=== PATIENT | male | born 1930 | race Caucasian/White ===

== ENCOUNTER → 2016-10-18 | Outpatient (CLI) | payer MEDICARE, BC ==
--- NOTE | 2016-10-18 14:57 | CT ---
EXAMINATION TYPE: CT brain wo con DATE OF EXAM: 10/18/2016 COMPARISON: NONE HISTORY: Headache and high blood pressure. CT DLP: 1121.[address] of the brain was performed. The ventricles, basal cisterns and sulci overlying the cerebral convexities demonstrate mild enlargem ent. There is no evidence for intracranial hemorrhage or sulcal effacement. There is decreased attenuation about the periventricular white matter and deep white matter of both c erebral hemispheres, compatible with chronic small vessel ischemia. Differential diagnosis does inclu de demyelination. No mass effects are seen.No midline shift. Osseous calvarium is intact. If symptoms persist consider MRI. IMPRESSION: 1. Age related atrophic and chronic small vessel ischemic change without acute intracranial process s een at this time.
== END | disposition home or self-care (01) ==
LOC: RADCTMAIN 14:30
PROVIDERS: ATTEND Family Medicine
DX: G31.1 Senile degeneration of brain, not elsewhere classified (principal); I67.82 Cerebral ischemia
CPT/HCPCS: 36415; 70450; 84484

== ENCOUNTER → 2016-10-30 | Outpatient (CLI) | payer MEDICARE, BC ==
--- NOTE | 2016-10-30 22:55 | US ---
EXAMINATION TYPE: US carotid duplex BILAT DATE OF EXAM: 10/30/2016 COMPARISON: NONE CLINICAL HISTORY: 85-year-old male E78.5 hyperlipidemia. TECHNIQUE: Carotid duplex ultrasound examination. Indirect Doppler criteria was utilized. FINDINGS: EXAM MEASUREMENTS: RIGHT: Peak Systolic Velocity (PSV) cm/sec ----- Right CCA: 59.8 ----- Right ICA: 64.5 ----- Right ECA: 108.2 ICA/CCA ratio: 1.1 RIGHT: End Diastole cm/sec ----- Right CCA: 13.6 ----- Right ICA: 23.2 ----- Right ECA: 12.4 LEFT: Peak Systolic Velocity (PSV) cm/sec ----- Left CCA: 49.3 ----- Left ICA: 76.4 ----- Left ECA: 86.7 ICA/CCA ratio: 1.5 LEFT: End Diastole cm/sec ----- Left CCA: 16.6 ----- Left ICA: 26.4 ----- Left ECA: 12.7 VERTEBRALS (direction of flow): Right Vertebral: Antegrade Left Vertebral: Antegrade Moderate plaque with no significant velocity elevations. IMPRESSION: No hemodynamically significant stenosis appreciated in either internal carotid artery. Criteria for Assigning % of Stenosis / Diameter reduction (Estimation based on the indirect measurements of the internal carotid artery velocities (ICA PSV). 1. Normal (no stenosis)=ICA PSV < 125 cm/s: ratio < 2.0: ICA EDV<40 cm/s. 2. Less than 50% stenosis=ICA PSV < 125 cm/s: ratio < 2.0: ICA EDV<40 cm/s. 3. 50 to 69% stenosis=ICA PSV of 125 to 230 cm/s: ration 2.0 ? 4.0: ICA EDV 40-100 cm/s. 4. Greater than 70% stenosis to near occlusion= ICA PSV > 230 cm/s: ratio > 4.0: ICA EDV > 100 cm/s. 5. Near occlusion= ICA PSV velocities may be low or undetectable: variable ratio and ICA EDV. 6. Total occlusion=unable to detect flow.
== END ==
LOC: RADUSWWP 15:52
PROVIDERS: ATTEND Family Medicine
DX: E78.5 Hyperlipidemia, unspecified (principal)
CPT/HCPCS: 93880

== ENCOUNTER → 2020-01-26 | Outpatient (CLI) | payer MEDICARE, BC ==
--- NOTE | 2020-01-26 16:24 | CT ---
EXAMINATION TYPE: CT abdomen pelvis wo con, CT ChestAbdPelvis w con DATE OF EXAM: 01/26/2020 COMPARISON: CTA abdominal aorta 11/18/2015 HISTORY: Blood in stool, fatigue and anemia CT DLP: 2046 mGycm Automated exposure control for dose reduction was used. TECHNIQUE: CT axial imaging of the abdomen and pelvis performed from the lung bases through the pelv is without intravenous contrast. CT axial imaging of the chest, abdomen, and pelvis performed with ad ministration of intravenous contrast from the lung apices through the pelvis. Coronal and sagittal re formatted images. CONTRAST: Performed with Oral Contrast and with IV Contrast, patient injected with 100 ml mL of Isovue 300. FINDINGS: LUNGS: Lungs are grossly clear. No concerning parenchymal mass or nodule identified. Perifissural fla t 3 mm nodule of the right lower lobe (9:33, 11:84) and is likely perifissural lymph node. Large calc ified nodule of the left lower lobe is unchanged versus 11/18/2015. Perifissural left lower lobe trian gular shaped 3 mm nodule (9:29, 11:42) is also likely a perifissural lymph node. Scattered calcified granulomas. No pleural effusion. No pneumothorax. The tracheobronchial tree is patent. MEDIASTINUM/SOFT TISSUES: No axillary, hilar, or mediastinal lymphadenopathy greater than 1 cm. Lilia l valve prosthesis. Enlarged left atrium of the heart. Calcified coronary artery disease. No pericard ial effusion. No thoracic aortic aneurysm. Calcified and noncalcified atherosclerotic disease. LIVER: Left hepatic cyst (4:15) measures 1.1 cm. Left liver segment 2 demonstrates arterially enhanci ng 0.8 cm focus (8:50, 11:61, 10:25), which is isodense on 3 minute delayed imaging, likely represent ing peripheral vascular shunting. BILIARY SYSTEM: Status post cholecystectomy. No intrahepatic or extrahepatic biliary ductal dilatatio n. PANCREAS: Normal. SPLEEN: Calcified granulomas. ADRENALS: Normal. KIDNEYS: No hydronephrosis. Calcifications bilaterally appear vascular. No definitive nephrolithiasis . Left renal cyst. BOWEL: No obstruction, inflammation, or thickening. Minimal colonic diverticulosis. No acute diverti culitis. PERITONEUM: No pneumoperitoneum. No free fluid. Bilateral fat-containing inguinal hernias. LYMPH NODES: No lymphadenopathy. PELVIS: Large 2.1 x 2.3 cm bladder calculus seen dependently within the right urinary bladder. Additi onal punctate layering bladder calculi are seen (8:106). There is no bladder wall thickening or peric ystic inflammation. Markedly enlarged prostate measuring approximately 3.7 x 6.1 x 5.3 cm. VASCULATURE: There is a redemonstrated infrarenal abdominal aortic aneurysm, which has increased in size, currently measuring up to 4.3 x 4.6 cm AP and transverse (8:80), previously 3.7 x 3.7 cm on 10/24 comparison. MUSCULOSKELETAL: Sternotomy wires. Decreased osseous mineralization. Degenerative changes of the spi ne. Mild superior endplate compression deformity of L1 is unchanged versus 2016 CT comparison. IMPRESSION: 1. No evidence of bowel obstruction or inflammation to explain patient's blood in stool. 2. Interval increase in size of infrarenal abdominal aortic aneurysm. Currently measures 4.3 x 4.6 cm AP and transverse, previously 3.7 x 3.7 cm on 11/18/2015. 3. Urinary bladder 2.3 cm calculus, with layering additional punctate bladder calculi. 4. Marked prostatomegaly. 5. Additional nonacute findings as above.
== END | disposition home or self-care (01) ==
LOC: RADCTMAIN 10:39
PROVIDERS: ATTEND Family Medicine
DX: I71.4 Abdominal aortic aneurysm, without rupture (principal); N21.0 Calculus in bladder; N40.0 Benign prostatic hyperplasia without lower urinary tract symptoms; R91.1 Solitary pulmonary nodule; I51.7 Cardiomegaly; I25.10 Atherosclerotic heart disease of native coronary artery without angina pectoris; K76.89 Other specified diseases of liver; N28.1 Cyst of kidney, acquired; K57.30 Diverticulosis of large intestine without perforation or abscess without bleeding; K40.20 Bilateral inguinal hernia, without obstruction or gangrene, not specified as recurrent; Z90.49 Acquired absence of other specified parts of digestive tract
CPT/HCPCS: 82565; 84520; 71260; 74176; 74177; 36415; Q9967

== ENCOUNTER 2020-04-04 18:11 | Inpatient (IN) | payer MEDICARE, BC ==
[2020-04-04] MEDS ORDERED: PANTOPRAZOLE 40 MG/10 ML VIAL IVP STA (18:34)
--- NOTE | 2020-04-04 18:36 | ED ---
General Adult HPI - General Chief complaint: Recheck/Abnormal Lab/Rx Stated complaint: Low hemoglobin Time Seen by Provider: 04/04/20 18:22 Source: patient, family, RN notes reviewed Mode of arrival: ambulatory Limitations: no limitations - History of Present Illness Initial comments: Patient is a pleasant 89-year-old male presenting to the emergency Department with reported low hemoglobin. Patient had routine blood work done by his doctor and was called with results of low hemoglobin. Patient states he has been having dark stools recently however this has improved. Patient states he has been having some fatigue and exertional dyspnea. These symptoms have been occurring for weeks. Patient is on blood thinners for history of heart valve. - Related Data Home Medications Medication Instructions Recorded Confirmed Aspirin 81 mg PO Q48H 11/04/15 04/04/20 Atenolol [Tenormin] 50 mg PO HS 04/04/20 04/04/20 Atorvastatin [Lipitor] 40 mg PO HS 04/04/20 04/04/20 Losartan Potassium 100 mg PO DAILY 04/04/20 04/04/20 Omeprazole 40 mg PO DAILY 04/04/20 04/04/20 Warfarin Sodium [Jantoven] 3 mg PO Q48H 04/04/20 04/04/20 Warfarin Sodium [Jantoven] 5 mg PO Q48H 04/04/20 04/04/20 amLODIPine [Norvasc] 10 mg PO DAILY 04/04/20 04/04/20 hydroCHLOROthiazide [Hydrodiuril] 25 mg PO DAILY 04/04/20 04/04/20 Allergies Allergy/AdvReac Type Severity Reaction Status Date / Time No Known Allergies Allergy Verified 04/04/20 19:22 Review of Systems ROS Statement: Those systems with pertinent positive or pertinent negative responses have been documented in the HPI. ROS Other: All systems not noted in ROS Statement are negative. Constitutional: Denies: fever Eyes: Denies: eye pain ENT: Denies: ear pain Respiratory: Reports: as per HPI. Denies: cough Cardiovascular: Denies: chest pain Endocrine: Reports: fatigue Gastrointestinal: Denies: abdominal pain Genitourinary: Denies: dysuria Musculoskeletal: Denies: back pain Skin: Denies: rash Neurological: Denies: weakness Past Medical History Past Medical History: Vascular Disorder Additional Past Medical History / Comment(s): irreg hr History of Any Multi-Drug Resistant Organisms: None Reported Additional Past Surgical History / Comment(s): valve replacement Past Anesthesia/Blood Transfusion Reactions: No Reported Reaction Past Psychological History: No Psychological Hx Reported Past Alcohol Use History: None Reported Past Drug Use History: None Reported - Past Family History Father Family Medical History: No Reported History Mother Family Medical History: No Reported History General Exam Limitations: no limitations General appearance: alert, in no apparent distress Head exam: Present: normocephalic Eye exam: Present: normal appearance Neck exam: Present: normal inspection Respiratory exam: Present: normal lung sounds bilaterally Cardiovascular Exam: Present: regular rate, normal rhythm, systolic murmur GI/Abdominal exam: Present: soft. Absent: tenderness Rectal exam: Present: normal inspection Extremities exam: Present: normal inspection Neurological exam: Present: alert Psychiatric exam: Present: normal affect, normal mood Skin exam: Present: normal color Course Vital Signs 04/04/20 18:17 Temperature 98.0 F Pulse Rate 64 Respiratory 16 Rate Blood Pressure 115/47 O2 Sat by Pulse 99 Oximetry Medical Decision Making - Medical Decision Making Patient reevaluated. Patient and family updated. Case discussed with Dr. Arias, covering for Dr. Lopez, who will admit. Case also discussed with gastroenterology, - Lab Data Result diagrams: 04/04/20 18:56 04/04/20 18:56 Lab Results 04/04/20 04/04/20 04/04/20 Range/Units 18:56 18:56 18:56 WBC 6.7 (3.8-10.6) k/uL RBC 2.66 L (4.30-5.90) m/uL Hgb 8.4 L (13.0-17.5) gm/dL Hct 24.5 L (39.0-53.0) % MCV 92.2 (80.0-100.0) fL MCH 31.6 (25.0-35.0) pg MCHC 34.3 (31.0-37.0) g/dL RDW 13.9 (11.5-15.5) % Plt Count 167 (150-450) k/uL MPV 8.8 Neutrophils % 76 % Lymphocytes % 15 % Monocytes % 7 % Eosinophils % 1 % Basophils % 0 % Neutrophils # 5.1 (1.3-7.7) k/uL Lymphocytes # 1.0 (1.0-4.8) k/uL Monocytes # 0.5 (0-1.0) k/uL Eosinophils # 0.0 (0-0.7) k/uL Basophils # 0.0 (0-0.2) k/uL Hypochromasia Slight Poikilocytosis Moderate PT 14.5 H (9.0-12.0) sec INR 1.4 H (<1.2) APTT 24.4 (22.0-30.0) sec Sodium (137-145) mmol/L Potassium (3.5-5.1) mmol/L Chloride (98-107) mmol/L Carbon Dioxide (22-30) mmol/L Anion Gap mmol/L BUN (9-20) mg/dL Creatinine (0.66-1.25) mg/dL Est GFR (CKD-EPI)AfAm (>60 ml/min/1.73 sqM) Est GFR (CKD-EPI)NonAf (>60 ml/min/1.73 sqM) Glucose (74-99) mg/dL Calcium (8.4-10.2) mg/dL Total Bilirubin (0.2-1.3) mg/dL AST (17-59) U/L ALT (4-49) U/L Alkaline Phosphatase (38-126) U/L Total Protein (6.3-8.2) g/dL Albumin (3.5-5.0) g/dL Stool Occult Blood Positive (Negative) Blood Type Blood Type Recheck Bld Type Recheck Status Antibody Screen Spec Expiration Date 04/04/20 04/04/20 Range/Units 18:56 18:56 WBC (3.8-10.6) k/uL RBC (4.30-5.90) m/uL Hgb (13.0-17.5) gm/dL Hct (39.0-53.0) % MCV (80.0-100.0) fL MCH (25.0-35.0) pg MCHC (31.0-37.0) g/dL RDW (11.5-15.5) % Plt Count (150-450) k/uL MPV Neutrophils % % Lymphocytes % % Monocytes % % Eosinophils % % Basophils % % Neutrophils # (1.3-7.7) k/uL Lymphocytes # (1.0-4.8) k/uL Monocytes # (0-1.0) k/uL Eosinophils # (0-0.7) k/uL Basophils # (0-0.2) k/uL Hypochromasia Poikilocytosis PT (9.0-12.0) sec INR (<1.2) APTT (22.0-30.0) sec Sodium 137 (137-145) mmol/L Potassium 3.4 L (3.5-5.1) mmol/L Chloride 103 (98-107) mmol/L Carbon Dioxide 25 (22-30) mmol/L Anion Gap 9 mmol/L BUN 36 H (9-20) mg/dL Creatinine 1.65 H (0.66-1.25) mg/dL Est GFR (CKD-EPI)AfAm 43 (>60 ml/min/1.73 sqM) Est GFR (CKD-EPI)NonAf 37 (>60 ml/min/1.73 sqM) Glucose 130 H (74-99) mg/dL Calcium 9.3 (8.4-10.2) mg/dL Total Bilirubin 1.0 (0.2-1.3) mg/dL AST 28 (17-59) U/L ALT 18 (4-49) U/L Alkaline Phosphatase 74 (38-126) U/L Total Protein 6.5 (6.3-8.2) g/dL Albumin 3.8 (3.5-5.0) g/dL Stool Occult Blood (Negative) Blood Type O Positive Blood Type Recheck O Pos Bld Type Recheck Status No Antibody Screen NEGATIVE Spec Expiration Date 04/07/20202355 Disposition Clinical Impression: GI hemorrhage Disposition: ADMITTED IP TO THIS HOSP Is patient prescribed a controlled substance at d/c from ED?: No Referrals: Murtaza Lopez MD [Primary Care Provider] - 1-2 days Decision Time: 19:54
[2020-04-04 19:08] LABS: Basophils % (A) 0 %; Eosinophils % (A) 1 %; HCT 24.5 % (39.0-53.0); HGB 8.4 gm/dL (13.0-17.5); Hypochromasia Slight; Lymphocytes % (A) 15 %; MCH 31.6 pg (25.0-35.0); MCHC 34.3 g/dL (31.0-37.0); MCV 92.2 fL (80.0-100.0); Mean Platelet Volume 8.8; Monocytes # (A) 0.5 k/uL (0-1.0); Monocytes % (A) 7 %; Neutrophils # (A) 5.1 k/uL (1.3-7.7); Neutrophils % (A) 76 %; Platelet Count 167 k/uL (150-450); Poikilocytosis Moderate; RBC 2.66 m/uL (4.30-5.90); RDW 13.9 % (11.5-15.5); WBC 6.7 k/uL (3.8-10.6)
[2020-04-04 19:16] LABS: INR 1.4 (<1.2); Partial Thromboplastin Time 24.4 sec (22.0-30.0); Prothrombin Time 14.5 sec (9.0-12.0)
[2020-04-04 19:21] LABS: Albumin 3.8 g/dL (3.5-5.0); Calcium 9.3 mg/dL (8.4-10.2); Potassium 3.4 mmol/L (3.5-5.1); Total Protein 6.5 g/dL (6.3-8.2)
[2020-04-04] MEDS ORDERED: NALOXONE 0.4 MG/ML 1 ML VIAL IV PRN (19:55)
[2020-04-04] MEDS: SODIUM CHLORIDE 0.9% 1,000 ML IV SCH (20:33)
[2020-04-04] MEDS: atenoloL 50 MG TAB PO SCH (22:10)
[2020-04-05] MEDS: SODIUM CHLORIDE 0.9% 1,000 ML IV SCH ×3 (05:15→20:58)
[2020-04-05 06:50] LABS: Basophils % (A) 0 %; Eosinophils # (A) 0.1 k/uL (0-0.7); Eosinophils % (A) 1 %; HCT 21.9 % (39.0-53.0); HGB 7.3 gm/dL (13.0-17.5); Hypochromasia Slight; Lymphocytes # (A) 0.9 k/uL (1.0-4.8); Lymphocytes % (A) 18 %; MCHC 33.4 g/dL (31.0-37.0); MCV 92.8 fL (80.0-100.0); Monocytes # (A) 0.3 k/uL (0-1.0); Monocytes % (A) 7 %; Neutrophils # (A) 3.8 k/uL (1.3-7.7); Neutrophils % (A) 73 %; Platelet Count 138 k/uL (150-450); Poikilocytosis Moderate; RBC 2.36 m/uL (4.30-5.90); RDW 13.8 % (11.5-15.5); WBC 5.2 k/uL (3.8-10.6)
[2020-04-05] MEDS: amLODIPine 10 MG TAB PO SCH (08:41)
[2020-04-05] MEDS: hydroCHLOROthiazide 25 MG TAB PO SCH (08:41)
[2020-04-05] MEDS: LOSARTAN 50 MG TAB PO SCH (08:42)
[2020-04-05] MEDS ORDERED: PANTOPRAZOLE 40 MG/10 ML VIAL IV SCH (09:00)
[2020-04-05 09:33] LABS: INR 1.42 (0.90-1.11); Prothrombin Time 14.9 sec (9.9-11.9)
[2020-04-05 10:11] LABS: African American GFR (CKD) 47.8 (60.0-200.0); Anion Gap 6.2 mmol/L (4.00-12.00); Calcium 8.4 mg/dL (8.7-10.3); Carbon Dioxide 26.8 mmol/L (21.6-31.8); Non-African American GFR(CKD) 41.3 (60.0-200.0); Potassium 3.5 mmol/L (3.5-5.5)
[2020-04-05] MEDS ORDERED: PANTOPRAZOLE 40 MG TABLET PO SCH (11:00)
[2020-04-05] MEDS ORDERED: PROPOFOL 10 MG/ML 20 ML VIAL IV ONE (13:18)
[2020-04-05] MEDS ORDERED: SODIUM CHLORIDE 0.9% 1,000 ML IV ONE (13:25)
[2020-04-05] MEDS ORDERED: PEG 3350-NA SULF,BICARB,CL/KCL 4,000 ML BOTTLE PO ONE (13:41)
--- NOTE | 2020-04-05 14:03 | P.CONS ---
History of Present Illness - Reason for Consult Consult date: 04/05/20 Anemia Requesting physician: Robbin Arias - Chief Complaint Abnormal lab - History of Present Illness 89-year-old male with a medical history significant for mechanical heart valve and prior balloon angioplasty for treatment of peripheral arterial disease who presented to the hospital for evaluation of abnormal labs. The patient had routine blood work performed in the outpatient setting and was told to come to the hospital or evaluation of anemia. Patient is on anti-coagulation therapy chronically for treatment of prior mitral valve replacement. INR found to be 1.4 on presentation. Hemoglobin 8.3 yesterday and 7.3 today. Patient denies any history of peptic ulcer disease. He denies any chronic use of nonsteroidal anti-inflammatory medications. He does feel that approximately a month ago he had a few days of dark colored bowel movements but since that time his had no further melena. He denies any abdominal pain. He denies any change in bowel habits. No prior colonoscopy reported. She does report approximately 10 pounds of weight loss over the past 6 months. Review of Systems REVIEW OF SYSTEMS: CONSTITUTIONAL: Denies any fevers, chills, but he does report 10 pounds of weight loss. CARDIOVASCULAR: Denies any chest pain, palpitations high or low blood pressures, known history of mechanical valve. RESPIRATORY: Denies any shortness of breath, hemoptysis or cough. GENITOURINARY: No dysuria or hematuria. MUSCULOSKELETAL: No weakness reported. SKIN: Denies any new rashes or lesions, jaundice or pallor. PSYCHIATRIC: Denies any depression or anxiety. NEUROLOGY: Denies headache, denies any new focal deficits. EARS/NOSE/THROAT: No recent hearing change, congestion, nasal discharge or sore throat. EYES: No pain in eyes, discharge or change in vision. GASTROINTESTINAL: As per HPI. Past Medical History Past Medical History: Vascular Disorder Additional Past Medical History / Comment(s): irreg hr History of Any Multi-Drug Resistant Organisms: None Reported Additional Past Surgical History / Comment(s): valve replacement Past Anesthesia/Blood Transfusion Reactions: No Reported Reaction Past Psychological History: No Psychological Hx Reported Smoking Status: Never smoker Past Alcohol Use History: None Reported Past Drug Use History: None Reported - Past Family History Father Family Medical History: No Reported History Mother Family Medical History: No Reported History Medications and Allergies Home Medications Medication Instructions Recorded Confirmed Type Aspirin 81 mg PO Q48H 11/04/15 04/04/20 History Atenolol [Tenormin] 50 mg PO HS 04/04/20 04/04/20 History Atorvastatin [Lipitor] 40 mg PO HS 04/04/20 04/04/20 History Losartan Potassium 100 mg PO DAILY 04/04/20 04/04/20 History Omeprazole 40 mg PO DAILY 04/04/20 04/04/20 History Warfarin Sodium [Jantoven] 3 mg PO Q48H 04/04/20 04/04/20 History Warfarin Sodium [Jantoven] 5 mg PO Q48H 04/04/20 04/04/20 History amLODIPine [Norvasc] 10 mg PO DAILY 04/04/20 04/04/20 History hydroCHLOROthiazide [Hydrodiuril] 25 mg PO DAILY 04/04/20 04/04/20 History Allergies Allergy/AdvReac Type Severity Reaction Status Date / Time No Known Allergies Allergy Verified 04/04/20 19:22 Physical Exam Vitals: Vital Signs Temp Pulse Pulse Resp BP BP Pulse Ox 04/05/20 12:17 74 14 91/46 90 L 04/05/20 07:39 98.2 F 63 18 94/57 91 L 04/05/20 03:33 96/53 96 04/05/20 02:00 98.8 F 70 18 89/74 91 L 04/04/20 21:27 16 98 04/04/20 20:02 97.8 F 64 16 100/55 98 04/04/20 18:17 98.0 F 64 16 115/47 99 Intake and Output 04/04/20 04/05/20 04/05/20 22:59 06:59 14:59 Intake Total 960 Balance 960 Intake: Intake, IV Titration 960 Amount Sodium Chloride 0.9% 1, 960 000 ml @ 120 mls/hr IV . Q8H20M [facility] Rx#:[id number] Other: Voiding Method Toilet # Voids 1 Weight 69.853 kg On physical examination, patient appears comfortable in no apparent distress. HEAD: Normocephalic, atraumatic. EYES: No scleral icterus. No conjunctival injection. MOUTH: No lesions, tongue midline. NECK: Trachea midline, no gross abnormalities. CHEST: Decreased air entry in all lung ayala. HEART: S1-S2 appreciated. ABDOMEN: Soft, thin and nontender. Bowel sounds are positive. No organomegaly. No guarding or rigidity. EXTREMITIES: No pedal edema. SKIN: No rashes, no jaundice. NEUROLOGIC: Alert and oriented x3. No focal deficits. Results CBC & Chem 7: 04/05/20 06:11 04/05/20 06:11 Labs: Abnormal Lab Results - Last 24 Hours (Table) 04/04/20 04/04/20 04/04/20 Range/Units 18:56 18:56 18:56 RBC 2.66 L (4.30-5.90) m/uL Hgb 8.4 L (13.0-17.5) gm/dL Hct 24.5 L (39.0-53.0) % Plt Count (150-450) k/uL Lymphocytes # (1.0-4.8) k/uL PT 14.5 H (9.0-12.0) sec INR 1.4 H (<1.2) Potassium 3.4 L (3.5-5.1) mmol/L BUN 36 H (9-20) mg/dL Creatinine 1.65 H (0.66-1.25) mg/dL Est GFR (CKD-EPI)AfAm (60.0-200.0) Est GFR (CKD-EPI)NonAf (60.0-200.0) BUN/Creatinine Ratio (12.00-20.00) Ratio Glucose 130 H (74-99) mg/dL Calcium (8.7-10.3) mg/dL Crossmatch 04/04/20 04/05/20 04/05/20 Range/Units 18:56 06:11 06:11 RBC 2.36 L (4.30-5.90) m/uL Hgb 7.3 L (13.0-17.5) gm/dL Hct 21.9 L (39.0-53.0) % Plt Count 138 L (150-450) k/uL Lymphocytes # 0.9 L (1.0-4.8) k/uL PT 14.9 H (9.0-12.0) sec INR 1.42 H (<1.2) Potassium (3.5-5.1) mmol/L BUN (9-20) mg/dL Creatinine (0.66-1.25) mg/dL Est GFR (CKD-EPI)AfAm (60.0-200.0) Est GFR (CKD-EPI)NonAf (60.0-200.0) BUN/Creatinine Ratio (12.00-20.00) Ratio Glucose (74-99) mg/dL Calcium (8.7-10.3) mg/dL Crossmatch See Detail 04/05/20 Range/Units 06:11 RBC (4.30-5.90) m/uL Hgb (13.0-17.5) gm/dL Hct (39.0-53.0) % Plt Count (150-450) k/uL Lymphocytes # (1.0-4.8) k/uL PT (9.0-12.0) sec INR (<1.2) Potassium (3.5-5.1) mmol/L BUN 33.0 H (9-20) mg/dL Creatinine (0.66-1.25) mg/dL Est GFR (CKD-EPI)AfAm 47.8 L (60.0-200.0) Est GFR (CKD-EPI)NonAf 41.3 L (60.0-200.0) BUN/Creatinine Ratio 22.00 H (12.00-20.00) Ratio Glucose (74-99) mg/dL Calcium 8.4 L (8.7-10.3) mg/dL Crossmatch CT scan - abdomen: report reviewed (Computed tomography scan of the abdomen from 01/2020 for follow-up of blood in stool significant for prostatomegaly, bladder calculus, abdominal aortic aneurysm with no acute intra-abdominal findings seen.) Assessment and Plan (1) Normocytic normochromic anemia Narrative/Plan: 89-year-old male with multiple medical comorbidities including prior mitral valve replacement on chronic anticoagulation therapy who presented to the hospital for evaluation of abnormal laboratory drawing outpatient setting and anemia. He believes he had a few days of melanotic stool month ago but has had no further dark colored stool. He denies any gross bleeding. He did have stool testing which was positive for occult blood with CT scanning evaluation in 01/2020 with findings of prostatomegaly, bladder calculus, abdominal aortic aneurysm with no acute intra-abdominal findings. No prior colonoscopy. He denies any frequent NSAID use. Unclear etiology, may represent upper GI patholo gy such as peptic ulcer disease, gastritis, AVM or other etiology or may represent lower GI pathology or anemia due to other pathology not related to GI blood loss Current Visit: Yes Status: Acute Code(s): D64.9 - ANEMIA, UNSPECIFIED SNOMED Code(s): 69645468 (2) Occult blood positive stool Current Visit: Yes Status: Acute Code(s): R19.5 - OTHER FECAL ABNORMALITIES SNOMED Code(s): 05665060 (3) Melena Current Visit: Yes Status: Acute Code(s): K92.1 - MELENA SNOMED Code(s): 9507276 Plan: Supportive care Nothing by mouth Continue to monitor hemoglobin and hematocrit and transfuse as needed Continue to hold anticoagulation therapy Continue Protonix therapy Plan for EGD for further evaluation If no pathology to explain anemia on EGD would recommend colonoscopy for further evaluation All of the risks, benefits and possible complications of the procedures including not performing the procedures and continuing with medical management have been explained to the patient at length with all his questions answered to his satisfaction Thank you for allowing us to participate in the care of the patient we will con sallie to follow
--- NOTE | 2020-04-05 14:06 | P.PCN ---
Date of Procedure: 04/05/20 Description of Procedure: BRIEF HISTORY: 89-year-old male with a medical history significant for mechanical heart valve and prior balloon angioplasty for treatment of peripheral arterial disease who presented to the hospital for evaluation of abnormal labs. The patient had routine blood work performed in the outpatient setting and was told to come to the hospital or evaluation of anemia. Patient is on anti-coagulation therapy chronically for treatment of prior mitral valve replacement. INR found to be 1.4 on presentation. Hemoglobin 8.3 yesterday and 7.3 today. Patient denies any history of peptic ulcer disease. He denies any chronic use of nonsteroidal anti-inflammatory medications. He does feel that approximately a month ago he had a few days of dark colored bowel movements but since that time his had no further melena. He denies any abdominal pain. He denies any change in bowel habits. No prior colonoscopy reported. She does report approximately 10 pounds of weight loss over the past 6 months. PROCEDURE PERFORMED: Esophagogastroduodenoscopy with biopsy. PREOPERATIVE DIAGNOSIS: Anemia, melena, stool positive for occult blood. ESTIMATED BLOOD LOSS: Minimal. IV sedation per anesthesia. PROCEDURE: After informed consent was obtained, the patient was brought into the endoscopy unit. IV sedation was administered by Anesthesia under continuous monitoring. Initially the Olympus GIF-190 video endoscope was inserted into the mouth. Esophagus intubated without any difficulty. It was gradually advanced into the stomach and duodenum and carefully examined. The bulb and the second part of the duodenum appeared normal, with biopsies taken to rule out celiac sprue. The scope at this time was withdrawn to the stomach, adequately insufflated with air, and upon careful examination, mucosa of the antrum, body, cardia and the fundus appeared normal, except for some mild scattered erythema in the antrum and body suggestive of mild gastritis biopsy. The scope was then withdrawn into the esophagus. The GE junction was located at 37 cm from the incisors. The esophagus appeared normal. There were no erosions or ulcerations seen and the patient tolerated the procedure well. IMPRESSION: 1. Mild gastritis. 2. Biopsies of the duodenum, antrum and body, GE junction. 3. No old blood, active bleeding or pathology to explain anemia. RECOMMENDATIONS: The findings of this examination were discussed with the patient . Okay for liquid diet. Continue to follow hemoglobin and hematocrit and transfuse as needed. Continue to hold anticoagulation therapy at this time. Extensive discussion with the patient regarding the possibility of no pathology to explain anemia found on EGD and the patient is willing to proceed with colonoscopy, all of the risks, benefits and possible couple patient's of the procedure is findings of the patient at length with all of his questions answered to his satisfaction, plan to do the procedure tomorrow.
[2020-04-05] MEDS ORDERED: ENOXAPARIN 100 MG/ML SYRINGE SQ STA (14:32)
[2020-04-05 14:42] VITALS: BMI 24.1
[2020-04-05] MEDS: ATORVASTATIN 40 MG TAB PO SCH (20:57)
[2020-04-05] MEDS: atenoloL 50 MG TAB PO SCH (20:57)
--- NOTE | 2020-04-05 21:14 | P.HPIM ---
History of Present Illness H&P Date: 04/05/20 Chief Complaint: dark stools History of presenting complaint: This is a very pleasant 89-year-old patient of Dr. Murtaza Lopez. Chronic stable medical conditions include hypertension, atrial fibrillation, hyperlipidemia, has a mechanical valve for which patient is on Coumadin. For 1 week patient's had bout stools. Patient denies having tightness fatigue some exertional d yspnea. Hemoglobin was found to be 8.4. INR on presentation was 1.4. GI was consulted. Patient feels tired. Review of systems: GEN.: Tired EYES: None HEENT: None NECK: None RESPIRATORY: None CARDIOVASCULAR: None GASTROINTESTINAL: As above GENITOURINARY: None MUSCULOSKELETAL: Some joint pains LYMPHATICS: None HEMATOLOGICAL: None PSYCHIATRY: None NEUROLOGICAL: None Past medical history to include: Hypertension, atrial fibrillation, hyperlipidemia, peripheral arterial disease, mechanical mitral valve Social history: Does not smoke or drink alcohol. Son lives with him. 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 EYES: Pupils equal. Conjunctiva palel. HEENT: External appearance of nose and ears normal, oral cavity grossly normal. NECK: JVD not raised; masses not palpable. HEART: Irregular no edema. LUNGS: Respiratory rate normal; clear to auscultation. ABDOMEN: Soft, nontender, liver spleen not palpable, no masses palpable. PSYCH: Alert and oriented x3; mood and affect normal. NEUROLOGICAL: Cranial nerves grossly intact; no facial asymmetry, power and sensation grossly intact. LYMPHATICS: No lymph nodes palpable in the axilla and neck INVESTIGATIONS, reviewed in the clinical context: White count 5.2 hemoglobin 7.3 platelets 138 INR 4.42 potassium 3.5 bun 33 cre atinine 1.5 Admission testing: Hemoglobin 8.6 potassium 3.4 creatinine 1.65 Stool occult blood positive Assessment: -This is a patient presented with dark stools for about a week. In a patient who is on Coumadin. -Essential hypertension -Persistent atrial fibrillation -Hyperlipidemia -Mechanical mitral valve Plan: GI was consulted. Planning is for patient to endoscopy tomorrow. In meantime we'll give 1 dose of Lovenox 100 mg for bridging until tomorrow. Care was discussed with the patient and questions answered.. Past Medical History Past Medical History: Vascular Disorder Additional Past Medical History / Comment(s): irreg hr History of Any Multi-Drug Resistant Organisms: None Reported Additional Past Surgical History / Comment(s): valve replacement Past Anesthesia/Blood Transfusion Reactions: No Reported Reaction Past Psychological History: No Psychological Hx Reported Smoking Status: Never smoker Past Alcohol Use History: None Reported Past Drug Use History: None Reported - Past Family History Father Family Medical History: No Reported History Mother Family Medical History: No Reported History Medications and Allergies Home Medications Medication Instructions Recorded Confirmed Type Aspirin 81 mg PO Q48H 11/04/15 04/04/20 History Atenolol [Tenormin] 50 mg PO HS 04/04/20 04/04/20 History Atorvastatin [Lipitor] 40 mg PO HS 04/04/20 04/04/20 History Losartan Potassium 100 mg PO DAILY 04/04/20 04/04/20 History Omeprazole 40 mg PO DAILY 04/04/20 04/04/20 History Warfarin Sodium [Jantoven] 3 mg PO Q48H 04/04/20 04/04/20 History Warfarin Sodium [Jantoven] 5 mg PO Q48H 04/04/20 04/04/20 History amLODIPine [Norvasc] 10 mg PO DAILY 04/04/20 04/04/20 History hydroCHLOROthiazide [Hydrodiuril] 25 mg PO DAILY 04/04/20 04/04/20 History Allergies Allergy/AdvReac Type Severity Reaction Status Date / Time No Known Allergies Allergy Verified 04/04/20 19:22 Physical Exam Vitals: Vital Signs Temp Pulse Pulse Resp BP BP Pulse Ox 04/05/20 07:39 98.2 F 63 18 94/57 91 L 04/05/20 03:33 96/53 96 04/05/20 02:00 98.8 F 70 18 89/74 91 L 04/04/20 21:27 16 98 04/04/20 20:02 97.8 F 64 16 100/55 98 04/04/20 18:17 98.0 F 64 16 115/47 99 Intake and Output 04/04/20 04/05/20 04/05/20 22:59 06:59 14:59 Intake Total 960 Balance 960 Intake: Intake, IV Titration 960 Amount Sodium Chloride 0.9% 1, 960 000 ml @ 120 mls/hr IV . Q8H20M [facility] Rx#:[id number] Other: Voiding Method Toilet # Voids 1 Weight 69.853 kg Results CBC & Chem 7: 04/05/20 06:11 04/05/20 06:11 Labs: Abnormal Lab Results - Last 24 Hours (Table) 04/04/20 04/04/20 04/04/20 Range/Units 18:56 18:56 18:56 RBC 2.66 L (4.30-5.90) m/uL Hgb 8.4 L (13.0-17.5) gm/dL Hct 24.5 L (39.0-53.0) % Plt Count (150-450) k/uL Lymphocytes # (1.0-4.8) k/uL PT 14.5 H (9.0-12.0) sec INR 1.4 H (<1.2) Potassium 3.4 L (3.5-5.1) mmol/L BUN 36 H (9-20) mg/dL Creatinine 1.65 H (0.66-1.25) mg/dL Est GFR (CKD-EPI)AfAm (60.0-200.0) Est GFR (CKD-EPI)NonAf (60.0-200.0) BUN/Creatinine Ratio (12.00-20.00) Ratio Glucose 130 H (74-99) mg/dL Calcium (8.7-10.3) mg/dL 04/05/20 04/05/20 04/05/20 Range/Units 06:11 06:11 06:11 RBC 2.36 L (4.30-5.90) m/uL Hgb 7.3 L (13.0-17.5) gm/dL Hct 21.9 L (39.0-53.0) % Plt Count 138 L (150-450) k/uL Lymphocytes # 0.9 L (1.0-4.8) k/uL PT 14.9 H (9.0-12.0) sec INR 1.42 H (<1.2) Potassium (3.5-5.1) mmol/L BUN 33.0 H (9-20) mg/dL Creatinine (0.66-1.25) mg/dL Est GFR (CKD-EPI)AfAm 47.8 L (60.0-200.0) Est GFR (CKD-EPI)NonAf 41.3 L (60.0-200.0) BUN/Creatinine Ratio 22.00 H (12.00-20.00) Ratio Glucose (74-99) mg/dL Calcium 8.4 L (8.7-10.3) mg/dL Thrombosis Risk Factor Assmnt - Choose All That Apply Any of the Below Risk Factors Present?: No Other Risk Factors: Yes Each Risk Factor Represents 3 Points: Age 75 years or older Thrombosis Risk Factor Assessment Total Risk Factor Score: 3 Thrombosis Risk Factor Assessment Level: Moderate Risk
[2020-04-05] MEDS ORDERED: WARFARIN 7.5 MG TAB PO ONE (21:15)
[2020-04-06] MEDS ORDERED: FUROSEMIDE 10 MG/ML 4 ML VIAL IV ONE (01:05)
[2020-04-06 01:51] LABS: % Iron Saturation 5.35 (15.00-50.00); Folate, Serum 13.8 ng/mL
[2020-04-06 06:12] LABS: Basophils % (A) 0 %; Eosinophils % (A) 0 %; Hypochromasia Slight; Lymphocytes # (A) 0.8 k/uL (1.0-4.8); Lymphocytes % (A) 8 %; MCH 31.1 pg (25.0-35.0); MCHC 34.3 g/dL (31.0-37.0); MCV 90.7 fL (80.0-100.0); Mean Platelet Volume 7.9; Monocytes # (A) 0.8 k/uL (0-1.0); Monocytes % (A) 8 %; Neutrophils # (A) 9.1 k/uL (1.3-7.7); Neutrophils % (A) 83 %; Platelet Count 136 k/uL (150-450); Poikilocytosis Moderate; RBC 2.97 m/uL (4.30-5.90); RDW 14.9 % (11.5-15.5); WBC 10.9 k/uL (3.8-10.6)
[2020-04-06 06:28] LABS: HGB 9.3 gm/dL (13.0-17.5)
[2020-04-06] MEDS: SODIUM CHLORIDE 0.9% 1,000 ML IV SCH ×2 (07:43→12:12)
[2020-04-06] MEDS ORDERED: MAGNESIUM CITRATE 296 ML BOTTLE PO ONE (07:45)
[2020-04-06] MEDS: amLODIPine 10 MG TAB PO SCH (07:49)
[2020-04-06] MEDS: ENOXAPARIN 60 MG/0.6 ML SYRINGE SQ SCH ×2 (07:49→20:37)
[2020-04-06] MEDS: hydroCHLOROthiazide 25 MG TAB PO SCH (07:50)
[2020-04-06] MEDS: LOSARTAN 50 MG TAB PO SCH (07:50)
[2020-04-06] MEDS: PANTOPRAZOLE 40 MG TABLET PO SCH (07:54)
[2020-04-06 09:21] LABS: INR 1.4 (<1.2)
[2020-04-06] MEDS ORDERED: SODIUM CHLORIDE 0.9% 1,000 ML IV SCH (11:45)
[2020-04-06] MEDS ORDERED: SODIUM CHLORIDE 0.9% 500 ML 500 ML IV ONE (14:34)
[2020-04-06] MEDS ORDERED: PROPOFOL 10 MG/ML 20 ML VIAL IV ONE (14:36)
--- NOTE | 2020-04-06 15:29 | P.PCN ---
Date of Procedure: 04/06/20 Description of Procedure: BRIEF HISTORY: 89-year-old male with a medical history significant for mechanical heart valve and prior balloon angioplasty for treatment of peripheral arterial disease who presented to the hospital for evaluation of abnormal labs. The patient had routine blood work performed in the outpatient setting and was told to come to the hospital or evaluation of anemia. Patient is on anti-coagulation therapy chronically for treatment of prior mitral valve replacement. INR found to be 1.4 on presentation. Hemoglobin 8.3 yesterday and 7.3 today. Patient denies any history of peptic ulcer disease. He denies any chronic use of nonsteroidal anti-inflammatory medications. He does feel that approximately a month ago he had a few days of dark colored bowel movements but since that time his had no further melena. He denies any abdominal pain. He denies any change in bowel habits. He does report approximately 10 pounds of weight loss over the past 6 months. EGD performed in evaluation was significant only for gastritis and decision was made to pursue colonoscopy is a patient had never had endoscopic evaluation with colonoscopy in the past. PROCEDURE PERFORMED: Colonoscopy. PREOPERATIVE DIAGNOSIS: Melena, anemia, no prior colonoscopy. ESTIMATED BLOOD LOSS: Minimal. IV sedation per Anesthesia. PROCEDURE: After informed consent was obtained, the patient, was brought into the endoscopy unit. IV sedation was administered by Anesthesia under continuous monitoring. Digital rectal examination was normal. Initially the Olympus CF-190 flexible video colonoscope was then inserted in the rectum, gradually advanced into the cecum without any difficulty. Careful examination was performed as the scope was gradually being withdrawn. Ileocecal valve and the appendiceal orifice were visualized and appeared normal. Prep was excellent. Mucosa of the cecum, ascending colon, transverse colon, descending colon, sigmoid colon, and rectum appeared normal. The terminal ileum also appeared normal. A few scattered diverticula were noted throughout the colon. Low-grade internal hemorrhoids were seen on retroflexion with no other lesions seen on retroflexion. The patient tolerated the procedure well. IMPRESSION: Normal-appearing colon from rectum to cecum. Mild pandiverticulosis. Internal hemorrhoids. RECOMMENDATIONS: Findings of this examination were discussed with the patient. Okay to resume diet. Okay to resume medications including anticoagulation therapy. IV iron supplementation ordered. Continue to monitor hemoglobin and hematocrit and transfuse as needed. If patient remains anemia can consider video capsule endoscopy in the outpatient setting for further evaluation. Can consider referral to hematology service in the outpatient setting for continued monitoring and IV iron supplementation.
[2020-04-06] MEDS: SODIUM FERRIC GLUCONAT-SUCROSE 125 MG in SODIUM CHLORIDE 0.9% 100 ML IVPB SCH (15:59)
[2020-04-06] MEDS ORDERED: WARFARIN 5 MG TAB PO SCH (18:00)
[2020-04-06] MEDS: ATORVASTATIN 40 MG TAB PO SCH (20:33)
[2020-04-06] MEDS: atenoloL 50 MG TAB PO SCH (22:28)
--- NOTE | 2020-04-06 23:36 | P.PN ---
Progress Note - Text Progress Note Date: 04/06/20 Chief Complaint: dark stools History of presenting complaint: This is a very pleasant 89-year-old patient of Dr. Murtaza Lopez. Chronic stable medical conditions include hypertension, atrial fibrillation, hyperlipidemia, has a mechanical valve for which patient is on Coumadin. For 1 week patient's had bout stools. Patient denies having tightness fatigue some exertional dyspnea. Hemoglobin was found to be 8.4. INR on presentation was 1.4. GI was consulted. Patient feels tired. Today-saw the patient this morning. Pending endoscopy. No further bleeding. No abdominal pain. Review of systems: Was done for constitutional, cardiovascular, GI, pulmonary. relevant finding as above Active Medications Amlodipine Besylate (Amlodipine 10 Mg Tab) 10 mg PO DAILY [facility] Last Admin: 04/06/20 07:49 Dose: Not Given Documented by: Atenolol (Atenolol 50 Mg Tab) 50 mg PO [facility] Last Admin: 04/06/20 22:28 Dose: Not Given Documented by: Atorvastatin Calcium (Atorvastatin 40 Mg Tab) 40 mg PO [facility] Last Admin: 04/06/20 20:33 Dose: 40 mg Documented by: Enoxaparin Sodium (Enoxaparin 60 Mg/0.6 Ml Syringe) 60 mg SQ Q12HR [facility] Last Admin: 04/06/20 20:37 Dose: 60 mg Documented by: Hydrochlorothiazide (Hydrochlorothiazide 25 Mg Tab) 25 mg PO DAILY [facility] Last Admin: 04/06/20 07:50 Dose: 25 mg Documented by: Sodium Chloride (Saline 0.9%) 1,000 mls @ 10 mls/hr IV .Q24H [facility] Last Admin: 04/06/20 12:12 Dose: 10 mls/hr Documented by: Ferric Sodium Gluconate 125 mg (/ Sodium Chloride) 110 mls @ 100 mls/hr IVPB DAILY [facility] Stop: 04/08/20 10:05 Last Admin: 04/06/20 15:59 Dose: 100 mls/hr Documented by: Losartan Potassium (Losartan 50 Mg Tab) 100 mg PO DAILY [facility] Last Admin: 04/06/20 07:50 Dose: Not Given Documented by: Miscellaneous Information (Warfarin Per Pharmacy) 0 each MISCELLANE DIRECTED PRN PRN Reason: ANTICOAG Naloxone HCl (Naloxone 0.4 Mg/Ml 1 Ml Vial) 0.2 mg IV Q2M PRN PRN Reason: Opioid Reversal Pantoprazole Sodium (Pantoprazole 40 Mg Tablet) 40 mg PO DAILY@0730 [facility] Last Admin: 04/06/20 07:54 Dose: 40 mg Documented by: Warfarin Sodium (Warfarin 5 Mg Tab) 5 mg PO DAILY@1800 [facility]; Protocol Last Admin: 04/06/20 18:19 Dose: 5 mg Documented by: Past medical history to include: Hypertension, atrial fibrillation, hyperlipidemia, peripheral arterial disease, mechanical mitral valve Social history: Does not smoke or drink alcohol. Son lives with him. 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 EYES: Pupils equal. Conjunctiva palel. HEENT: External appearance of nose and ears normal, oral cavity grossly normal. NECK: JVD not raised; masses not palpable. HEART: Irregular no edema. LUNGS: Respiratory rate normal; clear to auscultation. ABDOMEN: Soft, nontender, liver spleen not palpable, no masses palpable. PSYCH: Alert and oriented x3; mood and affect normal. INVESTIGATIONS, reviewed in the clinical context: April 06: White count 10.9 hemoglobin 9.3 White count 5.2 hemoglobin 7.3 platelets 138 INR 4.42 potassium 3.5 bun 33 creatinine 1.5 Admission testing: Hemoglobin 8.6 potassium 3.4 creatinine 1.65 Stool occult blood positive Pzonxngqxby-dcxmzs-qycpmxbbo colon, mild and diverticulosis, internal hemorrhoids EGD-mild gastritis. Assessment: -Acute GI bleed from mild gastritis possibly from being on Coumadin -Essential hypertension -Persistent atrial fibrillation -Hyperlipidemia -Mechanical mitral valve Plan: Patient will be continued on PPI. Will cover with Lovenox until INR is therapeutic.
[2020-04-07 02:19] VITALS: PULSE 84
[2020-04-07] MEDS: ENOXAPARIN 60 MG/0.6 ML SYRINGE SQ SCH (07:53)
[2020-04-07] MEDS: PANTOPRAZOLE 40 MG TABLET PO SCH (07:53)
[2020-04-07] MEDS: LOSARTAN 50 MG TAB PO SCH (07:53)
[2020-04-07] MEDS: SODIUM FERRIC GLUCONAT-SUCROSE 125 MG in SODIUM CHLORIDE 0.9% 100 ML IVPB SCH (08:09)
[2020-04-07 08:14] VITALS: BP 98/55; RESP 16; TEMP 98.8
[2020-04-07] MEDS ORDERED: amLODIPine 5 MG TAB PO SCH (09:00)
[2020-04-07 10:02] LABS: INR 1.3 (0.90-1.11); Prothrombin Time 13.8 sec (9.9-11.9)
[2020-04-07 11:48] LABS: ABG Base Excess 1.5 mmol/L; ABG HCO3 25 mmol/L (21-25); ABG Oxygen Saturation 94.3 % (94-97); ABG PCO2 33 mmHg (35-45); ABG PH 7.49 (7.35-7.45); ABG PO2 64 mmHg (83-108); ABG TCO2 26 mmol/L (19-24); Allen Test Performed? Yes
[2020-04-07] MEDS: SODIUM CHLORIDE 0.9% 1,000 ML IV SCH (12:56)
--- NOTE | 2020-04-07 18:03 | P.PN ---
Subjective Progress Note Date: 04/07/20 Principal diagnosis: Black tarry stools, anemia Patient was seen and examined sitting up in bed. He denies any abdominal pain, nausea, or vomiting. Had no acute changes through the night. He is status post upper endoscopy and colonoscopy this admission. He is denying any active bleeding or blood in the stool. He is tolerating his diet. His hemoglobin was stable at 9.3. Objective - Vital Signs Vital signs: Vital Signs Temp 98.8 F 04/07/20 08:00 Pulse 84 04/07/20 08:00 Resp 16 04/07/20 08:00 BP 98/55 04/07/20 08:00 Pulse Ox 93 L 04/07/20 08:00 Intake & Output 04/06/20 04/07/20 04/07/20 18:59 06:59 18:59 Intake Total 1040 300 Output Total 1200 1500 1000 Balance -160 -1200 -1000 Intake: IV 400 Oral 440 150 Other 200 150 Output: Urine 1200 1500 1000 Other: Voiding Method Toilet Toilet Toilet # Voids 2 2 - Exam General appearance: The patient is alert, oriented, in no acute distress. HET: Head is normocephalic and atraumatic. Conjunctiva pink. Sclera anicteric. Neck: Supple without lymphadenopathy. Abdomen: Soft, nontender, nondistended with bowel sounds. No guarding or rigidity. Extremities: Normal skin color and turgor. No pedal edema Neurological: No focal deficits. Alert and oriented 3. - Labs CBC & Chem 7: 04/06/20 05:27 04/05/20 06:11 Assessment and Plan (1) Normocytic normochromic anemia Narrative/Plan: This is an 89-year-old male with multiple medical comorbidities including prior mitral valve replacement on chronic anticoagulation therapy who presented to the hospital for evaluation of abnormal laboratory drawing in the outpatient setting with anemia. He believes he had a few days of melanotic stools a month ago but has had no further dark stools recently. He denies any gross bleeding. He did have stool testing which was positive for occult blood with a computed tomography scan evaluation in 2019 with findings of prostatomegaly, bladder calculus, abdominal aortic aneurysm with no acute intra-abdominal findings. No prior colonoscopy. He denies frequent use of NSAIDs. Unclear etiology, may represent upper GI pathology such as peptic ulcer disease, gastritis, AVM or other etiology or may represent lower GI pathology or anemia due to other pathology cannot related to GI blood loss. He Underwent an upper endoscopy endings that revealed mild gastritis, no old blood or active bleeding or pathology to explain anemia. Biopsies of the duodenum, antrum and body and GE junction. He had a colonoscopy yesterday which showed a normal appearing colon from rectum to cecum. Mild pandiverticulosis. With internal hemorrhoids. IV iron supplementation ordered. If patient remains anemic can consider video capsule endoscopy in the outpatient setting for further evaluation. Status: Acute Code(s): D64.9 - ANEMIA, UNSPECIFIED SNOMED Code(s): 36999451 (2) Melena Status: Acute Code(s): K92.1 - MELENA SNOMED Code(s): 0994804 (3) Occult blood positive stool Status: Acute Code(s): R19.5 - OTHER FECAL ABNORMALITIES SNOMED Code(s): 86533665 Plan: 1. Supportive care 2. Advance diet as tolerated 3. Patient is status post upper endoscopy and colonoscopy 4. IV iron supplementation ordered 5. Continue Protonix 6. Continue to monitor CBC Thank you for this consultation, recommend follow-up in outpatient setting to review biopsies and consider possible small bowel video capsule endoscopy if having further episodes of bleeding or anemia. I agree with the dictator's note, documented as a scribe by Bessy Vargas.
--- NOTE | 2020-04-07 23:46 | P.DS ---
Providers Date of admission: 04/04/20 19:55 Expected date of discharge: 04/07/20 Attending physician: Robbin Arias Consults: 04/04/20 19:56 Consult Physician Urgent Consulting Provider: Ishan Newell Reason/Comments: gi hemorrhage Do you want consulting provider notified?: Already Contacted Primary care physician: Murtaza Lopez [facility] Course: Chief Complaint: dark stools History of presenting complaint: This is a very pleasant 89-year-old patient of Dr. Murtaza Lopez. Chronic stable medical conditions include hypertension, atrial fibrillation, hyperlipidemia, has a mechanical valve for which patient is on Coumadin. For 1 week patient's had bout stools. Patient denies having tightness fatigue some exertional dyspnea. Hemoglobin was found to be 8.4. INR on presentation was 1.4. GI was consulted. Patient feels tired. EGD-mild gastritis. Qxdgjecsizp-tzgzqv-vckgpjidi colon. Mild diverticulosis. Internal hemorrhoids. Today-comfortable. No further bleeding. Patient being sent to 1 Lovenox to bridge to Coumadin. till INR therapeutic. Also dose of amlodipine cutback. Hydrochlorothiazide discontinued. Dose of omeprazole increased. Care was discussed with the patient. Consultation: Dr. Villafana from GI Past medical history to include: Hypertension, atrial fibrillation, hyperlipidemia, peripheral arterial disease, mechanical mitral valve Social history: Does not smoke or drink alcohol. Son lives with him. 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 EYES: Pupils equal. Conjunctiva palel. HEENT: External appearance of nose and ears normal, oral cavity grossly normal. NECK: JVD not raised; masses not palpable. HEART: Irregular no edema. LUNGS: Respiratory rate normal; clear to auscultation. ABDOMEN: Soft, nontender, liver spleen not palpable, no masses palpable. PSYCH: Alert and oriented x3; mood and affect normal. INVESTIGATIONS, reviewed in the clinical context: April 06: White count 10.9 hemoglobin 9.3 White count 5.2 hemoglobin 7.3 platelets 138 INR 4.42 potassium 3.5 bun 33 creatinine 1.5 Admission testing: Hemoglobin 8.6 potassium 3.4 creatinine 1.65 Stool occult blood positive Arsbbhplujm-nnfypq-gplvlvwjn colon, mild and diverticulosis, internal hemorrhoids EGD-mild gastritis. Assessment: -Acute GI bleed from mild gastritis possibly from being on Coumadin -Essential hypertension -Persistent atrial fibrillation -Hyperlipidemia -Mechanical mitral valve Disposition: Home Patient Condition at Discharge: Stable Plan - Discharge Summary Discharge Rx Participant: Yes New Discharge Prescriptions: New Enoxaparin [Lovenox] 60 mg SQ Q12HR #10 syringe amLODIPine [Norvasc] 5 mg PO DAILY #30 tab Continue Aspirin 81 mg PO Q48H Atenolol [Tenormin] 50 mg PO HS Atorvastatin [Lipitor] 40 mg PO HS Losartan Potassium 100 mg PO DAILY Changed Warfarin Sodium [Jantoven] 5 mg PO DAILY@1800 #30 tab Omeprazole 40 mg PO BID #30 Discontinued amLODIPine [Norvasc] 10 mg PO DAILY hydroCHLOROthiazide [Hydrodiuril] 25 mg PO DAILY Warfarin Sodium [Jantoven] 3 mg PO Q48H Discharge Medication List Aspirin 81 mg PO Q48H 11/04/15 [History] Atenolol [Tenormin] 50 mg PO HS 04/04/20 [History] Atorvastatin [Lipitor] 40 mg PO HS 04/04/20 [History] Losartan Potassium 100 mg PO DAILY 04/04/20 [History] Enoxaparin [Lovenox] 60 mg SQ Q12HR #10 syringe 04/07/20 [Rx] Omeprazole 40 mg PO BID #30 04/07/20 [Rx] Warfarin Sodium [Jantoven] 5 mg PO DAILY@1800 #30 tab 04/07/20 [Rx] amLODIPine [Norvasc] 5 mg PO DAILY #30 tab 04/07/20 [Rx] Follow up Appointment(s)/Referral(s): Murtaza Lopez MD [Primary Care Provider] - 04/14/20 9:30 am Ishan Newell MD [STAFF PHYSICIAN] - 04/20/20 2:00 pm Activity/Diet/Wound Care/Special Instructions: cbc/inr - 5 days Discharge Disposition: HOME SELF-CARE
== END 2020-04-07 13:40 | disposition home or self-care (01) | DRG 378 ==
LOC: EC 18:11 → 5NMEDONC 19:55
PROVIDERS: ADMIT Hospitalist; ATTEND Hospitalist
PROC: 0DB78ZX Excision of Stomach, Pylorus, Via Natural or Artificial Opening Endoscopic, Diagnostic (ICD-10-PCS; principal; 2020-04-05 07:30)
PROC: 0DB98ZX Excision of Duodenum, Via Natural or Artificial Opening Endoscopic, Diagnostic (ICD-10-PCS; principal; 2020-04-05 07:30)
PROC: 0DJD8ZZ Inspection of Lower Intestinal Tract, Via Natural or Artificial Opening Endoscopic (ICD-10-PCS; 2020-04-06)
PROC: 30233N1 Transfusion of Nonautologous Red Blood Cells into Peripheral Vein, Percutaneous Approach (ICD-10-PCS; 2020-04-06)
DX: K29.71 Gastritis, unspecified, with bleeding (principal); I48.19 Other persistent atrial fibrillation; D68.32 Hemorrhagic disorder due to extrinsic circulating anticoagulants; E78.5 Hyperlipidemia, unspecified; I10 Essential (primary) hypertension; N40.0 Benign prostatic hyperplasia without lower urinary tract symptoms; I73.9 Peripheral vascular disease, unspecified; N21.0 Calculus in bladder; K57.90 Diverticulosis of intestine, part unspecified, without perforation or abscess without bleeding; K64.8 Other hemorrhoids; I71.4 Abdominal aortic aneurysm, without rupture; D64.9 Anemia, unspecified; Z79.899 Other long term (current) drug therapy; Z79.01 Long term (current) use of anticoagulants; Z95.2 Presence of prosthetic heart valve
CPT/HCPCS: 36415; 36600; 43239; 45378; 80048; 80053; 82272; 82607; 82728; 82746; 82805; 83540; 83550; 85025; 85610; 85730; 86850; 86900; 86901; 86920; 88305; 94760; 96374; 99285

== ENCOUNTER → 2020-04-04 | Outpatient (CLI) | payer MEDICARE, BC ==
[2020-04-04 15:47] LABS: Basophils % (A) 0 %; Eosinophils % (A) 1 %; HCT 24.2 % (39.0-53.0); HGB 8.3 gm/dL (13.0-17.5); Hypochromasia Slight; Lymphocytes # (A) 0.9 k/uL (1.0-4.8); Lymphocytes % (A) 13 %; MCH 31.8 pg (25.0-35.0); MCHC 34.1 g/dL (31.0-37.0); Mean Platelet Volume 8.4; Monocytes # (A) 0.4 k/uL (0-1.0); Monocytes % (A) 7 %; Neutrophils % (A) 77 %; Platelet Count 141 k/uL (150-450); Poikilocytosis Slight; RDW 13.8 % (11.5-15.5); WBC 6.5 k/uL (3.8-10.6)
[2020-04-04 15:57] LABS: ALT 17 U/L (4-49); AST 28 U/L (17-59); African American GFR (CKD) 46 (>60 ml/min/1.73 sqM); Albumin 3.8 g/dL (3.5-5.0); Albumin/Globulin Ratio 1.5; Alkaline Phosphatase 81 U/L (38-126); Anion Gap 8 mmol/L; Blood Urea Nitrogen 37 mg/dL (9-20); Calcium 9.2 mg/dL (8.4-10.2); Carbon Dioxide 27 mmol/L (22-30); Chloride 104 mmol/L (98-107); Globulin 2.6 g/dL; Glucose 102 mg/dL (74-99); Non-African American GFR(CKD) 40 (>60 ml/min/1.73 sqM); Potassium 3.7 mmol/L (3.5-5.1); Sodium 139 mmol/L (137-145); Total Protein 6.4 g/dL (6.3-8.2)
[2020-04-05 01:21] LABS: Ferritin 46.8 ng/mL (22.0-322.0)
[2020-04-05 01:33] LABS: Iron 21 ug/dL (65-175); Total Iron Binding Capacity 323 ug/dL (228-460)
== END | disposition home or self-care (01) ==
LOC: LABWHC1 14:44
PROVIDERS: ATTEND Nurse Practitioner Adult Health
DX: N17.9 Acute kidney failure, unspecified (principal); D64.9 Anemia, unspecified
CPT/HCPCS: 36415; 80053; 82728; 83540; 83550; 85025

== ENCOUNTER 2020-08-02 11:15 | Inpatient (IN) | payer MEDICARE, BC ==
[2020-08-02] MEDS ORDERED: PANTOPRAZOLE 40 MG/10 ML VIAL IVP STA (11:45)
--- NOTE | 2020-08-02 11:47 | ED ---
General Adult HPI - General Chief complaint: GI Bleed Stated complaint: abd labs Time Seen by Provider: 08/02/20 11:20 Source: patient, RN notes reviewed Mode of arrival: ambulatory Limitations: no limitations - History of Present Illness Initial comments: Patient is a pleasant 89-year-old male presenting to the emergency department with concern for GI hemorrhage. Patient does have history of anemia and is currently on iron. Stools have been more black recently. Patient has been or fatigue, especially with exertion. Patient denies dyspnea. No abdominal pain. Patient did have blood work done ice clinical dermatologist with a hemoglobin of 7.7 and was advised to come to the emergency department - Related Data Home Medications Medication Instructions Recorded Confirmed Aspirin 81 mg PO Q48H 11/04/15 04/04/20 Atenolol [Tenormin] 50 mg PO HS 04/04/20 04/04/20 Atorvastatin [Lipitor] 40 mg PO HS 04/04/20 04/04/20 Losartan Potassium 100 mg PO DAILY 04/04/20 04/04/20 Previous Rx's Medication Instructions Recorded Enoxaparin [Lovenox] 60 mg SQ Q12HR #10 syringe 04/07/20 Omeprazole 40 mg PO BID #30 04/07/20 Warfarin Sodium [Jantoven] 5 mg PO DAILY@1800 #30 tab 04/07/20 amLODIPine [Norvasc] 5 mg PO DAILY #30 tab 04/07/20 Allergies Allergy/AdvReac Type Severity Reaction Status Date / Time No Known Allergies Allergy Verified 08/02/20 11:19 Review of Systems ROS Statement: Those systems with pertinent positive or pertinent negative responses have been documented in the HPI. ROS Other: All systems not noted in ROS Statement are negative. Constitutional: Denies: fever Eyes: Denies: eye pain ENT: Denies: ear pain Respiratory: Denies: cough Cardiovascular: Denies: chest pain Endocrine: Reports: fatigue Gastrointestinal: Reports: nausea, melena. Denies: abdominal pain, vomiting Genitourinary: Denies: dysuria Musculoskeletal: Denies: back pain Skin: Denies: rash Neurological: Denies: weakness Past Medical History Past Medical History: Hyperlipidemia, Hypertension, Vascular Disorder Additional Past Medical History / Comment(s): irreg hr History of Any Multi-Drug Resistant Organisms: None Reported Additional Past Surgical History / Comment(s): valve replacement, stents. Past Anesthesia/Blood Transfusion Reactions: No Reported Reaction Past Psychological History: No Psychological Hx Reported Smoking Status: Never smoker Past Alcohol Use History: None Reported Past Drug Use History: None Reported - Past Family History Father Family Medical History: No Reported History Mother Family Medical History: No Reported History General Exam Limitations: no limitations General appearance: alert, in no apparent distress Head exam: Present: normocephalic Eye exam: Present: normal appearance Neck exam: Present: normal inspection Respiratory exam: Present: normal lung sounds bilaterally Cardiovascular Exam: Present: regular rate, normal rhythm GI/Abdominal exam: Present: soft. Absent: tenderness Extremities exam: Present: normal inspection Neurological exam: Present: alert Psychiatric exam: Present: normal affect, normal mood Skin exam: Present: normal color Course Vital Signs 08/02/20 08/02/20 08/02/20 11:17 12:15 12:20 Temperature 97.7 F Pulse Rate 67 60 70 Respiratory 20 16 18 Rate Blood Pressure 96/44 90/54 O2 Sat by Pulse 100 100 Oximetry 08/02/20 08/02/20 12:44 12:47 Temperature Pulse Rate 59 L 67 Respiratory 18 Rate Blood Pressure 78/49 87/50 O2 Sat by Pulse 100 Oximetry EKG Findings - EKG Comments: EKG Findings:: A. fib with rate of 64. QRS 106. QT 458. QTC 472 per left axis. LVH criteria. Septal Q waves. Lateral ST depression. Medical Decision Making - Medical Decision Making Patient evaluated and resting comfortably in bed. Patient states he feels no worse. Patient did have one blood pressure dropped to 78 however after 700 mL of fluid 80 blood pressures were 96 and 90 systolic. One unit of blood as well as vitamin K as well as FFP has been ordered. Patient and family updated. Case was crusted detail with Dr. Waller, covering for Dr. Lopez, who will admit. - Lab Data Result diagrams: 08/02/20 12:09 08/02/20 12:09 Lab Results 08/02/20 08/02/20 08/02/20 Range/Units 12:09 12:09 12:09 WBC 6.9 (3.8-10.6) k/uL RBC 2.40 L (4.30-5.90) m/uL Hgb 7.6 L (13.0-17.5) gm/dL Hct 23.0 L (39.0-53.0) % MCV 95.7 (80.0-100.0) fL MCH 31.7 (25.0-35.0) pg MCHC 33.1 (31.0-37.0) g/dL RDW 19.4 H (11.5-15.5) % Plt Count 144 L (150-450) k/uL MPV 8.5 Neutrophils % 83 % Lymphocytes % 13 % Monocytes % 3 % Eosinophils % 0 % Basophils % 0 % Neutrophils # 5.7 (1.3-7.7) k/uL Lymphocytes # 0.9 L (1.0-4.8) k/uL Monocytes # 0.2 (0-1.0) k/uL Eosinophils # 0.0 (0-0.7) k/uL Basophils # 0.0 (0-0.2) k/uL Anisocytosis Slight Macrocytosis Slight PT 37.1 H (9.0-12.0) sec INR 3.9 H (<1.2) APTT 35.1 H (22.0-30.0) sec Sodium 141 (137-145) mmol/L Potassium 4.4 (3.5-5.1) mmol/L Chloride 109 H (98-107) mmol/L Carbon Dioxide 23 (22-30) mmol/L Anion Gap 9 mmol/L BUN 36 H (9-20) mg/dL Creatinine 1.41 H (0.66-1.25) mg/dL Est GFR (CKD-EPI)AfAm 52 (>60 ml/min/1.73 sqM) Est GFR (CKD-EPI)NonAf 45 (>60 ml/min/1.73 sqM) Glucose 134 H (74-99) mg/dL Calcium 8.8 (8.4-10.2) mg/dL Total Bilirubin 0.7 (0.2-1.3) mg/dL AST 22 (17-59) U/L ALT 11 (4-49) U/L Alkaline Phosphatase 79 (38-126) U/L Total Protein 5.8 L (6.3-8.2) g/dL Albumin 3.4 L (3.5-5.0) g/dL Critical Care Time Critical Care Time: Yes Total Critical Care Time: 33 Disposition Clinical Impression: GI hemorrhage, Coagulopathy Disposition: ADMITTED IP TO THIS HOSP Condition: Serious Is patient prescribed a controlled substance at d/c from ED?: No Referrals: Murtaza Lopez MD [Primary Care Provider] - 1-2 days Decision Time: 13:03
[2020-08-02] MEDS ORDERED: SODIUM CHLORIDE 0.9% 1,000 ML IV ONE (12:35)
[2020-08-02 12:46] LABS: Anisocytosis Slight; Basophils % (A) 0 %; Eosinophils % (A) 0 %; HGB 7.6 gm/dL (13.0-17.5); Lymphocytes # (A) 0.9 k/uL (1.0-4.8); Lymphocytes % (A) 13 %; MCH 31.7 pg (25.0-35.0); MCHC 33.1 g/dL (31.0-37.0); MCV 95.7 fL (80.0-100.0); Macrocytosis Slight; Mean Platelet Volume 8.5; Monocytes # (A) 0.2 k/uL (0-1.0); Monocytes % (A) 3 %; Neutrophils # (A) 5.7 k/uL (1.3-7.7); Neutrophils % (A) 83 %; Platelet Count 144 k/uL (150-450); RDW 19.4 % (11.5-15.5); WBC 6.9 k/uL (3.8-10.6)
[2020-08-02 12:51] LABS: Albumin 3.4 g/dL (3.5-5.0); Calcium 8.8 mg/dL (8.4-10.2); Potassium 4.4 mmol/L (3.5-5.1); Total Bilirubin 0.7 mg/dL (0.2-1.3); Total Protein 5.8 g/dL (6.3-8.2)
[2020-08-02 12:54] LABS: INR 3.9 (<1.2); Partial Thromboplastin Time 35.1 sec (22.0-30.0); Prothrombin Time 37.1 sec (9.0-12.0)
[2020-08-02] MEDS ORDERED: PHYTONADIONE 2 MG in SODIUM CHLORIDE 0.9% 50 ML IVPB STA (13:01)
[2020-08-02] MEDS ORDERED: NALOXONE 0.4 MG/ML 1 ML VIAL IV PRN (13:03)
[2020-08-02] MEDS: PANTOPRAZOLE 40 MG/10 ML VIAL IV SCH (13:20)
--- NOTE | 2020-08-02 14:03 | P.HPIM ---
History of Present Illness H&P Date: 08/02/20 Chief Complaint: Generalized weakness and black stool This is a 89-year-old male with very complex past medical history noted below significant for history of mitral valve replacement in 2001 on anticoagulation with Coumadin and chronic anemia that was sent to the emergency room by his diathermy equipment repairer for further evaluation. Patient said that he saw his diathermy equipment repairer earlier and told him that he was having black stool and feeling fatigued so he was sent to the emergency room for further evaluation. Patient said that his symptoms started couple of weeks ago and reported that before that time he was having normal stool at home. He is taking iron supplement at home. He denies any abdominal pain. In the last couple of days he was feeling more weak and tired. He is having some dyspnea but no chest pain. Patient has been taking Coumadin at home as directed. He was evaluated in the ER and was found to be hypotensive. He was given an IV fluid bolus with good response. Coumadin was 3.9 and hemoglobin 7.6. I did discuss with the patient and his son at bedside his past medical history. They both inform me that he has a mechanical aortic valve replacement but I was unable to hear any mechanical click on exam. 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 They were not sure what is the goal INR for him either. They said that his PCP is managing his Coumadin. Review of Systems Review of system: 14 points review of systems were obtained and were negative except to what were mentioned in the HPI. Past Medical History Past Medical History: Hyperlipidemia, Hypertension, Vascular Disorder Additional Past Medical History / Comment(s): irreg hr History of Any Multi-Drug Resistant Organisms: None Reported Additional Past Surgical History / Comment(s): valve replacement, stents. Past Anesthesia/Blood Transfusion Reactions: No Reported Reaction Past Psychological History: No Psychological Hx Reported Smoking Status: Never smoker Past Alcohol Use History: None Reported Past Drug Use History: None Reported - Past Family History Father Family Medical History: No Reported History Mother Family Medical History: No Reported History Medications and Allergies Home Medications Medication Instructions Recorded Confirmed Type Aspirin 81 mg PO Q48H 11/03/08/02/20 History Atenolol [Tenormin] 50 mg PO HS 04/04/20 08/02/20 History Atorvastatin [Lipitor] 40 mg PO HS 04/04/20 08/02/20 History Losartan Potassium 100 mg PO DAILY 04/04/20 08/02/20 History Omeprazole 40 mg PO BID #30 04/07/20 08/02/20 Rx amLODIPine [Norvasc] 5 mg PO DAILY #30 tab 04/07/20 08/02/20 Rx Ferrous Sulfate [Feosol] 325 mg PO DAILY 08/02/20 08/02/20 History Warfarin Sodium [Jantoven] 5 mg PO DAILY 08/02/20 08/02/20 History Allergies Allergy/AdvReac Type Severity Reaction Status Date / Time No Known Allergies Allergy Verified 08/02/20 13:16 Physical Exam Vitals: Vital Signs Temp Pulse Resp BP Pulse Ox 08/02/20 13:35 56 L 18 93/61 08/02/20 13:20 66 18 94/62 08/02/20 12:47 67 87/50 08/02/20 12:44 59 L 18 78/49 100 08/02/20 12:20 70 18 90/54 100 08/02/20 12:15 60 16 08/02/20 11:17 97.7 F 67 20 96/44 100 Intake and Output 08/01/20 08/02/20 08/02/20 22:59 06:59 14:59 Other: Weight 68.039 kg General: The patient is awake and alert, in no distress Eye: there is normal conjunctiva bilaterally. Neck: The neck is supple, there is no JVD. Cardiovascular: Normal S1-S2, no S3-S4, there is a mild systolic murmur Respiratory: Lungs clear to auscultation bilaterally Gastrointestinal: Abdomen is soft, nontender Musculoskeletal: There is no pedal edema. Neurological:. Speech is normal. Skin: Skin is warm and dry Results CBC & Chem 7: 08/02/20 12:09 08/02/20 12:09 Labs: Abnormal Lab Results - Last 24 Hours (Table) 08/02/20 08/02/20 08/02/20 Range/Units 12:09 12:09 12:09 RBC 2.40 L (4.30-5.90) m/uL Hgb 7.6 L (13.0-17.5) gm/dL Hct 23.0 L (39.0-53.0) % RDW 19.4 H (11.5-15.5) % Plt Count 144 L (150-450) k/uL Lymphocytes # 0.9 L (1.0-4.8) k/uL PT 37.1 H (9.0-12.0) sec INR 3.9 H (<1.2) APTT 35.1 H (22.0-30.0) sec Chloride 109 H (98-107) mmol/L BUN 36 H (9-20) mg/dL Creatinine 1.41 H (0.66-1.25) mg/dL Glucose 134 H (74-99) mg/dL Total Protein 5.8 L (6.3-8.2) g/dL Albumin 3.4 L (3.5-5.0) g/dL Assessment and Plan Assessment: This is a 89-year-old male with past medical history noted below that presented to the emergency room sent by his diathermy equipment repairer for further evaluation of generalized weakness and black stool. Patient was evaluated in the ER and will be admitted to the hospital for further management of his medical problems noted below. 1. Symptomatic anemia, hemoglobin of 7.6. 1 unit of PRBC transfusion ordered. We will continue to monitor CBC closely. 2. Acute on chronic anemia, with suspected chronic GI blood loss. Patient had an EGD and colonoscopy in March of this year with no identifiable source of infection. At that time an Endoscopy Was Considered. I Would Consult GI for Further Evaluation. Continue IV Protonix Daily. 3. Chronic iron deficiency anemia, following with hematology as an outpatient. Patient was getting IV iron infusion and currently getting oral iron. 4. History of mitral valve replacement, I reviewed CT of the chest from couple of years ago showing a mitral valve prosthesis the patient's son told me that he is confident patient has a mechanical valve. He told me that his manager scheduling is Dr. Mason. I will consult Dr. Mason for further evaluation. I will also discuss with cardiology transitioning the patient anticoagulation from Coumadin to one of the novel agent as apparently patient was coming with the elevated INR which put him at increased risk of bleeding and worsening chronic anemia 5. Hypovolemic shock, blood pressure improved significantly with IV fluid bolus. Patient is scheduled to receive a unit of blood as well. I ordered lactic acid for further evaluation 6. Chronic medical problems: Essential hypertension, paroxysmal atrial fibrillation, hyperlipidemia 7. CODE STATUS patient is full code 8. DVT prophylaxis with SCD
--- NOTE | 2020-08-02 14:04 | P.PN ---
Progress Note - Text Progress Note Date: 08/02/20 Advanced Care Planning Active Diagnosis: Symptomatic anemia Persons present: Patient and his son Summary: Discussed the patient's goals of care in detail. We discussed the meaning of cardiac and pulmonary resuscitation. The patient wish to undergo CPR in the event of cardiac arrest.. He said that he does not want to be on prolonged life support that his son can help making that decision later. CODE STATUS will be put in the computer as full code. Time spent: Total time spent face to face in education and discussion directly related to advanced care plannin minutes
[2020-08-02 19:08] LABS: Anisocytosis Slight; Basophils % (A) 0 %; Eosinophils % (A) 0 %; HCT 24.5 % (39.0-53.0); HGB 8.2 gm/dL (13.0-17.5); Lymphocytes # (A) 1.3 k/uL (1.0-4.8); Lymphocytes % (A) 17 %; MCH 31.7 pg (25.0-35.0); MCHC 33.6 g/dL (31.0-37.0); MCV 94.3 fL (80.0-100.0); Macrocytosis Slight; Mean Platelet Volume 8.1; Monocytes # (A) 0.4 k/uL (0-1.0); Monocytes % (A) 6 %; Neutrophils # (A) 5.8 k/uL (1.3-7.7); Neutrophils % (A) 76 %; Platelet Count 130 k/uL (150-450); RBC 2.59 m/uL (4.30-5.90); RDW 18.8 % (11.5-15.5); WBC 7.6 k/uL (3.8-10.6)
[2020-08-02] MEDS: ATORVASTATIN 40 MG TAB PO SCH (20:16)
[2020-08-03 08:02] LABS: INR 2.8 (<1.2); Prothrombin Time 27.2 sec (9.0-12.0)
[2020-08-03 08:21] LABS: Calcium 8.6 mg/dL (8.4-10.2); Potassium 4.2 mmol/L (3.5-5.1)
[2020-08-03 08:26] LABS: Anisocytosis Slight; Basophils % (A) 0 %; Eosinophils # (A) 0.1 k/uL (0-0.7); Eosinophils % (A) 1 %; HCT 24.8 % (39.0-53.0); HGB 8.2 gm/dL (13.0-17.5); Lymphocytes # (A) 1.2 k/uL (1.0-4.8); Lymphocytes % (A) 16 %; MCH 31.7 pg (25.0-35.0); Macrocytosis Slight; Mean Platelet Volume 8.5; Monocytes # (A) 0.4 k/uL (0-1.0); Monocytes % (A) 6 %; Neutrophils # (A) 5.6 k/uL (1.3-7.7); Neutrophils % (A) 76 %; Platelet Count 127 k/uL (150-450); RBC 2.58 m/uL (4.30-5.90); RDW 19.2 % (11.5-15.5); WBC 7.3 k/uL (3.8-10.6)
--- NOTE | 2020-08-03 08:54 | P.PN ---
Subjective Progress Note Date: 08/03/20 Patient is doing fairly well today. He did not have a bowel movement since admission to the hospital. His repeat hemoglobin this morning was 8.2. He told me that he can't tell if he feels stronger after the blood transfusion as he did not get out of bed yet. He denies any abdominal pain otherwise. Objective - Vital Signs Vital signs: Vital Signs Temp 97.9 F 08/02/20 20:00 Pulse 59 L 08/03/20 04:00 Resp 18 08/03/20 04:00 BP 106/55 08/03/20 04:00 Pulse Ox 95 08/03/20 04:00 Intake & Output 08/02/20 08/03/20 08/03/20 18:59 06:59 18:59 Intake Total 310 999 Balance 310 999 Weight 71 kg 69.2 kg Intake: Intake, IV Titration 999 Amount Sodium Chloride 0.9% 1, 999 000 ml @ 999 mls/hr IV . Q1H1M ONE Rx#:[id number] Blood Product 310 Rc As-1 Unit 310 [id number] Other: # Voids 1 - Exam General: The patient is awake and alert, in no distress Eye: there is normal conjunctiva bilaterally. Neck: The neck is supple, there is no JVD. Cardiovascular: Normal S1-S2, no S3-S4, no murmurs. Respiratory: Lungs clear to auscultation bilaterally Gastrointestinal: Abdomen is soft, nontender Musculoskeletal: There is no pedal edema. Neurological:. Speech is normal. Skin: Skin is warm and dry - Labs CBC & Chem 7: 08/03/20 07:22 08/03/20 07:22 Labs: Abnormal Lab Results - Last 24 Hours (Table) 08/02/20 08/02/20 08/02/20 Range/Units 12:09 12:09 12:09 RBC 2.40 L (4.30-5.90) m/uL Hgb 7.6 L (13.0-17.5) gm/dL Hct 23.0 L (39.0-53.0) % RDW 19.4 H (11.5-15.5) % Plt Count 144 L (150-450) k/uL Lymphocytes # 0.9 L (1.0-4.8) k/uL PT 37.1 H (9.0-12.0) sec INR 3.9 H (<1.2) APTT 35.1 H (22.0-30.0) sec Chloride 109 H (98-107) mmol/L BUN 36 H (9-20) mg/dL Creatinine 1.41 H (0.66-1.25) mg/dL Glucose 134 H (74-99) mg/dL Total Protein 5.8 L (6.3-8.2) g/dL Albumin 3.4 L (3.5-5.0) g/dL Crossmatch 08/02/20 08/02/20 08/03/20 Range/Units 13:32 18:50 07:22 RBC 2.59 L 2.58 L (4.30-5.90) m/uL Hgb 8.2 L 8.2 L (13.0-17.5) gm/dL Hct 24.5 L 24.8 L (39.0-53.0) % RDW 18.8 H 19.2 H (11.5-15.5) % Plt Count 130 L 127 L (150-450) k/uL Lymphocytes # (1.0-4.8) k/uL PT (9.0-12.0) sec INR (<1.2) APTT (22.0-30.0) sec Chloride (98-107) mmol/L BUN (9-20) mg/dL Creatinine (0.66-1.25) mg/dL Glucose (74-99) mg/dL Total Protein (6.3-8.2) g/dL Albumin (3.5-5.0) g/dL Crossmatch See Detail 08/03/20 08/03/20 Range/Units 07:22 07:22 RBC (4.30-5.90) m/uL Hgb (13.0-17.5) gm/dL Hct (39.0-53.0) % RDW (11.5-15.5) % Plt Count (150-450) k/uL Lymphocytes # (1.0-4.8) k/uL PT 27.2 H (9.0-12.0) sec INR 2.8 H (<1.2) APTT (22.0-30.0) sec Chloride 111 H (98-107) mmol/L BUN 22 H (9-20) mg/dL Creatinine (0.66-1.25) mg/dL Glucose (74-99) mg/dL Total Protein (6.3-8.2) g/dL Albumin (3.5-5.0) g/dL Crossmatch Assessment and Plan Assessment: This is a 89-year-old male with past medical history noted below that presented to the emergency room sent by his food order expediter for further evaluation of generalized weakness and black stool. Patient was evaluated in the ER and will be admitted to the hospital for further management of his medical problems noted below. 1. Symptomatic anemia, hemoglobin of 7.6. 1 unit of PRBC transfused in the ER. We will continue to monitor hemoglobin closely. No evidence of ongoing bleed. 2. Acute on chronic anemia, with suspected chronic GI blood loss. Patient had an EGD and colonoscopy in March of this year with no identifiable source of infection. At that time a capsule Endoscopy Was Considered. I Consulted GI for Further Evaluation. Continue IV Protonix Daily. 3. Chronic iron deficiency anemia, following with hematology as an outpatient. Patient was getting IV iron infusion and currently getting oral iron. 4. History of mitral valve replacement, I reviewed CT of the chest from couple of years ago showing a mitral valve prosthesis the patient's son told me that he is confident patient has a mechanical valve. He told me that his supervisor paint department is Dr. Mason. I will consult Dr. Mason for further evaluation. I will also discuss with cardiology transitioning the patient anticoagulation from Coumadin to one of the novel agent as apparently patient was coming with the elevated INR which put him at increased risk of bleeding and worsening chronic anemia 5. Hypovolemic shock, blood pressure improved significantly with IV fluid bolus. Lactic acid was normal 6. Chronic medical problems: Essential hypertension, paroxysmal atrial fibrillation, hyperlipidemia 7. CODE STATUS patient is full code 8. DVT prophylaxis with SCD Today, I reviewed his medication list and lab work results. Blood pressure within acceptable range off of home medications. Continue to hold blood pressure medications for now and monitor closely. Awaiting consultants evaluation.
[2020-08-03] MEDS: PANTOPRAZOLE 40 MG/10 ML VIAL IV SCH (09:13)
[2020-08-03 10:56] VITALS: BMI 23.8
--- NOTE | 2020-08-03 11:15 | P.CRDCN ---
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 Gallagher (patient on coumadin), hypertension, dyslipidmia, peripheral vascular disease. He follows in the office with Dr. Meraz. We have been asked to see in consultation for anticoagulation change/assistance. Patient was sent to the emergency room by his business travel consultant for further evaluation due low hemoglobin of 7.7, some fatigue and black stools. Patient does received IV iron infusions. On admission INR 3.9, Hgb 7.6. Patient denies chest pain, palpitions, dizziness, lightheadedness or fatigue at this time. He recieved 1 unit PRBCs. Patient unde rwent colonoscopy 03/2020 which revealed normal appearsing colon, mild pandiverticulosis and internal hemorrhoids. EGD 03/2020 also with no active bleeding or old blood, revealed mild gastritis. DIAGNOSTICS EKG reveals atrial fibrillation, heart rate 64, left ventricular hypertrophy, T wave inversion in leads I and aVL, ST depression in leads V4 to V6 Echo 12/2019 in the office- EF 55%, moderate concentric hypertrophy, severely dilated left atrium, moderately dilated right atrium, mild aortic regurgitation and severe aortic stenosis peak/mean gradient of 57mmHg/32mmHg, mechanical mitral valve prosthesis, mild valvular regurgitation with peak/mean gradient 25mmHg/8mmHg Telemetry tracings indicate atrial fibrillation ventricular rates controlled HR 60-70s Laboratory reviewed, WBC 7.3, hemoglobin 8.2, platelets 127, sodium 140, potassium 4.2, serum creatinine 1.24, BUN 22, COVID-19 negative Current home cardiac medications include amlodipine 5 mg daily, Coumadin 5 mg daily, losartan 100 mg daily, atorvastatin 40 mg nightly, atenolol 50 mg daily, aspirin 81 mg every 48 hours REVIEW OF SYSTEMS At the time of my exam: CONSTITUTIONAL: Denies fever or chills. CARDIOVASCULAR: Denies chest pain, shortness of breath, orthopnea, PND or palpitations. RESPIRATORY: Denies cough. GASTROINTESTINAL: Denies abdominal pain, diarrhea, constipation, nausea or vomiting. MUSCULOSKELETAL: Denies myalgias. NEUROLOGIC: Denies numbness, tingling, headacbe or weakness. ENDOCRINE: +fatigue, Denies weight change, polydipsia or polyurina. GENITOURINARY: Denies burning, hematuria or urgency with micturation. HEMATOLOGIC: +anemia and history of bleeding PHYSICAL EXAMINATION Blood pressure 106/55 heart rate 77 afebrile and maintaining oxygen saturation 95% on 2L nasal cannula CONSTITUTIONAL: No apparent distress. HEENT: Head is normocephalic. Pupils are equal, round. Sclerae anicteric. Mucous membranes of the mouth are moist. No JVD. No carotid bruit. CHEST EXAMINATION: Lungs are clear to auscultation. No chest wall tenderness is noted on palpation or with deep breathing. HEART EXAMINATION: Irregular rate and rhythm. S1, S2 heard. Systolic ejection murmur heard, mitral click heard, No gallops or rub. ABDOMEN: Soft, nontender. Positive bowel sounds. EXTREMITIES: 2+ peripheral pulses, no lower extremity edema and no calf tenderness. NEUROLOGIC EXAMINATION: Patient is awake, alert and oriented x3. ASSESSMENT Chronic anemia s/p 1 unit of PRBC this admission Permanent atrial fibrillation- on coumadin Severe aortic stenosis Severe mitral insufficiency s/p mechanical mitral valve replacement 08/2000 (on coumadin) Hypertension Dyslipidemia Peripheral Vascular Disease PLAN -Patient has a mechanical mitral valve and needs to continue coumadin -Recommend patient taking coumadin 4mg two days of the week (Tuesdays and ), and 5mg for the other 5 days of the week. Patient would need 2 prescriptions for 4mg pills and 5mg pills. -Recommend titer control of INR, INR goal around 3.0 (2.8-3.0) -Recommend patient checks coumadin levels every 2 weeks (instead of once a month he is currently doing) -Patient would benefit from home INR monitor to check INR levels at home, will consult case management for assistance with this. -Discontinue aspirin -GI has been consulted Nurse Practitioner note has been reviewed, I agree with a documented findings and plan of care. Patient was seen and examined. Past Medical History Past Medical History: Hyperlipidemia, Hypertension, Vascular Disorder Additional Past Medical History / Comment(s): irreg hr History of Any Multi-Drug Resistant Organisms: None Reported Additional Past Surgical History / Comment(s): valve replacement, stents. Past Anesthesia/Blood Transfusion Reactions: No Reported Reaction Past Psychological History: No Psychological Hx Reported Smoking Status: Never smoker Past Alcohol Use History: None Reported Past Drug Use History: None Reported - Past Family History Father Family Medical History: No Reported History Mother Family Medical History: No Reported History Medications and Allergies Home Medications Medication Instructions Recorded Confirmed Type Atenolol [Tenormin] 50 mg PO HS 04/04/20 08/02/20 History Atorvastatin [Lipitor] 40 mg PO HS 04/04/20 08/02/20 History Losartan Potassium 100 mg PO DAILY 04/04/20 08/02/20 History Omeprazole 40 mg PO BID #30 04/07/20 08/02/20 Rx amLODIPine [Norvasc] 5 mg PO DAILY #30 tab 04/07/20 08/02/20 Rx Ferrous Sulfate [Feosol] 325 mg PO DAILY 08/02/20 08/02/20 History Warfarin Sodium [Jantoven] 5 mg PO DAILY 08/02/20 08/02/20 History Allergies Allergy/AdvReac Type Severity Reaction Status Date / Time No Known Allergies Allergy Verified 08/02/20 13:16 Physical Exam Vitals: Vital Signs Temp Pulse Resp BP Pulse Ox 08/02/20 14:00 65 18 101/56 97 08/02/20 13:35 56 L 18 93/61 08/02/20 13:20 66 18 94/62 08/02/20 12:47 67 87/50 08/02/20 12:44 59 L 18 78/49 100 08/02/20 12:20 70 18 90/54 100 08/02/20 12:15 60 16 08/02/20 11:17 97.7 F 67 20 96/44 100 Intake and Output 08/01/20 08/02/20 08/02/20 22:59 06:59 14:59 Other: Weight 68.039 kg Results 08/03/20 07:22 08/03/20 07:22 Cardiac Enzymes 08/02/20 Range/Units 12:09 AST 22 (17-59) U/L Coagulation 08/02/20 Range/Units 12:09 PT 37.1 H (9.0-12.0) sec APTT 35.1 H (22.0-30.0) sec CBC 08/02/20 Range/Units 12:09 WBC 6.9 (3.8-10.6) k/uL RBC 2.40 L (4.30-5.90) m/uL Hgb 7.6 L (13.0-17.5) gm/dL Hct 23.0 L (39.0-53.0) % Plt Count 144 L (150-450) k/uL Comprehensive Metabolic Panel 08/02/20 Range/Units 12:09 Sodium 141 (137-145) mmol/L Potassium 4.4 (3.5-5.1) mmol/L Chloride 109 H (98-107) mmol/L Carbon Dioxide 23 (22-30) mmol/L BUN 36 H (9-20) mg/dL Creatinine 1.41 H (0.66-1.25) mg/dL Glucose 134 H (74-99) mg/dL Calcium 8.8 (8.4-10.2) mg/dL AST 22 (17-59) U/L ALT 11 (4-49) U/L Alkaline Phosphatase 79 (38-126) U/L Total Protein 5.8 L (6.3-8.2) g/dL Albumin 3.4 L (3.5-5.0) g/dL Current Medications Generic Name Dose Route Start Last Admin Trade Name Freq PRN Reason Stop Dose Admin Atorvastatin Calcium 40 mg 08/02/20 21:00 Atorvastatin 40 Mg Tab PO HS TRANG Naloxone HCl 0.2 mg 08/02/20 13:03 Naloxone 0.4 Mg/Ml 1 Ml Vial IV Q2M PRN Opioid Reversal Pantoprazole Sodium 40 mg 08/02/20 13:15 08/02/20 13:20 Pantoprazole 40 Mg/10 Ml Vial IV Not Given DAILY TRANG Intake and Output 08/01/20 08/02/20 08/02/20 22:59 06:59 14:59 Other: Weight 68.039 kg Patient Weight 08/03/20 06:59 Weight 68.039 kg 08/02/20 12:09 08/02/20 12:09
[2020-08-03] MEDS ORDERED: WARFARIN 2 MG TAB PO SCH (18:00)
[2020-08-03] MEDS ORDERED: MAGNESIUM CITRATE 296 ML BOTTLE PO ONE (19:00)
[2020-08-03] MEDS: ATORVASTATIN 40 MG TAB PO SCH (19:50)
[2020-08-04 04:56] LABS: Hepatitis B Surface AB- Quant 3.5 mIU/mL; Hepatitis B Surface Antibody Non-Reactive (Non-Reactive); Hepatitis B Surface Antigen Non-Reactive (Non-Reactive)
[2020-08-04] MEDS ORDERED: SIMETHICONE 40 MG/0.6 ML DROPS 2,000 MG/30 ML BOTTLE PO ONE (07:20)
--- NOTE | 2020-08-04 07:32 | P.CONS ---
History of Present Illness - Reason for Consult Consult date: 08/03/20 Anemia Requesting physician: Yola Dawn - Chief Complaint Anemia - History of Present Illness 89-year-old male with a medical history significant for hypertension, hyp erlipidemia, mitral valve replacement and chronic anemia who was sent in for further evaluation of his anemia by his base ply hand. Patient was found to have a hemoglobin of 7.7 in the outpatient setting and told to present to the hospital for further evaluation. Patient is on oral iron therapy and does have dark bowel movements at baseline is unsure if they have been 90 darker recently. He does report feeling fatigued and having shortness of breath on exertion. In addition to his oral iron the patient is also received IV iron in the past. He has undergone extensive endoscopic evaluation earlier in the year in 04/14 with upper endoscopy revealing mild gastritis with no blood either fresh or old or pathology to explain anemia and colonoscopy revealing mild pandiverticulosis with internal hemorrhoids. He denies any abdominal pain at this time. Review of Systems REVIEW OF SYSTEMS: CONSTITUTIONAL: Denies any fevers, chills, weight change but he does report fatigue and shortness of breath. CARDIOVASCULAR: Denies any chest pain, palpitations high or low blood pressures RESPIRATORY: Denies any shortness of breath, hemoptysis or cough. GENITOURINARY: No dysuria or hematuria. MUSCULOSKELETAL: No weakness reported. SKIN: Denies any new rashes or lesions, jaundice or pallor. PSYCHIATRIC: Denies any depression or anxiety. NEUROLOGY: Denies headache, denies any new focal deficits. EARS/NOSE/THROAT: No recent hearing change, congestion, nasal discharge or sore throat. EYES: No pain in eyes, discharge or change in vision. GASTROINTESTINAL: As per HPI. Past Medical History Past Medical History: Hyperlipidemia, Hypertension, Vascular Disorder Additional Past Medical History / Comment(s): irreg hr History of Any Multi-Drug Resistant Organisms: None Reported Past Surgical History: Appendectomy, Cardiac Valve Replacement Additional Past Surgical History / Comment(s): valve replacement, stents. Past Anesthesia/Blood Transfusion Reactions: No Reported Reaction Past Psychological History: No Psychological Hx Reported Smoking Status: Never smoker Past Alcohol Use History: None Reported Past Drug Use History: None Reported - Past Family History Father Family Medical History: No Reported History Mother Family Medical History: No Reported History Medications and Allergies Home Medications Medication Instructions Recorded Confirmed Type Atenolol [Tenormin] 50 mg PO HS 04/04/20 08/02/20 History Atorvastatin [Lipitor] 40 mg PO HS 04/04/20 08/02/20 History Losartan Potassium 100 mg PO DAILY 04/04/20 08/02/20 History Omeprazole 40 mg PO BID #30 04/07/20 08/02/20 Rx amLODIPine [Norvasc] 5 mg PO DAILY #30 tab 04/07/20 08/02/20 Rx Ferrous Sulfate [Feosol] 325 mg PO DAILY 08/02/20 08/02/20 History Warfarin Sodium [Jantoven] 5 mg PO DAILY 08/02/20 08/02/20 History Allergies Allergy/AdvReac Type Severity Reaction Status Date / Time No Known Allergies Allergy Verified 08/02/20 13:16 Physical Exam Vitals: Vital Signs Temp Pulse Pulse Pulse Resp BP BP 08/03/20 04:00 59 L 18 106/55 08/03/20 02:00 77 18 08/03/20 00:00 77 18 121/58 08/02/20 20:00 97.9 F 65 18 134/66 08/02/20 19:40 65 18 08/02/20 19:25 70 16 124/59 08/02/20 18:39 98.3 F 63 18 122/56 08/02/20 18:02 112/62 08/02/20 18:01 98.3 F 61 18 08/02/20 17:20 98.3 F 60 18 110/52 08/02/20 16:43 97.3 F L 64 18 127/62 08/02/20 16:09 97.3 F L 68 16 115/63 08/02/20 15:45 98.4 F 67 18 110/60 08/02/20 15:39 98.2 F 73 18 119/53 08/02/20 15:29 98.6 F 68 18 110/58 08/02/20 15:21 61 18 105/59 08/02/20 15:20 98.4 F 67 12 96/51 08/02/20 15:00 64 12 102/58 08/02/20 14:40 64 14 92/54 08/02/20 14:20 66 24 92/54 08/02/20 14:00 65 16 101/56 08/02/20 13:40 67 15 93/61 08/02/20 13:35 56 L 18 93/61 08/02/20 13:20 68 21 93/64 08/02/20 13:00 70 10 L 96/58 08/02/20 12:47 67 87/50 08/02/20 12:44 59 L 18 78/49 08/02/20 12:40 61 16 90/43 08/02/20 12:20 58 L 10 L 90/54 08/02/20 12:15 60 16 08/02/20 12:00 121/46 08/02/20 11:40 121/46 08/02/20 11:26 08/02/20 11:17 97.7 F 67 20 96/44 Pulse Ox 08/03/20 04:00 95 08/03/20 02:00 08/03/20 00:00 95 08/02/20 20:00 95 08/02/20 19:40 08/02/20 19:25 95 08/02/20 18:39 98 08/02/20 18:02 08/02/20 18:01 96 08/02/20 17:20 100 08/02/20 16:43 97 08/02/20 16:09 96 08/02/20 15:45 93 L 08/02/20 15:39 08/02/20 15:29 08/02/20 15:21 94 L 08/02/20 15:20 93 L 08/02/20 15:00 92 L 08/02/20 14:40 94 L 08/02/20 14:20 94 L 08/02/20 14:00 95 08/02/20 13:40 97 08/02/20 13:35 08/02/20 13:20 94 L 08/02/20 13:00 100 08/02/20 12:47 08/02/20 12:44 100 08/02/20 12:40 100 08/02/20 12:20 100 08/02/20 12:15 08/02/20 12:00 100 08/02/20 11:40 100 08/02/20 11:26 92 L 08/02/20 11:17 100 Intake and Output 08/02/20 08/03/20 08/03/20 22:59 06:59 14:59 Intake Total 1309 Balance 1309 Intake: Intake, IV Titration 999 Amount Sodium Chloride 0.9% 1, 999 000 ml @ 999 mls/hr IV . Q1H1M ONE Rx#:[id number] Blood Product 310 Rc As-1 Unit 310 [id number] Other: # Voids 1 1 Weight 71 kg 69.2 kg On physical examination, patient appears comfortable in no apparent distress. HEAD: Normocephalic, atraumatic. EYES: No scleral icterus. No conjunctival injection. MOUTH: No lesions, tongue midline. NECK: Trachea midline, no gross abnormalities. CHEST: Clear to auscultation with no wheezing or rhonchi appreciated. HEART: S1-S2 appreciated. ABDOMEN: Soft, thin and nontender to palpation. Bowel sounds are positive. No organomegaly. No guarding or rigidity. EXTREMITIES: No pedal edema. SKIN: No rashes, no jaundice. NEUROLOGIC: Alert and oriented x3. No focal deficits. Results CBC & Chem 7: 08/03/20 07:22 08/03/20 07:22 Labs: Abnormal Lab Results - Last 24 Hours (Table) 08/02/20 08/02/20 08/02/20 Range/Units 12:09 12:09 12:09 RBC 2.40 L (4.30-5.90) m/uL Hgb 7.6 L (13.0-17.5) gm/dL Hct 23.0 L (39.0-53.0) % RDW 19.4 H (11.5-15.5) % Plt Count 144 L (150-450) k/uL Lymphocytes # 0.9 L (1.0-4.8) k/uL PT 37.1 H (9.0-12.0) sec INR 3.9 H (<1.2) APTT 35.1 H (22.0-30.0) sec Chloride 109 H (98-107) mmol/L BUN 36 H (9-20) mg/dL Creatinine 1.41 H (0.66-1.25) mg/dL Glucose 134 H (74-99) mg/dL Total Protein 5.8 L (6.3-8.2) g/dL Albumin 3.4 L (3.5-5.0) g/dL Crossmatch 08/02/20 08/02/20 Range/Units 13:32 18:50 RBC 2.59 L (4.30-5.90) m/uL Hgb 8.2 L (13.0-17.5) gm/dL Hct 24.5 L (39.0-53.0) % RDW 18.8 H (11.5-15.5) % Plt Count 130 L (150-450) k/uL Lymphocytes # (1.0-4.8) k/uL PT (9.0-12.0) sec INR (<1.2) APTT (22.0-30.0) sec Chloride (98-107) mmol/L BUN (9-20) mg/dL Creatinine (0.66-1.25) mg/dL Glucose (74-99) mg/dL Total Protein (6.3-8.2) g/dL Albumin (3.5-5.0) g/dL Crossmatch See Detail Assessment and Plan (1) Normocytic normochromic anemia Narrative/Plan: 89-year-old male presenting for evaluation of a normocytic normochromic anemia. Multiple medical comorbidities on anticoagulation therapy with Coumadin. He takes oral iron therapy for iron deficiency anemia and has received IV infusions of iron with his base ply hand in the past as well. He had been having some shortness of breath worse with exertion and weakness and was instructed to come to the hospital for further evaluation. Previously he had EGD and colonoscopy in 04/14 with findings of mild gastritis, pandiverticulosis and internal hemorrhoids with no old blood, active bleeding or source of blood loss noted. No prior video capsule endoscopy. Current Visit: No Status: Acute Code(s): D64.9 - ANEMIA, UNSPECIFIED SNOMED Code(s): 65848422 (2) Occult blood positive stool Narrative/Plan: Stool testing is not accurate in the setting of active oral iron therapy. Current Visit: No Status: Acute Code(s): R19.5 - OTHER FECAL ABNORMALITIES SNOMED Code(s): 02705762 Plan: Supportive care Clear liquid diet Magnesium citrate ordered Nothing by mouth after midnight Plan for video capsule endoscopy for further evaluation tomorrow Patient should continue workup with hematology service as previously EGD and colonoscopy were negative for any source of GI blood loss Continue to monitor hemoglobin and hematocrit and transfuse as needed Thank you for allowing us to participate in the care of the patient
[2020-08-04 07:59] LABS: Anisocytosis Slight; Basophils % (A) 0 %; Eosinophils % (A) 0 %; HCT 27.3 % (39.0-53.0); Lymphocytes # (A) 0.9 k/uL (1.0-4.8); Lymphocytes % (A) 12 %; MCH 31.1 pg (25.0-35.0); MCHC 32.8 g/dL (31.0-37.0); Macrocytosis Slight; Monocytes # (A) 0.6 k/uL (0-1.0); Monocytes % (A) 7 %; Neutrophils # (A) 6.2 k/uL (1.3-7.7); Neutrophils % (A) 79 %; Platelet Count 139 k/uL (150-450); Poikilocytosis Slight; RBC 2.88 m/uL (4.30-5.90); RDW 19.8 % (11.5-15.5); WBC 7.8 k/uL (3.8-10.6)
[2020-08-04 08:04] LABS: INR 2.5 (<1.2); Prothrombin Time 24.5 sec (9.0-12.0)
[2020-08-04 08:18] LABS: Calcium 8.8 mg/dL (8.4-10.2); Potassium 4.1 mmol/L (3.5-5.1)
--- NOTE | 2020-08-04 10:18 | P.PN ---
Subjective Progress Note Date: 08/04/20 Patient is doing well today. He told me that he had a normal bowel movement yesterday. He is undergoing a capsule endoscopy this morning. Hemoglobin stable. Patient does not have any complaints. Objective - Vital Signs Vital signs: Vital Signs Temp 97.9 F 08/04/20 06:00 Pulse 84 08/04/20 06:00 Resp 16 08/04/20 06:00 BP 127/65 08/04/20 06:00 Pulse Ox 95 08/04/20 06:00 Intake & Output 08/03/20 08/04/20 08/04/20 18:59 06:59 18:59 Intake Total 960 Balance 960 Weight 69.2 kg 69 kg Intake: Oral 960 Other: Voiding Method Toilet # Voids 1 3 # Bowel Movements 5 - Exam General: The patient is awake and alert, in no distress Eye: there is normal conjunctiva bilaterally. Neck: The neck is supple, there is no JVD. Cardiovascular: Normal S1-S2, no S3-S4, no murmurs. Respiratory: Lungs clear to auscultation bilaterally Gastrointestinal: Abdomen is soft, nontender Musculoskeletal: There is no pedal edema. Neurological:. Speech is normal. Skin: Skin is warm and dry - Labs CBC & Chem 7: 08/04/20 07:32 08/04/20 07:32 Labs: Abnormal Lab Results - Last 24 Hours (Table) 08/04/20 08/04/20 08/04/20 Range/Units 07:32 07:32 07:32 RBC 2.88 L (4.30-5.90) m/uL Hgb 9.0 L (13.0-17.5) gm/dL Hct 27.3 L (39.0-53.0) % RDW 19.8 H (11.5-15.5) % Plt Count 139 L (150-450) k/uL Lymphocytes # 0.9 L (1.0-4.8) k/uL PT 24.5 H (9.0-12.0) sec INR 2.5 H (<1.2) Glucose 118 H (74-99) mg/dL Assessment and Plan Assessment: This is a 89-year-old male with past medical history noted below that presented to the emergency room sent by his bronze plater for further evaluation of generalized weakness and black stool. Patient was evaluated in the ER and will be admitted to the hospital for further management of his medical problems noted below. 1. Symptomatic anemia, hemoglobin of 7.6 on presentation. 1 unit of PRBC transfused in the ER. We will continue to monitor hemoglobin closely. No evidence of ongoing bleed. 2. Acute on chronic anemia, with suspected chronic GI blood loss. Patient was seen and evaluated by GI. Undergoing a capsule endoscopy today. Patient had an EGD and colonoscopy in March of this year with no identifiable source of infection. 3. Chronic iron deficiency anemia, following with hematology as an outpatient. Patient was getting IV iron infusion and currently getting oral iron. 4. History of mitral valve replacement, on anticoagulation with Coumadin. Patient was seen and evaluated by cardiology. Coumadin dosed by pharmacy 5. Hypovolemic shock, resolved with aggressive IV fluid hydration Lactic acid was normal 6. Chronic medical problems: Essential hypertension, paroxysmal atrial fibrillation, hyperlipidemia 7. CODE STATUS patient is full code 8. DVT prophylaxis with SCD Today, I reviewed his medication list and lab work results. Blood pressure within acceptable range off of home medications. I would add metoprolol 12.5 mg twice daily given history of A. fib. Continue to hold home blood pressure medications for now and monitor closely. Anticipate discharge home tomorrow
[2020-08-04] MEDS: METOPROLOL TARTRATE 12.5 MG TAB PO SCH ×2 (10:41→20:08)
[2020-08-04] MEDS: PANTOPRAZOLE 40 MG TABLET PO SCH (10:42)
--- NOTE | 2020-08-04 13:40 | P.PN ---
Subjective Progress Note Date: 08/04/20 Principal diagnosis: Anemia She was seen and examined sitting up at the bedside. He is undergoing his small bowel capsule study today. He denies any abdominal pain, nausea, or vomiting. He denies any black or bloody stools, any coffee-ground emesis or hematemesis. Hemoglobin is stable at 9.0. Objective - Vital Signs Vital signs: Vital Signs Temp 97.9 F 08/04/20 06:00 Pulse 84 08/04/20 06:00 Resp 16 08/04/20 06:00 BP 127/65 08/04/20 06:00 Pulse Ox 95 08/04/20 06:00 Intake & Output 08/03/20 08/04/20 08/04/20 18:59 06:59 18:59 Intake Total 960 Balance 960 Weight 69.2 kg 69 kg Intake: Oral 960 Other: Voiding Method Toilet # Voids 1 3 # Bowel Movements 5 - Exam General appearance: The patient is alert, oriented, appears in no acute distress. HET: Head is normocephalic and atraumatic. Conjunctiva pink. Sclera anicteric. Neck: Supple without lymphadenopathy. Abdomen: Soft, nontender, nondistended with bowel sounds. No guarding or rigidity. Extremities: Normal skin color and turgor. No pedal edema Skin: No rashes, no jaundice Neurological: No focal deficits. Alert and oriented 3. - Labs CBC & Chem 7: 08/04/20 07:32 08/04/20 07:32 Labs: Abnormal Lab Results - Last 24 Hours (Table) 08/04/20 08/04/20 08/04/20 Range/Units 07:32 07:32 07:32 RBC 2.88 L (4.30-5.90) m/uL Hgb 9.0 L (13.0-17.5) gm/dL Hct 27.3 L (39.0-53.0) % RDW 19.8 H (11.5-15.5) % Plt Count 139 L (150-450) k/uL Lymphocytes # 0.9 L (1.0-4.8) k/uL PT 24.5 H (9.0-12.0) sec INR 2.5 H (<1.2) Glucose 118 H (74-99) mg/dL Assessment and Plan (1) Normocytic normochromic anemia Narrative/Plan: 89-year-old male presenting to the emergency room for evaluation of a normocytic normochromic anemia. Multiple medical comorbidities on anticoagulation therapy with Coumadin. He takes oral iron therapy for iron deficiency anemia and has received IV infusions of iron with the auction clerk in the past as well. He has been having some shortness of breath worse with exertion and weakness and was instructed to come to the hospital for further evaluation. Previously he had EGD and colonoscopy on 03/2020 with findings of mild gastritis, pandiverticulosis, and internal hemorrhoids with no blood active bleeding or source of blood loss noted no previous capsule endoscopy Current Visit: Yes Status: Chronic Priority: Medium Code(s): D64.9 - ANEMIA, UNSPECIFIED SNOMED Code(s): 68544248 (2) Occult blood positive stool Current Visit: No Status: Acute Code(s): R19.5 - OTHER FECAL ABNORMALITIES SNOMED Code(s): 72655287 Plan: Supportive care Small bowel video capsule endoscopy performed today Clear liquids for lunch, May have regular diet for dinner Daily CBC, transfuse for hemoglobin less than 7 Continue further workup and follow-up with hematology, as previous endoscopies have been negative Patient may be discharged home after small capsule endoscopy with follow-up in 1-2 weeks for results. Thank you for this consultation, we will continue to follow Dr. Newell I agree with the dictator's note, documented as a scribe by Bessy Vargas.
--- NOTE | 2020-08-04 13:50 | P.PN ---
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 Gallagher ( patient on coumadin), hypertension, dyslipidmia, peripheral vascular disease. He follows in the office with Dr. Meraz. We have been asked to see in consultation for anticoagulation change/assistance. 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 Patient does received IV iron infusions. On admission INR 3.9, Hgb 7.6. Patient denies chest pain, palpitions, dizziness, lightheadedness or fatigue at this time. He recieved 1 unit PRBCs. Patient underwent colonoscopy 03/2020 which revealed normal appearsing colon, mild pandiverticulosis and internal hemorrhoids. EGD 03/2020 also with no active bleeding or old blood, revealed mild gastritis. Current home cardiac medications include amlodipine 5 mg daily, Coumadin 5 mg daily, losartan 100 mg daily, atorvastatin 40 mg nightly, atenolol 50 mg daily, aspirin 81 mg every 48 hours. Echo 12/2019 in the office- EF 55%, moderate concentric hypertrophy, severely dilated left atrium, moderately dilated right atrium, mild aortic regurgitation and severe aortic stenosis peak/mean gradient of 57mmHg/32mmHg, mechanical mitral valve prosthesis, mild valvular regurgitation with peak/mean gradient 25mmHg/8mmHg 08/04/2020: Patient seen and examined at bedside, alert and oriented x 4. Vital signs are stable. Telemetry tracings indicate atrial fibrillation ventricular rates controlled HR 70s-80s, this morning did have one episode of 5 beat run of NSVT. Laboratory reviewed, WBC 7.8, hemoglobin 9.0, platelets 139, sodium 138, potassium 4.1, serum creatinine 1.15, BUN 15 PHYSICAL EXAMINATION Blood pressure 124/58 heart rate 81 afebrile and maintaining oxygen saturation 95% on room air CONSTITUTIONAL: No apparent distress. HEENT: Head is normocephalic No JVD. No carotid bruit. CHEST EXAMINATION: Lungs are clear to auscultation. No chest wall tenderness is noted on palpation or with deep breathing. HEART EXAMINATION: Irregular rate and rhythm. S1, S2 heard. Systolic ejection murmur heard, mitral click heard, No gallops or rub. ABDOMEN: Soft, nontender. Positive bowel sounds. EXTREMITIES: 2+ peripheral pulses, no lower extremity edema and no calf tenderness. NEUROLOGIC EXAMINATION: Patient is awake, alert and oriented x3. ASSESSMENT Chronic anemia s/p 1 unit of PRBC this admission Permanent atrial fibrillation- on coumadin Severe aortic stenosis Severe mitral insufficiency s/p mechanical mitral valve replacement 08/2000 (on coumadin) Hypertension Dyslipidemia Peripheral Vascular Disease PLAN -GI following- Plan for small bowel video capsule endoscopy performed today -Patient has a mechanical mitral valve and needs to continue coumadin -Recommend patient taking coumadin 4mg two days of the week (Tuesdays and ), and 5mg for the other 5 days of the week. Patient would need 2 prescriptions for 4mg pills and 5mg pills. -We will given 5mg coumadin tonight -Recommend titer control of INR, INR goal around 3.0 (2.8-3.0) -Recommend patient checks coumadin levels every 2 weeks (instead of once a month he is currently doing) -Patient would benefit from home INR monitor to check INR levels at home, manager electrical has given patient and son the form to do this outpatient with patient's PCP -Discontinue aspirin Nurse Practitioner note has been reviewed, I agree with a documented findings and plan of care. Patient was seen and examined. Objective - Vital Signs Vital signs: Vital Signs Temp 98.2 F 08/04/20 08:00 Pulse 81 08/04/20 08:00 Resp 16 08/04/20 06:00 BP 124/58 08/04/20 08:00 Pulse Ox 95 08/04/20 08:00 Intake & Output 08/03/20 08/04/20 08/04/20 18:59 06:59 18:59 Intake Total 960 Balance 960 Weight 69.2 kg 69 kg Intake: Oral 960 Other: Voiding Method Toilet # Voids 1 3 # Bowel Movements 5 - Labs CBC & Chem 7: 08/04/20 07:32 08/04/20 07:32 Labs: Abnormal Lab Results - Last 24 Hours (Table) 08/04/20 08/04/20 08/04/20 Range/Units 07:32 07:32 07:32 RBC 2.88 L (4.30-5.90) m/uL Hgb 9.0 L (13.0-17.5) gm/dL Hct 27.3 L (39.0-53.0) % RDW 19.8 H (11.5-15.5) % Plt Count 139 L (150-450) k/uL Lymphocytes # 0.9 L (1.0-4.8) k/uL PT 24.5 H (9.0-12.0) sec INR 2.5 H (<1.2) Glucose 118 H (74-99) mg/dL
--- NOTE | 2020-08-04 14:22 | P.CONS ---
History of Present Illness - Reason for Consult Consult date: 08/04/20 symptomatic anemia Requesting physician: Yola Dawn - Chief Complaint GI bleeding - History of Present Illness Mr. Wilhelm it is a pleasant pt of Dr. Cesar, with multiple but well-controlled medical problems. He was see inpt 04/14 with complains of progressive weakness and fatigue. Reported black stools for at least 2 weeks or more prior to the admission. From 04/04/20 hemoglobin was 8.3 with WBC 6.5 and platelets 141. Iron saturation of 6.5 with ferritin in the 40 range. Creatinine was 1.54. Potassium was 3.4. The patient received a unit of blood. According to him he also has had iron infusions. He had EGD and colonoscopy on 04/04/20. This was his first colonoscopy. This was negative other than some internal hemorrhoids and mild pandiverticulosis. EGD only showed some mild gastritis in the antrum and body. Biopsies confirmed the same with H. pylori negative. The patient was then discharged and referred to Dr. Cesar for further evaluation and armando mmendations. Pt has no history of blood related problems or iron supplementation in the past. 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 Other than the above episode, he denies any obvious blood loss. Cardiology was ok with im stopping t he aspirin but pt needs to stay on coumadin. Pt was fully worked up with only a small monoclonal protein, not even needing intervention. He last had iron 06/12, Hgb was 12 on 07/13/20. He was in ofc with c/o fatigue, mild SOB on exertion, tired all the time, Hgb 7.7. He was sent to hospital for symptoms. Review of Systems 10 point ROS is neg except as stated in HPI Past Medical History Past Medical History: Hyperlipidemia, Hypertension, Vascular Disorder Additional Past Medical History / Comment(s): irreg hr History of Any Multi-Drug Resistant Organisms: None Reported Past Surgical History: Appendectomy, Cardiac Valve Replacement Additional Past Surgical History / Comment(s): valve replacement, stents. Past Anesthesia/Blood Transfusion Reactions: No Reported Reaction Past Psychological History: No Psychological Hx Reported Smoking Status: Never smoker Past Alcohol Use History: None Reported Past Drug Use History: None Reported - Past Family History Father Family Medical History: No Reported History Mother Family Medical History: No Reported History Medications and Allergies Home Medications Medication Instructions Recorded Confirmed Type Atenolol [Tenormin] 50 mg PO HS 04/04/20 08/02/20 History Atorvastatin [Lipitor] 40 mg PO HS 04/04/20 08/02/20 History Losartan Potassium 100 mg PO DAILY 04/04/20 08/02/20 History Omeprazole 40 mg PO BID #30 04/07/20 08/02/20 Rx amLODIPine [Norvasc] 5 mg PO DAILY #30 tab 04/07/20 08/02/20 Rx Ferrous Sulfate [Feosol] 325 mg PO DAILY 08/02/20 08/02/20 History Warfarin Sodium [Jantoven] 5 mg PO DAILY 08/02/20 08/02/20 History Allergies Allergy/AdvReac Type Severity Reaction Status Date / Time No Known Allergies Allergy Verified 08/02/20 13:16 Physical Exam Vitals: Vital Signs Temp Pulse Pulse Resp BP Pulse Ox 08/04/20 06:00 97.9 F 84 16 127/65 95 08/04/20 04:00 97.9 F 84 16 127/65 95 08/04/20 01:37 89 20 08/04/20 00:00 89 20 123/65 94 L 08/03/20 20:00 97.9 F 79 18 153/67 93 L 08/03/20 16:00 98.2 F 66 16 128/60 94 L 08/03/20 14:00 16 08/03/20 12:00 98.3 F 69 16 126/61 95 08/03/20 09:17 98.3 F 64 16 103/55 97 Intake and Output 08/03/20 08/04/20 08/04/20 22:59 06:59 14:59 Intake Total 480 Balance 480 Intake: Oral 480 Other: Voiding Method Toilet Toilet # Voids 3 # Bowel Movements 4 5 Weight 69 kg - Constitutional General appearance: average body habitus, cooperative, no acute distress - EENT Eyes: anicteric sclerae, EOMI ENT: hearing grossly normal, normal oropharynx - Neck Neck: no lymphadenopathy - Respiratory Respiratory: bilateral: CTA - Cardiovascular mitral mechanical valve Rhythm: regular Heart sounds: normal: S1, S2 - Gastrointestinal General gastrointestinal: no absent bowel sounds, no decreased bowel sounds, no distended, no hepatomegaly, no hyperactive bowel sounds, normal bowel sounds, no organomegaly, no rigid, no scaphoid, soft, no splenomegaly, no tenderness, no umbilical hernia, no ventral hernia - Neurologic Neurologic: CNII-XII intact - Musculoskeletal Musculoskeletal: strength equal bilaterally - Psychiatric Psychiatric: A&O x's 3, appropriate affect, intact judgment & insight Results CBC & Chem 7: 08/04/20 07:32 08/04/20 07:32 Labs: Abnormal Lab Results - Last 24 Hours (Table) 08/04/20 08/04/20 08/04/20 Range/Units 07:32 07:32 07:32 RBC 2.88 L (4.30-5.90) m/uL Hgb 9.0 L (13.0-17.5) gm/dL Hct 27.3 L (39.0-53.0) % RDW 19.8 H (11.5-15.5) % Plt Count 139 L (150-450) k/uL Lymphocytes # 0.9 L (1.0-4.8) k/uL PT 24.5 H (9.0-12.0) sec INR 2.5 H (<1.2) Glucose 118 H (74-99) mg/dL Assessment and Plan (1) Mechanical heart valve present Narrative/Plan: Chronic coumadin needed No evidence of hemolysis Current Visit: Yes Status: Chronic Priority: Medium Code(s): Z95.2 - PRESENCE OF PROSTHETIC HEART VALVE SNOMED Code(s): 51969304165893 (2) Normocytic normochromic anemia Narrative/Plan: Iron studies on labs drawn earlier this week, will order parenteral iron based on those studies Pt is s/p 1 unit PRBCs. He states his anemia symptoms are a little better. He has small bowel capsule study this AM, pending results Current Visit: Yes Status: Chronic Priority: Medium Code(s): D64.9 - ANEMIA, UNSPECIFIED SNOMED Code(s): 64937409
[2020-08-04] MEDS ORDERED: WARFARIN 5 MG TAB PO SCH (18:00)
[2020-08-04] MEDS: ATORVASTATIN 40 MG TAB PO SCH (20:08)
[2020-08-04] MEDS ORDERED: ACETAMINOPHEN TAB 325 MG TAB PO PRN (20:09)
[2020-08-05 04:10] VITALS: TEMP 99.6
[2020-08-05] MEDS: PANTOPRAZOLE 40 MG TABLET PO SCH (06:31)
[2020-08-05] MEDS: METOPROLOL TARTRATE 12.5 MG TAB PO SCH (08:38)
[2020-08-05 08:42] VITALS: BP 115/59; PULSE 91; RESP 17
[2020-08-05 08:48] LABS: Anisocytosis Slight; Basophils % (A) 0 %; Eosinophils % (A) 0 %; HGB 9.3 gm/dL (13.0-17.5); Lymphocytes # (A) 0.8 k/uL (1.0-4.8); Lymphocytes % (A) 10 %; MCH 34.1 pg (25.0-35.0); MCV 94.7 fL (80.0-100.0); Macrocytosis Slight; Mean Platelet Volume 7.8; Monocytes # (A) 0.6 k/uL (0-1.0); Monocytes % (A) 8 %; Neutrophils # (A) 6.6 k/uL (1.3-7.7); Neutrophils % (A) 80 %; Platelet Count 120 k/uL (150-450); Poikilocytosis Slight; RBC 2.74 m/uL (4.30-5.90); RDW 18.9 % (11.5-15.5); WBC 8.3 k/uL (3.8-10.6)
[2020-08-05 08:57] LABS: INR 2.1 (<1.2); Prothrombin Time 20.1 sec (9.0-12.0)
[2020-08-05 09:07] LABS: Calcium 8.4 mg/dL (8.4-10.2)
--- NOTE | 2020-08-05 09:55 | P.PN ---
Subjective Progress Note Date: 08/05/20 Principal diagnosis: Anemia Patient seen and examined at the bedside. He denies any black stools, bright red blood per rectum. He denies abdominal pain, nausea, or vomiting. He is tolerating his diet. He underwent a small bowel capsule endoscopy yesterday for which the results are pending. Results will not be ready until 3:00 or after today. Patient would like to be discharged home with follow-up on results, Which is reasonable from a gastroenterology standpoint. Objective - Vital Signs Vital signs: Vital Signs Temp 99.6 F 08/05/20 04:00 Pulse 91 08/05/20 08:10 Resp 17 08/05/20 08:10 BP 115/59 08/05/20 08:10 Pulse Ox 93 L 08/05/20 08:10 Intake & Output 08/04/20 08/05/20 08/05/20 18:59 06:59 18:59 Intake Total 480 Output Total 210 Balance 480 -210 Weight 69.8 kg Intake: Oral 480 Output: Urine 210 Other: Voiding Method Toilet # Voids 1 - Exam General appearance: The patient is alert, oriented, appears in no acute distress. HET: Head is normocephalic and atraumatic. Conjunctiva pink. Sclera anicteric. Neck: Supple without lymphadenopathy. Abdomen: Soft, nontender, nondistended with bowel sounds. No guarding or rigidity. Extremities: Normal skin color and turgor. No pedal edema Skin: No rashes, no jaundice Neurological: No focal deficits. Alert and oriented 3. - Labs CBC & Chem 7: 08/05/20 07:35 08/05/20 07:35 Labs: Abnormal Lab Results - Last 24 Hours (Table) 08/05/20 08/05/20 08/05/20 Range/Units 07:35 07:35 07:35 RBC 2.74 L (4.30-5.90) m/uL Hgb 9.3 L (13.0-17.5) gm/dL Hct 26.0 L (39.0-53.0) % RDW 18.9 H (11.5-15.5) % Plt Count 120 L (150-450) k/uL Lymphocytes # 0.8 L (1.0-4.8) k/uL PT 20.1 H (9.0-12.0) sec INR 2.1 H (<1.2) Sodium 136 L (137-145) mmol/L Glucose 116 H (74-99) mg/dL Assessment and Plan (1) Normocytic normochromic anemia Narrative/Plan: 89-year-old male presenting to the emergency room for evaluation of a normocytic normochromic anemia. Multiple medical comorbidities on anticoagulation therapy with Coumadin. He takes oral iron therapy for iron deficiency anemia and has received IV infusions of iron with the plaster pattern caster in the past as well. He has been having some shortness of breath worse with exertion and weakness and was instructed to come to the hospital for further evaluation. Previously he had EGD and colonoscopy on 03/2020 with findings of mild gastritis, pandiverticulosis, and internal hemorrhoids with no blood active bleeding or source of blood loss noted no previous capsule endoscopy Current Visit: Yes Status: Chronic Priority: Medium Code(s): D64.9 - ANEMIA, UNSPECIFIED SNOMED Code(s): 42683214 (2) Occult blood positive stool Current Visit: No Status: Acute Code(s): R19.5 - OTHER FECAL ABNORMALITIES SNOMED Code(s): 86898236 Plan: Supportive care Small bowel video capsule endoscopy performed today Regular diet Daily CBC, transfuse for hemoglobin less than 7 Continue further workup and follow-up with hematology, as previous endoscopies have been negative Patient may be discharged home today with follow-up on small bowel capsule endoscopy results in 1-2 weeks. Thank you for this consultation, we'll sign off at this time. Dr. Newell I agree with the dictator's note, documented as a scribe by Bessy Vargas.
--- NOTE | 2020-08-29 15:04 | P.DS ---
Providers Date of admission: 08/02/20 13:03 Expected date of discharge: 08/05/20 Attending physician: Yola Dawn Consults: 08/02/20 13:04 Consult Physician Urgent Consulting Provider: Ishan Newell Consult Reason/Comments: gi hemorrhage Do you want consulting provider notified?: Yes 08/02/20 13:46 Consult Physician Routine Consulting Provider: Manav Meraz Consult Reason/Comments: Anticoagulation risk and benefits, switch anticoagulation to novel agent? Do you want consulting provider notified?: Yes 08/03/20 14:08 Consult Physician Routine Consulting Provider: Cedric Cesar Consult Reason/Comments: [facility] Do you want consulting provider notified?: Yes Primary care physician: Murtaza Lopez [place] Hospital Course: This is a late entry discharge summary. Patient was seen, evaluated, and discharged from the hospital on 08/05/2020 This is a 89-year-old male with past medical history noted below that presented to the emergency room sent by his yard motor operator for further evaluation of generalized weakness and black stool. Patient was evaluated in the ER and will be admitted to the hospital for further management of his medical problems noted below. 1. Symptomatic anemia, hemoglobin of 7.6 on presentation. 1 unit of PRBC transfused in the ER. No evidence of ongoing bleed. Hemoglobin stable throughout his hospital stay 2. Acute on chronic anemia, with suspected chronic GI blood loss. Patient was seen and evaluated by GI. Underwent capsule endoscopy with plan to follow-up on results in the office with GI. Patient had an EGD and colonoscopy in March of this year with no identifiable source of infection. 3. Chronic iron deficiency anemia, following with hematology as an outpatient. Patient was getting IV iron infusion and currently getting oral iron. 4. History of mitral valve replacement, on anticoagulation with Coumadin. Patient was seen and evaluated by cardiology. Continue to monitor INR closely 5. Hypovolemic shock, resolved with aggressive IV fluid hydration Lactic acid was normal 6. Chronic medical problems: Essential hypertension, paroxysmal atrial fibrillation, hyperlipidemia Patient was discharged from the hospital in a stable condition. Plan to follow up with GI in the office as directed to discuss capsule endoscopy results. Patient Condition at Discharge: Stable Plan - Discharge Summary Discharge Rx Participant: No New Discharge Prescriptions: New Warfarin [Coumadin] 5 mg PO DIRECTED #30 tab Warfarin [Coumadin] 4 mg PO DIRECTED #120 tab Metoprolol Tartrate [Lopressor] 12.5 mg PO BID #60 dose Pantoprazole [Protonix] 40 mg PO AC-BRKFST #30 tablet. Continue Atorvastatin [Lipitor] 40 mg PO HS Ferrous Sulfate [Iron (65 MG Elemental)] 325 mg PO DAILY Discontinued Aspirin 81 mg PO Q48H Atenolol [Tenormin] 50 mg PO HS Losartan Potassium 100 mg PO DAILY amLODIPine [Norvasc] 5 mg PO DAILY #30 tab Omeprazole 40 mg PO BID #30 Warfarin Sodium [Jantoven] 5 mg PO DAILY Discharge Medication List Atorvastatin [Lipitor] 40 mg PO HS 04/04/20 [History] Ferrous Sulfate [Iron (65 MG Elemental)] 325 mg PO DAILY 08/02/20 [History] Metoprolol Tartrate [Lopressor] 12.5 mg PO BID #60 dose 08/05/20 [Rx] Pantoprazole [Protonix] 40 mg PO AC-BRKFST #30 tablet. 08/05/20 [Rx] Warfarin [Coumadin] 4 mg PO DIRECTED #120 tab 08/05/20 [Rx] Warfarin [Coumadin] 5 mg PO DIRECTED #30 tab 08/05/20 [Rx] Follow up Appointment(s)/Referral(s): An Aguila NPC [Nurse Practitioner] - 1 Week Murtaza Lopez MD [Primary Care Provider] - 1-2 days Manav Meraz MD [STAFF PHYSICIAN] - 08/30/20 4:00 pm Ishan Newell MD [STAFF PHYSICIAN] - 09/05/20 4:00 pm Discharge Disposition: HOME SELF-CARE
== END 2020-08-05 11:40 | disposition home or self-care (01) | DRG 377 ==
LOC: EC 11:15 → 3SCARD 13:03
PROVIDERS: ADMIT Internal Medicine; ATTEND Internal Medicine
PROC: 30233N1 Transfusion of Nonautologous Red Blood Cells into Peripheral Vein, Percutaneous Approach (ICD-10-PCS; principal; 2020-08-02)
PROC: 0DJ07ZZ Inspection of Upper Intestinal Tract, Via Natural or Artificial Opening (ICD-10-PCS; 2020-08-04)
DX: K92.2 Gastrointestinal hemorrhage, unspecified (principal); R57.1 Hypovolemic shock; D68.9 Coagulation defect, unspecified; I47.2 Ventricular tachycardia; I48.21 Permanent atrial fibrillation; D50.9 Iron deficiency anemia, unspecified; E78.5 Hyperlipidemia, unspecified; I08.0 Rheumatic disorders of both mitral and aortic valves; I10 Essential (primary) hypertension; I73.9 Peripheral vascular disease, unspecified; K29.70 Gastritis, unspecified, without bleeding; K57.90 Diverticulosis of intestine, part unspecified, without perforation or abscess without bleeding; K64.8 Other hemorrhoids; Z20.822 Contact with and (suspected) exposure to COVID-19; Z79.01 Long term (current) use of anticoagulants; Z79.82 Long term (current) use of aspirin; Z79.899 Other long term (current) drug therapy; Z95.2 Presence of prosthetic heart valve; Z90.49 Acquired absence of other specified parts of digestive tract; Z95.828 Presence of other vascular implants and grafts
CPT/HCPCS: 36415; 80048; 80053; 82272; 83605; 85025; 85610; 85730; 86704; 86706; 86850; 86900; 86901; 86920; 87340; 87635; 91110; 93005; 96374; 99285

== ENCOUNTER → 2020-08-11 | Outpatient (CLI) | payer MEDICARE, BC ==
--- NOTE | 2020-08-11 13:41 | XR ---
EXAMINATION TYPE: XR bone survey complete DATE OF EXAM: 08/11/2020 COMPARISON: NONE HISTORY: D50.0 iron deficiency anemia Single view of the chest demonstrates basilar infiltrates and pleural effusions. Cardiomegaly with pu lmonary venous congestion. Bony calvarium : 2 views of the bony calvarium demonstrate no osteolytic or osteoblastic lesion Spine: Two views of the cervical, thoracic and lumbar spines are submitted. no osteolytic or osteobl astic lesion PELVIS: Single view of the pelvis demonstrates no osteolytic or osteoblastic lesion UPPER EXTREMITIES: Two views of the upper extremities reveal no osteolytic or osteoblastic lesion LOWER EXTREMITIES: 2 views of the lower extremities reveal no osteolytic or osteoblastic lesion Degenerative changes throughout the cervical thoracic and lumbar spines IMPRESSION: No evidence for osteolytic or osteoblastic lesion as visualized.
== END | disposition home or self-care (01) ==
LOC: RADXRMAIN 12:45
PROVIDERS: ATTEND Internal Medicine Hematology & Oncology
DX: D50.0 Iron deficiency anemia secondary to blood loss (chronic) (principal)
CPT/HCPCS: 77075

== ENCOUNTER → 2020-10-21 | Outpatient (CLI) | payer MEDICARE, BC ==
[2020-10-21 09:48] LABS: Basophils % (A) 1 %; Eosinophils # (A) 0.2 k/uL (0-0.7); Eosinophils % (A) 3 %; HCT 42.4 % (39.0-53.0); HGB 14.6 gm/dL (13.0-17.5); Lymphocytes # (A) 0.9 k/uL (1.0-4.8); Lymphocytes % (A) 13 %; MCH 33.5 pg (25.0-35.0); MCHC 34.5 g/dL (31.0-37.0); MCV 97.1 fL (80.0-100.0); Mean Platelet Volume 8.3; Monocytes # (A) 0.4 k/uL (0-1.0); Monocytes % (A) 6 %; Neutrophils # (A) 4.7 k/uL (1.3-7.7); Neutrophils % (A) 75 %; Platelet Count 111 k/uL (150-450); RBC 4.37 m/uL (4.30-5.90); RDW 14.2 % (11.5-15.5); WBC 6.3 k/uL (3.8-10.6)
[2020-10-21 10:04] LABS: Calcium 9.7 mg/dL (8.4-10.2); Potassium 4.2 mmol/L (3.5-5.1)
== END | disposition home or self-care (01) ==
LOC: LABPAT 08:53
PROVIDERS: ATTEND Urology
DX: Z01.812 Encounter for preprocedural laboratory examination (principal); N20.9 Urinary calculus, unspecified
CPT/HCPCS: 36415; 80048; 85025

== ENCOUNTER 2020-10-26 06:44 | Day surgery (SDC) | payer MEDICARE, BC ==
[2020-10-25 08:43] VITALS: BMI 23.3
--- NOTE | 2020-10-25 18:57 | P.GSHP ---
History of Present Illness H&P Date: 10/25/20 89 yo male with recurrent symptoms of a uti with abnormal ua but negative cultures He underwent cystoscopy recently identifying a large bladder stone. He comes for a cystolithotripsy. - Constitutional Constitutional: Denies chills, Denies fever - EENT Eyes: denies blurred vision, denies pain Ears, nose, mouth and throat: Denies headache, Denies sore throat - Cardiovascular Cardiovascular: Denies chest pain, Denies shortness of breath - Respiratory Respiratory: Denies cough, Denies 7 - Gastrointestinal Gastrointestinal: Denies abdominal pain, Denies diarrhea, Denies nausea, Denies vomiting - Genitourinary (Female) Genitourinary: Denies dysuria, Denies hematuria - Genitourinary (Male) Genitourinary: Denies dysuria, Denies hematuria - Musculoskeletal Musculoskeletal: Denies myalgias - Integumentary Integumentary: Denies pruritus, Denies rash - Neurological Neurological: Denies numbness, Denies weakness - Psychiatric Psychiatric: Denies anxiety, Denies depression - Endocrine Endocrine: Denies fatigue, Denies weight change Past Medical History Past Medical History: GI Bleed, Hyperlipidemia, Hypertension, Vascular Disorder Additional Past Medical History / Comment(s): irreg hr, bladder stone, peripheral neuropathy,. blood transfusion x2 d/t gi bleed, iron transfusion- 4 History of Any Multi-Drug Resistant Organisms: None Reported Past Surgical History: Appendectomy, Cardiac Valve Replacement Additional Past Surgical History / Comment(s): valve replacement, stents pedro legs. Past Anesthesia/Blood Transfusion Reactions: No Reported Reaction Additional Past Anesthesia/Blood Transfusion Reaction / Comment(s): blood transfusion x2-2020 Smoking Status: Never smoker - Past Family History Father Family Medical History: No Reported History Mother Family Medical History: No Reported History Medications and Allergies Home Medications Medication Instructions Recorded Confirmed Type Atorvastatin [Lipitor] 40 mg PO HS 04/04/20 10/25/20 History Ferrous Sulfate [Iron (65 MG 325 mg PO HS 08/02/20 10/25/20 History Elemental)] Metoprolol Tartrate [Lopressor] 12.5 mg PO BID #60 dose 08/05/20 10/25/20 Rx Pantoprazole [Protonix] 40 mg PO RA #30 tablet. 08/05/20 10/25/20 Rx Warfarin [Coumadin] 4 mg PO DIRECTED #120 tab 08/05/20 10/25/20 Rx Warfarin [Coumadin] 5 mg PO DIRECTED #30 tab 08/05/20 10/25/20 Rx Aspirin [Adult Low Dose Aspirin EC] 81 mg PO DAILY 10/25/20 10/25/20 History Allergies Allergy/AdvReac Type Severity Reaction Status Date / Time No Known Allergies Allergy Verified 10/25/20 08:30 Surgical - Exam - General well developed - Eyes PERRL - ENT no hearing loss - Neck no masses, trachea midline - Respiratory normal expansion, normal respiratory effort - Cardiovascular Rhythm: regular - Abdomen Abdomen: soft, non tender - Genitourinary normal penis with no external lesions, testicles present - Neurologic normal coordination, normal sensation - Musculoskeletal normal gait, normal posture - Psychiatric oriented to time, oriented to person, oriented to place, speech is normal, memory intact Assessment and Plan Assessment: Impression: BLADDER STONE, LARGE pLAN: Cystolithotripsy
[~2020-10-26 06:44] MED LIST: DEXAMETHASONE SOD PHOSPHATE 4 MG/ML 1 ML VIAL IV ONE; ONDANSETRON 4 MG/2 ML VIAL IVP ONE
[2020-10-26] MEDS ORDERED: HYDROmorphone 0.5 MG/0.5 ML SYRINGE IVP PRN (07:00)
[2020-10-26] MEDS: LACTATED RINGERS 1,000 ML IV SCH ×2 (07:25→10:22)
[2020-10-26 07:48] LABS: INR 1.7 (<1.2); Prothrombin Time 16.7 sec (9.0-12.0)
[2020-10-26] MEDS ORDERED: ETOMIDATE 2 MG/ML 10 ML VIAL ONE (07:54)
[2020-10-26] MEDS ORDERED: fentaNYL (PF) 50 MCG/ML 2 ML AMP ONE (07:54)
[2020-10-26] MEDS ORDERED: LIDOCAINE 1% INJ 10MG/ML (20 ML MDV) ONE (07:54)
[2020-10-26] MEDS ORDERED: PROPOFOL 10 MG/ML 20 ML VIAL IV ONE (07:54)
[2020-10-26 09:20] VITALS: TEMP 97.9
--- NOTE | 2020-10-26 09:21 | P.OP ---
Date of Procedure: 10/26/20 Preoperative Diagnosis: Bladder stone, large Postoperative Diagnosis: Same Procedure(s) Performed: Cystoscopy with cystolithotripsy (large greater than 3 cm) Anesthesia: AMENA Surgeon: Wyatt Sun Estimated Blood Loss (ml): 25 Pathology: other (Stone) Condition: stable Disposition: PACU Indications for Procedure: The patient is 89. He presented with difficulty urinating and marked dysuria. Urinalysis looked infected but cultures negative cystoscopy identified a greater than 3 cm zane stone in the bladder. He comes for cystoscopy lithotripsy Description of Procedure: Patient is brought to the operating suite. He is given a general anesthetic. He's placed lithotomy position. Prep and drape. A 21-Tajik sheath and Foroblique lenses introduced urethra is normal. The prostate shows trilobar obstruction. Upon entering the bladder there is a large zane stone. With the 500 laser probe and 20 W of energy I tediously break the stone over the next hour into tiny fragments that flushed or irrigated out of the bladder. Then the procedure there is no remaining stone. Prostates quite inflamed. I will thus placed an 18-Tajik coud-tip catheter in the bladder to drain urine over the next 48 hours while the swelling settles down. The patient is awakened and returned recovery room in good condition he'll be discharged home upon recovery with indwelling catheter and follow-up in the office on Saturday.
[2020-10-26 09:27] VITALS: RESP 16
[2020-10-26 10:52] VITALS: BP 154/82; PULSE 80
== END 2020-10-26 11:48 | disposition home or self-care (01) ==
LOC: OR 06:44
PROVIDERS: ATTEND Urology
DX: N21.0 Calculus in bladder (principal); I10 Essential (primary) hypertension; E78.5 Hyperlipidemia, unspecified; I48.91 Unspecified atrial fibrillation; I35.0 Nonrheumatic aortic (valve) stenosis; F41.9 Anxiety disorder, unspecified; G62.9 Polyneuropathy, unspecified; K92.2 Gastrointestinal hemorrhage, unspecified; Z79.01 Long term (current) use of anticoagulants
CPT/HCPCS: 52318; 85610; 82365; C1758; J1100; J2405; J0690; J2001; J3010; J2704

== ENCOUNTER 2020-10-27 08:35 | Emergency (ER) | payer MEDICARE, BC ==
[2020-10-27 08:48] VITALS: BP 148/61; PULSE 81; RESP 18; TEMP 97.6
--- NOTE | 2020-10-27 09:17 | ED ---
General Adult HPI - General Chief complaint: Urogenital Stated complaint: Issues w/ Catheter Time Seen by Provider: 10/27/20 08:49 Source: patient, family, RN notes reviewed Mode of arrival: ambulatory Limitations: no limitations - History of Present Illness Initial comments: Patient is a pleasant 89-year-old male presenting to the emergency department with concerns for Clarke catheter not draining. Patient did have laser to kidney stone yesterday and Clarke catheter was placed following this. No urinary pass since last night. Patient does have bladder fullness. No fever. No vomiting. No other complaints. - Related Data Home Medications Medication Instructions Recorded Confirmed Atorvastatin [Lipitor] 40 mg PO HS 04/04/20 10/26/20 Ferrous Sulfate [Iron (65 MG 325 mg PO HS 08/02/20 10/26/20 Elemental)] Aspirin [Adult Low Dose Aspirin EC] 81 mg PO DAILY 10/25/20 10/26/20 Previous Rx's Medication Instructions Recorded Metoprolol Tartrate [Lopressor] 12.5 mg PO BID #60 dose 08/05/20 Pantoprazole [Protonix] 40 mg PO AC-BRKFST #30 tablet. 08/05/20 Warfarin [Coumadin] 4 mg PO DIRECTED #120 tab 08/05/20 Warfarin [Coumadin] 5 mg PO DIRECTED #30 tab 08/05/20 Allergies Allergy/AdvReac Type Severity Reaction Status Date / Time No Known Allergies Allergy Verified 10/27/20 08:48 Review of Systems ROS Statement: Those systems with pertinent positive or pertinent negative responses have been documented in the HPI. ROS Other: All systems not noted in ROS Statement are negative. Constitutional: Denies: fever Eyes: Denies: eye pain ENT: Denies: ear pain Respiratory: Denies: dyspnea Cardiovascular: Denies: chest pain Endocrine: Denies: fatigue Gastrointestinal: Reports: as per HPI Genitourinary: Reports: as per HPI Musculoskeletal: Denies: back pain Past Medical History Past Medical History: Hyperlipidemia, Hypertension, Vascular Disorder Additional Past Medical History / Comment(s): irreg hr History of Any Multi-Drug Resistant Organisms: None Reported Past Surgical History: Bladder Surgery Additional Past Surgical History / Comment(s): valve replacement, stents. Past Anesthesia/Blood Transfusion Reactions: No Reported Reaction Past Psychological History: No Psychological Hx Reported Smoking Status: Never smoker - Past Family History Father Family Medical History: No Reported History Mother Family Medical History: No Reported History General Exam Limitations: no limitations General appearance: alert, in no apparent distress Head exam: Present: normocephalic Respiratory exam: Present: normal lung sounds bilaterally Cardiovascular Exam: Present: regular rate, normal rhythm GI/Abdominal exam: Present: soft. Absent: distended, tenderness Extremities exam: Present: normal inspection Course Vital Signs 10/27/20 08:43 Temperature 97.6 F Pulse Rate 81 Respiratory 18 Rate Blood Pressure 148/61 O2 Sat by Pulse 96 Oximetry Medical Decision Making - Medical Decision Making Clarke catheter was flushed by nursing staff with approximately 3 50 mL out at this time. Catheter cell phone. Patient is feeling much better and currently symptom-free. Disposition Clinical Impression: Obstructed Clarke catheter Disposition: HOME SELF-CARE Condition: Stable Instructions (If sedation given, give patient instructions): Urinary Retention in Men (ED) Additional Instructions: Please do follow-up with your urologist in the next couple days for recheck. Return for Clarke catheter not draining, lower abdominal discomfort, fever or vomiting, worsening or change in symptoms or other concerns. Is patient prescribed a controlled substance at d/c from ED?: No Referrals: Murtaza Lopez MD [Primary Care Provider] - 1-2 days Wyatt Sun MD [STAFF PHYSICIAN] - 1-2 days Time of Disposition: 09:17
== END 2020-10-27 09:47 | disposition home or self-care (01) ==
LOC: EC 08:35
DX: T83.098A Other mechanical complication of other urinary catheter, initial encounter (principal); E78.5 Hyperlipidemia, unspecified; I10 Essential (primary) hypertension; Z79.899 Other long term (current) drug therapy
CPT/HCPCS: 99283

== ENCOUNTER → 2021-06-26 | Outpatient (CLI) | payer MEDICARE, BC ==
[2021-06-26 14:21] LABS: Basophils # (A) 0.04 X 10*3/uL (0.00-0.10); Basophils % (A) 0.6 %; Eosinophils # (A) 0.19 X 10*3/uL (0.04-0.35); Eosinophils % (A) 2.9 %; HCT 32.3 % (39.6-50.0); HGB 10.2 g/dL (13.0-17.0); Immature Grans, Automated 0.3 %; Lymphocytes % (A) 13.8 %; MCHC 31.6 g/dL (32.0-37.0); MCV 101.3 fL (80.0-97.0); Mean Platelet Volume 10.4 fL (9.5-12.2); Monocytes # (A) 0.53 X 10*3/uL (0.20-1.00); Monocytes % (A) 8.1 %; NRBC Per 100 WBC 0 /100 WBCS (0.0-0.0); Neutrophils # (A) 4.85 X 10*3/uL (1.80-7.70); Neutrophils % (A) 74.3 %; Platelet Count 150 X 10*3/uL (140-440); RBC 3.19 X 10*6/uL (4.40-5.60); RDW 15.6 % (11.5-14.5); WBC 6.53 X 10*3/uL (4.50-10.00)
[2021-06-26 14:53] LABS: Lipase 39 U/L (14-60)
[2021-06-26 16:06] LABS: Amylase 71 U/L (23-121); Chol/HDL Ratio 3.55 Ratio; Creatine Kinase 38 U/L (35-257); Iron 59 ug/dL (65-175); Total Iron Binding Capacity 210 ug/dL (228-460); VLDL Calculation 16.02 mg/dL (5.00-40.00)
[2021-06-26 21:21] LABS: Egg White IgE <0.10 kU/L
[2021-06-27 15:01] LABS: Casein IgE Class CLASS 0; Egg Yolk IgE Class CLASS 0
== END | disposition home or self-care (01) ==
LOC: LABWHC1 08:15
PROVIDERS: ATTEND Nurse Practitioner Adult Health
DX: Z12.5 Encounter for screening for malignant neoplasm of prostate (principal); R10.9 Unspecified abdominal pain; D64.9 Anemia, unspecified; E78.5 Hyperlipidemia, unspecified
CPT/HCPCS: 86003 ×2; 80061; 86001; 82607; 82728; 82150; 82550; 82746; 83540; 83550; 83690; 85025; 82785; 36415; G0103

== ENCOUNTER 2021-07-09 02:48 | Emergency (ER) | payer MEDICARE ==
[2021-07-09 02:56] VITALS: RESP 18
[2021-07-09] MEDS ORDERED: SODIUM CHLORIDE 0.9% 500 ML 500 ML IV STA (03:05)
[2021-07-09 03:28] LABS: Anisocytosis Slight; Basophils % (A) 0 %; Eosinophils # (A) 0.1 k/uL (0-0.7); Eosinophils % (A) 1 %; HCT 24.2 % (39.0-53.0); HGB 7.9 gm/dL (13.0-17.5); Hypochromasia Slight; Lymphocytes # (A) 0.6 k/uL (1.0-4.8); Lymphocytes % (A) 10 %; MCH 33.9 pg (25.0-35.0); MCHC 32.8 g/dL (31.0-37.0); MCV 103.5 fL (80.0-100.0); Macrocytosis Moderate; Mean Platelet Volume 8.4; Monocytes # (A) 0.3 k/uL (0-1.0); Monocytes % (A) 5 %; Neutrophils # (A) 5.3 k/uL (1.3-7.7); Neutrophils % (A) 83 %; Platelet Count 155 k/uL (150-450); Poikilocytosis Slight; RBC 2.34 m/uL (4.30-5.90); RDW 17.6 % (11.5-15.5); WBC 6.5 k/uL (3.8-10.6)
--- NOTE | 2021-07-09 03:39 | ED ---
General Adult HPI - General Chief complaint: Syncope Stated complaint: Syncope, Fall Time Seen by Provider: 07/09/21 02:50 Source: patient, EMS, RN notes reviewed, old records reviewed Mode of arrival: EMS - History of Present Illness Initial comments: 89-year-old male with syncopal episode, head trauma. Patient was found by his son in the bathroom after hearing a crash noise. Patient had passed out with probable head injury. Patient has no complaints time my evaluation. He was placed in a c-collar by paramedics during transport. He is on Xarelto with history of atrial fibrillation and valve replacement. - Related Data Home Medications Medication Instructions Recorded Confirmed Atorvastatin [Lipitor] 40 mg PO PC-SUPPER 04/04/20 07/07/21 Ferrous Sulfate [Feosol] 325 mg PO PC-SUPPER 07/07/21 07/07/21 Metoprolol Tartrate [Lopressor] 12.5 mg PO PC-BID 07/07/21 07/07/21 Pantoprazole [Protonix] 40 mg PO PC-BRKFST 07/07/21 07/07/21 Rivaroxaban [Xarelto] 15 mg PO PC-BRKFST 07/07/21 07/07/21 Tamsulosin HCl [Flomax] 0.4 mg PO PC-SUPPER 07/07/21 07/07/21 Previous Rx's Medication Instructions Recorded Amoxicillin/Potassium Clav 1 tab PO Q12HR 10 Days #20 tab 07/09/21 [Augmentin 875-125 Tablet] Allergies Allergy/AdvReac Type Severity Reaction Status Date / Time No Known Allergies Allergy Verified 07/07/21 15:45 Review of Systems ROS Statement: Those systems with pertinent positive or pertinent negative responses have been documented in the HPI. ROS Other: All systems not noted in ROS Statement are negative. Past Medical History Past Medical History: Hyperlipidemia, Hypertension, Vascular Disorder Additional Past Medical History / Comment(s): irreg hr, Hx of GI bleed History of Any Multi-Drug Resistant Organisms: None Reported Past Surgical History: Bladder Surgery Additional Past Surgical History / Comment(s): valve replacement, stents. Upper GI, Lower GI. Past Anesthesia/Blood Transfusion Reactions: No Reported Reaction Past Psychological History: No Psychological Hx Reported Smoking Status: Never smoker Past Alcohol Use History: None Reported Past Drug Use History: None Reported - Past Family History Father Family Medical History: No Reported History Mother Family Medical History: No Reported History General Exam General appearance: alert, in no apparent distress Head exam: Present: atraumatic, normocephalic Eye exam: Present: normal appearance, PERRL Neck exam: Present: normal inspection. Absent: tenderness Respiratory exam: Present: normal lung sounds bilaterally. Absent: respiratory distress, wheezes Cardiovascular Exam: Present: regular rate, irregular rhythm, systolic murmur GI/Abdominal exam: Present: soft. Absent: distended, tenderness, guarding Extremities exam: Present: normal inspection, normal capillary refill. Absent: pedal edema Neurological exam: Present: alert, oriented X3, CN II-XII intact. Absent: motor sensory deficit Skin exam: Present: warm, dry, intact, pallor Course Vital Signs 07/09/21 02:53 Pulse Rate 77 Respiratory 18 Rate Blood Pressure 138/70 O2 Sat by Pulse 98 Oximetry EKG Findings - EKG Comments: EKG Findings:: EKG: Atrial fibrillation incomplete right bundle branch block, rate 77, QRS duration 117, QTC 460, no ST segment elevation. Medical Decision Making - Medical Decision Making 89-year-old male presenting with an episode of syncope. He has been dealing with suspected gastrointestinal hemorrhage sometime his had upper and lower endoscopy as well as a pill endoscopy. They're unable to identify source of bleeding. He is currently following with hematology regarding this anemia and has had iron studies done within the past one week. Patient had passed out while standing from the toilet. He does not have any complaints time my evaluation. Head CT was performed which is negative for intracranial hemorrhage or mass effect. Chest x-ray showing a right lower lobe pneumonia and effusion. He does admit on further questioning that he's had a mild cough which is productive. No fevers. We discussed possibility of admission for monitoring of his anemia which is at 7.9 which is down from 8.4. Ultimately patient and son decided to go home and they will follow-up for outpatient repeat labs this week. Strict return parameters are discussed in both son and patient are agreeable. Requesting discharge. - Lab Data Result diagrams: 07/09/21 03:19 07/09/21 03:19 Lab Results 07/09/21 07/09/21 07/09/21 Range/Units 03:19 03:19 03:19 WBC 6.5 (3.8-10.6) k/uL RBC 2.34 L (4.30-5.90) m/uL Hgb 7.9 L (13.0-17.5) gm/dL Hct 24.2 L (39.0-53.0) % MCV 103.5 H (80.0-100.0) fL MCH 33.9 (25.0-35.0) pg MCHC 32.8 (31.0-37.0) g/dL RDW 17.6 H (11.5-15.5) % Plt Count 155 (150-450) k/uL MPV 8.4 Neutrophils % 83 % Lymphocytes % 10 % Monocytes % 5 % Eosinophils % 1 % Basophils % 0 % Neutrophils # 5.3 (1.3-7.7) k/uL Lymphocytes # 0.6 L (1.0-4.8) k/uL Monocytes # 0.3 (0-1.0) k/uL Eosinophils # 0.1 (0-0.7) k/uL Basophils # 0.0 (0-0.2) k/uL Hypochromasia Slight Poikilocytosis Slight Anisocytosis Slight Macrocytosis Moderate PT 12.2 H (9.0-12.0) sec INR 1.1 (<1.2) APTT 23.6 (22.0-30.0) sec Sodium 137 (137-145) mmol/L Potassium 3.8 (3.5-5.1) mmol/L Chloride 105 (98-107) mmol/L Carbon Dioxide 24 (22-30) mmol/L Anion Gap 8 mmol/L BUN 28 H (9-20) mg/dL Creatinine 1.05 (0.66-1.25) mg/dL Est GFR (CKD-EPI)AfAm 73 (>60 ml/min/1.73 sqM) Est GFR (CKD-EPI)NonAf 64 (>60 ml/min/1.73 sqM) Glucose 127 H (74-99) mg/dL Calcium 8.7 (8.4-10.2) mg/dL Magnesium 1.9 (1.6-2.3) mg/dL Total Bilirubin 1.0 (0.2-1.3) mg/dL AST 22 (17-59) U/L ALT 13 (4-49) U/L Alkaline Phosphatase 112 (38-126) U/L Total Protein 6.5 (6.3-8.2) g/dL Albumin 3.4 L (3.5-5.0) g/dL Disposition Clinical Impression: Chronic anemia, Syncope, Pneumonia Disposition: HOME SELF-CARE Condition: Fair Instructions (If sedation given, give patient instructions): Anemia (ED), Community Acquired Pneumonia (ED), Syncope (ED) Prescriptions: Amoxicillin/Potassium Clav [Augmentin 875-125 Tablet] 1 tab PO Q12HR 10 Days #20 tab Is patient prescribed a controlled substance at d/c from ED?: No Referrals: Murtaza Lopez MD [Primary Care Provider] - 1-2 days Time of Disposition: 04:23
[2021-07-09 03:44] LABS: Albumin 3.4 g/dL (3.5-5.0); Calcium 8.7 mg/dL (8.4-10.2); Magnesium 1.9 mg/dL (1.6-2.3); Potassium 3.8 mmol/L (3.5-5.1); Total Protein 6.5 g/dL (6.3-8.2)
--- NOTE | 2021-07-09 03:57 | CT ---
EXAMINATION TYPE: CT brain radha burnett con DATE OF EXAM: 07/09/2021 COMPARISON: CT brain 10/18/2016 HISTORY: syncope/fall. prior brain on PACS CT DLP: 1347 mGycm Automated exposure control for dose reduction was used. There is cerebral cortical atrophy. There is no mass effect or midline shift. There is no sign of int racranial hemorrhage. Calvarium is intact. Skull base is intact. There is normal aeration of the mast oid sinuses. The cervical vertebra have normal alignment. There is multilevel facet arthropathy. There is mild deg enerative spurring of the endplates. No compression fracture. No subluxation. IMPRESSION: Cerebral atrophy. No acute intracranial abnormality. No change. Spondylotic changes in the cervical spine. No fracture.
[2021-07-09 04:00] LABS: INR 1.1 (<1.2); Partial Thromboplastin Time 23.6 sec (22.0-30.0); Prothrombin Time 12.2 sec (9.0-12.0)
--- NOTE | 2021-07-09 04:00 | XR ---
EXAMINATION TYPE: XR chest 1V DATE OF EXAM: 07/09/2021 COMPARISON: NONE HISTORY: Syncope TECHNIQUE: Single view FINDINGS: There is pulmonary vascular congestion. There is blunting of the right costophrenic angle. Thoracic aorta shows atheromatous changes. There are sternal wires. There are chest leads. IMPRESSION: Congestive heart failure with right pleural effusion. Right lower lobe pneumonia also pos sible.
[2021-07-09] MEDS ORDERED: AMOXIC-POT CLAV 875-125MG 1 EACH TAB PO STA (04:20)
[2021-07-09 04:50] VITALS: BP 128/66; PULSE 74
== END 2021-07-09 04:54 | disposition home or self-care (01) ==
LOC: EC 02:48
DX: R55 Syncope and collapse (principal); D50.0 Iron deficiency anemia secondary to blood loss (chronic); J18.9 Pneumonia, unspecified organism; I10 Essential (primary) hypertension; E78.5 Hyperlipidemia, unspecified; Z79.01 Long term (current) use of anticoagulants; Z79.899 Other long term (current) drug therapy
CPT/HCPCS: 36415; 70450; 71045; 72125; 80053; 83735; 85025; 85610; 85730; 93005; 96360; 99285

== ENCOUNTER → 2021-09-13 | Outpatient (CLI) | payer MEDICARE ==
--- NOTE | 2021-09-13 13:27 | CT ---
EXAMINATION TYPE: CT chest wo con DATE OF EXAM: 09/13/2021 INDICATION: Pleural Effusion CT DLP: 226.4 mGy.cm Automated Exposure Control for Dose Reduction was Utilized. TECHNIQUE AND CONTRAST: CT scan of the chest without IV contrast. COMPARISON: CT dated 01/26/2020 FINDINGS: Bilateral pleural effusions larger on the left side. Thick consolidation/atelectasis are seen in the middle lobe and right lower lobe. Stable calcified granuloma in the left lower lobe. Smaller atelecta sis/consolidation in the left lower lobe with groundglass opacities. Patent trachea and main bronchi. Severe cardiomegaly. The pulmonary trunk measures 3.8 cm suggesting pulmonary hypertension. Coronary and arterial atherosclerotic calcifications. No sizable pericardial effusion. Scattered prominent med iastinal lymph nodes measuring up to 13 mm in the precarinal location and 12 mm in the subcarinal kb up. Previous cholecystectomy. Splenic calcifications, probably related to previous granulomatous infectio n. Atrophic pancreas. Left upper pole exophytic lesion, probably representing a cyst, measuring 14 mm . Osteopenia. Sternotomy wire sutures. IMPRESSION: Bilateral pleural effusions larger on the left side with bilateral pulmonary atelectasis/consolidatio n as described above. Severe cardiomegaly. These changes could be related to pulmonary edema/CHF, how ever associated infection or underlying lung lesion cannot be excluded. Recommend clinical correlatio n and further workup. Follow-up to complete resolution is advised. Other findings as described above.
== END | disposition home or self-care (01) ==
LOC: RADCTMAIN 12:31
PROVIDERS: ATTEND Family Medicine
DX: J90 Pleural effusion, not elsewhere classified (principal); I51.7 Cardiomegaly
CPT/HCPCS: 71250

== ENCOUNTER 2021-09-14 19:34 | Emergency (ER) | payer MEDICARE ==
[2021-09-14 21:34] LABS: Basophils % (A) 0 %; Eosinophils # (A) 0.1 k/uL (0-0.7); Eosinophils % (A) 1 %; Hypochromasia Marked; Lymphocytes # (A) 0.7 k/uL (1.0-4.8); Lymphocytes % (A) 10 %; MCH 32.6 pg (25.0-35.0); MCHC 31.6 g/dL (31.0-37.0); MCV 103.1 fL (80.0-100.0); Macrocytosis Moderate; Mean Platelet Volume 8.1; Monocytes # (A) 0.4 k/uL (0-1.0); Monocytes % (A) 7 %; Neutrophils # (A) 5.4 k/uL (1.3-7.7); Neutrophils % (A) 81 %; Platelet Count 156 k/uL (150-450); RBC 3.69 m/uL (4.30-5.90); RDW 15.3 % (11.5-15.5); WBC 6.6 k/uL (3.8-10.6)
[2021-09-14 21:36] LABS: INR 1.3 (<1.2); Partial Thromboplastin Time 31.4 sec (22.0-30.0); Prothrombin Time 13.5 sec (9.0-12.0)
[2021-09-14 21:39] LABS: Calcium 9.4 mg/dL (8.4-10.2); Magnesium 1.9 mg/dL (1.6-2.3); Potassium 4.7 mmol/L (3.5-5.1); Total Bilirubin 1.7 mg/dL (0.2-1.3); Total Protein 7.2 g/dL (6.3-8.2)
--- NOTE | 2021-09-14 21:53 | ED ---
General Adult HPI - General Chief complaint: Recheck/Abnormal Lab/Rx Stated complaint: Recheck-Irregular labs Time Seen by Provider: 09/14/21 21:24 Source: patient Mode of arrival: ambulatory Limitations: no limitations - History of Present Illness Initial comments: This patient is an 89-year-old man who states that he had received a phone call from his physician's office directing him to go to the emergency department based on the results of some lab tests that had been drawn earlier in the day. The patient is currently being treated for pneumonia and congestive heart failure and had some lab testing as outpatient. They received a phone call this evening directing family members to bring him to emergency department to be seen. The patient states that he has been feeling better. He does continue to have some exertional dyspnea. He is not having chest pain at rest. No dyspnea at rest. No change in urination or bowel movements. No leg swelling or pain noted. Patient denies orthopnea or cough. They do state that he has had history of heart valve replacement but are not able to elaborate. -: unknown Severity scale (1-10): 0 Improves with: none Worsens with: none Associated Symptoms: other (Exertional dyspnea) Treatments Prior to Arrival: none - Related Data Home Medications Medication Instructions Recorded Confirmed Atorvastatin [Lipitor] 40 mg PO PC-SUPPER 04/04/20 07/07/21 Ferrous Sulfate [Feosol] 325 mg PO PC-SUPPER 07/07/21 07/07/21 Metoprolol Tartrate [Lopressor] 12.5 mg PO PC-BID 07/07/21 07/07/21 Pantoprazole [Protonix] 40 mg PO PC-BRKFST 07/07/21 07/07/21 Rivaroxaban [Xarelto] 15 mg PO PC-BRKFST 07/07/21 07/07/21 Tamsulosin HCl [Flomax] 0.4 mg PO PC-SUPPER 07/07/21 07/07/21 Previous Rx's Medication Instructions Recorded Amoxicillin/Potassium Clav 1 tab PO Q12HR 10 Days #20 tab 07/09/21 [Augmentin 875-125 Tablet] Allergies Allergy/AdvReac Type Severity Reaction Status Date / Time No Known Allergies Allergy Verified 09/14/21 20:44 Review of Systems ROS Statement: Those systems with pertinent positive or pertinent negative responses have been documented in the HPI. ROS Other: All systems not noted in ROS Statement are negative. Constitutional: Denies: fever, chills, weakness Respiratory: Denies: cough, dyspnea, wheezes Cardiovascular: Reports: dyspnea on exertion. Denies: palpitations, orthopnea, edema, syncope Gastrointestinal: Denies: abdominal pain, vomiting, diarrhea, melena, hematochezia Genitourinary: Denies: dysuria, hematuria Musculoskeletal: Denies: back pain Skin: Denies: rash Neurological: Denies: headache, weakness, numbness Past Medical History Past Medical History: GI Bleed, Hyperlipidemia, Hypertension, Vascular Disorder Additional Past Medical History / Comment(s): irreg hr, Hx of GI bleed History of Any Multi-Drug Resistant Organisms: None Reported Past Surgical History: Bladder Surgery Additional Past Surgical History / Comment(s): valve replacement, stents. Upper GI, Lower GI. Past Anesthesia/Blood Transfusion Reactions: No Reported Reaction Past Psychological History: No Psychological Hx Reported Smoking Status: Never smoker Past Alcohol Use History: None Reported Past Drug Use History: None Reported - Past Family History Father Family Medical History: No Reported History Mother Family Medical History: No Reported History General Exam Limitations: no limitations General appearance: alert Head exam: Present: atraumatic Eye exam: Present: normal appearance. Absent: scleral icterus, conjunctival injection Neck exam: Present: normal inspection Respiratory exam: Present: rales (Bilateral bases). Absent: respiratory distress, wheezes, rhonchi, stridor Cardiovascular Exam: Present: irregular rhythm, systolic murmur. Absent: diastolic murmur, rubs, gallop GI/Abdominal exam: Present: soft. Absent: distended, tenderness, guarding, rebound, rigid, mass Extremities exam: Present: normal capillary refill, pedal edema (Trace edema bilaterally). Absent: calf tenderness Back exam: Present: normal inspection. Absent: CVA tenderness (R), CVA tenderness (L) Neurological exam: Present: alert Skin exam: Present: warm, dry, intact, normal color. Absent: rash Course Vital Signs 09/14/21 09/14/21 20:44 22:18 Temperature 96.8 F L Pulse Rate 77 72 Respiratory 16 18 Rate Blood Pressure 133/77 151/98 O2 Sat by Pulse 97 95 Oximetry EKG Findings - EKG Results: EKG: interpreted by ERMD EKG shows: atrial fibrillation - Blocks, [place], Hypertrophy, ST Abn: QRS axis and voltage: left axis deviation (-30 to -90) Chamber hypertrophy or enlargement: left ventricular hypertrophy or enlargement (LVE) - TX, Pacemaker, Normal: Myocardial infarction: anterior TX (old age or indeterminate) (Possible old anteroseptal infarct) Medical Decision Making - Medical Decision Making I did have a fairly lengthy discussion at the bedside with patient and family member. Explained results showing congestive heart failure and mild elevation of troponin. Discussed that preference would be to admit for telemetry monitoring, serial troponin, cardiology consultation, echocardiogram and medications. They relate that they actually have received prescription for Lasix but had not been able to start it yet. They do have an appointment for echocardiogram established but are going to attempt to move it up and would like to go home. Given that patient is asymptomatic other than for some mild exertional dyspnea, I discussed other cardiac symptoms and emphasized need to return if there is absolutely any change. - Lab Data Result diagrams: 09/14/21 21:02 09/14/21 21:02 Lab Results 09/14/21 09/14/21 09/14/21 Range/Units 21:02 21:02 21:02 WBC 6.6 (3.8-10.6) k/uL RBC 3.69 L (4.30-5.90) m/uL Hgb 12.0 L (13.0-17.5) gm/dL Hct 38.0 L (39.0-53.0) % MCV 103.1 H (80.0-100.0) fL MCH 32.6 (25.0-35.0) pg MCHC 31.6 (31.0-37.0) g/dL RDW 15.3 (11.5-15.5) % Plt Count 156 (150-450) k/uL MPV 8.1 Neutrophils % 81 % Lymphocytes % 10 % Monocytes % 7 % Eosinophils % 1 % Basophils % 0 % Neutrophils # 5.4 (1.3-7.7) k/uL Lymphocytes # 0.7 L (1.0-4.8) k/uL Monocytes # 0.4 (0-1.0) k/uL Eosinophils # 0.1 (0-0.7) k/uL Basophils # 0.0 (0-0.2) k/uL Hypochromasia Marked Macrocytosis Moderate PT 13.5 H (9.0-12.0) sec INR 1.3 H (<1.2) APTT 31.4 H (22.0-30.0) sec Sodium 138 (137-145) mmol/L Potassium 4.7 (3.5-5.1) mmol/L Chloride 102 (98-107) mmol/L Carbon Dioxide 26 (22-30) mmol/L Anion Gap 10 mmol/L BUN 19 (9-20) mg/dL Creatinine 1.04 (0.66-1.25) mg/dL Est GFR (CKD-EPI)AfAm 74 (>60 ml/min/1.73 sqM) Est GFR (CKD-EPI)NonAf 64 (>60 ml/min/1.73 sqM) Glucose 107 H (74-99) mg/dL Calcium 9.4 (8.4-10.2) mg/dL Magnesium 1.9 (1.6-2.3) mg/dL Total Bilirubin 1.7 H (0.2-1.3) mg/dL AST 26 (17-59) U/L ALT 15 (4-49) U/L Alkaline Phosphatase 100 (38-126) U/L Troponin I (0.000-0.034) ng/mL NT-Pro-B Natriuret Pep pg/mL Total Protein 7.2 (6.3-8.2) g/dL Albumin 4.0 (3.5-5.0) g/dL 09/14/21 09/14/21 Range/Units 21:02 22:13 WBC (3.8-10.6) k/uL RBC (4.30-5.90) m/uL Hgb (13.0-17.5) gm/dL Hct (39.0-53.0) % MCV (80.0-100.0) fL MCH (25.0-35.0) pg MCHC (31.0-37.0) g/dL RDW (11.5-15.5) % Plt Count (150-450) k/uL MPV Neutrophils % % Lymphocytes % % Monocytes % % Eosinophils % % Basophils % % Neutrophils # (1.3-7.7) k/uL Lymphocytes # (1.0-4.8) k/uL Monocytes # (0-1.0) k/uL Eosinophils # (0-0.7) k/uL Basophils # (0-0.2) k/uL Hypochromasia Macrocytosis PT (9.0-12.0) sec INR (<1.2) APTT (22.0-30.0) sec Sodium (137-145) mmol/L Potassium (3.5-5.1) mmol/L Chloride (98-107) mmol/L Carbon Dioxide (22-30) mmol/L Anion Gap mmol/L BUN (9-20) mg/dL Creatinine (0.66-1.25) mg/dL Est GFR (CKD-EPI)AfAm (>60 ml/min/1.73 sqM) Est GFR (CKD-EPI)NonAf (>60 ml/min/1.73 sqM) Glucose (74-99) mg/dL Calcium (8.4-10.2) mg/dL Magnesium (1.6-2.3) mg/dL Total Bilirubin (0.2-1.3) mg/dL AST (17-59) U/L ALT (4-49) U/L Alkaline Phosphatase (38-126) U/L Troponin I 0.140 H* (0.000-0.034) ng/mL NT-Pro-B Natriuret Pep 68765 pg/mL Total Protein (6.3-8.2) g/dL Albumin (3.5-5.0) g/dL Disposition Clinical Impression: CHF (congestive heart failure), Elevated troponin I level Disposition: Left Against Medical Advice Condition: Fair Instructions (If sedation given, give patient instructions): Heart Failure (ER) Is patient prescribed a controlled substance at d/c from ED?: No Referrals: Murtaza Lopez MD [Primary Care Provider] - 1-2 days Time of Disposition: 00:30
[2021-09-14 22:19] VITALS: PULSE 72; RESP 18
--- NOTE | 2021-09-14 23:28 | XR ---
EXAMINATION TYPE: XR chest 2V DATE OF EXAM: 09/14/2021 COMPARISON: NONE HISTORY: Chest pain TECHNIQUE: 2 views FINDINGS: Heart is enlarged. There is some pulmonary vascular congestion. There is blunting of the co stophrenic angles. There are sternal wires. There are chest leads. IMPRESSION: There is pulmonary edema with pleural effusions that could be some chronic congestive hea rt failure present pneumonia not excluded. Pleural fluid and pulmonary infiltrates increased compared to old exam.
[2021-09-15] MEDS ORDERED: FUROSEMIDE 20 MG TAB PO STA (00:39)
[2021-09-15 00:53] VITALS: BP 142/90; TEMP 97.8
== END 2021-09-15 00:51 | disposition left against medical advice (07) ==
LOC: EC 19:34
DX: I11.0 Hypertensive heart disease with heart failure (principal); I50.9 Heart failure, unspecified; R77.8 Other specified abnormalities of plasma proteins; E78.5 Hyperlipidemia, unspecified; Z79.899 Other long term (current) drug therapy; Z53.29 Procedure and treatment not carried out because of patient's decision for other reasons
CPT/HCPCS: 36415; 71046; 80053; 83735; 83880; 84484; 85025; 85610; 85730; 93005; 99285

== ENCOUNTER → 2021-09-14 | Outpatient (CLI) | payer MEDICARE ==
[2021-09-14 17:21] LABS: ALT 15 U/L (4-49); AST 26 U/L (17-59); African American GFR (CKD) 73 (>60 ml/min/1.73 sqM); Albumin 3.8 g/dL (3.5-5.0); Albumin/Globulin Ratio 1.2; Alkaline Phosphatase 94 U/L (38-126); Anion Gap 9 mmol/L; Blood Urea Nitrogen 21 mg/dL (9-20); Calcium 8.9 mg/dL (8.4-10.2); Carbon Dioxide 24 mmol/L (22-30); Chloride 105 mmol/L (98-107); Globulin 3.2 g/dL; Glucose 112 mg/dL (74-99); Non-African American GFR(CKD) 64 (>60 ml/min/1.73 sqM); Potassium 4.4 mmol/L (3.5-5.1); Sodium 138 mmol/L (137-145); Total Bilirubin 1.5 mg/dL (0.2-1.3)
[2021-09-14 18:59] LABS: Troponin I 0.09 ng/mL (0.000-0.034)
== END | disposition home or self-care (01) ==
LOC: LABWHC1 16:26
PROVIDERS: ATTEND Family Medicine
DX: I10 Essential (primary) hypertension (principal); J18.9 Pneumonia, unspecified organism; Z87.09 Personal history of other diseases of the respiratory system
CPT/HCPCS: 36415; 80053; 82553; 83880; 84484

== ENCOUNTER 2021-11-28 10:17 | Inpatient (IN) | payer MEDICARE ==
--- NOTE | 2021-11-28 12:22 | ED ---
General Adult HPI - General Chief complaint: Weakness Stated complaint: weakness,SOB Time Seen by Provider: 11/28/21 12:00 Source: patient, RN notes reviewed, old records reviewed Mode of arrival: ambulatory Limitations: no limitations - History of Present Illness Initial comments: This is an 89-year-old male who presents emergency Department complaining of generalized weakness. Patient states his been ongoing for the last couple of months. Patient states getting progressively worse. Associated with the weakness is also some shortness of breath particularly with exertion. Patient denies any chest pain or palpitations. Patient states he has a history of a valve replacement and he is told he needs another valve replacement. Patient denies any recent fever chills or cough. Patient denies any abdominal pain patient denies nausea or vomiting. Patient denies any lightheadedness or dizziness. Patient states he is on Xarelto and he did have black stool this morning and he has had a GI bleed in the past. - Related Data Home Medications Medication Instructions Recorded Confirmed Atorvastatin [Lipitor] 40 mg PO HS 04/04/20 11/28/21 Ferrous Sulfate [Feosol] 325 mg PO HS 07/07/21 11/28/21 Metoprolol Tartrate [Lopressor] 12.5 mg PO BID 07/07/21 11/28/21 Rivaroxaban [Xarelto] 15 mg PO DAILY 07/07/21 11/28/21 Tamsulosin HCl [Flomax] 0.4 mg PO HS 07/07/21 11/28/21 Furosemide [Lasix] 20 mg PO DAILY 11/28/21 11/28/21 Omeprazole Magnesium [PriLOSEC OTC] 20 mg PO AC-SUPPER 11/28/21 11/28/21 Allergies Allergy/AdvReac Type Severity Reaction Status Date / Time No Known Allergies Allergy Verified 11/28/21 19:47 Review of Systems ROS Statement: Those systems with pertinent positive or pertinent negative responses have been documented in the HPI. ROS Other: All systems not noted in ROS Statement are negative. Past Medical History Past Medical History: GI Bleed, Hyperlipidemia, Hypertension, Vascular Disorder Additional Past Medical History / Comment(s): irreg hr, Hx of GI bleed History of Any Multi-Drug Resistant Organisms: None Reported Past Surgical History: Bladder Surgery Additional Past Surgical History / Comment(s): valve replacement, stents. Upper GI, Lower GI. Past Anesthesia/Blood Transfusion Reactions: No Reported Reaction Past Psychological History: No Psychological Hx Reported Smoking Status: Never smoker Past Alcohol Use History: None Reported Past Drug Use History: None Reported - Past Family History Father Family Medical History: No Reported History Mother Family Medical History: No Reported History General Exam - General Exam Comments Initial Comments: GENERAL: Patient is well-developed and well-nourished. Patient is nontoxic and well- hydrated and is in no acute distress. ENT: Neck is soft and supple. No significant lymphadenopathy is noted. Oropharynx is clear. Moist mucous membranes. Neck has full range of motion without e liciting any pain. EYES: The sclera were anicteric and conjunctiva were pink and moist. Extraocular movements were intact and pupils were equal round and reactive to light. Eyelids were unremarkable. PULMONARY: Unlabored respirations. Good breath sounds bilaterally. No audible rales rhonchi or wheezing was noted. CARDIOVASCULAR: Patient's rhythm is irregularly irregular at a rate of about 80 beats a minute. patient is a 3/6 systolic murmur ABDOMEN: Soft and nontender with normal bowel sounds. SKIN: Skin is clear with no lesions or rashes and otherwise unremarkable. NEUROLOGIC: Patient is alert and oriented x3. Cranial nerves II through XII are grossly intact. Motor and sensory are also intact. Normal speech, volume and content. Symmetrical smile. MUSCULOSKELETAL: Normal extremities with adequate strength and full range of motion. LYMPHATICS: No significant lymphadenopathy is noted PSYCHIATRIC: Normal psychiatric evaluation. Limitations: no limitations Course Vital Signs 11/28/21 11/28/21 11/29/21 10:45 21:40 00:00 Temperature 97.7 F 98.2 F 98.1 F Pulse Rate 79 Pulse Rate [ 115 H 103 H Left Sitting Pulse Oximetery ] Respiratory 20 18 18 Rate Blood Pressure 96/56 Blood Pressure 112/66 116/77 [Left Arm Sitting] O2 Sat by Pulse 98 97 98 Oximetry 11/29/21 11/29/21 11/29/21 02:00 04:00 09:59 Temperature 98.1 F Pulse Rate 101 H Pulse Rate [ 103 H 90 Left Sitting Pulse Oximetery ] Respiratory 18 18 16 Rate Blood Pressure 98/60 Blood Pressure 116/77 [Left Arm Sitting] O2 Sat by Pulse 94 L 96 Oximetry 09/07/22 09/07/22 13:32 15:04 Temperature Pulse Rate 92 91 Pulse Rate [ Left Sitting Pulse Oximetery ] Respiratory 18 18 Rate Blood Pressure 92/54 95/70 Blood Pressure [Left Arm Sitting] O2 Sat by Pulse 100 96 Oximetry Medical Decision Making - Medical Decision Making EKG shows atrial fibrillation at 83 bpm QRS 112 QT interval 370 QTC is 411. Patient's EKG shows significant ST segment depression and inversion in leads 12 and aVF as well as precordial leads V4 V5 and V6. - Lab Data Result diagrams: 11/29/21 02:21 11/29/21 09:12 Lab Results 11/28/21 11/28/21 11/28/21 Range/Units 12:37 12:37 12:37 WBC 11.2 H (3.8-10.6) k/uL RBC 2.60 L (4.30-5.90) m/uL Hgb 8.7 L (13.0-17.5) gm/dL Hct 27.1 L (39.0-53.0) % MCV 104.1 H (80.0-100.0) fL MCH 33.3 (25.0-35.0) pg MCHC 32.0 (31.0-37.0) g/dL RDW 19.2 H (11.5-15.5) % Plt Count 155 (150-450) k/uL MPV 9.2 Neutrophils % 88 % Lymphocytes % 6 % Monocytes % 5 % Eosinophils % 0 % Basophils % 0 % Neutrophils # 9.8 H (1.3-7.7) k/uL Lymphocytes # 0.7 L (1.0-4.8) k/uL Monocytes # 0.6 (0-1.0) k/uL Eosinophils # 0.0 (0-0.7) k/uL Basophils # 0.0 (0-0.2) k/uL Hypochromasia Slight Poikilocytosis Slight Anisocytosis Slight Macrocytosis Moderate PT 12.7 H (9.0-12.0) sec INR 1.2 H (<1.2) APTT 23.9 (22.0-30.0) sec Sodium 137 (137-145) mmol/L Potassium 4.6 (3.5-5.1) mmol/L Chloride 100 (98-107) mmol/L Carbon Dioxide 24 (22-30) mmol/L Anion Gap 13 mmol/L BUN 43 H (9-20) mg/dL Creatinine 1.32 H (0.66-1.25) mg/dL Est GFR (CKD-EPI)AfAm 55 (>60 ml/min/1.73 sqM) Est GFR (CKD-EPI)NonAf 48 (>60 ml/min/1.73 sqM) Glucose 123 H (74-99) mg/dL Plasma Lactic Acid Hussein (0.7-2.0) mmol/L Calcium 8.8 (8.4-10.2) mg/dL Magnesium 2.0 (1.6-2.3) mg/dL Total Bilirubin 1.7 H (0.2-1.3) mg/dL AST 25 (17-59) U/L ALT 13 (4-49) U/L Alkaline Phosphatase 104 (38-126) U/L Troponin I (0.000-0.034) ng/mL Total Protein 6.6 (6.3-8.2) g/dL Albumin 3.7 (3.5-5.0) g/dL 11/28/21 11/28/21 Range/Units 12:37 12:37 WBC (3.8-10.6) k/uL RBC (4.30-5.90) m/uL Hgb (13.0-17.5) gm/dL Hct (39.0-53.0) % MCV (80.0-100.0) fL MCH (25.0-35.0) pg MCHC (31.0-37.0) g/dL RDW (11.5-15.5) % Plt Count (150-450) k/uL MPV Neutrophils % % Lymphocytes % % Monocytes % % Eosinophils % % Basophils % % Neutrophils # (1.3-7.7) k/uL Lymphocytes # (1.0-4.8) k/uL Monocytes # (0-1.0) k/uL Eosinophils # (0-0.7) k/uL Basophils # (0-0.2) k/uL Hypochromasia Poikilocytosis Anisocytosis Macrocytosis PT (9.0-12.0) sec INR (<1.2) APTT (22.0-30.0) sec Sodium (137-145) mmol/L Potassium (3.5-5.1) mmol/L Chloride (98-107) mmol/L Carbon Dioxide (22-30) mmol/L Anion Gap mmol/L BUN (9-20) mg/dL Creatinine (0.66-1.25) mg/dL Est GFR (CKD-EPI)AfAm (>60 ml/min/1.73 sqM) Est GFR (CKD-EPI)NonAf (>60 ml/min/1.73 sqM) Glucose (74-99) mg/dL Plasma Lactic Acid Hussein 2.6 H* (0.7-2.0) mmol/L Calcium (8.4-10.2) mg/dL Magnesium (1.6-2.3) mg/dL Total Bilirubin (0.2-1.3) mg/dL AST (17-59) U/L ALT (4-49) U/L Alkaline Phosphatase (38-126) U/L Troponin I 0.695 H* (0.000-0.034) ng/mL Total Protein (6.3-8.2) g/dL Albumin (3.5-5.0) g/dL Disposition Clinical Impression: Non-STEMI (non-ST elevated myocardial infarction), Anemia, Pulmonary edema, Pleural effusion, Dyspnea Disposition: ADMITTED IP TO THIS [facility] Time of Disposition: 19:31
[2021-11-28 12:50] LABS: Anisocytosis Slight; Basophils % (A) 0 %; Eosinophils % (A) 0 %; HCT 27.1 % (39.0-53.0); HGB 8.7 gm/dL (13.0-17.5); Hypochromasia Slight; Lymphocytes # (A) 0.7 k/uL (1.0-4.8); Lymphocytes % (A) 6 %; MCH 33.3 pg (25.0-35.0); MCV 104.1 fL (80.0-100.0); Macrocytosis Moderate; Mean Platelet Volume 9.2; Monocytes # (A) 0.6 k/uL (0-1.0); Monocytes % (A) 5 %; Neutrophils # (A) 9.8 k/uL (1.3-7.7); Neutrophils % (A) 88 %; Platelet Count 155 k/uL (150-450); Poikilocytosis Slight; RDW 19.2 % (11.5-15.5); WBC 11.2 k/uL (3.8-10.6)
[2021-11-28 13:10] LABS: Albumin 3.7 g/dL (3.5-5.0); Calcium 8.8 mg/dL (8.4-10.2); Potassium 4.6 mmol/L (3.5-5.1); Total Bilirubin 1.7 mg/dL (0.2-1.3); Total Protein 6.6 g/dL (6.3-8.2)
[2021-11-28 19:42] LABS: INR 1.2 (<1.2); Partial Thromboplastin Time 23.9 sec (22.0-30.0); Prothrombin Time 12.7 sec (9.0-12.0)
[2021-11-29] MEDS ORDERED: ONDANSETRON 4 MG/2 ML VIAL IVP PRN (01:31)
[2021-11-29] MEDS ORDERED: NALOXONE 0.4 MG/ML 1 ML VIAL IV PRN (01:31)
[2021-11-29] MEDS ORDERED: DOCUSATE 100 MG CAP PO PRN (01:31)
[2021-11-29] MEDS ORDERED: CALCIUM CARBONATE 500 MG CHEWABLE PO PRN (01:31)
--- NOTE | 2021-11-29 04:13 | P.HPIM ---
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 he also reports exertional dyspnea. but denies any chest pain, syncope palpitations, denies URI, dizziness, abd pain , nausea or vomiting. he does admit to dark bowel movement ,denies taking any NSAIDs or alcohol , he is on xarelto for mechanical mitral valve and afib . patient is known to have GI bleed in the past. upon evaluation inthe ED he was fond to have elevated trops , EKG showing ST wave depression in infero lateral leads. he denies any chest pain blood work showed Hgb 8.7 down from 12. mild JEROMY and elevated trops. he denies any smoking illicit drugs or alcohol Review of Systems Pertinent positives as noted in HPI. All other systems were reviewed and are negative Past Medical History Past Medical History: GI Bleed, Hyperlipidemia, Hypertension, Vascular Disorder Additional Past Medical History / Comment(s): irreg hr, Hx of GI bleed History of Any Multi-Drug Resistant Organisms: None Reported Past Surgical History: Bladder Surgery Additional Past Surgical History / Comment(s): valve replacement, stents. Upper GI, Lower GI. Past Anesthesia/Blood Transfusion Reactions: No Reported Reaction Past Psychological History: No Psychological Hx Reported Smoking Status: Never smoker Past Alcohol Use History: None Reported Past Drug Use History: None Reported - Past Family History Father Family Medical History: No Reported History Mother Family Medical History: No Reported History Medications and Allergies Home Medications Medication Instructions Recorded Confirmed Type Atorvastatin [Lipitor] 40 mg PO HS 04/04/20 11/28/21 History Ferrous Sulfate [Feosol] 325 mg PO HS 07/07/21 11/28/21 History Metoprolol Tartrate [Lopressor] 12.5 mg PO BID 07/07/21 11/28/21 History Rivaroxaban [Xarelto] 15 mg PO DAILY 07/07/21 11/28/21 History Tamsulosin HCl [Flomax] 0.4 mg PO HS 07/07/21 11/28/21 History Furosemide [Lasix] 20 mg PO DAILY 11/28/21 11/28/21 History Omeprazole Magnesium [PriLOSEC OTC] 20 mg PO AC-SUPPER 11/28/21 11/28/21 History Allergies Allergy/AdvReac Type Severity Reaction Status Date / Time No Known Allergies Allergy Verified 11/28/21 19:47 Physical Exam Vitals: Vital Signs Temp Pulse Pulse Resp BP BP Pulse Ox 11/29/21 00:00 98.1 F 103 H 18 116/77 98 11/28/21 21:40 98.2 F 115 H 18 112/66 97 11/28/21 10:45 97.7 F 79 20 96/56 98 Intake and Output 11/28/21 11/28/21 11/29/21 14:59 22:59 06:59 Output Total 300 Balance -300 Output: Urine 300 Other: Weight 63.503 kg 63.503 kg Constitutional: No acute distress, conversant, pleasant Eyes: Anicteric sclerae, moist conjunctiva, Pupils equal round reactive to light ENMT: NC/AT Oropharynx clear, no erythema, or exudates Neck: Supple, no masses, or JVD No carotid bruits No thyromegaly Lungs: Clear to auscultation Clear to percussion Normal respiratory effort, no accessory muscle use Cardiovascular: Heart irregular in rate and rhythm, systolic murmurs, gallops, or rubs No peripheral edema Abdominal: Soft Nontender, no guarding, rebound or rigidity Abdomen moving with respiration Normoactive bowel sounds No hepatomegaly, No splenomegaly No palpable mass No abdominal wall hernia noted Skin: Normal temperature, tone, texture, turgor No induration No subcutaneous nodules No rash, lesions No ulcers Extremities: No digital cyanosis No clubbing Pedal pulses intact and symmetrical Radial pulses intact and symmetrical No calf tenderness Psychiatric: Alert and oriented to person, place Appropriate affect fair judgement Neuro Muscles Strength 4/5 in all 4 extremities Sensation to light touch grossly present throughout Cranial nerves II-XII grossly intact No focal sensory deficits Lymphatics: no palpable cervical or supraclavicular , or inguinal lymph nodes Results CBC & Chem 7: 11/28/21 12:37 11/28/21 12:37 Labs: Abnormal Lab Results - Last 24 Hours (Table) 11/28/21 11/28/21 11/28/21 Range/Units 12:37 12:37 12:37 WBC 11.2 H (3.8-10.6) k/uL RBC 2.60 L (4.30-5.90) m/uL Hgb 8.7 L (13.0-17.5) gm/dL Hct 27.1 L (39.0-53.0) % MCV 104.1 H (80.0-100.0) fL RDW 19.2 H (11.5-15.5) % Neutrophils # 9.8 H (1.3-7.7) k/uL Lymphocytes # 0.7 L (1.0-4.8) k/uL PT 12.7 H (9.0-12.0) sec INR 1.2 H (<1.2) BUN 43 H (9-20) mg/dL Creatinine 1.32 H (0.66-1.25) mg/dL Glucose 123 H (74-99) mg/dL Plasma Lactic Acid Uhssein (0.7-2.0) mmol/L Total Bilirubin 1.7 H (0.2-1.3) mg/dL Troponin I (0.000-0.034) ng/mL 11/28/21 11/28/21 Range/Units 12:37 12:37 WBC (3.8-10.6) k/uL RBC (4.30-5.90) m/uL Hgb (13.0-17.5) gm/dL Hct (39.0-53.0) % MCV (80.0-100.0) fL RDW (11.5-15.5) % Neutrophils # (1.3-7.7) k/uL Lymphocytes # (1.0-4.8) k/uL PT (9.0-12.0) sec INR (<1.2) BUN (9-20) mg/dL Creatinine (0.66-1.25) mg/dL Glucose (74-99) mg/dL Plasma Lactic Acid Hussein 2.6 H* (0.7-2.0) mmol/L Total Bilirubin (0.2-1.3) mg/dL Troponin I 0.695 H* (0.000-0.034) ng/mL Thrombosis Risk Factor Assmnt - Choose All That Apply Each Risk Factor Represents 3 Points: Age 75 years or older Thrombosis Risk Factor Assessment Total Risk Factor Score: 3 Thrombosis Risk Factor Assessment Level: Moderate Risk Assessment and Plan Assessment: acute anemia with recurrent GI bleed PPI GI consult NPO monitor hemoglobin continue xarelto for mechanical heart valve EKG showing infero lateral ST depression , with elevated trops , denies any chest pain this could be secondary to type II demand ischemia , rule out ACS 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
--- NOTE | 2021-11-29 04:18 | P.HPADDEND ---
H&P Addendum H&P Addendum Date: 11/28/21 Advanced Care Planning Active diagnoses: GI bleed symptomatic anemia Background: The patient was admitted for treatment of symptomatic anemia with GI bleed Discussion: Person(s) present and participating in discussion: The patient, myself Summary: Patient never had a discussion with his family regarding his advance directives. He feels well overall and would to continue all medical intervention that can maximize positive clinical outcomes. The patient want CPR /Intubation if needed. he would allow for BIPAP if he needed it. Agreed for treatment with IV fluids, antibiotics, steroids, and nebs. She agrees to all care that would maximize medical outcomes. In the event that he was not able to make his own medical decisions he has elected his son to make decisions. Time spent: Total time spent face to face in education and discussion directly related to advanced care plannin minutes
[2021-11-29 04:38] LABS: Anisocytosis Moderate; HCT 25.3 % (39.0-53.0); HGB 8.1 gm/dL (13.0-17.5); Hypochromasia Moderate; MCH 34.4 pg (25.0-35.0); MCHC 32.1 g/dL (31.0-37.0); MCV 107.2 fL (80.0-100.0); Macrocytosis Marked; Mean Platelet Volume 8.9; Platelet Count 168 k/uL (150-450); Poikilocytosis Slight; RBC 2.36 m/uL (4.30-5.90); RDW 20.1 % (11.5-15.5); WBC 10.6 k/uL (3.8-10.6)
[2021-11-29 10:30] LABS: Albumin 3.4 g/dL (3.5-5.0); Calcium 8.6 mg/dL (8.4-10.2); Potassium 4.8 mmol/L (3.5-5.1); Total Bilirubin 2.2 mg/dL (0.2-1.3); Total Protein 6.2 g/dL (6.3-8.2)
[2021-11-29] MEDS: SODIUM CHLORIDE 0.9% 1,000 ML IV SCH ×2 (10:34→12:02)
[2021-11-29] MEDS: PANTOPRAZOLE 40 MG TABLET PO SCH ×2 (10:41→18:33)
[2021-11-29] MEDS: RIVAROXABAN 15 MG TAB PO SCH (10:41)
[2021-11-29] MEDS: METOPROLOL TARTRATE 12.5 MG TAB PO SCH ×2 (10:41→20:46)
[2021-11-29 11:48] LABS: Appearance,Urine Clear (Clear); Bilirubin,Urine Negative (Negative); Blood,Urine Negative (Negative); Color,Urine Yellow; Glucose,Urine (UA) Negative (Negative); Ketones,Urine Negative (Negative); Leukocyte Esterase,Urine Negative (Negative); Nitrite,Urine Negative (Negative); Protein,Urine Trace (Negative); Specific Gravity,Urine 1.023 (1.001-1.035); Urobilinogen,Urine <2.0 mg/dL (<2.0)
--- NOTE | 2021-11-29 13:11 | CA ---
Transthoracic Echo Report Name: Kailash Wilhelm Age: 89 Gender: M : 1930 Exam Date: 11/29/2021 11:20 Exam Location: [place] [facility] Ht (in): 67 Wt (lb): 140 Ordering Physician: Ophelia Mcpherson Attending/Referring Phys: [id number], [place] [employer] Saray Wesley, [place] Procedure CPT: Indications: LV function Cardiac Hx: Technical Quality: Good Contrast 1: Total Dose (mL): Contrast 2: Total Dose (mL): MEASUREMENTS (Male / Female) Normal Values 2D ECHO LV Diastolic Diameter PLAX 5.6 cm 4.2 - 5.9 / 3.9 - 5.3 cm LV Systolic Diameter PLAX 3.5 cm IVS Diastolic Thickness 1.4 cm 0.6 - 1.0 / 0.6 - 0.9 cm LVPW Diastolic Thickness 1.3 cm 0.6 - 1.0 / 0.6 - 0.9 cm LV Relative Wall Thickness 0.5 RV Internal Dim ED PLAX 3.3 cm LA Volume 163.6 cm??? 18 - 58 / 22 - 52 cm??? M-MODE Aortic Root Diameter MM 3.4 cm DOPPLER AV Peak Velocity 430.7 cm/s AV Peak Gradient 74.2 mmHg AV Mean Velocity 326.0 cm/s AV Mean Gradient 46.2 mmHg AV Velocity Time Integral 93.2 cm LVOT Peak Velocity 67.0 cm/s LVOT Peak Gradient 1.8 mmHg MV Peak Velocity 305.4 cm/s MV Peak Gradient 37.3 mmHg MV Mean Velocity 134.0 cm/s MV Mean Gradient 11.1 mmHg MV Velocity Time Integral 47.2 cm MV Area PHT 5.5 cm??? MV Deceleration Time 137.8 ms TR Peak Velocity 352.5 cm/s TR Peak Gradient 49.7 mmHg Right Ventricular Systolic Press 52.6 mmHg FINDINGS Left Ventricle Left ventricular ejection fraction is estimated at 25-30 %. Left ventricular cavity size normal. Moderate concentric left ventricular hypertrophy. Moderately reduced global left ventricular systolic function. Right Ventricle Mild right ventricular dilatation. Moderate pulmonary hypertension. Right Atrium Normal right atrial size. Left Atrium Severely increased left atrial volume. Moderately increased left atrial area. No evidence for an atrial septal defect. Mitral Valve Mitral valve thickened. Mild mitral annular calcification. Moderate mitral regurgitation. mechanical MV with mean gradient of 11 mmHg. Suspicious finding on MV Aortic Valve Severe Aortic valve sclerosis. Severe aortic stenosis with a peak velocity of 430 m/s, peak gradient 74 mmHg, mean gradient 46 mmHg. Mild aortic regurgitation. Tricuspid Valve [id number] tricuspid regurgitation. Pulmonic Valve Trace to mild pulmonic regurgitation. Pericardium Normal pericardium. No pericardial effusion. Aorta Normal size aortic root and proximal ascending aorta. CONCLUSIONS LV size is at upper limits of normal with the global decrease in contractility and estimated ejection fraction of 30%. Mechanical mitral valve noted with some pannus and there is also possibility of vegetation. Aortic valve stenosis appears to be severe with 80 calcification and a mean gradient of 40 mm range with mild aortic insufficiency. No pericardial effusion. Previewed by: Dr. Leonidas Yoder MD (Electronically Signed) Final Date: 29 November 2021 13:11
--- NOTE | 2021-11-29 13:24 | P.CONS ---
History of Present Illness - Reason for Consult Consult date: 11/29/21 Anemia Requesting physician: Brijesh Akers - History of Present Illness Mr Melonie soto is a pleasant white male, with multiple but well-controlled medical problems. The patient was admitted to [facility] in , with complains of progressive weakness and fatigue. He also reported black stools for at least 2 weeks or more prior to the admission. From 04/04/20 hemoglobin was 8.3 with WBC 6.5 and platelets 141. Iron saturation of 6.5 with ferritin in the 40 range. Creatinine was 1.54. Potassium was 3.4. The patient received a unit of blood. According to him he also got iron infusions. He had EGD and colonoscopy on 04/04/20. This was his first colonoscopy. This was negative other than some internal hemorrhoids and mild pandiverticulosis. EGD only showed some mild gastritis in the antrum and body. Biopsies confirmed the same with H. pylori negative. The patient was then discharged and referred here for further evaluation and recommendations. He denied any prior history of blood related problems, or iron supplementation in the past. 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 Other than the above episode, he denies any obvious blood loss. patient had full anemia workup done, that showed iron deficiency. He did receive IV iron in 06/12. Labs also showed haptoglobin less than 10 though her reticulocyte count was normal. Patient also had a monoclonal protein, 0.8 + 0.3 equals 1.1 g/dL, IgA lambda. light chains were normal. Urine studies and bone survey were subsequently negative. 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 No hemolysis, received a unit of PRBCs, had capsule endo that he does not know results yet. Denies black or bloody stool since DC, he is still fatigued, cont on coumadin, being worked up with bone survey and 24 hour urine for MGUS. As above. The patient received IV iron in 09/12. Haptoglobin remained low, with other markers of hemolysis negative. It was felt that he may have some low-level hemolysis from the valve. However this would not require any intervention if hemoglobin was adequate with iron supplementation. The patient had completed the office on 07/11/21, complaining of marked increase in fatigue, and dyspnea on exertion. Hemoglobin was noted to have dropped into the 8 range. Hemolysis markers were stable with markedly low haptoglobin, but no other major findings. Iron levels were normal. He denied any f/c/n/v/LAD. He switched from warfarin to Xarelto in 05/16. Last seen in office by Dr. Cesar 09/18/[address] Cesar Stated Etiology of the acute drop in 07/14 is not clear. Hemolysis labs were not substantially different from baseline. Iron levels actually showed ferritin > 400. A probable explanation could be an episode of blood loss, acute, in which case the iron studies would not have had time to change. However if this ceased, then hemoglobin recovery could occur subsequently if the patient has adequate iron stores. - Check labs. Repeat IV iron if needed - The patient's symptoms of shortness of breath with exertion, and easy fatigability have not improved substantially despite increase in hemoglobin by almost 3 g. Therefore other underlying causes should be considered. The patient was asked to follow-up with cardiology, and potentially move up his appointment. On examination there is possibility of some COPD. They will check with her PCP about getting a referral to pulmonary medicine. Haptoglobin was <10, but iron deficiency and faraheme on 09/18. He admits to dark black stools, ER Dr with us during evaluation Review of Systems All systems: negative Constitutional: Reports as per HPI Past Medical History Past Medical History: GI Bleed, Hyperlipidemia, Hypertension, Vascular Disorder Additional Past Medical History / Comment(s): irreg hr, Hx of GI bleed History of Any Multi-Drug Resistant Organisms: None Reported Past Surgical History: Bladder Surgery Additional Past Surgical History / Comment(s): valve replacement, stents. Upper GI, Lower GI. Past Anesthesia/Blood Transfusion Reactions: No Reported Reaction Past Psychological History: No Psychological Hx Reported Smoking Status: Never smoker Past Alcohol Use History: None Reported Past Drug Use History: None Reported - Past Family History Father Family Medical History: No Reported History Mother Family Medical History: No Reported History Medications and Allergies Home Medications Medication Instructions Recorded Confirmed Type Atorvastatin [Lipitor] 40 mg PO HS 04/04/20 11/28/21 History Ferrous Sulfate [Feosol] 325 mg PO HS 07/07/21 11/28/21 History Metoprolol Tartrate [Lopressor] 12.5 mg PO BID 07/07/21 11/28/21 History Rivaroxaban [Xarelto] 15 mg PO DAILY 07/07/21 11/28/21 History Tamsulosin HCl [Flomax] 0.4 mg PO HS 07/07/21 11/28/21 History Furosemide [Lasix] 20 mg PO DAILY 11/28/21 11/28/21 History Omeprazole Magnesium [PriLOSEC OTC] 20 mg PO AC-SUPPER 11/28/21 11/28/21 History Allergies Allergy/AdvReac Type Severity Reaction Status Date / Time No Known Allergies Allergy Verified 11/28/21 19:47 Physical Exam Vitals: Vital Signs Temp Pulse Pulse Resp BP BP Pulse Ox 11/29/21 04:00 98.1 F 90 18 116/77 94 L 11/29/21 02:00 103 H 18 11/29/21 00:00 98.1 F 103 H 18 116/77 98 11/28/21 21:40 98.2 F 115 H 18 112/66 97 11/28/21 10:45 97.7 F 79 20 96/56 98 Intake and Output 11/28/21 11/29/21 11/29/21 22:59 06:59 14:59 Output Total 300 250 Balance -300 -250 Output: Urine 300 250 Other: Voiding Method Urinal Weight 63.503 kg - Constitutional General appearance: cooperative, no acute distress - EENT Eyes: edentulous, EOMI ENT: NA/AT - Neck Neck: normal ROM - Respiratory Respiratory: bilateral: diminished - Cardiovascular Rhythm: regularly irregular - Gastrointestinal General gastrointestinal: soft - Integumentary Integumentary: pale - Neurologic Neurologic: CNII-XII intact - Musculoskeletal Musculoskeletal: generalized weakness Results CBC & Chem 7: 11/29/21 02:21 11/29/21 09:12 Labs: Abnormal Lab Results - Last 24 Hours (Table) 11/28/21 11/28/21 11/28/21 Range/Units 12:37 12:37 12:37 WBC 11.2 H (3.8-10.6) k/uL RBC 2.60 L (4.30-5.90) m/uL Hgb 8.7 L (13.0-17.5) gm/dL Hct 27.1 L (39.0-53.0) % MCV 104.1 H (80.0-100.0) fL RDW 19.2 H (11.5-15.5) % Neutrophils # 9.8 H (1.3-7.7) k/uL Lymphocytes # 0.7 L (1.0-4.8) k/uL Macrocytosis PT 12.7 H (9.0-12.0) sec INR 1.2 H (<1.2) BUN 43 H (9-20) mg/dL Creatinine 1.32 H (0.66-1.25) mg/dL Glucose 123 H (74-99) mg/dL Plasma Lactic Acid Hussein (0.7-2.0) mmol/L Total Bilirubin 1.7 H (0.2-1.3) mg/dL Troponin I (0.000-0.034) ng/mL 11/28/21 11/28/21 11/29/21 Range/Units 12:37 12:37 02:21 WBC (3.8-10.6) k/uL RBC (4.30-5.90) m/uL Hgb (13.0-17.5) gm/dL Hct (39.0-53.0) % MCV (80.0-100.0) fL RDW (11.5-15.5) % Neutrophils # (1.3-7.7) k/uL Lymphocytes # (1.0-4.8) k/uL Macrocytosis PT (9.0-12.0) sec INR (<1.2) BUN (9-20) mg/dL Creatinine (0.66-1.25) mg/dL Glucose (74-99) mg/dL Plasma Lactic Acid Hussein 2.6 H* (0.7-2.0) mmol/L Total Bilirubin (0.2-1.3) mg/dL Troponin I 0.695 H* 0.865 H* (0.000-0.034) ng/mL 11/29/21 Range/Units 02:21 WBC (3.8-10.6) k/uL RBC 2.36 L (4.30-5.90) m/uL Hgb 8.1 L (13.0-17.5) gm/dL Hct 25.3 L (39.0-53.0) % MCV 107.2 H (80.0-100.0) fL RDW 20.1 H (11.5-15.5) % Neutrophils # (1.3-7.7) k/uL Lymphocytes # (1.0-4.8) k/uL Macrocytosis Marked A PT (9.0-12.0) sec INR (<1.2) BUN (9-20) mg/dL Creatinine (0.66-1.25) mg/dL Glucose (74-99) mg/dL Plasma Lactic Acid Hussein (0.7-2.0) mmol/L Total Bilirubin (0.2-1.3) mg/dL Troponin I (0.000-0.034) ng/mL Assessment and Plan (1) Macrocytic anemia Narrative/Plan: History of iron deficiency with Faraheme infusions in August, with mechanical heart valve hemolysis cannot be ruled out, hemolysis work-up ordered Possible blood loss GI, Await Stool OB and Iron studies Current Visit: Yes Status: Acute Code(s): D53.9 - NUTRITIONAL ANEMIA, UNSPECIFIED SNOMED Code(s): 22976955 (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 Alatorre: I have completed the full history and physial and developed the above impression and plan, agree with dictation, dictated as a scribe
[2021-11-29] MEDS ORDERED: VANCOMYCIN IV PER PHARMACY 1 EACH MISC MISCELLANE PRN (14:18)
--- NOTE | 2021-11-29 14:30 | P.PN ---
Subjective Progress Note Date: 11/29/21 Principal diagnosis: Sob He is still having sob and weakness. He is pale. No fevers or chills. Objective - Vital Signs Vital signs: Vital Signs Temp 98.1 F 11/29/21 04:00 Pulse 92 11/29/21 13:32 Resp 18 11/29/21 13:32 BP 92/54 11/29/21 13:32 Pulse Ox 100 11/29/21 13:32 FiO2 Intake & Output 11/28/21 11/29/21 11/29/21 18:59 06:59 18:59 Output Total 550 Balance -550 Weight 63.503 kg 63.503 kg Output: Urine 550 Other: Voiding Method Urinal - Exam Constitutional: No acute distress, conversant, pleasant Eyes:Anicteric sclerae, moist conjunctiva, no lid-lag, PERRLA, ENMT: Oropharynx clear, no erythema, exudates Neck: Supple, FROM, no masses, or JVD, No carotid bruits, No thyromegaly Lungs: Clear to auscultation, Clear to percussion, Normal respiratory effort, no accessory muscle use Cardiovascular: Bibasilar crackles. Heart regular in rate and rhythm, No murmurs, gallops, or rubs, No peripheral edema Abdominal: Soft, Nontender, no guarding, rebound or rigidity, Normoactive bowel sounds, No hepatomegaly, No splenomegaly, No palpable mass Skin: Normal temperature, tone, texture, turgor, no induration, No subcutaneous nodules, No rash, lesions, No ulcers Extremities: No digital cyanosis, No clubbing, Pedal pulses intact and symmetrical, Radial pulses intact and symmetrical, No calf tenderness Psychiatric: Alert and oriented to person, place and time, appropriate affect, intact judgement Neuro: Muscles Strength 5/5 in all 4 extremities, Sensation to light touch grossly present throughout, Cranial nerves II-XII grossly intact, no focal sensory deficits - Labs CBC & Chem 7: 11/29/21 02:21 11/29/21 09:12 Labs: Abnormal Lab Results - Last 24 Hours (Table) 11/28/21 11/28/21 11/28/21 Range/Units 12:37 12:37 12:37 RBC (4.30-5.90) m/uL Hgb (13.0-17.5) gm/dL Hct (39.0-53.0) % MCV (80.0-100.0) fL RDW (11.5-15.5) % Macrocytosis PT 12.7 H (9.0-12.0) sec INR 1.2 H (<1.2) Sodium (137-145) mmol/L BUN 43 H (9-20) mg/dL Creatinine 1.32 H (0.66-1.25) mg/dL Glucose 123 H (74-99) mg/dL Plasma Lactic Acid Hussein 2.6 H* (0.7-2.0) mmol/L Total Bilirubin 1.7 H (0.2-1.3) mg/dL Troponin I (0.000-0.034) ng/mL Total Protein (6.3-8.2) g/dL Albumin (3.5-5.0) g/dL Urine Protein (Negative) 11/28/21 11/29/21 11/29/21 Range/Units 12:37 02:21 02:21 RBC 2.36 L (4.30-5.90) m/uL Hgb 8.1 L (13.0-17.5) gm/dL Hct 25.3 L (39.0-53.0) % MCV 107.2 H (80.0-100.0) fL RDW 20.1 H (11.5-15.5) % Macrocytosis Marked A PT (9.0-12.0) sec INR (<1.2) Sodium (137-145) mmol/L BUN (9-20) mg/dL Creatinine (0.66-1.25) mg/dL Glucose (74-99) mg/dL Plasma Lactic Acid Hussein (0.7-2.0) mmol/L Total Bilirubin (0.2-1.3) mg/dL Troponin I 0.695 H* 0.865 H* (0.000-0.034) ng/mL Total Protein (6.3-8.2) g/dL Albumin (3.5-5.0) g/dL Urine Protein (Negative) 11/29/21 11/29/21 Range/Units 09:12 10:43 RBC (4.30-5.90) m/uL Hgb (13.0-17.5) gm/dL Hct (39.0-53.0) % MCV (80.0-100.0) fL RDW (11.5-15.5) % Macrocytosis PT (9.0-12.0) sec INR (<1.2) Sodium 136 L (137-145) mmol/L BUN 42 H (9-20) mg/dL Creatinine 1.34 H (0.66-1.25) mg/dL Glucose 109 H (74-99) mg/dL Plasma Lactic Acid Hussein (0.7-2.0) mmol/L Total Bilirubin 2.2 H (0.2-1.3) mg/dL Troponin I (0.000-0.034) ng/mL Total Protein 6.2 L (6.3-8.2) g/dL Albumin 3.4 L (3.5-5.0) g/dL Urine Protein Trace H (Negative) Assessment and Plan Plan: Acute on chronic anemia with recurrent GI bleed PPI GI consult, patient have had EGD and colonoscopy , which did not show source of bleed in the past NPO monitor hemoglobin continue xarelto for mechanical heart valve, consult cardiology EKG showing infero lateral ST depression , with elevated trops , denies any chest pain this could be secondary to type II demand ischemia , rule out ACS 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 Send blood cultures. Elevated troponin Per cardiology Acute systolic CHF Lasix IV daily Per cardio JEROMY Hold IVF sec to CHF avoid nephrotoxic meds monitor urine output
[2021-11-29 14:55] LABS: Reticulocyte % 10.6 % (0.5-2.0)
[2021-11-29] MEDS: FUROSEMIDE 10 MG/ML 2 ML VIAL IV SCH (15:06)
[2021-11-29 15:49] LABS: % Iron Saturation 19.08 (15.00-50.00)
[2021-11-29] MEDS ORDERED: VANCOMYCIN 1,250 MG in SODIUM CHLORIDE 0.9% 250 ML IVPB ONE (16:00)
--- NOTE | 2021-11-29 17:31 | XR ---
EXAM: XR Chest, 2 Views CLINICAL HISTORY: ITS. REASON XR Reason: Weakness TECHNIQUE: Frontal and lateral views of the chest. COMPARISON: No relevant prior studies available. FINDINGS: Lungs: Vascular congestion. No consolidation. Pleural space: Small-moderate bilateral pleural effusions. No pneumothorax. Heart/mediastinum: Cardiomegaly with operative changes Bones/joints: Sternotomy wires. IMPRESSION: Enlarged, postoperative heart with vascular congestion and small-moderate pleural effusions
[2021-11-29 18:39] LABS: Glucose,Whole Blood 132 mg/dL (70-110)
--- NOTE | 2021-11-29 20:32 | CONS ---
CONSULTATION HISTORY OF PRESENT ILLNESS: An 89-year-old gentleman with history of mechanical mitral valve, aortic stenosis, hypertension, and dyslipidemia who presented to hospital complaining of progressively worsening shortness of breath for the last several days. He states that he had noticed some melenic stools and has been becoming short of breath for the last few days due to which he came to the emergency room. He does not have any chest pain. Does not have any leg edema, PND or orthopnea. He has known aortic stenosis and mechanical mitral valve. He has mild LV systolic dysfunction. At the time of my evaluation, he appears comfortable at rest, somewhat tachycardic and his O2 saturation is 98% on room air. Admission lab showed that the troponins are in the hernandez zone at 0.6 and 0.8. BUN and creatinine are elevated at 43 and 1.3. EKG showed atrial fibrillation with significant ST-T wave changes secondary to left ventricular hypertrophy. He is anemic with a hemoglobin of 8.1. Normally his hemoglobin is around 12, the last time it was done in August. The patient's shortness of breath seems to be related to anemia and acute blood loss. Once that is corrected, I expect him to feel better. PAST MEDICAL HISTORY: Significant for aortic stenosis, mechanical mitral valve, dyslipidemia. CURRENT MEDICATIONS: Include, 1. Prilosec. 2. Flomax. 3. Xarelto. 4. Lopressor 12.5 b.i.d. 5. Lasix 20 daily. 6. Iron. 7. Lipitor. ALLERGIES: There are no known drug allergies. FAMILY HISTORY: Negative for premature coronary artery disease. SOCIAL HISTORY: Negative for current smoking, EtOH abuse or drug abuse. REVIEW OF SYSTEMS: HEENT: Unremarkable. CARDIAC: As described above. RESPIRATORY: As described above. GI: Significant for melenic stools. PSYCHOSOCIAL: Negative. DERM: Negative. CONSTITUTIONAL: Significant for fatigue, tiredness. HEMATOLOGICAL: Significant for anemia. Rest of the system review is not relevant. PHYSICAL EXAMINATION: GENERAL: Comfortable at rest. VITAL SIGNS: Stable. CHEST: Reveals good air entry bilaterally. I do not hear any crackles or rhonchi. HEART: Reveals grade 4/6 ejection systolic murmur in the aortic area. The mechanical valve sound is heard. ABDOMEN: Soft. EXTREMITIES: Did not reveal any edema. Peripheral pulses are felt. LABORATORY DATA: Labs show that the hemoglobin is 8.1, that is a drop from 12 from Josey. BUN and creatinine are elevated at 43 and 1.3. Normally his creatinine is at 1. Troponins are elevated secondary to the renal failure. ASSESSMENT: 1. Shortness of breath secondary to anemia related to acute blood loss. 2. History of mechanical mitral valve. 3. Severe aortic stenosis. 4. Elevated troponin secondary to renal insufficiency. PLAN: Will continue the patient on current medications. He needs workup for GI related blood loss. Continue with the iron. He was investigated last year with a colonoscopy by Dr. Newell that was normal. He also had an EGD. The patient has history of peripheral arterial disease also. MMODL / IJN: [id number] /
[2021-11-29] MEDS: ATORVASTATIN 40 MG TAB PO SCH (20:46)
[2021-11-29] MEDS: TAMSULOSIN 0.4 MG CAP.ER.24H PO SCH (20:46)
--- NOTE | 2021-11-29 22:52 | P.CONS ---
History of Present Illness - Reason for Consult Consult date: 11/29/21 Vegetation on echo Requesting physician: Ana Calvert - Chief Complaint Increasing shortness of breath x few days - History of Present Illness Patient is a 89-year-old male with a past medical history taken valvular heart disease in this patient who did have a mechanical mitral valve repair few years ago recent GI bleed requiring upper and lower GI followed by capsule study but no active source of bleeding presenting to the hospital yesterday morning for evaluation of increasing shortness of breath that has been getting worse for the last few days patient denies having any chest pain he did have occasional cough no sputum production patient been complaining of feeling weak and fatigue with the symptoms getting worse over the last month or so patie nt did not recall any high-grade fever or any chills denies having any dental issues or any dental work-up patient denies having any abdominal pain and no diarrhea or urinary symptoms on presentation to the hospital the patient was afebrile and no fever has been recorded subsequently patient did have normal white count BUN and creatinine has been mildly elevated urine has been negative patient did have a chest x-ray enlarged heart with vascular congestion and small to moderate effusion, patient did have an echocardiogram completed with concern for possible vegetation to the prosthetic mitral valve that has prompted this infectious disease consultation Review of Systems Positive point has been mentioned in the HPI rest of the systems are negative Past Medical History Past Medical History: GI Bleed, Hyperlipidemia, Hypertension, Vascular Disorder Additional Past Medical History / Comment(s): irreg hr, Hx of GI bleed History of Any Multi-Drug Resistant Organisms: None Reported Past Surgical History: Bladder Surgery Additional Past Surgical History / Comment(s): valve replacement, stents. Upper GI, Lower GI. Past Anesthesia/Blood Transfusion Reactions: No Reported Reaction Past Psychological History: No Psychological Hx Reported Smoking Status: Never smoker Past Alcohol Use History: None Reported Past Drug Use History: None Reported - Past Family History Father Family Medical History: No Reported History Mother Family Medical History: No Reported History Medications and Allergies Home Medications Medication Instructions Recorded Confirmed Type Atorvastatin [Lipitor] 40 mg PO HS 04/04/20 11/28/21 History Ferrous Sulfate [Iron (65 MG 325 mg PO HS 07/07/21 11/28/21 History Elemental)] Metoprolol Tartrate [Lopressor] 12.5 mg PO BID 07/07/21 11/28/21 History Tamsulosin HCl [Flomax] 0.4 mg PO HS 07/07/21 11/28/21 History Furosemide [Lasix] 20 mg PO DAILY 11/28/21 11/28/21 History Clopidogrel [Plavix] 75 mg PO DAILY #180 tab 12/07/21 Rx Enoxaparin [Lovenox] 60 mg SQ Q12HR #20 each 12/07/21 Rx Melatonin 3 mg PO HS PRN #30 tab 12/07/21 Rx Pantoprazole [Protonix] 40 mg PO AC-BID #60 tab 12/07/21 Rx Warfarin [Coumadin] 7.5 mg PO ONCE@1800 #30 tab 12/07/21 Rx polyethylene glycoL 3350 [Miralax] 17 gm PO HS #30 packet 12/07/21 Rx Allergies Allergy/AdvReac Type Severity Reaction Status Date / Time No Known Allergies Allergy Verified 11/28/21 19:47 Physical Exam Vitals: Vital Signs Temp Pulse Pulse Resp BP BP Pulse Ox 11/29/21 15:04 91 18 95/70 96 11/29/21 13:32 92 18 92/54 100 11/29/21 09:59 101 H 16 98/60 96 11/29/21 04:00 98.1 F 90 18 116/77 94 L 11/29/21 02:00 103 H 18 11/29/21 00:00 98.1 F 103 H 18 116/77 98 11/28/21 21:40 98.2 F 115 H 18 112/66 97 Intake and Output 11/29/21 11/29/21 11/29/21 06:59 14:59 22:59 Output Total 250 Balance -250 Output: Urine 250 Other: Voiding Method Urinal GENERAL DESCRIPTION: Elderly male lying in bed, no distress. No tachypnea or accessory muscle of respiration use. HEENT: Shows Pallor , no scleral icterus. Oral mucous membrane is dry. No ph aryngeal erythema or thrush NECK: Trachea central, no thyromegaly. LUNGS: Unlabored breathing. Decreased breath sound the bases HEART: S1, S2, regular rate and rhythm. No loud murmur ABDOMEN: Soft, no tenderness , guarding or rigidity, no organomegaly EXTREMITIES: No edema of feet. SKIN: No rash, no masses palpable. NEUROLOGICAL: The patient is awake, alert, oriented x3, mood and affect normal. Results CBC & Chem 7: 12/07/21 07:54 12/07/21 07:54 Labs: Abnormal Lab Results - Last 24 Hours (Table) 11/28/21 11/28/21 11/28/21 Range/Units 12:37 12:37 12:37 RBC (4.30-5.90) m/uL Hgb (13.0-17.5) gm/dL Hct (39.0-53.0) % MCV (80.0-100.0) fL RDW (11.5-15.5) % Macrocytosis Retic Count (0.5-2.0) % PT 12.7 H (9.0-12.0) sec INR 1.2 H (<1.2) Sodium (137-145) mmol/L BUN 43 H (9-20) mg/dL Creatinine 1.32 H (0.66-1.25) mg/dL Glucose 123 H (74-99) mg/dL Plasma Lactic Acid Hussein 2.6 H* (0.7-2.0) mmol/L Total Bilirubin 1.7 H (0.2-1.3) mg/dL Troponin I (0.000-0.034) ng/mL Total Protein (6.3-8.2) g/dL Albumin (3.5-5.0) g/dL Urine Protein (Negative) 11/28/21 11/29/21 11/29/21 Range/Units 12:37 02:21 02:21 RBC 2.36 L (4.30-5.90) m/uL Hgb 8.1 L (13.0-17.5) gm/dL Hct 25.3 L (39.0-53.0) % MCV 107.2 H (80.0-100.0) fL RDW 20.1 H (11.5-15.5) % Macrocytosis Marked A Retic Count (0.5-2.0) % PT (9.0-12.0) sec INR (<1.2) Sodium (137-145) mmol/L BUN (9-20) mg/dL Creatinine (0.66-1.25) mg/dL Glucose (74-99) mg/dL Plasma Lactic Acid Hussein (0.7-2.0) mmol/L Total Bilirubin (0.2-1.3) mg/dL Troponin I 0.695 H* 0.865 H* (0.000-0.034) ng/mL Total Protein (6.3-8.2) g/dL Albumin (3.5-5.0) g/dL Urine Protein (Negative) 11/29/21 11/29/21 11/29/21 Range/Units 09:12 09:12 10:43 RBC (4.30-5.90) m/uL Hgb (13.0-17.5) gm/dL Hct (39.0-53.0) % MCV (80.0-100.0) fL RDW (11.5-15.5) % Macrocytosis Retic Count 10.6 H (0.5-2.0) % PT (9.0-12.0) sec INR (<1.2) Sodium 136 L (137-145) mmol/L BUN 42 H (9-20) mg/dL Creatinine 1.34 H (0.66-1.25) mg/dL Glucose 109 H (74-99) mg/dL Plasma Lactic Acid Hussein (0.7-2.0) mmol/L Total Bilirubin 2.2 H (0.2-1.3) mg/dL Troponin I (0.000-0.034) ng/mL Total Protein 6.2 L (6.3-8.2) g/dL Albumin 3.4 L (3.5-5.0) g/dL Urine Protein Trace H (Negative) Assessment and Plan (1) Mitral valve vegetation Status: Acute Code(s): I33.0 - ACUTE AND SUBACUTE INFECTIVE ENDOCARDITIS SNOMED Code(s): 817241530 Plan: 1patient is a 89-year-old male with a past medical history significant for mitral valve repair in this patient presented to hospital with increasing shortness of breath fatigue and weakness but no fever no elevated white count patient did have abnormal echo concerning for possible vegetation however the patient is clinically not behaving as infective endocarditis. 2blood culture has been obtained and we will also obtain a CRP and sed rate. 3empirically start the patient on vancomycin and cefepime, patient with borderline kidney function and high risk of gentamicin hence we will hold on adding gentamicin. 4patient benefit from LAURA for better definition of the abnormality seen on the mitral valve. We will follow on clinical condition and cultures to further adjust medication if needed Thank you for this consultation will follow this patient along with you Time with Patient: Greater than 30
[2021-11-29] MEDS: CEFEPIME 2 GM in SODIUM CHLORIDE 0.9% 100 ML IVPB SCH (23:28)
[2021-11-30] MEDS: PANTOPRAZOLE 40 MG TABLET PO SCH ×2 (06:34→17:05)
[2021-11-30 07:24] LABS: Anisocytosis Moderate; Basophils % (A) 0 %; Eosinophils % (A) 0 %; HCT 26.4 % (39.0-53.0); HGB 8.6 gm/dL (13.0-17.5); Hypochromasia Moderate; Lymphocytes # (A) 0.7 k/uL (1.0-4.8); Lymphocytes % (A) 6 %; MCH 34.9 pg (25.0-35.0); MCHC 32.6 g/dL (31.0-37.0); MCV 107.2 fL (80.0-100.0); Macrocytosis Marked; Monocytes # (A) 0.7 k/uL (0-1.0); Monocytes % (A) 6 %; Neutrophils # (A) 9.9 k/uL (1.3-7.7); Neutrophils % (A) 87 %; Platelet Count 165 k/uL (150-450); Poikilocytosis Slight; RBC 2.47 m/uL (4.30-5.90); RDW 20.6 % (11.5-15.5); WBC 11.4 k/uL (3.8-10.6)
[2021-11-30 07:42] LABS: Albumin 3.2 g/dL (3.5-5.0); Calcium 8.2 mg/dL (8.4-10.2); Potassium 4.7 mmol/L (3.5-5.1); Total Bilirubin 2.6 mg/dL (0.2-1.3); Total Protein 5.8 g/dL (6.3-8.2)
[2021-11-30] MEDS: RIVAROXABAN 15 MG TAB PO SCH (09:48)
[2021-11-30] MEDS: SODIUM FERRIC GLUCONAT-SUCROSE 125 MG in SODIUM CHLORIDE 0.9% 100 ML IVPB SCH (09:49)
[2021-11-30] MEDS: FUROSEMIDE 10 MG/ML 2 ML VIAL IV SCH (09:49)
[2021-11-30] MEDS: METOPROLOL TARTRATE 12.5 MG TAB PO SCH ×2 (09:50→21:32)
--- NOTE | 2021-11-30 11:20 | P.PN ---
Subjective Progress Note Date: 11/30/21 HISTORY OF PRESENT ILLNESS: This is an 89-year-old male who is a patient of Dr. Meraz. Patient presented to the hospital with melanotic stools and shortness of breath. Patient examined this morning at the bedside. Patient denies chest pain or pressure. He reports shortness of breath with minimal activity. Patient's hemoglobin is 8.6. He reports having dark tarry stools yesterday. Vital signs are stable. Echocardiogram completed revealing ejection fraction 25-30%, moderate LVH, moderate pulmonary hypertension, moderate mitral regurgitation, mechanical mitral valve, suspicious finding and mitral valve concerning for vegetation, mild to moderate tricuspid regurgitation, mild aortic regurgitation, and severe aortic stenosis. PHYSICAL EXAM: VITAL SIGNS: Reviewed. GENERAL: Well-developed in no acute distress. NECK: Supple. No JVD or thyromegaly LUNGS: Respirations even and unlabored. Lungs diminished to auscultation bilaterally. HEART: Regular rate and rhythm. S1 and S2 heard. Systolic murmur noted. EXTREMITIES: Normal range of motion. No clubbing or cyanosis. Peripheral pulses intact. No lower extremity edema ASSESSMENT: Shortness of breath Acute blood loss anemia with melanotic stools Valvular heart disease Severe aortic stenosis History of mechanical mitral valve replacement Possible vegetation noted on mitral valve, per echo Acute kidney injury Abnormal troponin, secondary to acute kidney injury, acute coronary syndrome ruled out Hypertension Hyperlipidemia PLAN: Continue to monitor hemoglobin. Patient remains on Xarelto. GI has been consulted. Infectious disease following. Patient on antibiotics. Await results of blood cultures NPO at midnight for POSSIBLE LAURA tomorrow Further recommendations pending patient course Nurse practitioner note has been reviewed by physician. Signing provider agrees with the documented findings, assessment, and plan of care. Objective - Vital Signs Vital signs: Vital Signs Temp 97.3 F L 11/30/21 08:00 Pulse 93 11/30/21 08:00 Resp 19 11/30/21 08:00 BP 124/72 11/30/21 08:00 Pulse Ox 95 11/30/21 08:00 FiO2 Intake & Output 11/29/21 11/30/21 11/30/21 18:59 06:59 18:59 Output Total 250 Balance -250 Weight 64.9 kg Output: Urine 250 Other: Voiding Method Urinal Urinal # Voids 1 1 - Labs CBC & Chem 7: 11/30/21 06:26 11/30/21 06:26 Labs: Abnormal Lab Results - Last 24 Hours (Table) 11/29/21 11/29/21 11/29/21 Range/Units 09:12 09:12 09:12 WBC (3.8-10.6) k/uL RBC (4.30-5.90) m/uL Hgb (13.0-17.5) gm/dL Hct (39.0-53.0) % MCV (80.0-100.0) fL RDW (11.5-15.5) % Macrocytosis ESR (0-15) mm/hr Retic Count 10.6 H (0.5-2.0) % Haptoglobin <10.0 L (31.2-198.0) mg/dL Sodium (137-145) mmol/L BUN (9-20) mg/dL Creatinine (0.66-1.25) mg/dL Glucose (74-99) mg/dL POC Glucose (mg/dL) (70-110) mg/dL Calcium (8.4-10.2) mg/dL Iron 45 L (65-175) ug/dL Transferrin 170.0 L (204.0-354.0) mg/dL Ferritin 446.0 H (22.0-322.0) ng/mL Total Bilirubin (0.2-1.3) mg/dL C-Reactive Protein (<1.0) mg/dL Total Protein (6.3-8.2) g/dL Albumin (3.5-5.0) g/dL Urine Protein (Negative) 11/29/21 11/29/21 11/29/21 Range/Units 10:43 15:35 15:35 WBC (3.8-10.6) k/uL RBC (4.30-5.90) m/uL Hgb (13.0-17.5) gm/dL Hct (39.0-53.0) % MCV (80.0-100.0) fL RDW (11.5-15.5) % Macrocytosis ESR 33 H (0-15) mm/hr Retic Count (0.5-2.0) % Haptoglobin (31.2-198.0) mg/dL Sodium (137-145) mmol/L BUN (9-20) mg/dL Creatinine (0.66-1.25) mg/dL Glucose (74-99) mg/dL POC Glucose (mg/dL) (70-110) mg/dL Calcium (8.4-10.2) mg/dL Iron (65-175) ug/dL Transferrin (204.0-354.0) mg/dL Ferritin (22.0-322.0) ng/mL Total Bilirubin (0.2-1.3) mg/dL C-Reactive Protein 1.8 H (<1.0) mg/dL Total Protein (6.3-8.2) g/dL Albumin (3.5-5.0) g/dL Urine Protein Trace H (Negative) 11/29/21 11/30/21 11/30/21 Range/Units 18:37 06:26 06:26 WBC 11.4 H (3.8-10.6) k/uL RBC 2.47 L (4.30-5.90) m/uL Hgb 8.6 L (13.0-17.5) gm/dL Hct 26.4 L (39.0-53.0) % MCV 107.2 H (80.0-100.0) fL RDW 20.6 H (11.5-15.5) % Macrocytosis Marked A ESR (0-15) mm/hr Retic Count (0.5-2.0) % Haptoglobin (31.2-198.0) mg/dL Sodium 131 L (137-145) mmol/L BUN 39 H (9-20) mg/dL Creatinine 1.46 H (0.66-1.25) mg/dL Glucose 118 H (74-99) mg/dL POC Glucose (mg/dL) 132 H (70-110) mg/dL Calcium 8.2 L (8.4-10.2) mg/dL Iron (65-175) ug/dL Transferrin (204.0-354.0) mg/dL Ferritin (22.0-322.0) ng/mL Total Bilirubin 2.6 H (0.2-1.3) mg/dL C-Reactive Protein (<1.0) mg/dL Total Protein 5.8 L (6.3-8.2) g/dL Albumin 3.2 L (3.5-5.0) g/dL Urine Protein (Negative)
--- NOTE | 2021-11-30 11:23 | P.PN ---
Subjective Progress Note Date: 11/30/21 Principal diagnosis: Sob Patient is feeling about the same today. Still with shortness of breath and weakness. He denied having any pain. No cough. No fevers or chills. Objective - Vital Signs Vital signs: Vital Signs Temp 97.3 F L 11/30/21 08:00 Pulse 93 11/30/21 08:00 Resp 19 11/30/21 08:00 BP 124/72 11/30/21 08:00 Pulse Ox 95 11/30/21 08:00 FiO2 Intake & Output 11/29/21 11/30/21 11/30/21 18:59 06:59 18:59 Output Total 250 Balance -250 Weight 64.9 kg Output: Urine 250 Other: Voiding Method Urinal Urinal # Voids 1 1 - Exam Constitutional: No acute distress, conversant, pleasant Eyes:Anicteric sclerae, moist conjunctiva, no lid-lag, PERRLA, ENMT: Oropharynx clear, no erythema, exudates Neck: Supple, FROM, no masses, or JVD, No carotid bruits, No thyromegaly Lungs: Clear to auscultation, Clear to percussion, Normal respiratory effort, no accessory muscle use Cardiovascular: Bibasilar crackles. Heart regular in rate and rhythm, No murmurs, gallops, or rubs, No peripheral edema Abdominal: Soft, Nontender, no guarding, rebound or rigidity, Normoactive bowel sounds, No hepatomegaly, No splenomegaly, No palpable mass Skin: Normal temperature, tone, texture, turgor, no induration, No subcutaneous nodules, No rash, lesions, No ulcers Extremities: No digital cyanosis, No clubbing, Pedal pulses intact and symmetrical, Radial pulses intact and symmetrical, No calf tenderness Psychiatric: Alert and oriented to person, place and time, appropriate affect, intact judgement Neuro: Muscles Strength 5/5 in all 4 extremities, Sensation to light touch grossly present throughout, Cranial nerves II-XII grossly intact, no focal sensory deficits - Labs CBC & Chem 7: 11/30/21 06:26 11/30/21 06:26 Labs: Abnormal Lab Results - Last 24 Hours (Table) 11/29/21 11/29/21 11/29/21 Range/Units 09:12 09:12 09:12 WBC (3.8-10.6) k/uL RBC (4.30-5.90) m/uL Hgb (13.0-17.5) gm/dL Hct (39.0-53.0) % MCV (80.0-100.0) fL RDW (11.5-15.5) % Macrocytosis ESR (0-15) mm/hr Retic Count 10.6 H (0.5-2.0) % Haptoglobin <10.0 L (31.2-198.0) mg/dL Sodium (137-145) mmol/L BUN (9-20) mg/dL Creatinine (0.66-1.25) mg/dL Glucose (74-99) mg/dL POC Glucose (mg/dL) (70-110) mg/dL Calcium (8.4-10.2) mg/dL Iron 45 L (65-175) ug/dL Transferrin 170.0 L (204.0-354.0) mg/dL Ferritin 446.0 H (22.0-322.0) ng/mL Total Bilirubin (0.2-1.3) mg/dL C-Reactive Protein (<1.0) mg/dL Total Protein (6.3-8.2) g/dL Albumin (3.5-5.0) g/dL Urine Protein (Negative) 11/29/21 11/29/21 11/29/21 Range/Units 10:43 15:35 15:35 WBC (3.8-10.6) k/uL RBC (4.30-5.90) m/uL Hgb (13.0-17.5) gm/dL Hct (39.0-53.0) % MCV (80.0-100.0) fL RDW (11.5-15.5) % Macrocytosis ESR 33 H (0-15) mm/hr Retic Count (0.5-2.0) % Haptoglobin (31.2-198.0) mg/dL Sodium (137-145) mmol/L BUN (9-20) mg/dL Creatinine (0.66-1.25) mg/dL Glucose (74-99) mg/dL POC Glucose (mg/dL) (70-110) mg/dL Calcium (8.4-10.2) mg/dL Iron (65-175) ug/dL Transferrin (204.0-354.0) mg/dL Ferritin (22.0-322.0) ng/mL Total Bilirubin (0.2-1.3) mg/dL C-Reactive Protein 1.8 H (<1.0) mg/dL Total Protein (6.3-8.2) g/dL Albumin (3.5-5.0) g/dL Urine Protein Trace H (Negative) 11/29/21 11/30/21 11/30/21 Range/Units 18:37 06:26 06:26 WBC 11.4 H (3.8-10.6) k/uL RBC 2.47 L (4.30-5.90) m/uL Hgb 8.6 L (13.0-17.5) gm/dL Hct 26.4 L (39.0-53.0) % MCV 107.2 H (80.0-100.0) fL RDW 20.6 H (11.5-15.5) % Macrocytosis Marked A ESR (0-15) mm/hr Retic Count (0.5-2.0) % Haptoglobin (31.2-198.0) mg/dL Sodium 131 L (137-145) mmol/L BUN 39 H (9-20) mg/dL Creatinine 1.46 H (0.66-1.25) mg/dL Glucose 118 H (74-99) mg/dL POC Glucose (mg/dL) 132 H (70-110) mg/dL Calcium 8.2 L (8.4-10.2) mg/dL Iron (65-175) ug/dL Transferrin (204.0-354.0) mg/dL Ferritin (22.0-322.0) ng/mL Total Bilirubin 2.6 H (0.2-1.3) mg/dL C-Reactive Protein (<1.0) mg/dL Total Protein 5.8 L (6.3-8.2) g/dL Albumin 3.2 L (3.5-5.0) g/dL Urine Protein (Negative) Assessment and Plan Plan: Acute on chronic anemia with recurrent GI bleed PPI and iron infusion Patient have had EGD and colonoscopy , which did not show source of bleed in the past monitor hemoglobin continue xarelto for mechanical heart valve continue cardiac meds surveillance system monitor D/w hematology, patient known to have iron deficiency in the past, gets IV infusions. Mitral valve disease s/p mechanical mitral valve now with possible vegetation on the echo aortic valve stenosis Echo showing severe , mitral regurgitation, EF 25-30% d/w Dr Mota, rafaela and emerita. follow blood cultures. D/w cardio [employer], will need LAURA Elevated troponin EKG showing infero lateral ST depression Could be secondary to type II demand ischemia , rule out ACS Per cardiology Acute systolic CHF Lasix IV daily Per cardio JEROMY Renal function worse D/w ID possible deescalation of vanco sec to nephrotoxicity monitor urine output
[2021-11-30] MEDS: VANCOMYCIN 1,250 MG in SODIUM CHLORIDE 0.9% 250 ML IVPB SCH (12:19)
[2021-11-30] MEDS: CEFEPIME 2 GM in SODIUM CHLORIDE 0.9% 100 ML IVPB SCH ×2 (14:14→22:56)
[2021-11-30] MEDS: ALPRAZolam 0.25 MG TAB PO PRN (14:14)
[2021-11-30 14:35] LABS: Polychromasia Present
--- NOTE | 2021-11-30 17:13 | P.PN ---
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 On today's evaluation that is 11/30/2021, the patient denies having any fever or any chills, the patient still complaining of shortness of breath on minimal exertion however the patient is not hypoxic or need for supplemental oxygen denies any chest pain and no abdominal pain and no diarrhea Objective - Vital Signs Vital signs: Vital Signs Temp 97.3 F L 11/30/21 08:00 Pulse 93 11/30/21 08:00 Resp 19 11/30/21 08:00 BP 124/72 11/30/21 08:00 Pulse Ox 95 11/30/21 08:00 FiO2 Intake & Output 11/29/21 11/30/21 11/30/21 18:59 06:59 18:59 Output Total 250 Balance -250 Weight 64.9 kg Output: Urine 250 Other: Voiding Method Urinal Urinal # Voids 1 1 - Exam GENERAL DESCRIPTION elderly male lying in bed, no distress. No tachypnea or accessory muscle of respiration use. LUNGS: Unlabored breathing. Decreased breath sound at the base HEART: S1, S2, regular rate and rhythm ABDOMEN: Soft, no tenderness , guarding or rigidity, no organomegaly EXTREMITIES: No edema of feet. - Labs CBC & Chem 7: 11/30/21 06:26 11/30/21 06:26 Labs: Abnormal Lab Results - Last 24 Hours (Table) 11/29/21 11/29/21 11/29/21 Range/Units 09:12 09:12 09:12 WBC (3.8-10.6) k/uL RBC (4.30-5.90) m/uL Hgb (13.0-17.5) gm/dL Hct (39.0-53.0) % MCV (80.0-100.0) fL RDW (11.5-15.5) % Macrocytosis ESR (0-15) mm/hr Retic Count 10.6 H (0.5-2.0) % Haptoglobin <10.0 L (31.2-198.0) mg/dL Sodium 136 L (137-145) mmol/L BUN 42 H (9-20) mg/dL Creatinine 1.34 H (0.66-1.25) mg/dL Glucose 109 H (74-99) mg/dL POC Glucose (mg/dL) (70-110) mg/dL Calcium (8.4-10.2) mg/dL Iron 45 L (65-175) ug/dL Transferrin 170.0 L (204.0-354.0) mg/dL Ferritin 446.0 H (22.0-322.0) ng/mL Total Bilirubin 2.2 H (0.2-1.3) mg/dL C-Reactive Protein (<1.0) mg/dL Total Protein 6.2 L (6.3-8.2) g/dL Albumin 3.4 L (3.5-5.0) g/dL Urine Protein (Negative) 11/29/21 11/29/21 11/29/21 Range/Units 10:43 15:35 15:35 WBC (3.8-10.6) k/uL RBC (4.30-5.90) m/uL Hgb (13.0-17.5) gm/dL Hct (39.0-53.0) % MCV (80.0-100.0) fL RDW (11.5-15.5) % Macrocytosis ESR 33 H (0-15) mm/hr Retic Count (0.5-2.0) % Haptoglobin (31.2-198.0) mg/dL Sodium (137-145) mmol/L BUN (9-20) mg/dL Creatinine (0.66-1.25) mg/dL Glucose (74-99) mg/dL POC Glucose (mg/dL) (70-110) mg/dL Calcium (8.4-10.2) mg/dL Iron (65-175) ug/dL Transferrin (204.0-354.0) mg/dL Ferritin (22.0-322.0) ng/mL Total Bilirubin (0.2-1.3) mg/dL C-Reactive Protein 1.8 H (<1.0) mg/dL Total Protein (6.3-8.2) g/dL Albumin (3.5-5.0) g/dL Urine Protein Trace H (Negative) 11/29/21 11/30/21 11/30/21 Range/Units 18:37 06:26 06:26 WBC 11.4 H (3.8-10.6) k/uL RBC 2.47 L (4.30-5.90) m/uL Hgb 8.6 L (13.0-17.5) gm/dL Hct 26.4 L (39.0-53.0) % MCV 107.2 H (80.0-100.0) fL RDW 20.6 H (11.5-15.5) % Macrocytosis Marked A ESR (0-15) mm/hr Retic Count (0.5-2.0) % Haptoglobin (31.2-198.0) mg/dL Sodium 131 L (137-145) mmol/L BUN 39 H (9-20) mg/dL Creatinine 1.46 H (0.66-1.25) mg/dL Glucose 118 H (74-99) mg/dL POC Glucose (mg/dL) 132 H (70-110) mg/dL Calcium 8.2 L (8.4-10.2) mg/dL Iron (65-175) ug/dL Transferrin (204.0-354.0) mg/dL Ferritin (22.0-322.0) ng/mL Total Bilirubin 2.6 H (0.2-1.3) mg/dL C-Reactive Protein (<1.0) mg/dL Total Protein 5.8 L (6.3-8.2) g/dL Albumin 3.2 L (3.5-5.0) g/dL Urine Protein (Negative) Assessment and Plan (1) Mitral valve vegetation Current Visit: Yes Status: Acute Code(s): I33.0 - ACUTE AND SUBACUTE INFECTIVE ENDOCARDITIS SNOMED Code(s): 120717969 Plan: 1patient is a 89-year-old male with a past medical history significant for mitral valve repair in this patient presented to hospital with increasing shortness of breath fatigue and weakness but no fever no elevated white count patient did have abnormal echo concerning for possible vegetation however the patient is clinically not behaving as infective endocarditis. 2blood culture has been obtained Which are currently pending, patient did have a mildly elevated CRP and a sed rate 3Patient to continue with vancomycin and cefepime, patient with borderline kidney function and high risk of gentamicin hence we will hold on adding gentamicin. 4patient benefit from LAURA for better definition of the abnormality seen on the mitral valve, This was discussed with the primary team
[2021-11-30] MEDS: TAMSULOSIN 0.4 MG CAP.ER.24H PO SCH (21:32)
[2021-11-30] MEDS: ATORVASTATIN 40 MG TAB PO SCH (21:32)
[2021-12-01] MEDS: PANTOPRAZOLE 40 MG TABLET PO SCH ×3 (06:21→16:51)
[2021-12-01 07:35] LABS: Methylmalonic Acid 0.31 umol/L (<0.40)
[2021-12-01 07:53] LABS: Anisocytosis Moderate; Basophils % (A) 0 %; Eosinophils % (A) 0 %; HCT 26.4 % (39.0-53.0); HGB 8.4 gm/dL (13.0-17.5); Hypochromasia Marked; Lymphocytes # (A) 0.5 k/uL (1.0-4.8); Lymphocytes % (A) 6 %; MCH 34.4 pg (25.0-35.0); MCHC 31.9 g/dL (31.0-37.0); MCV 107.9 fL (80.0-100.0); Macrocytosis Marked; Monocytes # (A) 0.6 k/uL (0-1.0); Monocytes % (A) 8 %; Neutrophils # (A) 7.2 k/uL (1.3-7.7); Neutrophils % (A) 85 %; Platelet Count 135 k/uL (150-450); Poikilocytosis Slight; RBC 2.44 m/uL (4.30-5.90); RDW 20.1 % (11.5-15.5); WBC 8.5 k/uL (3.8-10.6)
[2021-12-01 08:16] LABS: Magnesium 2.1 mg/dL (1.6-2.3); Potassium 4.5 mmol/L (3.5-5.1)
[2021-12-01] MEDS: METOPROLOL TARTRATE 12.5 MG TAB PO SCH ×2 (08:47→21:21)
[2021-12-01] MEDS: FUROSEMIDE 10 MG/ML 2 ML VIAL IV SCH (08:47)
[2021-12-01] MEDS: SODIUM FERRIC GLUCONAT-SUCROSE 125 MG in SODIUM CHLORIDE 0.9% 100 ML IVPB SCH (09:28)
[2021-12-01] MEDS: RIVAROXABAN 15 MG TAB PO SCH (10:41)
[2021-12-01] MEDS: CEFEPIME 2 GM in SODIUM CHLORIDE 0.9% 100 ML IVPB SCH (10:42)
--- NOTE | 2021-12-01 11:48 | P.PN ---
Subjective Progress Note Date: 12/01/21 HISTORY OF PRESENT ILLNESS: This is an 89-year-old male who is a patient of Dr. Meraz. Patient presented to the hospital with melanotic stools and shortness of breath. Patient examined this morning at the bedside. Patient denies chest pain or pressure. He reports shortness of breath with minimal activity. Patient's hemoglobin is 8.6. He reports having dark tarry stools yesterday. Vital signs are stable. Echocardiogram completed revealing ejection fraction 25-30%, moderate LVH, moderate pulmonary hypertension, moderate mitral regurgitation, mechanical mitral valve, suspicious finding and mitral valve concerning for vegetation, mild to moderate tricuspid regurgitation, mild aortic regurgitation, and severe aortic stenosis. 12/01/2021 Patient examined this morning at the bedside. Patient denies chest pain or pressure. He reports improvement in his shortness of breath. Blood cultures are negative at the 24 hour mame. Patient is afebrile. White count within normal limits at 8.5. PHYSICAL EXAM: VITAL SIGNS: Reviewed. GENERAL: Well-developed in no acute distress. NECK: Supple. No JVD or thyromegaly LUNGS: Respirations even and unlabored. Lungs diminished to auscultation bilaterally. HEART: Regular rate and rhythm. S1 and S2 heard. Systolic murmur noted. EXTREMITIES: Normal range of motion. No clubbing or cyanosis. Peripheral puls es intact. No lower extremity edema ASSESSMENT: Shortness of breath Acute blood loss anemia with melanotic stools Valvular heart disease Severe aortic stenosis History of mechanical mitral valve replacement Possible vegetation noted on mitral valve, per echo Acute kidney injury Abnormal troponin, secondary to acute kidney injury, acute coronary syndrome ruled out Hypertension Hyperlipidemia PLAN: Continue to monitor hemoglobin. Patient remains on Xarelto. GI has been consulted. Infectious disease following. Patient on antibiotics. Continue to await final results of blood cultures. So far blood cultures are negative at 24 hour mame No plans for LAURA at this time Further recommendations pending patient course Nurse practitioner note has been reviewed by physician. Signing provider agrees with the documented findings, assessment, and plan of care. Objective - Vital Signs Vital signs: Vital Signs Temp 97.8 F 12/01/21 08:52 Pulse 94 12/01/21 08:52 Resp 20 12/01/21 08:52 BP 104/67 12/01/21 08:52 Pulse Ox 94 L 12/01/21 08:52 FiO2 Intake & Output 11/30/21 12/01/21 12/01/21 18:59 06:59 18:59 Intake Total 480 200 Output Total 1300 325 Balance -820 -125 Intake: Intake, IV Titration 200 Amount Cefepime 2 gm In Sodium 100 Chloride 0.9% 100 ml @ 25 mls/hr IVPB Q12H [facility] Rx# :[id number] Sodium Ferric Gluconat- 100 Sucrose 125 mg In Sodium Chloride 0.9% 100 ml @ 100 mls/hr IVPB DAILY [facility] Rx#:[id number] Oral 480 Output: Urine 1300 325 Other: Voiding Method Urinal Urinal # Voids 1 4 1 # Bowel Movements 1 - Labs CBC & Chem 7: 12/01/21 06:46 12/01/21 06:46 Labs: Abnormal Lab Results - Last 24 Hours (Table) 11/29/21 11/30/21 12/01/21 Range/Units 09:12 06:26 06:46 RBC (4.30-5.90) m/uL Hgb (13.0-17.5) gm/dL Hct (39.0-53.0) % MCV (80.0-100.0) fL RDW (11.5-15.5) % Plt Count (150-450) k/uL Neutrophils # 9.9 H (1.3-7.7) k/uL Lymphocytes # 0.7 L (1.0-4.8) k/uL Macrocytosis Sodium 130 L (137-145) mmol/L Carbon Dioxide 21 L (22-30) mmol/L BUN 38 H (9-20) mg/dL Creatinine 1.38 H (0.66-1.25) mg/dL Glucose 111 H (74-99) mg/dL Calcium 8.0 L (8.4-10.2) mg/dL RBC Folate 1,235 H (280 - 791) ng/mL 12/01/21 Range/Units 06:46 RBC 2.44 L (4.30-5.90) m/uL Hgb 8.4 L (13.0-17.5) gm/dL Hct 26.4 L (39.0-53.0) % MCV 107.9 H (80.0-100.0) fL RDW 20.1 H (11.5-15.5) % Plt Count 135 L (150-450) k/uL Neutrophils # (1.3-7.7) k/uL Lymphocytes # 0.5 L (1.0-4.8) k/uL Macrocytosis Marked A Sodium (137-145) mmol/L Carbon Dioxide (22-30) mmol/L BUN (9-20) mg/dL Creatinine (0.66-1.25) mg/dL Glucose (74-99) mg/dL Calcium (8.4-10.2) mg/dL RBC Folate (280 - 791) ng/mL Microbiology - Last 24 Hours (Table) 11/29/21 13:56 Blood Culture - Preliminary Blood No Growth after 24 hours 11/29/21 13:50 Blood Culture - Preliminary Blood No Growth after 24 hours
[2021-12-01 13:01] LABS: Albumin 3.2 g/dL (3.5-5.0); Bilirubin, Delta 0.3 mg/dL (0.0-0.2); Bilirubin,Unconjugated 2.4 mg/dL (0.0-1.1); Total Bilirubin 2.7 mg/dL (0.2-1.3); Total Protein 5.6 g/dL (6.3-8.2)
[2021-12-01 13:05] LABS: Reticulocyte % 14.3 % (0.5-2.0)
--- NOTE | 2021-12-01 13:11 | P.PN ---
Subjective Progress Note Date: 12/01/21 Principal diagnosis: Sob Patient is feeling better currently. Breathing has improved. He does not have any complaints of chest pain, dizziness, nausea or vomiting. He is still weak overall. Objective - Vital Signs Vital signs: Vital Signs Temp 98.0 F 12/01/21 11:51 Pulse 80 12/01/21 11:51 Resp 16 12/01/21 11:51 BP 99/60 12/01/21 11:51 Pulse Ox 95 12/01/21 11:51 FiO2 Intake & Output 11/30/21 12/01/21 12/01/21 18:59 06:59 18:59 Intake Total 480 210 Output Total 1300 325 Balance -820 -115 Intake: IV 10 Invasive Line 2 10 Intake, IV Titration 200 Amount Cefepime 2 gm In Sodium 100 Chloride 0.9% 100 ml @ 25 mls/hr IVPB Q12H [facility] Rx# :[id number] Sodium Ferric Gluconat- 100 Sucrose 125 mg In Sodium Chloride 0.9% 100 ml @ 100 mls/hr IVPB DAILY [facility] Rx#:[id number] Oral 480 Output: Urine 1300 325 Other: Voiding Method Urinal Urinal # Voids 1 4 1 # Bowel Movements 1 - Exam Constitutional: No acute distress, conversant, pleasant Eyes:Anicteric sclerae, moist conjunctiva, no lid-lag, PERRLA, ENMT: Oropharynx clear, no erythema, exudates Neck: Supple, FROM, no masses, or JVD, No carotid bruits, No thyromegaly Lungs: Clear to auscultation, Clear to percussion, Normal respiratory effort, no accessory muscle use Cardiovascular: Bibasilar crackles. Heart regular in rate and rhythm, No m urmurs, gallops, or rubs, No peripheral edema Abdominal: Soft, Nontender, no guarding, rebound or rigidity, Normoactive bowel sounds, No hepatomegaly, No splenomegaly, No palpable mass Skin: Normal temperature, tone, texture, turgor, no induration, No subcutaneous nodules, No rash, lesions, No ulcers Extremities: No digital cyanosis, No clubbing, Pedal pulses intact and symmetrical, Radial pulses intact and symmetrical, No calf tenderness Psychiatric: Alert and oriented to person, place and time, appropriate affect, intact judgement Neuro: Muscles Strength 5/5 in all 4 extremities, Sensation to light touch grossly present throughout, Cranial nerves II-XII grossly intact, no focal sensory deficits - Labs CBC & Chem 7: 12/01/21 06:46 12/01/21 06:46 Labs: Abnormal Lab Results - Last 24 Hours (Table) 11/29/21 11/30/21 12/01/21 Range/Units 09:12 06:26 06:46 RBC (4.30-5.90) m/uL Hgb (13.0-17.5) gm/dL Hct (39.0-53.0) % MCV (80.0-100.0) fL RDW (11.5-15.5) % Plt Count (150-450) k/uL Neutrophils # 9.9 H (1.3-7.7) k/uL Lymphocytes # 0.7 L (1.0-4.8) k/uL Macrocytosis Sodium 130 L (137-145) mmol/L Carbon Dioxide 21 L (22-30) mmol/L BUN 38 H (9-20) mg/dL Creatinine 1.38 H (0.66-1.25) mg/dL Glucose 111 H (74-99) mg/dL Calcium 8.0 L (8.4-10.2) mg/dL Total Bilirubin (0.2-1.3) mg/dL Unconjugated Bilirubin (0.0-1.1) mg/dL Delta Bilirubin (0.0-0.2) mg/dL Lactate Dehydrogenase (313-618) U/L Total Protein (6.3-8.2) g/dL Albumin (3.5-5.0) g/dL RBC Folate 1,235 H (280 - 791) ng/mL 12/01/21 12/01/21 Range/Units 06:46 06:46 RBC 2.44 L (4.30-5.90) m/uL Hgb 8.4 L (13.0-17.5) gm/dL Hct 26.4 L (39.0-53.0) % MCV 107.9 H (80.0-100.0) fL RDW 20.1 H (11.5-15.5) % Plt Count 135 L (150-450) k/uL Neutrophils # (1.3-7.7) k/uL Lymphocytes # 0.5 L (1.0-4.8) k/uL Macrocytosis Marked A Sodium (137-145) mmol/L Carbon Dioxide (22-30) mmol/L BUN (9-20) mg/dL Creatinine (0.66-1.25) mg/dL Glucose (74-99) mg/dL Calcium (8.4-10.2) mg/dL Total Bilirubin 2.7 H (0.2-1.3) mg/dL Unconjugated Bilirubin 2.4 H (0.0-1.1) mg/dL Delta Bilirubin 0.3 H (0.0-0.2) mg/dL Lactate Dehydrogenase 677 H (313-618) U/L Total Protein 5.6 L (6.3-8.2) g/dL Albumin 3.2 L (3.5-5.0) g/dL RBC Folate (280 - 791) ng/mL Microbiology - Last 24 Hours (Table) 11/29/21 13:56 Blood Culture - Preliminary Blood No Growth after 24 hours 11/29/21 13:50 Blood Culture - Preliminary Blood No Growth after 24 hours Assessment and Plan Plan: Acute on chronic anemia with recurrent GI bleed PPI and iron infusion Patient have had EGD and colonoscopy , which did not show source of bleed in the past monitor hemoglobin continue xarelto for mechanical heart valve continue cardiac meds monitoring manager D/w hematology, patient known to have iron deficiency in the past, gets IV inf usions. Currently on IV iron. 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 No plans for LAURA according to cardio Elevated troponin EKG showing infero lateral ST depression Could be secondary to type II demand ischemia , rule out ACS Per cardiology Acute systolic CHF Switch lasix to oral. Per cardio JEROMY Renal function better today Monitor General weakness PT
[2021-12-01] MEDS: VANCOMYCIN 1,250 MG in SODIUM CHLORIDE 0.9% 250 ML IVPB SCH (14:46)
--- NOTE | 2021-12-01 16:25 | P.PN ---
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 On today's evaluation that is 12/01/2021, the patient remains to be afebrile, the patient is breathing slightly comfortably, the patient denies having any chest pain or cough no nausea no vomiting no abdominal pain and no diarrhea Objective - Vital Signs Vital signs: Vital Signs Temp 98.0 F 12/01/21 11:51 Pulse 80 12/01/21 11:51 Resp 16 12/01/21 11:51 BP 99/60 12/01/21 11:51 Pulse Ox 95 12/01/21 11:51 FiO2 Intake & Output 11/30/21 12/01/21 12/01/21 18:59 06:59 18:59 Intake Total 480 210 Output Total 1300 325 Balance -820 -115 Intake: IV 10 Invasive Line 2 10 Intake, IV Titration 200 Amount Cefepime 2 gm In Sodium 100 Chloride 0.9% 100 ml @ 25 mls/hr IVPB Q12H [facility] Rx# :[id number] Sodium Ferric Gluconat- 100 Sucrose 125 mg In Sodium Chloride 0.9% 100 ml @ 100 mls/hr IVPB DAILY [facility] Rx#:[id number] Oral 480 Output: Urine 1300 325 Other: Voiding Method Urinal Urinal # Voids 1 4 1 # Bowel Movements 1 - Exam GENERAL DESCRIPTION elderly male lying in bed, no distress. No tachypnea or accessory muscle of respiration use. LUNGS: Unlabored breathing. Decreased breath sound at the base HEART: S1, S2, regular rate and rhythm ABDOMEN: Soft, no tenderness , guarding or rigidity, no organomegaly EXTREMITIES: No edema of feet. - Labs CBC & Chem 7: 12/01/21 06:46 12/01/21 06:46 Labs: Abnormal Lab Results - Last 24 Hours (Table) 11/29/21 11/30/21 12/01/21 Range/Units 09:12 06:26 06:46 RBC (4.30-5.90) m/uL Hgb (13.0-17.5) gm/dL Hct (39.0-53.0) % MCV (80.0-100.0) fL RDW (11.5-15.5) % Plt Count (150-450) k/uL Neutrophils # 9.9 H (1.3-7.7) k/uL Lymphocytes # 0.7 L (1.0-4.8) k/uL Macrocytosis Sodium 130 L (137-145) mmol/L Carbon Dioxide 21 L (22-30) mmol/L BUN 38 H (9-20) mg/dL Creatinine 1.38 H (0.66-1.25) mg/dL Glucose 111 H (74-99) mg/dL Calcium 8.0 L (8.4-10.2) mg/dL RBC Folate 1,235 H (280 - 791) ng/mL 12/01/21 Range/Units 06:46 RBC 2.44 L (4.30-5.90) m/uL Hgb 8.4 L (13.0-17.5) gm/dL Hct 26.4 L (39.0-53.0) % MCV 107.9 H (80.0-100.0) fL RDW 20.1 H (11.5-15.5) % Plt Count 135 L (150-450) k/uL Neutrophils # (1.3-7.7) k/uL Lymphocytes # 0.5 L (1.0-4.8) k/uL Macrocytosis Marked A Sodium (137-145) mmol/L Carbon Dioxide (22-30) mmol/L BUN (9-20) mg/dL Creatinine (0.66-1.25) mg/dL Glucose (74-99) mg/dL Calcium (8.4-10.2) mg/dL RBC Folate (280 - 791) ng/mL Microbiology - Last 24 Hours (Table) 11/29/21 13:56 Blood Culture - Preliminary Blood No Growth after 24 hours 11/29/21 13:50 Blood Culture - Preliminary Blood No Growth after 24 hours Assessment and Plan (1) Mitral valve vegetation Current Visit: Yes Status: Acute Code(s): I33.0 - ACUTE AND SUBACUTE INFECTIVE ENDOCARDITIS SNOMED Code(s): 439856073 Plan: 1patient is a 89-year-old male with a past medical history significant for mitral valve repair in this patient presented to hospital with increasing shortness of breath fatigue and weakness but no fever no elevated white count patient did have abnormal echo concerning for possible vegetation however the patient is clinically not behaving as infective endocarditis. 2blood culture has been obtained Which are negative so far, patient did have a mildly elevated CRP and a sed rate 3Patient case was discussed in detail with cardiology recommending no LAURA as a clinical suspicious for endocarditis is low we will go ahead and discontinue cefepime and vancomycin and monitor the patient closely off antibiotic therapy Time with Patient: Less than 30
--- NOTE | 2021-12-01 20:24 | P.PN ---
Subjective Progress Note Date: 12/01/21 Principal diagnosis: Bycytopenia Total Bili Increased, Hapto Low, LDH and Retic High. 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 which would not require intervention Objective - Vital Signs Vital signs: Vital Signs Temp 98.0 F 12/01/21 11:51 Pulse 80 12/01/21 11:51 Resp 16 12/01/21 11:51 BP 99/60 12/01/21 11:51 Pulse Ox 95 12/01/21 11:51 FiO2 Intake & Output 11/30/21 12/01/21 12/01/21 18:59 06:59 18:59 Intake Total 480 210 Output Total 1300 325 Balance -820 -115 Intake: IV 10 Invasive Line 2 10 Intake, IV Titration 200 Amount Cefepime 2 gm In Sodium 100 Chloride 0.9% 100 ml @ 25 mls/hr IVPB Q12H [facility] Rx# :[id number] Sodium Ferric Gluconat- 100 Sucrose 125 mg In Sodium Chloride 0.9% 100 ml @ 100 mls/hr IVPB DAILY [facility] Rx#:[id number] Oral 480 Output: Urine 1300 325 Other: Voiding Method Urinal Urinal # Voids 1 4 1 # Bowel Movements 1 - Exam - Constitutional General appearance: cooperative, no acute distress - EENT Eyes: edentulous, EOMI ENT: NA/AT - Neck Neck: normal ROM - Respiratory Respiratory: bilateral: diminished - Cardiovascular Rhythm: regularly irregular - Gastrointestinal General gastrointestinal: soft - Integumentary Integumentary: pale - Neurologic Neurologic: CNII-XII intact - Musculoskeletal Musculoskeletal: generalized weakness - Labs CBC & Chem 7: 12/01/21 06:46 12/01/21 06:46 Labs: Abnormal Lab Results - Last 24 Hours (Table) 11/29/21 11/30/21 12/01/21 Range/Units 09:12 06:26 06:46 RBC (4.30-5.90) m/uL Hgb (13.0-17.5) gm/dL Hct (39.0-53.0) % MCV (80.0-100.0) fL RDW (11.5-15.5) % Plt Count (150-450) k/uL Neutrophils # 9.9 H (1.3-7.7) k/uL Lymphocytes # 0.7 L (1.0-4.8) k/uL Macrocytosis Sodium 130 L (137-145) mmol/L Carbon Dioxide 21 L (22-30) mmol/L BUN 38 H (9-20) mg/dL Creatinine 1.38 H (0.66-1.25) mg/dL Glucose 111 H (74-99) mg/dL Calcium 8.0 L (8.4-10.2) mg/dL RBC Folate 1,235 H (280 - 791) ng/mL 12/01/21 Range/Units 06:46 RBC 2.44 L (4.30-5.90) m/uL Hgb 8.4 L (13.0-17.5) gm/dL Hct 26.4 L (39.0-53.0) % MCV 107.9 H (80.0-100.0) fL RDW 20.1 H (11.5-15.5) % Plt Count 135 L (150-450) k/uL Neutrophils # (1.3-7.7) k/uL Lymphocytes # 0.5 L (1.0-4.8) k/uL Macrocytosis Marked A Sodium (137-145) mmol/L Carbon Dioxide (22-30) mmol/L BUN (9-20) mg/dL Creatinine (0.66-1.25) mg/dL Glucose (74-99) mg/dL Calcium (8.4-10.2) mg/dL RBC Folate (280 - 791) ng/mL Microbiology - Last 24 Hours (Table) 11/29/21 13:56 Blood Culture - Preliminary Blood No Growth after 24 hours 11/29/21 13:50 Blood Culture - Preliminary Blood No Growth after 24 hours Assessment and Plan (1) Macrocytic anemia Narrative/Plan: History of iron deficiency with Faraheme infusions in August, with mechanical heart valve hemolysis cannot be ruled out, hemolysis work-up ordered Possible blood loss GI, Await Stool OB and Iron studies Await repeat hemolysis work-up but appears to be hemolyzing, however no intervention as mechanical Current Visit: Yes Status: Acute Code(s): D53.9 - NUTRITIONAL ANEMIA, UNSPECIFIED SNOMED Code(s): 31861495 (2) Mechanical heart valve present Current Visit: No Status: Chronic Priority: Medium Code(s): Z95.2 - PRESENCE OF PROSTHETIC HEART VALVE SNOMED Code(s): 43511592254202 Plan: Dr. Alatorre: I have completed the full history and physial and developed the above impression and plan, agree with dictation, dictated as a scribe
[2021-12-01] MEDS: ATORVASTATIN 40 MG TAB PO SCH (21:21)
[2021-12-01] MEDS: TAMSULOSIN 0.4 MG CAP.ER.24H PO SCH (21:21)
[2021-12-02] MEDS: MELATONIN 3 MG TABLET PO PRN ×2 (02:07→23:31)
[2021-12-02] MEDS: PANTOPRAZOLE 40 MG TABLET PO SCH ×2 (06:44→16:51)
[2021-12-02] MEDS: METOPROLOL TARTRATE 12.5 MG TAB PO SCH ×2 (07:32→20:40)
[2021-12-02] MEDS: RIVAROXABAN 15 MG TAB PO SCH (07:32)
[2021-12-02] MEDS: SODIUM FERRIC GLUCONAT-SUCROSE 125 MG in SODIUM CHLORIDE 0.9% 100 ML IVPB SCH (08:27)
[2021-12-02] MEDS ORDERED: FUROSEMIDE 20 MG TAB PO SCH (09:00)
[2021-12-02 09:04] LABS: Anisocytosis Moderate; HCT 28.8 % (39.0-53.0); HGB 8.9 gm/dL (13.0-17.5); Hypochromasia Marked; MCH 33.4 pg (25.0-35.0); MCHC 30.9 g/dL (31.0-37.0); MCV 108.3 fL (80.0-100.0); Macrocytosis Marked; Mean Platelet Volume 9.4; Platelet Count 144 k/uL (150-450); Poikilocytosis Moderate; RBC 2.66 m/uL (4.30-5.90); RDW 20.2 % (11.5-15.5); WBC 9.8 k/uL (3.8-10.6)
[2021-12-02 09:21] LABS: Calcium 7.8 mg/dL (8.4-10.2); Magnesium 2.3 mg/dL (1.6-2.3); Potassium 4.2 mmol/L (3.5-5.1)
--- NOTE | 2021-12-02 13:53 | P.PN ---
Subjective Progress Note Date: 12/02/21 Principal diagnosis: Sob Patient still shortness of breath when he got up and sat in the chair today. He states that even at rest is short of breath. He continues to be jaundiced. He denies having chest pain. No fevers or chills. Objective - Vital Signs Vital signs: Vital Signs Temp 98.2 F 12/02/21 11:47 Pulse 89 12/02/21 11:47 Resp 20 12/02/21 11:47 BP 105/69 12/02/21 11:47 Pulse Ox 99 12/02/21 11:47 FiO2 Intake & Output 12/01/21 12/02/21 12/02/21 18:59 06:59 18:59 Intake Total 450 463 Output Total 650 400 300 Balance -200 -400 163 Intake: IV 10 245 .9 @ 20 240 Invasive Line 2 10 5 Intake, IV Titration 200 100 Amount Cefepime 2 gm In Sodium 100 Chloride 0.9% 100 ml @ 25 mls/hr IVPB Q12H [facility] Rx# :[id number] Sodium Ferric Gluconat- 100 100 Sucrose 125 mg In Sodium Chloride 0.9% 100 ml @ 100 mls/hr IVPB DAILY [facility] Rx#:[id number] Oral 240 118 Output: Urine 650 400 300 Other: Voiding Method Urinal Urinal # Voids 1 2 1 - Exam Constitutional: No acute distress, conversant, pleasant Eyes:Anicteric sclerae, moist conjunctiva, no lid-lag, PERRLA, ENMT: Oropharynx clear, no erythema, exudates Neck: Supple, FROM, no masses, or JVD, No carotid bruits, No thyromegaly Lungs: Clear to auscultation, Clear to percussion, Normal respiratory effort, no accessory muscle use Cardiovascular: Bibasilar crackles. Heart regular in rate and rhythm, No murmurs, gallops, or rubs, No peripheral edema Abdominal: Soft, Nontender, no guarding, rebound or rigidity, Normoactive bowel sounds, No hepatomegaly, No splenomegaly, No palpable mass Skin: Normal temperature, tone, texture, turgor, no induration, No subcutaneous nodules, No rash, lesions, No ulcers Extremities: No digital cyanosis, No clubbing, Pedal pulses intact and symmetrical, Radial pulses intact and symmetrical, No calf tenderness Psychiatric: Alert and oriented to person, place and time, appropriate affect, intact judgement Neuro: Muscles Strength 5/5 in all 4 extremities, Sensation to light touch grossly present throughout, Cranial nerves II-XII grossly intact, no focal sensory deficits - Labs CBC & Chem 7: 12/02/21 07:47 12/02/21 07:47 Labs: Abnormal Lab Results - Last 24 Hours (Table) 12/02/21 12/02/21 Range/Units 07:47 07:47 RBC 2.66 L (4.30-5.90) m/uL Hgb 8.9 L (13.0-17.5) gm/dL Hct 28.8 L (39.0-53.0) % MCV 108.3 H (80.0-100.0) fL MCHC 30.9 L (31.0-37.0) g/dL RDW 20.2 H (11.5-15.5) % Plt Count 144 L (150-450) k/uL Macrocytosis Marked A Sodium 132 L (137-145) mmol/L Carbon Dioxide 21 L (22-30) mmol/L BUN 36 H (9-20) mg/dL Creatinine 1.43 H (0.66-1.25) mg/dL Glucose 118 H (74-99) mg/dL Calcium 7.8 L (8.4-10.2) mg/dL Microbiology - Last 24 Hours (Table) 11/29/21 13:56 Blood Culture - Preliminary Blood No Growth after 48 hours 11/29/21 13:50 Blood Culture - Preliminary Blood No Growth after 48 hours Assessment and Plan Plan: Acute on chronic anemia with recurrent GI bleed PPI and iron infusion Patient have had EGD and colonoscopy , which did not show source of bleed in the past monitor hemoglobin continue xarelto for mechanical heart valve 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 Case discussed with general cardiology, will consult thoracic surgery to see if valve could be replaced. 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 No plans for LAURA according to cardio Elevated troponin likely sec to type II demand ischemia EKG showing infero lateral ST depression Per cardiology Acute systolic CHF He is worse today, will restart lasix IV. Per cardio JEROMY Renal function stable Monitor General weakness PT
[2021-12-02] MEDS ORDERED: FUROSEMIDE 10 MG/ML 2 ML VIAL IV SCH (14:00)
--- NOTE | 2021-12-02 15:43 | P.PN ---
Subjective HISTORY OF PRESENT ILLNESS: This is an 89-year-old male who is a patient of Dr. Meraz. Patient presented to the hospital with melanotic stools and shortness of breath. Patient examined this morning at the bedside. Patient denies chest pain or pressure. He reports shortness of breath with minimal activity. Patient's hemoglobin is 8.6. He re ports having dark tarry stools yesterday. Vital signs are stable. Echocardiogram completed revealing ejection fraction 25-30%, moderate LVH, moderate pulmonary hypertension, moderate mitral regurgitation, mechanical mitral valve, suspicious finding and mitral valve concerning for vegetation, mild to moderate tricuspid regurgitation, mild aortic regurgitation, and severe aortic stenosis. 12/01/2021 Patient examined this morning at the bedside. Patient denies chest pain or pressure. He reports improvement in his shortness of breath. Blood cultures are negative at the 24 hour mame. Patient is afebrile. White count within normal limits at 8.5. 12/02 Patient seen and examined. Patient still with severe dyspnea with minimal exertion such as getting up and walking 2 steps to the chair. Does have orthopnea and JVD and crackles on exam. Has been receiving Lasix IV 20 mg twice a day with adequate urine output however admits is not that much. 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 Previous concern of melena has improved with no further bowel movements. Prior endoscopy and video capsule had shown no source of bleed with prior melena issue. He has been on the Xarelto per PCP as apparently could not tolerate Coumadin in the past. Long discussion with 2 sons at bedside as well as patient regarding much of symptoms may be related to symptomatic severe aortic stenosis and patient and son interested in undergoing workup. PHYSICAL EXAM: VITAL SIGNS: Reviewed. GENERAL: Well-developed in no acute distress. NECK: Supple. +JVD no thyromegaly LUNGS: Respirations even and unlabored. Lungs diminished to auscultation bilaterally. HEART: Regular rate and rhythm. S1 and S2 heard. Systolic murmur noted. EXTREMITIES: Normal range of motion. No clubbing or cyanosis. Peripheral pulses intact. 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 Possible vegetation versus pannus noted on mechanical mitral valve. Ideally Coumadin for his mechanical aortic valve however has been changed to Xarelto by his PCP. Changed to heparin drip in anticipation of workup of aortic stenosis with LAURA and left heart catheterization likely Monday 12/04. Monitor hemoglobin closely. Suspect majority of symptoms related to heart failure and severe aortic stenosis. Workup for possible TAVR. Increase diuretics with Lasix 40mg IV bid. Objective - Vital Signs Vital signs: Vital Signs Temp 98.2 F 12/02/21 11:47 Pulse 89 12/02/21 11:47 Resp 20 12/02/21 11:47 BP 105/69 12/02/21 11:47 Pulse Ox 99 12/02/21 11:47 FiO2 Intake & Output 12/01/21 12/02/21 12/02/21 18:59 06:59 18:59 Intake Total 450 463 Output Total 650 400 300 Balance -200 -400 163 Intake: IV 10 245 .9 @ 20 240 Invasive Line 2 10 5 Intake, IV Titration 200 100 Amount Cefepime 2 gm In Sodium 100 Chloride 0.9% 100 ml @ 25 mls/hr IVPB Q12H [facility] Rx# :[id number] Sodium Ferric Gluconat- 100 100 Sucrose 125 mg In Sodium Chloride 0.9% 100 ml @ 100 mls/hr IVPB DAILY [facility] Rx#:[id number] Oral 240 118 Output: Urine 650 400 300 Other: Voiding Method Urinal Urinal # Voids 1 2 1 - Labs CBC & Chem 7: 12/02/21 07:47 12/02/21 07:47 Labs: Abnormal Lab Results - Last 24 Hours (Table) 12/02/21 12/02/21 Range/Units 07:47 07:47 RBC 2.66 L (4.30-5.90) m/uL Hgb 8.9 L (13.0-17.5) gm/dL Hct 28.8 L (39.0-53.0) % MCV 108.3 H (80.0-100.0) fL MCHC 30.9 L (31.0-37.0) g/dL RDW 20.2 H (11.5-15.5) % Plt Count 144 L (150-450) k/uL Macrocytosis Marked A Sodium 132 L (137-145) mmol/L Carbon Dioxide 21 L (22-30) mmol/L BUN 36 H (9-20) mg/dL Creatinine 1.43 H (0.66-1.25) mg/dL Glucose 118 H (74-99) mg/dL Calcium 7.8 L (8.4-10.2) mg/dL Microbiology - Last 24 Hours (Table) 11/29/21 13:56 Blood Culture - Preliminary Blood No Growth after 48 hours 11/29/21 13:50 Blood Culture - Preliminary Blood No Growth after 48 hours
[2021-12-02] MEDS ORDERED: HEPARIN SODIUM 1,000 UN/ML (10ML VL) IV PRN (15:44)
[2021-12-02 16:11] LABS: Anisocytosis Moderate; Basophils % (A) 0 %; Eosinophils % (A) 1 %; HCT 27.6 % (39.0-53.0); HGB 8.7 gm/dL (13.0-17.5); Hypochromasia Marked; Lymphocytes # (A) 0.5 k/uL (1.0-4.8); Lymphocytes % (A) 7 %; MCH 33.8 pg (25.0-35.0); MCHC 31.5 g/dL (31.0-37.0); MCV 107.5 fL (80.0-100.0); Macrocytosis Marked; Mean Platelet Volume 9.9; Monocytes # (A) 0.6 k/uL (0-1.0); Monocytes % (A) 8 %; Neutrophils # (A) 6.4 k/uL (1.3-7.7); Neutrophils % (A) 83 %; Platelet Count 135 k/uL (150-450); Poikilocytosis Moderate; RBC 2.57 m/uL (4.30-5.90); RDW 20.1 % (11.5-15.5); WBC 7.7 k/uL (3.8-10.6)
[2021-12-02 16:24] LABS: INR 1.8 (<1.2); Prothrombin Time 18.4 sec (9.0-12.0)
[2021-12-02] MEDS: FUROSEMIDE 10 MG/ML 2 ML VIAL IV SCH (16:50)
[2021-12-02] MEDS: HEPARIN SOD,PORK IN 0.45% NACL 25,000 UNIT in 0.45% NACL 1 250ML.BAG IV SCH (17:46)
[2021-12-02] MEDS: ATORVASTATIN 40 MG TAB PO SCH (20:40)
[2021-12-02] MEDS: TAMSULOSIN 0.4 MG CAP.ER.24H PO SCH (20:40)
[2021-12-03] MEDS: PANTOPRAZOLE 40 MG TABLET PO SCH ×2 (06:47→17:09)
--- NOTE | 2021-12-03 09:05 | P.GSCN ---
History of Present Illness Consult date: 12/03/21 Reason for Consult: Valve replacement Requesting physician: Ana Calvert History of present illness: This is an 89-year-old gentleman who follows on an outpatient basis with Dr. Murtaza Lopez for primary care. He has a previous medical history of permanent atrial fibrillation, aortic stenosis, severe mitral regurgitation is mechanical mitral valve replacement 09/10/[address] Lee on Xarelto for anticoagulation (intolerant of Coumadin), hypertension, hyperlipidemia, peripheral arterial disease with bilateral SFA disease with balloon angioplasty/arthrectomy/stenting of the left SFA, chronic anemia with GI workup revealing no active bleeding, previous tobacco dependence (quit smoking 40 years ago). He presented to [facility] on November 28 with complaints of generalized weakness and progressive shortness of breath as well as dark tarry stools. Troponin was mildly elevated, hemoglobin was low, and patient was admitted for evaluation and treatment with consultation placed to cardiology, hematology, and gastroenterology. His troponin elevation was felt to be related to his chronic anemia. Transthoracic echocardiogram demonstrated reduced left ventricular systolic function with EF 25-30%, moderate pulmonary hypertension, enlarged left atrium, moderate mitral regurgitation with findings suspicious for vegetation on mechanical mitral valve, severe aortic stenosis with peak velocity 4.3 m/s, peak/mean gradient 74/46 mmHg, mild aortic regurgitation, mild to moderate tricuspid regurgitation. Due to concern for endocarditis blood cultures were drawn which have remained negative to date, and infectious disease was consulted. Patient was initially placed on cefepime and vancomycin, however WBC was normal, blood cultures remained negative, patient remains afebrile, and antibiotics were discontinued by infectious disease. Due to findings of severe aortic stenosis on transthoracic echocardiogram and patient's complaints of progressive shortness of breath consultation was placed to Dr. Hills from cardiothoracic surgery for aortic valve replacement recommendations. Review of Systems Review of systems was completed and was negative except as noted - Constitutional Reports weakness - Cardiovascular Reports as per HPI, Reports decreased exercise tolerance, Reports dyspnea on exertion, Reports shortness of breath - Gastrointestinal Reports melena Past Medical History Past Medical History: Atrial Fibrillation, Heart Failure, GI Bleed, Hyperlipidemia, Hypertension, Pneumonia, Vascular Disorder Additional Past Medical History / Comment(s): Hx of GI bleed; mitral regurgitation; aortic stenosis History of Any Multi-Drug Resistant Organisms: None Reported Past Surgical History: Appendectomy, Bladder Surgery Additional Past Surgical History / Comment(s): Mechanical mitral valve replacement August 2000. Left SFA angioplasty/arthrectomy/stent. Upper GI, Lower GI. Past Anesthesia/Blood Transfusion Reactions: No Reported Reaction Past Psychological History: No Psychological Hx Reported Smoking Status: Former smoker Past Alcohol Use History: None Reported Past Drug Use History: None Reported Additional History: Quit smoking 40 years ago - Past Family History Father Family Medical History: No Reported History Mother Family Medical History: No Reported History Medications and Allergies Home Medications Medication Instructions Recorded Confirmed Type Atorvastatin [Lipitor] 40 mg PO HS 04/04/20 11/28/21 History Ferrous Sulfate [Feosol] 325 mg PO HS 07/07/21 11/28/21 History Metoprolol Tartrate [Lopressor] 12.5 mg PO BID 07/07/21 11/28/21 History Rivaroxaban [Xarelto] 15 mg PO DAILY 07/07/21 11/28/21 History Tamsulosin HCl [Flomax] 0.4 mg PO HS 07/07/21 11/28/21 History Furosemide [Lasix] 20 mg PO DAILY 11/28/21 11/28/21 History Omeprazole Magnesium [PriLOSEC OTC] 20 mg PO AC-SUPPER 11/28/21 11/28/21 History Allergies Allergy/AdvReac Type Severity Reaction Status Date / Time No Known Allergies Allergy Verified 11/28/21 19:47 Surgical - Exam Vital Signs Temp Pulse Resp BP Pulse Ox 97.7 F 79 20 96/56 98 11/28/21 10:45 11/28/21 10:45 11/28/21 10:45 11/28/21 10:45 11/28/21 10:45 CONSTITUTIONAL: Awake and alert, appears comfortable, cooperative, well- developed, well-nourished, no pain, no acute distress EYES: Pupils equal, round, reactive to light, normal ocular movement ENT: Moist mucous membranes without oral lesions present; poor dentition with missing teeth NECK: No masses, no bruits, trachea midline RESPIRATORY: Lungs sounds diminished bilaterally. Respirations even, nonlabored. Currently on room air with oxygen saturation 100%. Strong cough. No chest wall deformities. No clubbing or cyanosis present CARDIOVASCULAR: S1, S2 present, systolic murmur. Irregular rate and rhythm, controlled atrial fibrillation on telemetry. Palpable peripheral pulses bilaterally. No edema present. No calf pain or tenderness noted. GASTROINTESTINAL: Abdomen soft, nontender, nondistended without masses or organomegaly noted. There is no rebound or guarding present. Active bowel soun ds present 4 quadrants. GENITOURINARY: Deferred INTEGUMENTARY: Skin is warm and dry NEUROLOGIC: Cranial nerves II through XII intact, normal coordination, no obvious motor or sensory deficits, speech is normal MUSKULOSKELETAL: Able to move all extremities, strength equal bilaterally, normal posture PSYCHIATRIC: Alert and oriented to person place and time, appropriate affect, intact judgment and insight Results - Labs 12/03/21 08:12 12/03/21 11:17 Abnormal Lab Results - Last 24 Hours (Table) 12/02/21 12/02/21 12/02/21 Range/Units 07:47 07:47 15:58 RBC 2.66 L 2.57 L (4.30-5.90) m/uL Hgb 8.9 L 8.7 L (13.0-17.5) gm/dL Hct 28.8 L 27.6 L (39.0-53.0) % MCV 108.3 H 107.5 H (80.0-100.0) fL MCHC 30.9 L (31.0-37.0) g/dL RDW 20.2 H 20.1 H (11.5-15.5) % Plt Count 144 L 135 L (150-450) k/uL Lymphocytes # 0.5 L (1.0-4.8) k/uL Macrocytosis Marked A Marked A PT (9.0-12.0) sec INR (<1.2) APTT (22.0-30.0) sec Sodium 132 L (137-145) mmol/L Carbon Dioxide 21 L (22-30) mmol/L BUN 36 H (9-20) mg/dL Creatinine 1.43 H (0.66-1.25) mg/dL Glucose 118 H (74-99) mg/dL Calcium 7.8 L (8.4-10.2) mg/dL 12/02/21 12/03/21 Range/Units 15:58 00:29 RBC (4.30-5.90) m/uL Hgb (13.0-17.5) gm/dL Hct (39.0-53.0) % MCV (80.0-100.0) fL MCHC (31.0-37.0) g/dL RDW (11.5-15.5) % Plt Count (150-450) k/uL Lymphocytes # (1.0-4.8) k/uL Macrocytosis PT 18.4 H (9.0-12.0) sec INR 1.8 H (<1.2) APTT 53.0 H >200.0 H* (22.0-30.0) sec Sodium (137-145) mmol/L Carbon Dioxide (22-30) mmol/L BUN (9-20) mg/dL Creatinine (0.66-1.25) mg/dL Glucose (74-99) mg/dL Calcium (8.4-10.2) mg/dL Microbiology - Last 24 Hours (Table) 11/29/21 13:56 Blood Culture - Preliminary Blood No Growth after 72 hours 11/29/21 13:50 Blood Culture - Preliminary Blood No Growth after 72 hours Diabetes panel 12/02/21 Range/Units 07:47 Sodium 132 L (137-145) mmol/L Potassium 4.2 (3.5-5.1) mmol/L Chloride 99 (98-107) mmol/L Carbon Dioxide 21 L (22-30) mmol/L BUN 36 H (9-20) mg/dL Creatinine 1.43 H (0.66-1.25) mg/dL Glucose 118 H (74-99) mg/dL Calcium 7.8 L (8.4-10.2) mg/dL Calcium panel 12/02/21 Range/Units 07:47 Calcium 7.8 L (8.4-10.2) mg/dL Pituitary panel 12/02/21 Range/Units 07:47 Sodium 132 L (137-145) mmol/L Potassium 4.2 (3.5-5.1) mmol/L Chloride 99 (98-107) mmol/L Carbon Dioxide 21 L (22-30) mmol/L BUN 36 H (9-20) mg/dL Creatinine 1.43 H (0.66-1.25) mg/dL Glucose 118 H (74-99) mg/dL Calcium 7.8 L (8.4-10.2) mg/dL Adrenal panel 09/10/22 Range/Units 07:47 Sodium 132 L (137-145) mmol/L Potassium 4.2 (3.5-5.1) mmol/L Chloride 99 (98-107) mmol/L Carbon Dioxide 21 L (22-30) mmol/L BUN 36 H (9-20) mg/dL Creatinine 1.43 H (0.66-1.25) mg/dL Glucose 118 H (74-99) mg/dL Calcium 7.8 L (8.4-10.2) mg/dL Assessment and Plan Assessment: 1. Progressive shortness of breath 2. Acute on chronic anemia with reported melanotic stools on admission, previous GI workup revealing no active bleeding 3. Troponin elevation 4. JEROMY 5. Cardiomyopathy, EF 25-30%, moderate pulmonary hypertension, mild to moderate tricuspid regurgitation on current TTE 6. Severe aortic stenosis, peak velocity 4.3 m/s, peak/mean gradient 74/46 mmHg on current TTE 7. Permanent atrial fibrillation 8. History of severe mitral regurgitation status post mechanical mitral valve replacement 09/10/[address] Lee on Xarelto for anticoagulation (intolerant of Coumadin) with moderate mitral regurgitation on current TTE 9. History of hypertension 10. History of hyperlipidemia 11. Peripheral arterial disease with bilateral SFA disease with balloon an gioplasty/arthrectomy/stenting of the left SFA 12. Previous tobacco dependence (quit smoking 40 years ago) Plan: The patient was seen and examined sitting up in bed on a cardiac stepdown unit in no acute distress. Does not appear to be significantly short of breath at th is time, although not ambulating. The patient denies any chest pain. Denies any syncopal episodes. States his shortness of breath has been getting progressively worse over the last several months. States he lives at home with his sons, is active around the house without the use of assistive devices. It appears there are plans for heart catheterization and transesophageal echocardiogram tomorrow per cardiology notes. Prior to any valve replacement consideration patient would also need dental clearance as well as bedside spirometry and carotid Dopplers. Continue to maximize heart failure management. Will review the case with Dr. Hills. Medical management of other comorbidities per primary care service. Thank you Dr. Calvert for this consult. We will continue to follow along with you and make further recommendations as appropriate. I have personally seen and examined the patient, performed the documentation and the assessment and plan as written. Number of minutes spent on the visit: 30. CHIRAG HammondC
[2021-12-03] MEDS: SODIUM FERRIC GLUCONAT-SUCROSE 125 MG in SODIUM CHLORIDE 0.9% 100 ML IVPB SCH (09:06)
[2021-12-03] MEDS: FUROSEMIDE 10 MG/ML 2 ML VIAL IV SCH ×2 (09:07→19:47)
[2021-12-03] MEDS: METOPROLOL TARTRATE 12.5 MG TAB PO SCH ×2 (09:07→21:27)
[2021-12-03] MEDS: ALPRAZolam 0.25 MG TAB PO PRN (09:20)
[2021-12-03 09:41] LABS: Anisocytosis Moderate; Basophils % (A) 0 %; Calcium 7.9 mg/dL (8.4-10.2); Eosinophils # (A) 0.1 k/uL (0-0.7); Eosinophils % (A) 1 %; HCT 28.4 % (39.0-53.0); HGB 8.9 gm/dL (13.0-17.5); Hypochromasia Marked; Lymphocytes # (A) 0.6 k/uL (1.0-4.8); Lymphocytes % (A) 9 %; MCH 34.3 pg (25.0-35.0); MCHC 31.3 g/dL (31.0-37.0); MCV 109.6 fL (80.0-100.0); Macrocytosis Marked; Mean Platelet Volume 9.8; Monocytes # (A) 0.4 k/uL (0-1.0); Monocytes % (A) 7 %; Neutrophils # (A) 5.5 k/uL (1.3-7.7); Neutrophils % (A) 82 %; Platelet Count 137 k/uL (150-450); Poikilocytosis Moderate; Potassium 3.6 mmol/L (3.5-5.1); RBC 2.59 m/uL (4.30-5.90); RDW 20.4 % (11.5-15.5); WBC 6.6 k/uL (3.8-10.6)
[2021-12-03 10:47] LABS: Polychromasia Present
--- NOTE | 2021-12-03 10:55 | US ---
EXAMINATION TYPE: US carotid duplex BILAT DATE OF EXAM: 12/03/2021 COMPARISON: US carotid report 2017 CLINICAL HISTORY: pre valve replacement. TECHNIQUE: Carotid duplex ultrasound examination. Indirect Doppler criteria was utilized. Exam done portable FINDINGS: EXAM MEASUREMENTS: RIGHT: Peak Systolic Velocity (PSV) cm/sec ----- Right CCA: 46.5 ----- Right ICA: 74.8 ----- Right ECA: 77.8 ICA/CCA ratio: 1.6 RIGHT: End Diastole cm/sec ----- Right CCA: 3.5 ----- Right ICA: 17.7 ----- Right ECA: 0.0 LEFT: Peak Systolic Velocity (PSV) cm/sec ----- Left CCA: 53.1 ----- Left ICA: 100.0 ----- Left ECA: 71.3 ICA/CCA ratio: 1.9 LEFT: End Diastole cm/sec ----- Left CCA: 7.6 ----- Left ICA: 25.3 ----- Left ECA: 0.0 VERTEBRALS (direction of flow): Right Vertebral: Antegrade Left Vertebral: Antegrade Rhythm: Normal Grayscale images show persistent moderate to severe shadowing plaque at bilateral carotid bulb level. No elevated velocities noted. IMPRESSION: Moderate to severe atherosclerotic changes without hemodynamically significant stenosis in either internal carotid artery Criteria for Assigning % of Stenosis / Diameter reduction (Estimation based on the indirect measurements of the internal carotid artery velocities (ICA PSV). 1. Normal (no stenosis)=ICA PSV < 125 cm/s: ratio < 2.0: ICA EDV<40 cm/s. 2. Less than 50% stenosis=ICA PSV < 125 cm/s: ratio < 2.0: ICA EDV<40 cm/s. 3. 50 to 69% stenosis=ICA PSV of 125 to 230 cm/s: ration 2.0 ? 4.0: ICA EDV 40-100 cm/s. 4. Greater than 70% stenosis to near occlusion= ICA PSV > 230 cm/s: ratio > 4.0: ICA EDV > 100 cm/s. 5. Near occlusion= ICA PSV velocities may be low or undetectable: variable ratio and ICA EDV. 6. Total occlusion=unable to detect flow.
[2021-12-03] MEDS ORDERED: VANCOMYCIN TROUGH DUE 1 EACH MISC MISCELLANE ONE (11:00)
--- NOTE | 2021-12-03 11:43 | P.PN ---
Subjective Progress Note Date: 12/03/21 Principal diagnosis: Sob Patient is not noticing any significant improvement compared to when he came in. He is still short of breath even at rest. No fevers or chills. No chest pain. No dizziness or palpitation. Objective - Vital Signs Vital signs: Vital Signs Temp 97.9 F 12/03/21 08:00 Pulse 106 H 12/03/21 08:00 Resp 19 12/03/21 08:00 BP 124/74 12/03/21 08:00 Pulse Ox 99 12/03/21 08:00 FiO2 Intake & Output 12/02/21 12/03/21 12/03/21 18:59 06:59 18:59 Intake Total 881 91.509 Output Total 600 1100 Balance 281 -1008.491 Weight 63.7 kg Intake: IV 245 .9 @ 20 240 Invasive Line 2 5 Intake, IV Titration 100 91.509 Amount Heparin Sod,Pork in 0.45% 91.509 NaCl 25,000 unit In 0.45 % NaCl 1 250ml.bag @ 18 UNITS/KG/HR 11.682 mls/hr IV .[id number] [facility] Rx#: [id number] Sodium Ferric Gluconat- 100 Sucrose 125 mg In Sodium Chloride 0.9% 100 ml @ 100 mls/hr IVPB DAILY [facility] Rx#:[id number] Oral 536 Output: Urine 600 1100 Other: Voiding Method Urinal Urinal # Voids 1 - Exam Constitutional: No acute distress, conversant, pleasant Eyes:Anicteric sclerae, moist conjunctiva, no lid-lag, PERRLA, ENMT: Oropharynx clear, no erythema, exudates Neck: Supple, FROM, no masses, or JVD, No carotid bruits, No thyromegaly Lungs: Clear to auscultation, Clear to percussion, Normal respiratory effort, no accessory muscle use Cardiovascular: Bibasilar crackles. Heart regular in rate and rhythm, No murmurs, gallops, or rubs, No peripheral edema Abdominal: Soft, Nontender, no guarding, rebound or rigidity, Normoactive bowel sounds, No hepatomegaly, No splenomegaly, No palpable mass Skin: Normal temperature, tone, texture, turgor, no induration, No subcutaneous nodules, No rash, lesions, No ulcers Extremities: No digital cyanosis, No clubbing, Pedal pulses intact and symmetrical, Radial pulses intact and symmetrical, No calf tenderness Psychiatric: Alert and oriented to person, place and time, appropriate affect, intact judgement Neuro: Muscles Strength 5/5 in all 4 extremities, Sensation to light touch grossly present throughout, Cranial nerves II-XII grossly intact, no focal sensory deficits - Labs CBC & Chem 7: 12/03/21 08:12 12/03/21 08:12 Labs: Abnormal Lab Results - Last 24 Hours (Table) 12/02/21 12/02/21 12/03/21 Range/Units 15:58 15:58 00:29 RBC 2.57 L (4.30-5.90) m/uL Hgb 8.7 L (13.0-17.5) gm/dL Hct 27.6 L (39.0-53.0) % MCV 107.5 H (80.0-100.0) fL RDW 20.1 H (11.5-15.5) % Plt Count 135 L (150-450) k/uL Lymphocytes # 0.5 L (1.0-4.8) k/uL Macrocytosis Marked A PT 18.4 H (9.0-12.0) sec INR 1.8 H (<1.2) APTT 53.0 H >200.0 H* (22.0-30.0) sec Sodium (137-145) mmol/L BUN (9-20) mg/dL Creatinine (0.66-1.25) mg/dL Glucose (74-99) mg/dL Calcium (8.4-10.2) mg/dL 12/03/21 12/03/21 Range/Units 08:12 08:12 RBC 2.59 L (4.30-5.90) m/uL Hgb 8.9 L (13.0-17.5) gm/dL Hct 28.4 L (39.0-53.0) % MCV 109.6 H (80.0-100.0) fL RDW 20.4 H (11.5-15.5) % Plt Count 137 L (150-450) k/uL Lymphocytes # 0.6 L (1.0-4.8) k/uL Macrocytosis Marked A PT (9.0-12.0) sec INR (<1.2) APTT (22.0-30.0) sec Sodium 133 L (137-145) mmol/L BUN 31 H (9-20) mg/dL Creatinine 1.41 H (0.66-1.25) mg/dL Glucose 130 H (74-99) mg/dL Calcium 7.9 L (8.4-10.2) mg/dL Microbiology - Last 24 Hours (Table) 11/29/21 13:56 Blood Culture - Preliminary Blood No Growth after 72 hours 11/29/21 13:50 Blood Culture - Preliminary Blood No Growth after 72 hours Assessment and Plan Plan: 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 No evidence of GI bleeding. 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 Mitral valve disease s/p mechanical mitral valve now with possible vegetation on the echo Severe aortic valve stenosis Echo showing severe , mitral regurgitation, EF 25-30% Was treated with abx for 2 days but ID d/raciel abx as blood cultures negative. Cardiology planning cardiac catheterization with [facility]A on Saturday Patient seen by cardiothoracic surgery, currently undergoing workup for TAVR Elevated troponin likely sec to type II demand ischemia EKG showing infero lateral ST depression Per cardiology Acute systolic CHF lasix IV. Per cardio Monitor Is and Os and daily weights. JEROMY Renal function stable Monitor General weakness PT
--- NOTE | 2021-12-03 15:04 | P.PN ---
Subjective HISTORY OF PRESENT ILLNESS: This is an 89-year-old male who is a patient of Dr. Meraz. Patient presented to the hospital with melanotic stools and shortness of breath. Patient examined this morning at the bedside. Patient denies chest pain or pressure. He reports shortness of breath with minimal activity. Patient's hemoglobin is 8.6. He re ports having dark tarry stools yesterday. Vital signs are stable. Echocardiogram completed revealing ejection fraction 25-30%, moderate LVH, moderate pulmonary hypertension, moderate mitral regurgitation, mechanical mitral valve, suspicious finding and mitral valve concerning for vegetation, mild to moderate tricuspid regurgitation, mild aortic regurgitation, and severe aortic stenosis. 12/01/2021 Patient examined this morning at the bedside. Patient denies chest pain or pressure. He reports improvement in his shortness of breath. Blood cultures are negative at the 24 hour mame. Patient is afebrile. White count within normal limits at 8.5. 12/02 Patient seen and examined. Patient still with severe dyspnea with minimal exertion such as getting up and walking 2 steps to the chair. Does have orthopnea and JVD and crackles on exam. Has been receiving Lasix IV 20 mg twice a day with adequate urine output however admits is not that much. 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 Previous concern of melena has improved with no further bowel movements. Prior endoscopy and video capsule had shown no source of bleed with prior melena issue. He has been on the Xarelto per PCP as apparently could not tolerate Coumadin in the past. Long discussion with 2 sons at bedside as well as patient regarding much of symptoms may be related to symptomatic severe aortic stenosis and patient and son interested in undergoing workup. 12/03 Lasix was increased to twice a day yesterday and creatinine is stable at 1.4 with mild improvement in sodium up to 133. Hemoglobin is stable at 8.9. Denies any chest pain or pressure. PHYSICAL EXAM: VITAL SIGNS: Reviewed. GENERAL: Well-developed in no acute distress. NECK: Supple. +JVD no thyromegaly LUNGS: Respirations even and unlabored. Lungs diminished to auscultation bilaterally. HEART: Regular rate and rhythm. S1 and S2 heard. Systolic murmur noted. EXTREMITIES: Normal range of motion. No clubbing or cyanosis. Peripheral p ulses intact. 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 Possible vegetation versus pannus noted on mechanical mitral valve. Ideally Coumadin for his mechanical aortic valve however has been changed to Xarelto by his PCP. Suspect majority of symptoms related to heart failure and severe aortic stenosis and therefore long discussion with sons and patient and they had expressed desire to undergo workup for possible TAVR. Continue with ncreased dose of Lasix 40mg IV bid. Changed to heparin drip in anticipation of workup of aortic stenosis with LAURA and left heart catheterization likely Monday 12/04. Objective - Vital Signs Vital signs: Vital Signs Temp 97.6 F 12/03/21 12:00 Pulse 87 12/03/21 13:46 Resp 18 12/03/21 13:46 BP 100/61 12/03/21 12:00 Pulse Ox 99 12/03/21 12:00 FiO2 Intake & Output 12/02/21 12/03/21 12/03/21 18:59 06:59 18:59 Intake Total 881 91.509 Output Total 600 1100 Balance 281 -1008.491 Weight 63.7 kg Intake: IV 245 .9 @ 20 240 Invasive Line 2 5 Intake, IV Titration 100 91.509 Amount Heparin Sod,Pork in 0.45% 91.509 NaCl 25,000 unit In 0.45 % NaCl 1 250ml.bag @ 18 UNITS/KG/HR 11.682 mls/hr IV .[id number] [facility] Rx#: [id number] Sodium Ferric Gluconat- 100 Sucrose 125 mg In Sodium Chloride 0.9% 100 ml @ 100 mls/hr IVPB DAILY [facility] Rx#:[id number] Oral 536 Output: Urine 600 1100 Other: Voiding Method Urinal Urinal # Voids 1 - Labs CBC & Chem 7: 12/03/21 08:12 12/03/21 11:17 Labs: Abnormal Lab Results - Last 24 Hours (Table) 12/02/21 12/02/2122 Range/Units 15:58 15:58 00:29 RBC 2.57 L (4.30-5.90) m/uL Hgb 8.7 L (13.0-17.5) gm/dL Hct 27.6 L (39.0-53.0) % MCV 107.5 H (80.0-100.0) fL RDW 20.1 H (11.5-15.5) % Plt Count 135 L (150-450) k/uL Lymphocytes # 0.5 L (1.0-4.8) k/uL Macrocytosis Marked A PT 18.4 H (9.0-12.0) sec INR 1.8 H (<1.2) APTT 53.0 H >200.0 H* (22.0-30.0) sec Sodium (137-145) mmol/L BUN (9-20) mg/dL Creatinine (0.66-1.25) mg/dL Glucose (74-99) mg/dL Calcium (8.4-10.2) mg/dL 12/03/21 12/03/21 12/03/21 Range/Units 08:12 08:12 11:17 RBC 2.59 L (4.30-5.90) m/uL Hgb 8.9 L (13.0-17.5) gm/dL Hct 28.4 L (39.0-53.0) % MCV 109.6 H (80.0-100.0) fL RDW 20.4 H (11.5-15.5) % Plt Count 137 L (150-450) k/uL Lymphocytes # 0.6 L (1.0-4.8) k/uL Macrocytosis Marked A PT (9.0-12.0) sec INR (<1.2) APTT (22.0-30.0) sec Sodium 133 L (137-145) mmol/L BUN 31 H (9-20) mg/dL Creatinine 1.41 H 1.42 H (0.66-1.25) mg/dL Glucose 130 H (74-99) mg/dL Calcium 7.9 L (8.4-10.2) mg/dL 12/03/21 Range/Units 11:17 RBC (4.30-5.90) m/uL Hgb (13.0-17.5) gm/dL Hct (39.0-53.0) % MCV (80.0-100.0) fL RDW (11.5-15.5) % Plt Count (150-450) k/uL Lymphocytes # (1.0-4.8) k/uL Macrocytosis PT (9.0-12.0) sec INR (<1.2) APTT 47.3 H (22.0-30.0) sec Sodium (137-145) mmol/L BUN (9-20) mg/dL Creatinine (0.66-1.25) mg/dL Glucose (74-99) mg/dL Calcium (8.4-10.2) mg/dL Microbiology - Last 24 Hours (Table) 11/29/21 13:56 Blood Culture - Preliminary Blood No Growth after 72 hours 11/29/21 13:50 Blood Culture - Preliminary Blood No Growth after 72 hours
[2021-12-03] MEDS: HEPARIN SOD,PORK IN 0.45% NACL 25,000 UNIT in 0.45% NACL 1 250ML.BAG IV SCH (16:20)
[2021-12-03] MEDS: ACETAMINOPHEN TAB 325 MG TAB PO PRN (17:09)
[2021-12-03] MEDS: ATORVASTATIN 40 MG TAB PO SCH (19:47)
[2021-12-03] MEDS: TAMSULOSIN 0.4 MG CAP.ER.24H PO SCH (19:48)
[2021-12-03] MEDS: MELATONIN 3 MG TABLET PO PRN (21:27)
--- NOTE | 2021-12-03 23:36 | P.PN ---
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 On today's evaluation that is 12/02/2021, the patient continues to be afebrile, the patient is breathing slightly comfortably and is on room air, the patient denies having any chest pain or cough no nausea no vomiting no abdominal pain and no diarrhea Objective - Vital Signs Vital signs: Vital Signs Temp 98.2 F 12/02/21 11:47 Pulse 89 12/02/21 11:47 Resp 20 12/02/21 11:47 BP 105/69 12/02/21 11:47 Pulse Ox 99 12/02/21 11:47 FiO2 Intake & Output 12/01/21 12/02/21 12/02/21 18:59 06:59 18:59 Intake Total 450 763 Output Total 650 400 300 Balance -200 -400 463 Intake: IV 10 245 .9 @ 20 240 Invasive Line 2 10 5 Intake, IV Titration 200 100 Amount Cefepime 2 gm In Sodium 100 Chloride 0.9% 100 ml @ 25 mls/hr IVPB Q12H [facility] Rx# :[id number] Sodium Ferric Gluconat- 100 100 Sucrose 125 mg In Sodium Chloride 0.9% 100 ml @ 100 mls/hr IVPB DAILY [facility] Rx#:[id number] Oral 240 418 Output: Urine 650 400 300 Other: Voiding Method Urinal Urinal # Voids 1 2 1 - Exam GENERAL DESCRIPTION elderly male lying in bed, no distress. No tachypnea or accessory muscle of respiration use. LUNGS: Unlabored breathing. Decreased breath sound at the base HEART: S1, S2, regular rate and rhythm ABDOMEN: Soft, no tenderness , guarding or rigidity, no organomegaly EXTREMITIES: No edema of feet. - Labs CBC & Chem 7: 12/03/21 08:12 12/03/21 11:17 Labs: Abnormal Lab Results - Last 24 Hours (Table) 12/02/21 12/02/21 Range/Units 07:47 07:47 RBC 2.66 L (4.30-5.90) m/uL Hgb 8.9 L (13.0-17.5) gm/dL Hct 28.8 L (39.0-53.0) % MCV 108.3 H (80.0-100.0) fL MCHC 30.9 L (31.0-37.0) g/dL RDW 20.2 H (11.5-15.5) % Plt Count 144 L (150-450) k/uL Macrocytosis Marked A Sodium 132 L (137-145) mmol/L Carbon Dioxide 21 L (22-30) mmol/L BUN 36 H (9-20) mg/dL Creatinine 1.43 H (0.66-1.25) mg/dL Glucose 118 H (74-99) mg/dL Calcium 7.8 L (8.4-10.2) mg/dL Microbiology - Last 24 Hours (Table) 11/29/21 13:56 Blood Culture - Preliminary Blood No Growth after 48 hours 11/29/21 13:50 Blood Culture - Preliminary Blood No Growth after 48 hours Assessment and Plan (1) Mitral valve vegetation Current Visit: Yes Status: Acute Code(s): I33.0 - ACUTE AND SUBACUTE IN FECTIVE ENDOCARDITIS SNOMED Code(s): 491097494 Plan: 1patient is a 89-year-old male with a past medical history significant for mitral valve repair in this patient presented to hospital with increasing shortness of breath fatigue and weakness but no fever no elevated white count patient did have abnormal echo concerning for possible vegetation however the patient is clinically not behaving as infective endocarditis. 2blood culture has been obtained Which are negative so far, patient did have a mildly elevated CRP and a sed rate 3Patient case was discussed in detail with cardiology recommending no LAURA as a clinical suspicious for endocarditis is low, the patient antibiotics were discontinued yesterday and the patient is currently being monitor closely off antibiotic Time with Patient: Less than 30
--- NOTE | 2021-12-03 23:38 | P.PN ---
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 On today's evaluation that is 12/03/2021, the patient remains to be afebrile, the patient is breathing slightly comfortably , denies having any chest pain or cough no nausea no vomiting no abdominal pain no diarrhea Objective - Vital Signs Vital signs: Vital Signs Temp 97.6 F 12/03/21 12:00 Pulse 87 12/03/21 13:46 Resp 18 12/03/21 13:46 BP 100/61 12/03/21 12:00 Pulse Ox 99 12/03/21 12:00 FiO2 Intake & Output 12/02/21 12/03/21 12/03/21 18:59 06:59 18:59 Intake Total 881 91.509 Output Total 600 1100 Balance 281 -1008.491 Weight 63.7 kg Intake: IV 245 .9 @ 20 240 Invasive Line 2 5 Intake, IV Titration 100 91.509 Amount Heparin Sod,Pork in 0.45% 91.509 NaCl 25,000 unit In 0.45 % NaCl 1 250ml.bag @ 18 UNITS/KG/HR 11.682 mls/hr IV .[id number] [facility] Rx#: [id number] Sodium Ferric Gluconat- 100 Sucrose 125 mg In Sodium Chloride 0.9% 100 ml @ 100 mls/hr IVPB DAILY [facility] Rx#:[id number] Oral 536 Output: Urine 600 1100 Other: Voiding Method Urinal Urinal # Voids 1 - Exam GENERAL DESCRIPTION elderly male lying in bed, no distress. No tachypnea or accessory muscle of respiration use. LUNGS: Unlabored breathing. Decreased breath sound at the base HEART: S1, S2, regular rate and rhythm ABDOMEN: Soft, no tenderness , guarding or rigidity, no organomegaly EXTREMITIES: No edema of feet. - Labs CBC & Chem 7: 12/03/21 08:12 12/03/21 11:17 Labs: Abnormal Lab Results - Last 24 Hours (Table) 12/02/21 12/02/21 12/03/21 Range/Units 15:58 15:58 00:29 RBC 2.57 L (4.30-5.90) m/uL Hgb 8.7 L (13.0-17.5) gm/dL Hct 27.6 L (39.0-53.0) % MCV 107.5 H (80.0-100.0) fL RDW 20.1 H (11.5-15.5) % Plt Count 135 L (150-450) k/uL Lymphocytes # 0.5 L (1.0-4.8) k/uL Macrocytosis Marked A PT 18.4 H (9.0-12.0) sec INR 1.8 H (<1.2) APTT 53.0 H >200.0 H* (22.0-30.0) sec Sodium (137-145) mmol/L BUN (9-20) mg/dL Creatinine (0.66-1.25) mg/dL Glucose (74-99) mg/dL Calcium (8.4-10.2) mg/dL 12/03/21 12/03/21 12/03/21 Range/Units 08:12 08:12 11:17 RBC 2.59 L (4.30-5.90) m/uL Hgb 8.9 L (13.0-17.5) gm/dL Hct 28.4 L (39.0-53.0) % MCV 109.6 H (80.0-100.0) fL RDW 20.4 H (11.5-15.5) % Plt Count 137 L (150-450) k/uL Lymphocytes # 0.6 L (1.0-4.8) k/uL Macrocytosis Marked A PT (9.0-12.0) sec INR (<1.2) APTT (22.0-30.0) sec Sodium 133 L (137-145) mmol/L BUN 31 H (9-20) mg/dL Creatinine 1.41 H 1.42 H (0.66-1.25) mg/dL Glucose 130 H (74-99) mg/dL Calcium 7.9 L (8.4-10.2) mg/dL 12/03/21 Range/Units 11:17 RBC (4.30-5.90) m/uL Hgb (13.0-17.5) gm/dL Hct (39.0-53.0) % MCV (80.0-100.0) fL RDW (11.5-15.5) % Plt Count (150-450) k/uL Lymphocytes # (1.0-4.8) k/uL Macrocytosis PT (9.0-12.0) sec INR (<1.2) APTT 47.3 H (22.0-30.0) sec Sodium (137-145) mmol/L BUN (9-20) mg/dL Creatinine (0.66-1.25) mg/dL Glucose (74-99) mg/dL Calcium (8.4-10.2) mg/dL Microbiology - Last 24 Hours (Table) 11/29/21 13:56 Blood Culture - Preliminary Blood No Growth after 72 hours 11/29/21 13:50 Blood Culture - Preliminary Blood No Growth after 72 hours Assessment and Plan (1) Mitral valve vegetation Current Visit: Yes Status: Acute Code(s): I33.0 - ACUTE AND SUBACUTE INFECTIVE ENDOCARDITIS SNOMED Code(s): 394596442 Plan: 1patient is a 89-year-old male with a past medical history significant for mitral valve repair in this patient presented to hospital with increasing shortness of breath fatigue and weakness but no fever no elevated white count patient did have abnormal echo concerning for possible vegetation however the patient is clinically not behaving as infective endocarditis. 2blood culture has been obtained Which are negative so far, patient did have a mildly elevated CRP and a sed rate 3Patient case was discussed in detail with cardiology recommending no LAURA as a clinical suspicious for endocarditis is low, however no plans for possible TVAR procedure for the patient will undergo LAURA and cardiac cath the results will be followed if negative no further workup will be needed from infectious disease standpoint Time with Patient: Less than 30
[2021-12-04] MEDS: PANTOPRAZOLE 40 MG TABLET PO SCH ×2 (09:03→15:57)
[2021-12-04] MEDS: METOPROLOL TARTRATE 12.5 MG TAB PO SCH ×2 (09:03→21:02)
[2021-12-04] MEDS ORDERED: NITROGLYCERIN SL TABS 0.4 MG TAB SUBLINGUAL PRN (09:57)
[2021-12-04] MEDS ORDERED: fentaNYL (PF) 50 MCG/ML 2 ML AMP ONE (12:23)
--- NOTE | 2021-12-04 12:30 | P.CONS ---
History of Present Illness - Reason for Consult Consult date: 12/04/21 Black stool Requesting physician: Alex Hua - Chief Complaint Weakness, short of breath - History of Present Illness This pleasant 89-year-old male with extensive past medical history including COPD, coronary artery disease, peripheral arterial disease, and previous valve replacement presented to the emergency department on 11/28/2021 complaining of generalized weakness and shortness of breath over the last few weeks duration. Patient also reportedly had black stools 3 days prior to coming into the emergency department. Patient does have a heart valve and takes Xarelto. Patient denied any abdominal pain, nausea or vomiting. He had 1 bowel movement here in the hospital according to his son which states that it was somewhat dark at that time as well. He has been following for some time with the hematology and has had previous workup for concern for GI bleed due to anemia back in 2020. In March 2020 he was hospitalized and had a workup for iron deficiency anemia and underwent EGD and colonoscopy. EGD showed mild gastritis and colonoscopy showed mild pandiverticulosis and internal hemorrhoids. He was then again hospitalized in July 2020 again with concerns for possible GI bleed with dark stools. He had a small bowel capsule on 08/04/2020 that showed no active bleeding or old blood noted. 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 Cardiology is following as well and patient is scheduled to undergo LAURA toda and possible cardiac catheterization. Echocardiogram had showed EF of 30%. Mechanical mitral valve noted with some pannus and also possibility of vegetation, aortic valve stenosis which appeared to be severe, mild aortic insufficiency. Cardiothoracic is also following patient related to possible heart valve replacement. Patient Xarelto on hold and is on heparin drip. WBC 6.6 hemoglobin 8.9 hematocrit 28 platelet count 137,000 Iron 45 TIBC 238 oxygen saturation 19 ferritin 446 recheck count 14.3 Review of Systems REVIEW OF SYSTEMS: CARDIOPULMONARY: No chest pain, patient does have shortness of breath especially with exertion. Gastrointestinal: Burning sensation in no epigastric or abdominal pain. No nausea or vomiting. No hematemesis, coffee-ground emesis. Patient reportedly had black stool 3 days prior to admission. He has a decreased appetite. GENITOURINARY: No dysuria or hematuria. MUSCULOSKELETAL: Reports normal range of motion., Joint pain. SKIN: No rashes. No jaundice. ENDOCRINE: No chills, fevers. No excessive weight gain or loss. No polydipsia or polyuria. PSYCHIATRIC: Unremarkable. NEUROLOGY: No change in mental status. Denies dizziness, headache. ENT: Vision unremarkable. CONSTITUTIONAL: Weight loss, due to decreased appetite. No fever, chills, night sweats. 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 Left SFA angioplasty/arthrectomy/stent. Upper GI, Lower GI. Past Anesthesia/Blood Transfusion Reactions: No Reported Reaction Past Psychological History: No Psychological Hx Reported Smoking Status: Former smoker Past Alcohol Use History: None Reported Past Drug Use History: None Reported - Past Family History Father Family Medical History: No Reported History Mother Family Medical History: No Reported History Medications and Allergies Home Medications Medication Instructions Recorded Confirmed Type Atorvastatin [Lipitor] 40 mg PO HS 04/04/20 11/28/21 History Ferrous Sulfate [Feosol] 325 mg PO HS 07/07/21 11/28/21 History Metoprolol Tartrate [Lopressor] 12.5 mg PO BID 07/07/21 11/28/21 History Rivaroxaban [Xarelto] 15 mg PO DAILY 07/07/21 11/28/21 History Tamsulosin HCl [Flomax] 0.4 mg PO HS 07/07/21 11/28/21 History Furosemide [Lasix] 20 mg PO DAILY 11/28/21 11/28/21 History Omeprazole Magnesium [PriLOSEC OTC] 20 mg PO AC-SUPPER 11/28/21 11/28/21 History Allergies Allergy/AdvReac Type Severity Reaction Status Date / Time No Known Allergies Allergy Verified 11/28/21 19:47 Physical Exam Vitals: Vital Signs Temp Pulse Pulse Pulse Resp BP Pulse Ox 12/04/21 09:00 97.4 F L 83 83 18 99/64 100 12/04/21 04:00 98 F 66 19 94/58 97 12/04/21 00:00 75 18 105/57 96 12/03/21 21:27 110/62 12/03/21 20:00 98.1 F 83 16 96/58 99 12/03/21 16:00 97.8 F 88 17 94/52 97 12/03/21 13:46 87 18 12/03/21 12:00 97.6 F 87 18 100/61 99 Intake and Output 12/03/21 12/04/21 12/04/21 22:59 06:59 14:59 Intake Total 293.726 141.136 Output Total 1700 Balance -1406.274 141.136 Intake: Intake, IV Titration 113.726 141.136 Amount Heparin Sod,Pork in 0.45% 113.726 141.136 NaCl 25,000 unit In 0.45 % NaCl 1 250ml.bag @ 18 UNITS/KG/HR 11.682 mls/hr IV .[id number] [facility] Rx#: [id number] Oral 180 Output: Urine 1700 Other: Voiding Method Urinal # Voids 3 General appearance: The patient is alert, oriented, appears in no acute distress. HET: Head is normocephalic and atraumatic. Conjunctiva pink. Sclera anicteric. Neck: Supple without lymphadenopathy. Trachea midline. Heart: S1 S2. Regular rate and rhythm. Systolic murmur. Lungs: Clear to auscultation. Abdomen: Soft, thin, nontender, nondistended with bowel sounds. No guarding or rigidity. Skin: No rashes. No jaundice. Extremities: Normal skin color and turgor. No pedal edema. Neurological: No focal deficits. Alert and oriented x3. Results CBC & Chem 7: 12/03/21 08:12 12/03/21 11:17 Labs: Abnormal Lab Results - Last 24 Hours (Table) 12/03/21 12/03/21 12/03/21 Range/Units 08:12 11:17 11:17 Lymphocytes # 0.6 L (1.0-4.8) k/uL APTT 47.3 H (22.0-30.0) sec Creatinine 1.42 H (0.66-1.25) mg/dL 12/04/21 Range/Units 06:34 Lymphocytes # (1.0-4.8) k/uL APTT 142.7 H* (22.0-30.0) sec Creatinine (0.66-1.25) mg/dL Microbiology - Last 24 Hours (Table) 11/29/21 13:56 Blood Culture - Preliminary Blood No Growth after 96 hours 11/29/21 13:50 Blood Culture - Preliminary Blood No Growth after 96 hours Assessment and Plan (1) Anemia Narrative/Plan: A 11-year-old male with multiple comorbidities presented to the emergency department 5 days ago with complaints of increased weakness, dyspnea on exertion over the last several weeks. Patient has a history of mitral heart valve that w as done in 2000. Had an echocardiogram concerning for possible vegetation. Patient has a known history of iron deficiency anemia and has had workup with the EGD and colonoscopy in March 2020 with no evidence of a GI bleed. As well as subsequent small bowel capsule done in July 2020 again not seeing any active bleeding or old blood noted. Patient follows up outpatient with hematology for her transfusions. Although patient had reported black stool prior to his admission hemoglobin has been stable he's not had any further. Hematology following and believe anemia related to mechanical hemolysis. At this time there is no plans for further endoscopic evaluation unless otherwise requested. Continue with recommendations from hematology. Transfuse for hemoglobin less than 7. Continue outpatient follow-up with hematology. Current Visit: Yes Status: Acute Code(s): D64.9 - ANEMIA, UNSPECIFIED S NOMED Code(s): 332853960 (2) Dyspnea Current Visit: Yes Status: Acute Code(s): R06.00 - DYSPNEA, UNSPECIFIED SNOMED Code(s): 243719183 (3) Non-STEMI (non-ST elevated myocardial infarction) Current Visit: Yes Status: Acute Code(s): I21.4 - NON-ST ELEVATION (NSTEMI) MYOCARDIAL INFARCTION SNOMED Code(s): 42677453 (4) Mechanical heart valve present Current Visit: No Status: Chronic Priority: Medium Code(s): Z95.2 - P RESENCE OF PROSTHETIC HEART VALVE SNOMED Code(s): 78352172690020 Plan: 1. Continue symptomatic supportive care 2. Recommend MiraLAX daily to improve regular bowel movements 3. Daily CBC, transfuse for hemoglobin less than 7 4. Continue with recommendations from hematology 5. Continue with recommendations from cardiology, patient scheduled for LAURA today, possible cardiac catheterization 6. Protonix 40 mg daily GI prophylaxis 7. Hold anticoagulation if concern for active GI bleed Thank you for this consultation, we will continue to follow. Dr. Dash Meraz I agree with the dictator's note, documented as a scribe by Bessy Vargas.
[2021-12-04] MEDS ORDERED: IV FLUID CONTINUATION 500 ML IV ONE (12:40)
[2021-12-04] MEDS: BENZOCAINE SPRAY 1 CAN MUCOUS MEM ONE ×2 (12:43→12:48)
[2021-12-04] MEDS ORDERED: fentaNYL (PF) 50 MCG/ML 2 ML AMP IV ONE (12:56)
--- NOTE | 2021-12-04 13:37 | P.PN ---
Subjective Progress Note Date: 12/04/21 Principal diagnosis: Fatigue Hospital Course: 61-year-old male with a history of valvular heart disease status post mechanical mitral valve repair, GI bleed initially presented with concerns of weakness and fatigue, and exertional dyspnea. His initial evaluation also showed acute kidney injury. He had no evidence of GI bleeding during hospitalization. Patient was evaluated by hematology, anemia likely secondary to hemolysis due to mechanical valve. Echo demonstrated severe aortic stenosis, mitral regurgitation, EF 25-30%, possible vegetation on mechanical mitral valve. Patient was on antibiotics, but discontinued per infectious disease given negative blood cultures. Patient pending cardiac catheterization with LAURA and undergoing TAVR evaluation by cardiothoracic surgery. Subjective: Patient seen and examined at bedside. No acute events overnight. Patient claims that his shortness of breath is much improved. He denies any chest pain, palpitations, abdominal pain, urinary complaints. He has not had a bowel movement 4 days ago. Pertinent positives and negatives as discussed above, a complete review of systems was performed and all other systems are negative. Vitals signs reviewed. General: nontoxic, no distress, appears at stated age Derm: warm, dry Head: atraumatic, normocephalic, symmetric Eyes: EOMI, no lid lag, anicteric sclera Mouth: no lip lesion, mucus membranes moist Cardiovascular: S1S2 reg, systolic murmur most prominent at the apex Lungs: Bilateral rales up to mid lung bilaterally, no accessory muscle use Abdominal: soft, nontender to palpation, no guarding, no appreciable organomegaly Ext: no gross muscle atrophy, no edema, no contractures Neuro: CN II-XI grossly intact, no focal neuro deficits Psych: Alert, oriented, appropriate affect Assessment and Plan: 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, 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, per hematology -No evidence of GI bleeding, recent EGD and colonoscopy was negative for bleed -Hemoglobin stable -Continue PPI -on heparin gtt for mechanical heart valve -Status post iron infusions 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 Severe aortic valve stenosis -Echo also showed LVEF 30% -Was initially on antibiotics, but discontinued per infectious disease, negative blood cultures -LAURA today per cardiology -Cardiothoracic surgery evaluating patient for AVR - will likely need formal dental evaluation prior to surgery Elevated troponin secondary to demand ischemia -Continue current cardiac medications Acute systolic heart failure exacerbation -On IV Lasix -Monitor I's and O's, daily weights JEROMY - Renal function all stable -Monitor urine output Debility -Physical therapy F: Oral when possible E: Replete as needed N: NPO A: as tolerated DVT ppx: Heparin drip Code Status: Full code Dispo: Pending surgery evaluation, and LAURA Objective - Vital Signs Vital signs: Vital Signs Temp 97.4 F L 12/04/21 09:00 Pulse 83 12/04/21 09:00 Resp 18 12/04/21 09:00 BP 99/64 12/04/21 09:00 Pulse Ox 100 12/04/21 09:00 FiO2 Intake & Output 12/03/21 12/04/21 12/04/21 18:59 06:59 18:59 Intake Total 293.726 141.136 Output Total 400 1700 Balance -106.274 -1700 141.136 Intake: Intake, IV Titration 113.726 141.136 Amount Heparin Sod,Pork in 0.45% 113.726 141.136 NaCl 25,000 unit In 0.45 % NaCl 1 250ml.bag @ 18 UNITS/KG/HR 11.682 mls/hr IV .[id number] [facility] Rx#: [id number] Oral 180 Output: Urine 400 1700 Other: Voiding Method Urinal Urinal # Voids 3 - Labs CBC & Chem 7: 12/03/21 08:12 12/03/21 11:17 Labs: Abnormal Lab Results - Last 24 Hours (Table) 12/03/21 12/03/21 12/03/21 Range/Units 08:12 08:12 11:17 RBC 2.59 L (4.30-5.90) m/uL Hgb 8.9 L (13.0-17.5) gm/dL Hct 28.4 L (39.0-53.0) % MCV 109.6 H (80.0-100.0) fL RDW 20.4 H (11.5-15.5) % Plt Count 137 L (150-450) k/uL Lymphocytes # 0.6 L (1.0-4.8) k/uL Macrocytosis Marked A APTT (22.0-30.0) sec Sodium 133 L (137-145) mmol/L BUN 31 H (9-20) mg/dL Creatinine 1.41 H 1.42 H (0.66-1.25) mg/dL Glucose 130 H (74-99) mg/dL Calcium 7.9 L (8.4-10.2) mg/dL 12/03/21 12/04/21 Range/Units 11:17 06:34 RBC (4.30-5.90) m/uL Hgb (13.0-17.5) gm/dL Hct (39.0-53.0) % MCV (80.0-100.0) fL RDW (11.5-15.5) % Plt Count (150-450) k/uL Lymphocytes # (1.0-4.8) k/uL Macrocytosis APTT 47.3 H 142.7 H* (22.0-30.0) sec Sodium (137-145) mmol/L BUN (9-20) mg/dL Creatinine (0.66-1.25) mg/dL Glucose (74-99) mg/dL Calcium (8.4-10.2) mg/dL Microbiology - Last 24 Hours (Table) 11/29/21 13:56 Blood Culture - Preliminary Blood No Growth after 96 hours 11/29/21 13:50 Blood Culture - Preliminary Blood No Growth after 96 hours
[2021-12-04 14:39] LABS: Hepatitis A Antibody IgM Nonreactive (Nonreactive); Hepatitis B Core IgM Nonreactive (Nonreactive); Hepatitis B Surface Antigen Nonreactive (Nonreactive); Hepatitis C IgG Antibody Nonreactive (Nonreactive)
[2021-12-04] MEDS: FUROSEMIDE 10 MG/ML 2 ML VIAL IV SCH ×2 (15:57→22:18)
[2021-12-04] MEDS: TAMSULOSIN 0.4 MG CAP.ER.24H PO SCH (21:02)
[2021-12-04] MEDS: polyethylene glycoL 3350 17 GM POWD.PACK PO SCH (21:02)
[2021-12-04] MEDS: ATORVASTATIN 40 MG TAB PO SCH (21:02)
[2021-12-05] MEDS ORDERED: SODIUM CHLORIDE 0.9% 1,000 ML in EMPTY BAG 1 BAG IV ONE
[2021-12-05] MEDS: HEPARIN SOD,PORK IN 0.45% NACL 25,000 UNIT in 0.45% NACL 1 250ML.BAG IV SCH ×2 (00:54→02:20)
[2021-12-05] MEDS: PANTOPRAZOLE 40 MG TABLET PO SCH ×2 (06:08→16:40)
[2021-12-05] MEDS: FUROSEMIDE 10 MG/ML 2 ML VIAL IV SCH ×2 (06:08→21:23)
[2021-12-05] MEDS: METOPROLOL TARTRATE 12.5 MG TAB PO SCH ×2 (06:08→21:22)
[2021-12-05] MEDS ORDERED: HEPARIN SODIUM,PORCINE 10,000 UNIT in SODIUM CHLORIDE 0.9% 1,000 ML IRRIGATION PRN (07:00)
[2021-12-05] MEDS ORDERED: HEPARIN SODIUM,PORCINE 2,500 UNIT in SODIUM CHLORIDE 0.9% 250 ML IRRIGATION PRN (07:00)
[2021-12-05] MEDS ORDERED: VERAPAMIL 2.5 MG/ML 2 ML AMP ONE ×2 (07:13→07:19)
[2021-12-05] MEDS ORDERED: HEPARIN SODIUM 1,000 UN/ML (10ML VL) ONE ×2 (07:13→09:10)
[2021-12-05] MEDS ORDERED: ASPIRIN 325 MG TAB ONE (07:33)
[2021-12-05] MEDS ORDERED: ASPIRIN 325 MG TAB PO ONE (07:35)
[2021-12-05] MEDS ORDERED: fentaNYL (PF) 50 MCG/ML 2 ML AMP ONE (07:38)
[2021-12-05] MEDS ORDERED: fentaNYL (PF) 50 MCG/ML 2 ML AMP IVP ONE (07:40)
[2021-12-05] MEDS: LIDOCAINE 1% INJ 10MG/ML (30 ML VIAL-PF) SQ ONE ×2 (07:41→07:50)
[2021-12-05] MEDS ORDERED: LIDOCAINE 1% INJ 10MG/ML (30 ML VIAL-PF) SQ ONE (07:50)
[2021-12-05] MEDS ORDERED: CLOPIDOGREL 75 MG TAB ONE (08:28)
[2021-12-05] MEDS: HEPARIN SODIUM 1,000 UN/ML (10ML VL) IVP ONE ×2 (08:29→08:50)
[2021-12-05] MEDS ORDERED: HEPARIN SODIUM 1,000 UN/ML (10ML VL) IVP ONE ×2 (08:29→08:50)
[2021-12-05] MEDS ORDERED: CLOPIDOGREL 75 MG TAB PO ONE (08:30)
[2021-12-05] MEDS: PHENYLEPHRINE-0.9% NACL SYG 1,000 MCG/10 ML SYRINGE IV ONE ×4 (08:39→08:58)
[2021-12-05] MEDS ORDERED: PHENYLEPHRINE-0.9% NACL SYG 1,000 MCG/10 ML SYRINGE IV ONE (09:00)
--- NOTE | 2021-12-05 09:01 | CC ---
CARDIAC CATHETERIZATION REPORT INDICATIONS: To rule out coronary artery disease prior to performing TAVR for aortic stenosis. PROCEDURE NOTE: After obtaining informed consent, we proceeded to obtain arterial access initially attempted femoral arterial axis, but could not pass the Glidewire up into the femoral artery, hence I obtained arterial axis in the left femoral artery. The patient previously had a stent within the left superficial femoral artery, but I was able to go above it and get an arterial access. The arterial access was fairly easy and uneventful. After placing a 6-Amharic sheath, I attempted to pass a wire across into the iliac artery and I was not successful, so I decided to stop the procedure at this stage and requested Dr. Adorno to attempt cardiac catheterization on him. The patient's radial pulses are stable on both sides as are the ulnar pulses. We will see how we can do an angiogram on him. MMODL / IJN: [id number] /
[2021-12-05] MEDS ORDERED: IOPAMIDOL-370 125ML BTL INJ ONE ×2 (09:02)
[2021-12-05 10:20] LABS: Anisocytosis Moderate; Basophils % (A) 0 %; Eosinophils # (A) 0.1 k/uL (0-0.7); Eosinophils % (A) 2 %; HCT 27.5 % (39.0-53.0); HGB 8.3 gm/dL (13.0-17.5); Hypochromasia Marked; Lymphocytes # (A) 0.6 k/uL (1.0-4.8); Lymphocytes % (A) 7 %; MCH 33.7 pg (25.0-35.0); MCHC 30.4 g/dL (31.0-37.0); Mean Platelet Volume 9.4; Monocytes # (A) 0.5 k/uL (0-1.0); Monocytes % (A) 6 %; Neutrophils # (A) 6.3 k/uL (1.3-7.7); Neutrophils % (A) 83 %; Platelet Count 134 k/uL (150-450); Poikilocytosis Moderate; RBC 2.48 m/uL (4.30-5.90); RDW 20.1 % (11.5-15.5); WBC 7.6 k/uL (3.8-10.6)
[2021-12-05] MEDS ORDERED: MAG HYDROX/AL HYDROX/SIMETH 30 ML CUP PO PRN (10:21)
[2021-12-05] MEDS ORDERED: RX INFO: IV CONTRAST WAS GIVEN 1 EACH MISC MISCELLANE PRN (10:21)
[2021-12-05] MEDS ORDERED: ATROPINE SULFATE 0.1 MG/ML 10ML SYRINGE IV PRN (10:21)
[2021-12-05 10:27] LABS: Macrocytosis Marked
[2021-12-05 10:33] VITALS: BMI 21.4
[2021-12-05 11:06] LABS: Calcium 7.9 mg/dL (8.4-10.2)
--- NOTE | 2021-12-05 11:15 | P.PRCINT ---
Percutaneous Coronary Int. - Percutaneous Coronary Intervention Percutaneous Coronary Intervention: PROCEDURES PERFORMED: Bilateral coronary angiography, PCI mid LAD with a 3.0 x 15mm Xience MARLENE INDICATION: Cardiomyopathy, NSTEMI, Severe CONSENT:I have discussed the risks, benefits and alternative therapies for the above-mentioned procedure and for both sedation/analgesia as well as necessary blood product administration, if indicated, as they pertain to this patient. The patient has indicated understanding and acceptance of the risks and procedures discussed. PROCEDURE: After the risks, benefits and alternatives of the above mentioned procedure explained in detail with the patient, informed consent was obtained. Patient was taken to the catheterization lab and prepped and draped in usual fashion. A 6-Lithuanian sheath had already been placed in the left femoral artery. Diagnostic catheterization was unable to be performed secondary to tortous left common iliac with inability to pass wire. Therefore I was asked to perform cath with possible PCI. Using a stiff glide wire I was able to advance a 6Fr 25cm sheath up beyond the iliac artery. Next, left coronary angiography was performed with a 5-Lithuanian JL 4.0 catheter. Given contrast threshold and left being dominant, a nonselective angiogram showed small caliber RCA with some difficulty entirely engaging. The decision was made to perform PCI of the LAD. Heparin was given for ACT greater than 250. A 6-Lithuanian CLS 3.5 guide was used to engage the left main. A 0.014 BMW wire was advanced and distal LAD. Predilation was performed with a 2.5 x 12 mm balloon. A 3.0 x 15 mm Xience MARLENE was placed in the mid LAD. On initial angiogram there did appear to be competitive flow and therefore IVUS was performed which showed diffuse disease of the mid LAD however no dissection. Preintervention there is FLOWER 2 flow with 95% stenosis and postintervention there was 0% stenosis and FLOWER-3 flow. The sheath was left in place later time. The patient tolerated the procedure well. Patient was transported back to the post catheterization holding area in stable condition. Conscious Sedation: Patient was monitored under the direct supervision of vision of myself for conscious sedation using Versed and fentanyl for a total duration of 49 minutes HEMODYNAMICS: Ao: 89/57 SELECTIVE CORONARY ARTERIOGRAPHY: LEFT MAIN: The left main is a large caliber vessel which bifurcates into the LAD and circumflex. There is no significant stenosis. LEFT ANTERIOR DESCENDING CORONARY ARTERY: LAD is a large caliber vessel which wraps around to the apex. There is diffuse proximal mid 10-20% stenosis and a focal mid 95% stenosis with mid to distal LAD 20-30% stenosis. There is FLOWER 2 flow. LEFT CIRCUMFLEX CORONARY ARTERY: Left circumflex is a moderate to large caliber vessel without significant stenosis. There is a "high OM1" which is nearly a ramus moderate to large caliber with no significant stenosis. The circumflex feeds the PDA and there is a distal circumflex 40% stenosis. RIGHT CORONARY ARTERY: The right coronary artery was subselectively engaged and appears small caliber nondominant. FINAL IMPRESSION: 1. CAD as described above including mild distal circumflex 30-40% stenosis and a mid LAD 95% stenosis 2. S/p PCI mid LAD with a 3.0 x 15mm Xience MARLENE 3. 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 Aggressive risk factor modification per most recent ACC/AHA guidelines. 2. Continue Plavix and Xarelto for 12 months. 3. TAVR evaluation
--- NOTE | 2021-12-05 11:58 | P.PN ---
Subjective Progress Note Date: 12/05/21 Principal diagnosis: Fatigue Hospital Course: 61-year-old male with a history of valvular heart disease status post mechanical mitral valve repair, GI bleed initially presented with concerns of weakness and fatigue, and exertional dyspnea. His initial evaluation also showed acute kidney injury. He had no evidence of GI bleeding during hospitalization. Patient was evaluated by hematology, anemia likely secondary to hemolysis due to mechanical valve. Echo demonstrated severe aortic stenosis, mitral regurgitation, EF 25-30%, possible vegetation on mechanical mitral valve. Patient was on antibiotics, but discontinued per infectious disease given negative blood cultures. Patient underwent LAURA, report pending. He also had cardiac catheterization with significant CAD including mild distal circumflex 30-40% stenosis and a mid LAD 95% stenosis, now status post PCI and stent to mid LAD. Patient awaiting further TAVR evaluation. Subjective: Patient seen and examined at bedside. No acute events overnight. Patient had just come out of the cardiac catheterization was complaining of mild shortness of breath with normal saturations. He denies any chest pain, palpitations, abdominal pain, urinary complaints. Pertinent positives and negatives as discussed above, a complete review of systems was performed and all other systems are negative. Vitals signs reviewed. General: nontoxic, no distress, appears at stated age Derm: warm, dry Head: atraumatic, normocephalic, symmetric Eyes: EOMI, no lid lag, anicteric sclera Mouth: no lip lesion, mucus membranes moist Cardiovascular: S1S2 reg, systolic murmur most prominent at the apex Lungs: Bilateral rales up to mid lung bilaterally, no accessory muscle use Abdominal: soft, nontender to palpation, no guarding, no appreciable organomegaly Ext: no gross muscle atrophy, no edema, no contractures, left groin access with clean dressing and no palpable hematoma Neuro: CN II-XI grossly intact, no focal neuro deficits Psych: Alert, oriented, appropriate affect Assessment and Plan: 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, 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, per hematology -No evidence of GI bleeding, recent EGD and colonoscopy was negative for bleed -GI consulted - no further interventions -Hemoglobin stable -Continue PPI -on heparin gtt for mechanical heart valve -Status post iron infusions 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 Severe aortic valve stenosis -Echo also showed LVEF 30% -Was initially on antibiotics, but discontinued per infectious disease, negative blood cultures -LAURA completed yesterday, pending report -Cardiothoracic surgery evaluating patient for AVR - will likely need formal dental evaluation prior to surgery Coronary artery disease status post stent to mid LAD -On Plavix and heparin gtt -Atorvastatin Elevated troponin secondary to demand ischemia -Continue current cardiac medications Acute systolic heart failure exacerbation -On IV Lasix -Monitor I's and O's, daily weights JEROMY - Renal function all stable -Monitor urine output Debility -Physical therapy Constipation -MiraLAX F: Oral when possible E: Replete as needed N: NPO A: as tolerated DVT ppx: Heparin drip Code Status: Full code Dispo: Pending surgery evaluation Objective - Vital Signs Vital signs: Vital Signs Temp 98.1 F 12/05/21 09:30 Pulse 69 12/05/21 10:15 Resp 18 12/05/21 10:00 BP 110/55 12/05/21 10:15 Pulse Ox 92 L 12/05/21 10:15 FiO2 Intake & Output 12/04/21 12/05/21 12/05/21 18:59 06:59 18:59 Intake Total 386.965 82.925 0 Output Total 1300 Balance 386.965 -1217.075 0 Weight 62.2 kg 62.2 kg Intake: IV 75 Intake, IV Titration 193.965 82.925 0 Amount Heparin Sod,Pork in 0.45% 193.965 82.925 0 NaCl 25,000 unit In 0.45 % NaCl 1 250ml.bag @ 18 UNITS/KG/HR 11.682 mls/hr IV .[id number] [facility] Rx#: [id number] Oral 118 Output: Urine 1300 Other: Voiding Method Urinal Urinal Urinal - Labs CBC & Chem 7: 12/05/21 09:34 12/05/21 09:34 Labs: Abnormal Lab Results - Last 24 Hours (Table) 12/04/21 12/05/21 12/05/21 Range/Units 15:39 09:34 09:34 RBC 2.48 L (4.30-5.90) m/uL Hgb 8.3 L (13.0-17.5) gm/dL Hct 27.5 L (39.0-53.0) % MCV 111.0 H (80.0-100.0) fL MCHC 30.4 L (31.0-37.0) g/dL RDW 20.1 H (11.5-15.5) % Plt Count 134 L (150-450) k/uL Lymphocytes # 0.6 L (1.0-4.8) k/uL Macrocytosis Marked A APTT 49.6 H (22.0-30.0) sec Sodium 135 L (137-145) mmol/L BUN 22 H (9-20) mg/dL Glucose 122 H (74-99) mg/dL Calcium 7.9 L (8.4-10.2) mg/dL Microbiology - Last 24 Hours (Table) 11/29/21 13:56 Blood Culture - Preliminary Blood No Growth after 120 hours 11/29/21 13:50 Blood Culture - Preliminary Blood No Growth after 120 hours
[2021-12-05] MEDS ORDERED: FUROSEMIDE 10 MG/ML 2 ML VIAL IV ONE (12:10)
[2021-12-05] MEDS: ACETAMINOPHEN TAB 325 MG TAB PO PRN (12:21)
--- NOTE | 2021-12-05 12:29 | P.PN ---
Subjective This is a 89 year old male with a past medical history of permanent atrial fibrillation on Xarelto, severe mitral regurgitation with mechanical mitral valve replacement 09/10/2000 (not on coumadin secondary to GI bleed), hypertension, hyperlipidemia, peripheral arterial disease with bilateral SFA disease s/p prior balloon angioplasty/arthrectomy/stenting of the left SFA, chronic anemia, previous tobacco use (quit smoking 40 years ago). He follows with Dr. Meraz. Patient presented to the hospital with melanotic stools and shortness of breath. Patient examined this morning at the bedside. Patient denies chest pain or pressure. He reports shortness of breath with minimal activity. Patient's hemoglobin is 8.6. He reports having dark tarry stools yesterday. Vital signs are stable. Echocardiogram completed revealing ejection fraction 25-30%, moderate LVH, moderate pulmonary hypertension, moderate mitral regurgitation, mechanical mitral valve, suspicious finding and mitral valve concerning for vegetation, mild to moderate tricuspid regurgitation, mild aortic regurgitation, and severe aortic stenosis. 12/04- patient underwent LAURA with Dr. Meraz. Report pending. 12/05 Patient seen and examined after cardiac catheterization. Cardiac cath revealed coronary artery disease including mild distal circumflex 3040 percent stenosis, mid LAD 95% stenosis. Patient underwent PCI of the mid LAD. Tortuousity and calcification of left common iliac artery. Patient is lying flat in bed, no acute distress. He does endorse shortness of breath, some chest pressure with breathing. BP 110/55, 92-100% on room air. Labs: WBC 7.6, hemoglobin 8.3, platelets 134, sodium 135, potassium 4.0, BUN 22, serum creatinine 1.1 PHYSICAL EXAM: VITAL SIGNS: Reviewed. GENERAL: Well-developed in no acute distress. NECK: Supple. +JVD no thyromegaly LUNGS: Respirations even and unlabored. Lungs diminished to auscultation pedro aterally. HEART: Regular rate and rhythm. S1 and S2 heard. Systolic murmur noted. EXTREMITIES: Normal range of motion. No clubbing or cyanosis. Peripheral pulses intact. No lower extremity edema ASSESSMENT: Shortness of breath Coronary artery disease s/p PCI to mid LAD on 12/05, and 30-40% stenosis of distal circumflex Anemia with melanotic stools, hemoglobin stable. Valvular heart disease Severe aortic stenosis, possible critical aortic stenosis with low flow low gradient History of mechanical mitral valve replacement in 2000, previously on coumadin, however, stopped secondary to bleeding Possible vegetation noted on mitral valve, per TTE Acute kidney injury, improved Elevated troponin Hypertension Hyperlipidemia Acute on chronic heart failure with reduced ejection fraction Ischemic cardiomyopathy EF 25-30% Hemolytic anemia PLAN: Continue IV heparin Recommend Coumadin for his mechanical valve Plavix 75mg daily Continue statin and beta leonie Continue Lasix Monitor CBC and BMP daily ACEI/ARB on hold secondary to hypotension, will monitor Further recommendations based on clinical course Nurse practitioner note has been reviewed by physician. Signing provider agrees with the documented findings, assessment, and plan of care. Objective - Vital Signs Vital signs: Vital Signs Temp 98 F 12/04/21 04:00 Pulse 66 12/04/21 04:00 Resp 19 12/04/21 04:00 BP 94/58 12/04/21 04:00 Pulse Ox 97 12/04/21 04:00 FiO2 Intake & Output 12/03/21 12/04/21 12/04/21 18:59 06:59 18:59 Intake Total 293.726 Output Total 400 1700 Balance -106.274 -1700 Intake: Intake, IV Titration 113.726 Amount Heparin Sod,Pork in 0.45% 113.726 NaCl 25,000 unit In 0.45 % NaCl 1 250ml.bag @ 18 UNITS/KG/HR 11.682 mls/hr IV .[id number] [facility] Rx#: [id number] Oral 180 Output: Urine 400 1700 Other: Voiding Method Urinal # Voids 3 - Labs CBC & Chem 7: 12/05/21 09:34 12/05/21 09:34 Labs: Abnormal Lab Results - Last 24 Hours (Table) 12/03/21 12/03/21 12/03/21 Range/Units 08:12 08:12 11:17 RBC 2.59 L (4.30-5.90) m/uL Hgb 8.9 L (13.0-17.5) gm/dL Hct 28.4 L (39.0-53.0) % MCV 109.6 H (80.0-100.0) fL RDW 20.4 H (11.5-15.5) % Plt Count 137 L (150-450) k/uL Lymphocytes # 0.6 L (1.0-4.8) k/uL Macrocytosis Marked A APTT (22.0-30.0) sec Sodium 133 L (137-145) mmol/L BUN 31 H (9-20) mg/dL Creatinine 1.41 H 1.42 H (0.66-1.25) mg/dL Glucose 130 H (74-99) mg/dL Calcium 7.9 L (8.4-10.2) mg/dL 12/03/21 12/04/21 Range/Units 11:17 06:34 RBC (4.30-5.90) m/uL Hgb (13.0-17.5) gm/dL Hct (39.0-53.0) % MCV (80.0-100.0) fL RDW (11.5-15.5) % Plt Count (150-450) k/uL Lymphocytes # (1.0-4.8) k/uL Macrocytosis APTT 47.3 H 142.7 H* (22.0-30.0) sec Sodium (137-145) mmol/L BUN (9-20) mg/dL Creatinine (0.66-1.25) mg/dL Glucose (74-99) mg/dL Calcium (8.4-10.2) mg/dL Microbiology - Last 24 Hours (Table) 11/29/21 13:56 Blood Culture - Preliminary Blood No Growth after 96 hours 11/29/21 13:50 Blood Culture - Preliminary Blood No Growth after 96 hours
[2021-12-05 12:56] LABS: INR 1.2 (<1.2); Prothrombin Time 12.5 sec (9.0-12.0)
--- NOTE | 2021-12-05 15:35 | P.PN ---
Subjective Progress Note Date: 12/05/21 Attempted to see patient for follow-up for anemia, GI bleed. However patient was down for cardiac catheterization. Objective - Vital Signs Vital signs: Vital Signs Temp 98.0 F 12/05/21 04:00 Pulse 75 12/05/21 04:00 Resp 16 12/05/21 04:00 BP 108/57 12/05/21 04:00 Pulse Ox 98 12/05/21 04:00 FiO2 Intake & Output 12/04/21 12/05/21 12/05/21 18:59 06:59 18:59 Intake Total 386.965 82.925 Output Total 1300 Balance 386.965 -1217.075 Weight 62.2 kg Intake: IV 75 Intake, IV Titration 193.965 82.925 Amount Heparin Sod,Pork in 0.45% 193.965 82.925 NaCl 25,000 unit In 0.45 % NaCl 1 250ml.bag @ 18 UNITS/KG/HR 11.682 mls/hr IV .[id number] [facility] Rx#: [id number] Oral 118 Output: Urine 1300 Other: Voiding Method Urinal Urinal - Labs CBC & Chem 7: 12/05/21 09:34 12/05/21 09:34 Labs: Abnormal Lab Results - Last 24 Hours (Table) 12/04/21 Range/Units 15:39 APTT 49.6 H (22.0-30.0) sec Microbiology - Last 24 Hours (Table) 11/29/21 13:56 Blood Culture - Preliminary Blood No Growth after 120 hours 11/29/21 13:50 Blood Culture - Preliminary Blood No Growth after 120 hours Assessment and Plan (1) Anemia Narrative/Plan: A 11-year-old male with multiple comorbidities presented to the emergency department 5 days ago with complaints of increased weakness, dyspnea on exertion over the last several weeks. Patient has a history of mitral heart valve that was done in 2000. Had an echocardiogram concerning for possible vegetation. Patient has a known history of iron deficiency anemia and has had workup with the EGD and colonoscopy in March 2020 with no evidence of a GI bleed. As well as subsequent small bowel capsule done in July 2020 again not seeing any active bleeding or old blood noted. Patient follows up outpatient with hematology for her transfusions. Although patient had reported black stool prior to his admission hemoglobin has been stable he's not had any further. Hematology following and believe anemia related to mechanical hemolysis. At this time there is no plans for further endoscopic evaluation unless otherwise requested. Continue with recommendations from hematology. Transfuse for hemoglobin less than 7. Continue outpatient follow-up with hematology. Current Visit: Yes Status: Acute Code(s): D64.9 - ANEMIA, UNSPECIFIED SNOMED Code(s): 888093330 (2) Dyspnea Current Visit: Yes Status: Acute Code(s): R06.00 - DYSPNEA, UNSPECIFIED SNOMED Code(s): 476906282 (3) Non-STEMI (non-ST elevated myocardial infarction) Current Visit: Yes Status: Acute Code(s): I21.4 - NON-ST ELEVATION (NSTEMI) MYOCARDIAL INFARCTION SNOMED Code(s): 09066974 (4) Mechanical heart valve present Current Visit: No Status: Chronic Priority: Medium Code(s): Z95.2 - PRESENCE OF PROSTHETIC HEART VALVE SNOMED Code(s): 28637348995111 Plan: 1. Continue symptomatic supportive care 2. Recommend MiraLAX daily to improve regular bowel movements 3. Daily CBC, transfuse for hemoglobin less than 7 4. Continue with recommendations from hematology 5. Continue with recommendations from cardiology, patient scheduled for LAURA today, possible cardiac catheterization 6. Protonix 40 mg daily GI prophylaxis 7. Hold anticoagulation if concern for active GI bleed Thank you for this consultation, we will continue to follow. Dr. Dash Meraz I agree with the dictator's note, documented as a scribe by Bessy Vargas.
[2021-12-05] MEDS ORDERED: FUROSEMIDE 10 MG/ML 2 ML VIAL IV STA (16:34)
[2021-12-05] MEDS: SODIUM CHLORIDE 0.9% 1,000 ML in EMPTY BAG 1 BAG IV SCH (16:41)
[2021-12-05] MEDS ORDERED: WARFARIN 2.5 MG TAB PO ONE (18:00)
[2021-12-05] MEDS: TAMSULOSIN 0.4 MG CAP.ER.24H PO SCH (21:23)
[2021-12-05] MEDS: polyethylene glycoL 3350 17 GM POWD.PACK PO SCH (21:23)
[2021-12-05] MEDS: ATORVASTATIN 40 MG TAB PO SCH (21:23)
--- NOTE | 2021-12-05 21:54 | P.PN ---
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 On today's evaluation that is 12/04/2021, the patient continues to be afebrile, the patient is breathing slightly comfortably on room air , the patient denies having any chest pain or cough no nausea no vomiting no abdominal pain no diarrhea Objective - Vital Signs Vital signs: Vital Signs Temp 97.7 F 12/04/21 11:26 Pulse 75 12/04/21 11:26 Resp 16 12/04/21 11:26 BP 99/63 12/04/21 11:26 Pulse Ox 96 12/04/21 11:26 FiO2 Intake & Output 12/03/21 12/04/21 12/04/21 18:59 06:59 18:59 Intake Total 293.726 216.136 Output Total 400 1700 Balance -106.274 -1700 216.136 Intake: IV 75 Intake, IV Titration 113.726 141.136 Amount Heparin Sod,Pork in 0.45% 113.726 141.136 NaCl 25,000 unit In 0.45 % NaCl 1 250ml.bag @ 18 UNITS/KG/HR 11.682 mls/hr IV .[id number] [facility] Rx#: [id number] Oral 180 Output: Urine 400 1700 Other: Voiding Method Urinal Urinal # Voids 3 - Exam GENERAL DESCRIPTION elderly male lying in bed, no distress. No tachypnea or accessory muscle of respiration use. LUNGS: Unlabored breathing. Decreased breath sound at the base HEART: S1, S2, regular rate and rhythm ABDOMEN: Soft, no tenderness , guarding or rigidity, no organomegaly EXTREMITIES: No edema of feet. - Labs CBC & Chem 7: 12/05/21 09:34 12/05/21 09:34 Labs: Abnormal Lab Results - Last 24 Hours (Table) 12/04/21 Range/Units 06:34 APTT 142.7 H* (22.0-30.0) sec Microbiology - Last 24 Hours (Table) 11/29/21 13:56 Blood Culture - Preliminary Blood No Growth after 96 hours 11/29/21 13:50 Blood Culture - Preliminary Blood No Growth after 96 hours Assessment and Plan (1) Mitral valve vegetation Current Visit: Yes Status: Acute Code(s): I33.0 - ACUTE AND SUBACUTE INFECTIVE ENDOCARDITIS SNOMED Code(s): 772393774 Plan: 1patient is a 89-year-old male with a past medical history significant for mitral valve repair in this patient presented to hospital with increasing shortness of breath fatigue and weakness but no fever no elevated white count patient did have abnormal echo concerning for possible vegetation however the patient is clinically not behaving as infective endocarditis. 2blood culture has been obtained Which are negative so far, patient did have a mildly elevated CRP and a sed rate 3Patient case was discussed in detail with cardiology recommending no LAURA as a clinical suspicious for endocarditis is low, however now plans for possible TVAR procedure for which the patient will undergo LAURA and cardiac cath tomorrow, results will be followed Time with Patient: Less than 30
--- NOTE | 2021-12-05 21:56 | P.PN ---
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 The patient is status post cardiac cath 12/06/2019 status post PCI to LAD, the patient also have a LAURA completed with report pending On today's evaluation that is 12/05/2021, the patient denies any fever or any chills, the patient is breathing slightly comfortably on room air , the patient is complaining of some chest pain denies any nausea or vomiting no abdominal pain or diarrhea Objective - Vital Signs Vital signs: Vital Signs Temp 98.1 F 12/05/21 09:30 Pulse 80 12/05/21 12:45 Resp 18 12/05/21 10:00 BP 105/57 12/05/21 12:50 Pulse Ox 100 12/05/21 12:50 FiO2 Intake & Output 12/04/21 12/05/21 12/05/21 18:59 06:59 18:59 Intake Total 386.965 82.925 0 Output Total 1300 Balance 386.965 -1217.075 0 Weight 62.2 kg 62.2 kg Intake: IV 75 Intake, IV Titration 193.965 82.925 0 Amount Heparin Sod,Pork in 0.45% 193.965 82.925 0 NaCl 25,000 unit In 0.45 % NaCl 1 250ml.bag @ 18 UNITS/KG/HR 11.682 mls/hr IV .[id number] [facility] Rx#: [id number] Oral 118 Output: Urine 1300 Other: Voiding Method Urinal Urinal Urinal - Exam GENERAL DESCRIPTION elderly male lying in bed, no distress. No tachypnea or accessory muscle of respiration use. LUNGS: Unlabored breathing. Decreased breath sound at the base HEART: S1, S2, regular rate and rhythm ABDOMEN: Soft, no tenderness , guarding or rigidity, no organomegaly EXTREMITIES: No edema of feet. - Labs CBC & Chem 7: 12/05/21 09:34 12/05/21 09:34 Labs: Abnormal Lab Results - Last 24 Hours (Table) 12/04/21 12/05/21 12/05/21 Range/Units 15:39 09:34 09:34 RBC 2.48 L (4.30-5.90) m/uL Hgb 8.3 L (13.0-17.5) gm/dL Hct 27.5 L (39.0-53.0) % MCV 111.0 H (80.0-100.0) fL MCHC 30.4 L (31.0-37.0) g/dL RDW 20.1 H (11.5-15.5) % Plt Count 134 L (150-450) k/uL Lymphocytes # 0.6 L (1.0-4.8) k/uL Macrocytosis Marked A APTT 49.6 H (22.0-30.0) sec Sodium 135 L (137-145) mmol/L BUN 22 H (9-20) mg/dL Glucose 122 H (74-99) mg/dL Calcium 7.9 L (8.4-10.2) mg/dL Microbiology - Last 24 Hours (Table) 11/29/21 13:56 Blood Culture - Preliminary Blood No Growth after 120 hours 11/29/21 13:50 Blood Culture - Preliminary Blood No Growth after 120 hours Assessment and Plan (1) Mitral valve vegetation Current Visit: Yes Status: Acute Code(s): I33.0 - ACUTE AND SUBACUTE INFECTIVE ENDOCARDITIS SNOMED Code(s): 036529949 Plan: 1patient is a 89-year-old male with a past medical history significant for mitral valve repair in this patient presented to hospital with increasing shortness of breath fatigue and weakness but no fever no elevated white count patient did have abnormal echo concerning for possible vegetation however the patient is clinically not behaving as infective endocarditis. 2blood culture has been obtained Which are negative so far, patient did have a mildly elevated CRP and a sed rate 3Patient case was discussed in detail with cardiology recommending no LAURA as a clinical suspicious for endocarditis is low, however now plans for possible TVAR procedure for which the patient underwent LAURA and cardiac cath, LAURA reports are currently pending if no evidence of any vegetation therapy no need for further workup from infectious disease standpoint we will continue to monitor the patient closely off antibiotic therapy Time with Patient: Less than 30
[2021-12-05] MEDS: ALPRAZolam 0.25 MG TAB PO PRN (23:36)
[2021-12-06] MEDS: MELATONIN 3 MG TABLET PO PRN ×2 (02:06→23:11)
[2021-12-06] MEDS: SODIUM CHLORIDE 0.9% 1,000 ML in EMPTY BAG 1 BAG IV SCH ×2 (02:38→19:49)
[2021-12-06 04:43] LABS: Glucose,Whole Blood 128 mg/dL (70-110)
[2021-12-06 05:35] LABS: INR 1.2 (<1.2); Partial Thromboplastin Time 63.2 sec (22.0-30.0); Prothrombin Time 12.3 sec (9.0-12.0)
[2021-12-06 05:41] LABS: Calcium 8.2 mg/dL (8.4-10.2); Potassium 3.4 mmol/L (3.5-5.1)
[2021-12-06] MEDS: HEPARIN SOD,PORK IN 0.45% NACL 25,000 UNIT in 0.45% NACL 1 250ML.BAG IV SCH (05:55)
[2021-12-06 06:04] LABS: Anisocytosis Slight; Basophils % (A) 0 %; Eosinophils # (A) 0.1 k/uL (0-0.7); Eosinophils % (A) 2 %; HCT 28.6 % (39.0-53.0); Hypochromasia Marked; Lymphocytes # (A) 0.5 k/uL (1.0-4.8); Lymphocytes % (A) 8 %; MCH 34.6 pg (25.0-35.0); MCHC 31.4 g/dL (31.0-37.0); MCV 109.9 fL (80.0-100.0); Mean Platelet Volume 8.9; Monocytes # (A) 0.5 k/uL (0-1.0); Monocytes % (A) 7 %; Neutrophils # (A) 5.5 k/uL (1.3-7.7); Neutrophils % (A) 82 %; Platelet Count 147 k/uL (150-450); Poikilocytosis Moderate; RDW 19.7 % (11.5-15.5); WBC 6.7 k/uL (3.8-10.6)
[2021-12-06 06:05] LABS: Macrocytosis Marked
[2021-12-06] MEDS: PANTOPRAZOLE 40 MG TABLET PO SCH ×2 (06:45→17:15)
[2021-12-06] MEDS ORDERED: Potassium Replacement Protocol 1 EACH MISC MISCELLANE PRN (07:14)
[2021-12-06] MEDS: METOPROLOL TARTRATE 12.5 MG TAB PO SCH ×2 (10:00→20:41)
[2021-12-06] MEDS: CLOPIDOGREL 75 MG TAB PO SCH (10:00)
[2021-12-06] MEDS: FUROSEMIDE 40 MG TAB PO SCH (10:00)
[2021-12-06] MEDS: POTASSIUM CHLORIDE ER 20 MEQ TAB.ER PO SCH ×3 (10:00→14:11)
[2021-12-06] MEDS: ENOXAPARIN 60 MG/0.6 ML SYRINGE SQ SCH ×2 (10:00→20:41)
--- NOTE | 2021-12-06 10:28 | P.PN ---
Subjective Progress Note Date: 12/06/21 Principal diagnosis: Fatigue Hospital Course: 61-year-old male with a history of valvular heart disease status post mechanical mitral valve repair, GI bleed initially presented with concerns of weakness and fatigue, and exertional dyspnea. His initial evaluation also showed acute kidney injury. He had no evidence of GI bleeding during hospitalization. Patient was evaluated by hematology, anemia likely secondary to hemolysis due to mechanical valve. Echo demonstrated severe aortic stenosis, mitral regurgitation, EF 25-30%, possible vegetation on mechanical mitral valve. Patient was on antibiotics, but discontinued per infectious disease given negative blood cultures. Patient underwent LAURA, report pending. He also had cardiac catheterization with significant CAD including mild distal circumflex 30-40% stenosis and a mid LAD 95% stenosis, now status post PCI and stent to mid LAD. Patient awaiting further TAVR evaluation. Subjective: Patient seen and examined at bedside. No acute events overnight. He claims that his breathing is slightly better than before. He denies any chest pain, palpitations, abdominal pain, bowel or urinary complaints. Pertinent positives and negatives as discussed above, a complete review of systems was performed and all other systems are negative. Vitals signs reviewed. General: nontoxic, no distress, appears at stated age Derm: warm, dry Head: atraumatic, normocephalic, symmetric Eyes: EOMI, no lid lag, anicteric sclera Mouth: no lip lesion, mucus membranes moist Cardiovascular: S1S2 reg, systolic murmur most prominent at the apex Lungs: Bilateral rales up to mid lung bilaterally, no accessory muscle use Abdominal: soft, nontender to palpation, no guarding, no appreciable organomegaly Ext: no gross muscle atrophy, no edema, no contractures Neuro: CN II-XI grossly intact, no focal neuro deficits Psych: Alert, oriented, appropriate affect Assessment and Plan: 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 Severe aortic valve stenosis -Echo also showed LVEF 30% -Was initially on antibiotics, but discontinued per infectious disease, negative blood cultures -LAURA completed yesterday, pending report -Cardiothoracic surgery evaluating patient for AVR - will likely need formal dental evaluation prior to surgery -pending CT chest 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, 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, per hematology -No evidence of GI bleeding, recent EGD and colonoscopy was negative for bleed -GI consulted - no further interventions -Hemoglobin stable -Continue PPI -on coumadin for mechanical heart valve -Status post iron infusions Coronary artery disease status post stent to mid LAD -On Plavix and coumadin -Atorvastatin Elevated troponin secondary to demand ischemia -Continue current cardiac medications Acute systolic heart failure exacerbation - improved -On PO lasix -Monitor I's and O's, daily weights JEROMY - Renal function all stable -Monitor urine output Debility -Physical therapy Constipation -MiraLAX F: Oral when possible E: Replete as needed N: Heart healthy A: as tolerated DVT ppx: coumadin Code Status: Full code Dispo: Pending surgery evaluation Objective - Vital Signs Vital signs: Vital Signs Temp 98 F 12/06/21 08:25 Pulse 78 12/06/21 08:25 Resp 18 12/06/21 08:25 BP 93/58 12/06/21 08:25 Pulse Ox 95 12/06/21 08:25 FiO2 Intake & Output 12/05/21 12/06/21 12/06/21 18:59 06:59 18:59 Intake Total 1.666 54.613 120 Output Total 925 500 200 Balance -923.334 -445.387 -80 Weight 62.2 kg 62.5 kg Intake: Intake, IV Titration 1.666 54.613 Amount Heparin Sod,Pork in 0.45% 1.666 54.613 NaCl 25,000 unit In 0.45 % NaCl 1 250ml.bag @ 18 UNITS/KG/HR 11.682 mls/hr IV .[id number] [facility] Rx#: [id number] Oral 120 Output: Urine 925 500 200 Other: Voiding Method Urinal Urinal # Voids 1 # Bowel Movements 1 - Labs CBC & Chem 7: 12/06/21 05:03 12/06/21 05:03 Labs: Abnormal Lab Results - Last 24 Hours (Table) 12/05/21 12/05/21 12/05/21 Range/Units 09:34 09:34 12:17 RBC 2.48 L (4.30-5.90) m/uL Hgb 8.3 L (13.0-17.5) gm/dL Hct 27.5 L (39.0-53.0) % MCV 111.0 H (80.0-100.0) fL MCHC 30.4 L (31.0-37.0) g/dL RDW 20.1 H (11.5-15.5) % Plt Count 134 L (150-450) k/uL Lymphocytes # 0.6 L (1.0-4.8) k/uL Macrocytosis Marked A PT 12.5 H (9.0-12.0) sec INR 1.2 H (<1.2) APTT (22.0-30.0) sec Sodium 135 L (137-145) mmol/L Potassium (3.5-5.1) mmol/L BUN 22 H (9-20) mg/dL Glucose 122 H (74-99) mg/dL POC Glucose (mg/dL) (70-110) mg/dL Calcium 7.9 L (8.4-10.2) mg/dL 12/05/21 12/06/21 12/06/21 Range/Units 20:42 04:31 05:03 RBC (4.30-5.90) m/uL Hgb (13.0-17.5) gm/dL Hct (39.0-53.0) % MCV (80.0-100.0) fL MCHC (31.0-37.0) g/dL RDW (11.5-15.5) % Plt Count (150-450) k/uL Lymphocytes # (1.0-4.8) k/uL Macrocytosis PT 12.3 H (9.0-12.0) sec INR 1.2 H (<1.2) APTT 43.0 H 63.2 H (22.0-30.0) sec Sodium (137-145) mmol/L Potassium (3.5-5.1) mmol/L BUN (9-20) mg/dL Glucose (74-99) mg/dL POC Glucose (mg/dL) 128 H (70-110) mg/dL Calcium (8.4-10.2) mg/dL 12/06/21 12/06/21 Range/Units 05:03 05:03 RBC 2.60 L (4.30-5.90) m/uL Hgb 9.0 L (13.0-17.5) gm/dL Hct 28.6 L (39.0-53.0) % MCV 109.9 H (80.0-100.0) fL MCHC (31.0-37.0) g/dL RDW 19.7 H (11.5-15.5) % Plt Count 147 L (150-450) k/uL Lymphocytes # 0.5 L (1.0-4.8) k/uL Macrocytosis Marked A PT (9.0-12.0) sec INR (<1.2) APTT (22.0-30.0) sec Sodium 136 L (137-145) mmol/L Potassium 3.4 L (3.5-5.1) mmol/L BUN (9-20) mg/dL Glucose 114 H (74-99) mg/dL POC Glucose (mg/dL) (70-110) mg/dL Calcium 8.2 L (8.4-10.2) mg/dL Microbiology - Last 24 Hours (Table) 11/29/21 13:56 Blood Culture - Final Blood No Growth after 144 hours 11/29/21 13:50 Blood Culture - Final Blood No Growth after 144 hours
--- NOTE | 2021-12-06 11:18 | P.PN ---
Subjective This is a 89 year old male with a past medical history of permanent atrial fibrillation on Xarelto, severe mitral regurgitation with mechanical mitral valve replacement 09/10/2000 (not on coumadin secondary to GI bleed), hypertension, hyperlipidemia, peripheral arterial disease with bilateral SFA disease s/p prior balloon angioplasty/arthrectomy/stenting of the left SFA, chronic anemia, previous tobacco use (quit smoking 40 years ago). He follows with Dr. Meraz. Patient presented to the hospital with melanotic stools and shortness of breath. Patient examined this morning at the bedside. Patient denies chest pain or pressure. He reports shortness of breath with minimal activity. Patient's hemoglobin is 8.6. He reports having dark tarry stools yesterday. Vital signs are stable. Echocardiogram completed revealing ejection fraction 25-30%, moderate LVH, moderate pulmonary hypertension, moderate mitral regurgitation, mechanical mitral valve, suspicious finding and mitral valve concerning for vegetation, mild to moderate tricuspid regurgitation, mild aortic regurgitation, and severe aortic stenosis. 12/04- patient underwent LAURA with Dr. Meraz. Report pending. 12/05 Patient seen and examined after cardiac catheterization. Cardiac cath revealed coronary artery disease including mild distal circumflex 3040 percent stenosis, mid LAD 95% stenosis. Patient underwent PCI of the mid LAD. Tortuousity and calcification of left common iliac artery. 12/06: Patient seen and examined at bedside, shortness of breath is improved. Denies any chest pain. Overall he feels well, no complaints. BP remains low end 93/58, HR 78, 95% on room air BUN 20, sCr 1.17, INR 1.2. He was started on Coumadin yesterday Discussed with Dr. Meraz: LAURA revealed Severe Aortic stenosis EF 40-45% and moderate mitral regurgitation, pannus on mechanical mitral valve PHYSICAL EXAM: VITAL SIGNS: Reviewed. GENERAL: Well-developed in no acute distress. NECK: Supple. no JVD LUNGS: Respirations even and unlabored. Lungs diminished to auscultation bilaterally. HEART: Regular rate and rhythm. S1 and S2 heard. Systolic murmur noted. EXTREMITIES: Normal range of motion. No clubbing or cyanosis. Peripheral pulses intact. No lower extremity edema ASSESSMENT: Shortness of breath Severe aortic stenosis, possible critical aortic stenosis with low flow low gradient History of mechanical mitral valve replacement in 2000, previously on coumadin, however, stopped secondary to bleeding Coronary artery disease s/p PCI to mid LAD on 12/05, and 30-40% stenosis of distal circumflex Anemia with melanotic stools, hemoglobin stable. Valvular heart disease Possible vegetation noted on mitral valve, per TTE Acute kidney injury, improved Elevated troponin Hypertension Hyperlipidemia Acute on chronic heart failure with reduced ejection fraction Ischemic cardiomyopathy EF 25-30% Hemolytic anemia PLAN: Recommend Coumadin for his mechanical valve, patient can be bridged with Lovenox to coumadin Discussed with Dr. Meraz, he states the LAURA revealed Severe Aortic stenosis EF 40-45% and moderate mitral regurgitation, pannus on mechanical mitral valve Recommend continuing with Plavix and Coumadin Continue statin and beta leonie Transition to PO Lasix Patient not on ACEI/ARB secondary to hypotension Patient evaluated by Dr. Dixon, from a cardiology perspective, patient can be considered for discharge Nurse practitioner note has been reviewed by physician. Signing provider agrees with the documented findings, assessment, and plan of care. Objective - Vital Signs Vital signs: Vital Signs Temp 98 F 12/06/21 08:25 Pulse 78 12/06/21 08:25 Resp 18 12/06/21 08:25 BP 93/58 12/06/21 08:25 Pulse Ox 95 12/06/21 08:25 FiO2 Intake & Output 12/05/21 12/06/21 12/06/21 18:59 06:59 18:59 Intake Total 1.666 54.613 120 Output Total 925 500 200 Balance -923.334 -445.387 -80 Weight 62.2 kg 62.5 kg Intake: Intake, IV Titration 1.666 54.613 Amount Heparin Sod,Pork in 0.45% 1.666 54.613 NaCl 25,000 unit In 0.45 % NaCl 1 250ml.bag @ 18 UNITS/KG/HR 11.682 mls/hr IV .[id number] [facility] Rx#: [id number] Oral 120 Output: Urine 925 500 200 Other: Voiding Method Urinal Urinal # Voids 1 # Bowel Movements 1 - Labs CBC & Chem 7: 12/06/21 05:03 12/06/21 05:03 Labs: Abnormal Lab Results - Last 24 Hours (Table) 12/05/21 12/05/21 12/06/21 Range/Units 12:17 20:42 04:31 RBC (4.30-5.90) m/uL Hgb (13.0-17.5) gm/dL Hct (39.0-53.0) % MCV (80.0-100.0) fL RDW (11.5-15.5) % Plt Count (150-450) k/uL Lymphocytes # (1.0-4.8) k/uL Macrocytosis PT 12.5 H (9.0-12.0) sec INR 1.2 H (<1.2) APTT 43.0 H (22.0-30.0) sec Sodium (137-145) mmol/L Potassium (3.5-5.1) mmol/L Glucose (74-99) mg/dL POC Glucose (mg/dL) 128 H (70-110) mg/dL Calcium (8.4-10.2) mg/dL 12/06/21 12/06/21 12/06/21 Range/Units 05:03 05:03 05:03 RBC 2.60 L (4.30-5.90) m/uL Hgb 9.0 L (13.0-17.5) gm/dL Hct 28.6 L (39.0-53.0) % MCV 109.9 H (80.0-100.0) fL RDW 19.7 H (11.5-15.5) % Plt Count 147 L (150-450) k/uL Lymphocytes # 0.5 L (1.0-4.8) k/uL Macrocytosis Marked A PT 12.3 H (9.0-12.0) sec INR 1.2 H (<1.2) APTT 63.2 H (22.0-30.0) sec Sodium 136 L (137-145) mmol/L Potassium 3.4 L (3.5-5.1) mmol/L Glucose 114 H (74-99) mg/dL POC Glucose (mg/dL) (70-110) mg/dL Calcium 8.2 L (8.4-10.2) mg/dL Microbiology - Last 24 Hours (Table) 11/29/21 13:56 Blood Culture - Final Blood No Growth after 144 hours 11/29/21 13:50 Blood Culture - Final Blood No Growth after 144 hours
[2021-12-06] MEDS: ALPRAZolam 0.25 MG TAB PO PRN ×2 (14:11→23:11)
--- NOTE | 2021-12-06 14:52 | P.PN ---
Subjective Progress Note Date: 12/06/21 Principal diagnosis: Anemia This pleasant 89-year-old male with extensive past medical history including COPD, coronary artery disease, peripheral arterial disease, and previous valve replacement presented to the emergency department on 11/28/2021 complaining of generalized weakness and shortness of breath over the last few weeks duration. Patient also reportedly had black stools 3 days prior to coming into the emergency department. Patient does have a heart valve and takes Xarelto. Patient denied any abdominal pain, nausea or vomiting. He had 1 bowel movement here in the hospital according to his son which states that it was somewhat dark at that time as well. He has been following for some time with the hematology and has had previous workup for concern for GI bleed due to anemia back in 2020. In March 2020 he was hospitalized and had a workup for iron deficiency anemia and underwent EGD and colonoscopy. EGD showed mild gastritis and colonoscopy showed mild pandiverticulosis and internal hemorrhoids. He was then again hospitalized in July 2020 again with concerns for possible GI bleed with dark stools. He had a small bowel capsule on 08/04/2020 that showed no active bleeding or old blood noted. 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 Cardiology is following as well and patient is scheduled to undergo LAURA toda and possible cardiac catheterization. Echocardiogram had showed EF of 30%. Mechanical mitral valve noted with some pannus and also possibility of vegetation, aortic valve stenosis which appeared to be severe, mild aortic insufficiency. Cardiothoracic is also following patient related to possible heart valve replacement. Patient Xarelto on hold and is on heparin drip. 12/06/2021. Patient seen and examined with follow-up for questionable GI bleed. Yesterday he underwent cardiac catheterization and is status post PCI to mid LAD and 30-40% stenosis is distal circumflex. Patient hemoglobin is stable today at 9 he just had a bowel movement and states that it was soft and brown. He denies any abdominal pain, nausea or vomiting. Patient was resumed on Plavix and Coumadin. Objective - Vital Signs Vital signs: Vital Signs Temp 98 F 12/06/21 08:25 Pulse 78 12/06/21 08:25 Resp 18 12/06/21 08:25 BP 93/58 12/06/21 08:25 Pulse Ox 95 12/06/21 08:25 FiO2 Intake & Output 12/05/21 12/06/21 12/06/21 18:59 06:59 18:59 Intake Total 1.666 54.613 120 Output Total 925 500 200 Balance -923.334 -445.387 -80 Weight 62.2 kg 62.5 kg Intake: Intake, IV Titration 1.666 54.613 Amount Heparin Sod,Pork in 0.45% 1.666 54.613 NaCl 25,000 unit In 0.45 % NaCl 1 250ml.bag @ 18 UNITS/KG/HR 11.682 mls/hr IV .[id number] [facility] Rx#: [id number] Oral 120 Output: Urine 925 500 200 Other: Voiding Method Urinal Urinal # Voids 1 # Bowel Movements 1 - Exam General appearance: The patient is alert, oriented, appears in no acute distress . HET: Head is normocephalic and atraumatic. Conjunctiva pink. Sclera anicteric. Neck: Supple without lymphadenopathy. Abdomen: Soft, nontender, nondistended with bowel sounds. No guarding or r igidity. Extremities: Normal skin color and turgor. No pedal edema Skin: No rashes, no jaundice Neurological: No focal deficits. Alert and oriented -3. - Labs CBC & Chem 7: 12/06/21 05:03 12/06/21 05:03 Labs: Abnormal Lab Results - Last 24 Hours (Table) 12/05/21 12/05/21 12/05/21 Range/Units 09:34 12:17 20:42 RBC (4.30-5.90) m/uL Hgb (13.0-17.5) gm/dL Hct (39.0-53.0) % MCV (80.0-100.0) fL RDW (11.5-15.5) % Plt Count (150-450) k/uL Lymphocytes # (1.0-4.8) k/uL Macrocytosis PT 12.5 H (9.0-12.0) sec INR 1.2 H (<1.2) APTT 43.0 H (22.0-30.0) sec Sodium 135 L (137-145) mmol/L Potassium (3.5-5.1) mmol/L BUN 22 H (9-20) mg/dL Glucose 122 H (74-99) mg/dL POC Glucose (mg/dL) (70-110) mg/dL Calcium 7.9 L (8.4-10.2) mg/dL 12/06/21 12/06/21 12/06/21 Range/Units 04:31 05:03 05:03 RBC (4.30-5.90) m/uL Hgb (13.0-17.5) gm/dL Hct (39.0-53.0) % MCV (80.0-100.0) fL RDW (11.5-15.5) % Plt Count (150-450) k/uL Lymphocytes # (1.0-4.8) k/uL Macrocytosis PT 12.3 H (9.0-12.0) sec INR 1.2 H (<1.2) APTT 63.2 H (22.0-30.0) sec Sodium 136 L (137-145) mmol/L Potassium 3.4 L (3.5-5.1) mmol/L BUN (9-20) mg/dL Glucose 114 H (74-99) mg/dL POC Glucose (mg/dL) 128 H (70-110) mg/dL Calcium 8.2 L (8.4-10.2) mg/dL 12/06/21 Range/Units 05:03 RBC 2.60 L (4.30-5.90) m/uL Hgb 9.0 L (13.0-17.5) gm/dL Hct 28.6 L (39.0-53.0) % MCV 109.9 H (80.0-100.0) fL RDW 19.7 H (11.5-15.5) % Plt Count 147 L (150-450) k/uL Lymphocytes # 0.5 L (1.0-4.8) k/uL Macrocytosis Marked A PT (9.0-12.0) sec INR (<1.2) APTT (22.0-30.0) sec Sodium (137-145) mmol/L Potassium (3.5-5.1) mmol/L BUN (9-20) mg/dL Glucose (74-99) mg/dL POC Glucose (mg/dL) (70-110) mg/dL Calcium (8.4-10.2) mg/dL Microbiology - Last 24 Hours (Table) 11/29/21 13:56 Blood Culture - Final Blood No Growth after 144 hours 11/29/21 13:50 Blood Culture - Final Blood No Growth after 144 hours Assessment and Plan (1) Anemia Narrative/Plan: A 11-year-old male with multiple comorbidities presented to the emergency department 5 days ago with complaints of increased weakness, dyspnea on exertion over the last several weeks. Patient has a history of mitral heart valve that was done in 2000. Had an echocardiogram concerning for possible vegetation. Patient has a known history of iron deficiency anemia and has had workup with the EGD and colonoscopy in March 2020 with no evidence of a GI bleed. As well as subsequent small bowel capsule done in July 2020 again not seeing any active bleeding or old blood noted. Patient follows up outpatient with hematology for her transfusions. Although patient had reported black stool prior to his adm ission hemoglobin has been stable he's not had any further. Hematology following and believe anemia related to mechanical hemolysis. At this time there is no plans for further endoscopic evaluation unless otherwise requested. Continue with recommendations from hematology. Transfuse for hemoglobin less than 7. Continue outpatient follow-up with hematology. Current Visit: Yes Status: Acute Code(s): D64.9 - ANEMIA, UNSPECIFIED SNOMED Code(s): 086161295 (2) Dyspnea Current Visit: Yes Status: Acute Code(s): R06.00 - DYSPNEA, UNSPECIFIED SNOMED Code(s): 581821184 (3) Non-STEMI (non-ST elevated myocardial infarction) Current Visit: Yes Status: Acute Code(s): I21.4 - NON-ST ELEVATION (NSTEMI) MYOCARDIAL INFARCTION SNOMED Code(s): 83535568 (4) Mechanical heart valve present Current Visit: No Status: Chronic Priority: Medium Code(s): Z95.2 - PRESENCE OF PROSTHETIC HEART VALVE SNOMED Code(s): 88360814367669 Plan: 1. Continue symptomatic supportive care 2. Recommend MiraLAX daily to improve regular bowel movements 3. Continue medical management 4. No plans on endoscopic evaluation Thank you for this consultation, we will sign off at this time. Dr. Dash Meraz I agree with the dictator's note, documented as a scribe by Bessy Vargas.
[2021-12-06] MEDS ORDERED: WARFARIN 2.5 MG TAB PO ONE (18:00)
--- NOTE | 2021-12-06 18:48 | P.PN ---
Subjective Progress Note Date: 12/06/21 Principal diagnosis: anemia, GI bleeding In f/u pt feels good, had a normal color BM today. Denied any other bleeding. Objective - Vital Signs Vital signs: Vital Signs Temp 97.8 F 12/06/21 16:00 Pulse 69 12/06/21 16:00 Resp 17 12/06/21 16:00 BP 115/75 12/06/21 16:00 Pulse Ox 96 12/06/21 16:00 FiO2 Intake & Output 12/05/21 12/06/21 12/06/21 18:59 06:59 18:59 Intake Total 1.666 54.613 466.587 Output Total 925 500 200 Balance -923.334 -445.387 266.587 Weight 62.2 kg 62.5 kg Intake: Intake, IV Titration 1.666 54.613 106.587 Amount Heparin Sod,Pork in 0.45% 1.666 54.613 106.587 NaCl 25,000 unit In 0.45 % NaCl 1 250ml.bag @ 18 UNITS/KG/HR 11.682 mls/hr IV .[id number] [facility] Rx#: [id number] Oral 360 Output: Gastric Drainage 0 Urine 925 500 200 Stool 0 Urine/Stool Mix 0 Other: Voiding Method Urinal Urinal # Voids 1 0 # Bowel Movements 1 0 - Constitutional General appearance: Present: cooperative, no acute distress, thin - EENT Eyes: Present: anicteric sclerae, EOMI ENT: Present: hearing grossly normal - Respiratory Respiratory: bilateral: CTA - Cardiovascular Rhythm: regular Heart sounds: normal: S1, S2 Abnormal Heart Sounds: Present: systolic murmur - Peripheral edema leg Peripheral Edema: bilateral: None - Gastrointestinal General gastrointestinal: Present: normal bowel sounds, soft - Integumentary Integumentary: Present: normal - Neurologic Neurologic: Present: CNII-XII intact - Musculoskeletal Musculoskeletal: Present: strength equal bilaterally - Psychiatric Psychiatric: Present: A&O x's 3, appropriate affect, intact judgment & insight - Labs CBC & Chem 7: 12/06/21 05:03 12/06/21 05:03 Labs: Abnormal Lab Results - Last 24 Hours (Table) 12/05/21 12/06/21 12/06/21 Range/Units 20:42 04:31 05:03 RBC (4.30-5.90) m/uL Hgb (13.0-17.5) gm/dL Hct (39.0-53.0) % MCV (80.0-100.0) fL RDW (11.5-15.5) % Plt Count (150-450) k/uL Lymphocytes # (1.0-4.8) k/uL Macrocytosis PT 12.3 H (9.0-12.0) sec INR 1.2 H (<1.2) APTT 43.0 H 63.2 H (22.0-30.0) sec Sodium (137-145) mmol/L Potassium (3.5-5.1) mmol/L Glucose (74-99) mg/dL POC Glucose (mg/dL) 128 H (70-110) mg/dL Calcium (8.4-10.2) mg/dL 12/06/21 12/06/21 Range/Units 05:03 05:03 RBC 2.60 L (4.30-5.90) m/uL Hgb 9.0 L (13.0-17.5) gm/dL Hct 28.6 L (39.0-53.0) % MCV 109.9 H (80.0-100.0) fL RDW 19.7 H (11.5-15.5) % Plt Count 147 L (150-450) k/uL Lymphocytes # 0.5 L (1.0-4.8) k/uL Macrocytosis Marked A PT (9.0-12.0) sec INR (<1.2) APTT (22.0-30.0) sec Sodium 136 L (137-145) mmol/L Potassium 3.4 L (3.5-5.1) mmol/L Glucose 114 H (74-99) mg/dL POC Glucose (mg/dL) (70-110) mg/dL Calcium 8.2 L (8.4-10.2) mg/dL Microbiology - Last 24 Hours (Table) 11/29/21 13:56 Blood Culture - Final Blood No Growth after 144 hours 11/29/21 13:50 Blood Culture - Final Blood No Growth after 144 hours Assessment and Plan (1) GI hemorrhage Current Visit: Yes Status: Acute Priority: High Code(s): K92.2 - GASTROINTESTINAL HEMORRHAGE, UNSPECIFIED SNOMED Code(s): 80900899 (2) Mechanical heart valve present Current Visit: Yes Status: Chronic Priority: Medium Code(s): Z95.2 - PRESENCE OF PROSTHETIC HEART VALVE SNOMED Code(s): 79011034031920 Plan: Pt hgb is stable. No current evidence of ongoing bleeding. No further evidence of mechanical valve hemolysis.
[2021-12-06] MEDS: ATORVASTATIN 40 MG TAB PO SCH (20:41)
[2021-12-06] MEDS: polyethylene glycoL 3350 17 GM POWD.PACK PO SCH (20:41)
[2021-12-06] MEDS: TAMSULOSIN 0.4 MG CAP.ER.24H PO SCH (20:41)
[2021-12-07 06:26] VITALS: RESP 18
[2021-12-07] MEDS: ENOXAPARIN 60 MG/0.6 ML SYRINGE SQ SCH (08:39)
[2021-12-07] MEDS: FUROSEMIDE 40 MG TAB PO SCH (08:39)
[2021-12-07] MEDS: CLOPIDOGREL 75 MG TAB PO SCH (08:39)
[2021-12-07] MEDS: PANTOPRAZOLE 40 MG TABLET PO SCH (08:39)
[2021-12-07] MEDS: METOPROLOL TARTRATE 12.5 MG TAB PO SCH (08:39)
[2021-12-07 09:01] LABS: Anisocytosis Slight; HCT 31.9 % (39.0-53.0); HGB 9.6 gm/dL (13.0-17.5); Hypochromasia Marked; MCH 33.7 pg (25.0-35.0); MCV 112.3 fL (80.0-100.0); Macrocytosis Marked; Platelet Count 143 k/uL (150-450); Poikilocytosis Moderate; RBC 2.84 m/uL (4.30-5.90); RDW 19.1 % (11.5-15.5); WBC 6.2 k/uL (3.8-10.6)
[2021-12-07 09:16] LABS: INR 1.1 (<1.2)
[2021-12-07 09:26] LABS: Calcium 8.4 mg/dL (8.4-10.2); Potassium 4.1 mmol/L (3.5-5.1); Total Bilirubin 1.7 mg/dL (0.2-1.3); Total Protein 5.6 g/dL (6.3-8.2)
--- NOTE | 2021-12-07 09:37 | CT ---
EXAMINATION TYPE: CT TAVR Planning DATE OF EXAM: 12/07/2021 HISTORY: 89-year-old male preTAVR planning, Pulmonary edema CT DLP: 1396.6 mGycm Automated Exposure Control for Dose Reduction was Utilized. Technique: CT of the chest, abdomen, and pelvis with IV Contrast, patient injected with 125 mL of Iso estee 370. COMPARISON: CT chest 09/13/2021 TECHNIQUE: Helical imaging obtained through the chest, abdomen and pelvis during arterial phase murray chencho administration of radiographic contrast intravenously. FINDINGS: See report from [facility] regarding preprocedural planning CHEST: Lower Neck and Thyroid: No significant findings Lungs: Increasing moderate to large left pleural effusion and continued small effusion on the right. Persistent and slight worsening patchy opacities right middle lobe and basilar right lower lobe. Deve loping groundglass changes left mid and lower lung as well as new septal lines throughout. Worsening volume loss and consolidation infrahilar left lower lobe and left base. Most of the basilar portions of the left lower lobe are atelectatic. A few calcified granulomas are noted. Central Airway: No sign ificant findings Pleura: See above lung findings. Pulmonary Arteries: Large caliber measuring up to 3.3 cm compatible with underlying pulmonary hyperte nsion. Heart and Pericardium: Median sternotomy wires. Enlarged with biatrial dilatation. No sizable pleural effusion. Extensive aortic valve calcifications. Extensive LAD and circumflex coronary calcification s. Ascending aorta is ectatic at 3.9 cm. Moderate scattered arterial calcifications with bovine confi guration to the aortic arch. There appears to be some possible severe focal stenosis at the origin of the right subclavian artery and mild to moderate stenosis origin of the left common carotid artery. Lymph Nodes: Enlarged nodes measuring up to 1.6 cm precarinal versus 1.3 cm, previously. Subcarinal m easuring up to 2.1 cm versus 1.4 cm, previously. Upper right paraesophageal measuring 1.1 cm versus 9 mm, previously. Mediastinum & Esophagus: No significant additional findings ABDOMEN/PELVIS: Please note arterial phase of the imaging limits detailed evaluation of the solid abdominal organs. Liver: There is reflux of contrast into the hepatic veins. 1.3 cm cyst left liver lobe. Spleen: Old calcified granulomas. Kidneys: 1.7 cm cortical cyst lateral midpole left kidney. Some cortical volume loss and hypodensity mid right kidney could represent an area of scarring or underlying cyst measuring 9 mm. Adrenal Glands: No significant findings Pancreas: No significant findings Gallbladder: Cholecystectomy clips. Bowel and Mesentery: No dilated small bowel or free air. Mild overall stool burden. No pericolonic in flammatory change. Lymph Nodes: No significant findings Vasculature: Moderate atherosclerotic calcifications are present throughout. There may be severe sten oses within the proximal renal arteries on both sides. There is a fusiform AAA measuring up to 5.6 x 5.1 cm distal abdominal aorta and suspect severe segmental stenoses bilateral common and internal lili ac arteries. 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 Mode rate to severe stenosis lower left common femoral artery. Urinary Bladder: Mild circumferential wall thickening likely chronic bladder wall hypertrophy. Some p resacral edema probably relating to fluid overload state. Pelvic Organs: There is mild ascites. Prostatomegaly up to 6.7 cm wide to be further correlated with patient's symptoms and PSA levels. Other: Foci of air within the subcutaneous adipose layer anterior lower abdomen likely relating to alcazar bcutaneous injections. There is mild hazy density and edema here. Correlation can be made to exclude cellulitis. Other Lines/Tubes/Devices/Hardware: None Bones: Moderate degenerative disc disease throughout the mid thoracic spine. Hypertrophic facet arthr opathy throughout the lumbar spine. Chronic appearing superior endplate deformity L1 vertebral body. IMPRESSION: 1. TAVR CT. Please refer to separate beef skinner portion. We do note severe calcifications aortic va lve. Severe stenosis proximal right subclavian artery, mild to moderate stenosis proximal left common carotid artery, and moderate atherosclerotic calcifications throughout the abdomen and pelvis. Sever e stenosis within the proximal renal arteries on both sides. Segmental severe stenoses bilateral comm on and internal iliac arteries. Moderate to severe stenosis left common femoral artery. Mild focal fu siform aneurysm right common femoral artery measuring 1.8 cm. 2. Also, note a significant fusiform infrarenal AAA measuring up to 5.6 x 5.1 cm. 3. CHF with pulmonary arterial hypertension and interstitial pulmonary edema. Enlarging moderate to l arge left pleural effusion. Continued small right pleural effusion. Generalized anasarca and mild pel grecia ascites. 4. Worsening aeration at the left base with significant atelectatic basilar segmental collapse. Persi stent and slight worsening patchy opacities at the right base could represent combination of scarring and/or infiltrates. Clinically correlate. 5. Note CAD with extensive LAD and circumflex coronary artery calcifications. 6. Worsening mediastinal lymphadenopathy currently measuring up to 2.1 cm versus 1.4 cm, previously. Possibly reactive to CHF. Appropriate follow-up after successful treatment to exclude a neoplastic et iology. 7. Prostatomegaly at 6.7 cm. Correlate with patient's symptoms and PSA values. 8. Foci of air within the subcutaneous fat anterior lower abdomen likely relating to subcutaneous inj ections. There is fat stranding here. Correlate clinically to exclude cellulitis.
--- NOTE | 2021-12-07 10:22 | P.PN ---
Subjective This is a 89 year old male with a past medical history of permanent atrial fibrillation on Xarelto, severe mitral regurgitation with mechanical mitral valve replacement 09/10/2000 (not on coumadin secondary to GI bleed), hypertension, hyperlipidemia, peripheral arterial disease with bilateral SFA disease s/p prior balloon angioplasty/arthrectomy/stenting of the left SFA, chronic anemia, previous tobacco use (quit smoking 40 years ago). He follows with Dr. Meraz. Patient presented to the hospital with melanotic stools and shortness of breath. Patient examined this morning at the bedside. Patient denies chest pain or pressure. He reports shortness of breath with minimal activity. Patient's hemoglobin is 8.6. He reports having dark tarry stools yesterday. Vital signs are stable. Echocardiogram completed revealing ejection fraction 25-30%, moderate LVH, moderate pulmonary hypertension, moderate mitral regurgitation, mechanical mitral valve, suspicious finding and mitral valve concerning for vegetation, mild to moderate tricuspid regurgitation, mild aortic regurgitation, and severe aortic stenosis. 12/04- patient underwent LAURA with Dr. Meraz. Report pending. 12/05 Patient seen and examined after cardiac catheterization. Cardiac cath revealed coronary artery disease including mild distal circumflex 3040 percent stenosis, mid LAD 95% stenosis. Patient underwent PCI of the mid LAD. Tortuousity and calcification of left common iliac artery. 12/07/2021 Patient seen and examined at bedside, shortness of breath is improved. Denies any chest pain. Overall he feels well, no complaints. BP has improved 112/72 HR 92, 96% on 2L WBC 6.2, hemoglobin 9.6, platelets 143, INR 1.1, sodium 136, potassium 4.1, BUN 18, serum creatinine 1.[address] Meraz: LAURA revealed Severe Aortic stenosis EF 40-45% and moderate mitral regurgitation, pannus on mechanical mitral valve PHYSICAL EXAM: VITAL SIGNS: Reviewed. GENERAL: Well-developed in no acute distress. NECK: Supple. no JVD LUNGS: Respirations even and unlabored. Lungs mild crackles in right lower base. HEART: Regular rate and rhythm. S1 and S2 heard. Systolic murmur noted. EXTREMITIES: Normal range of motion. No clubbing or cyanosis. Peripheral pulses intact. No lower extremity edema ASSESSMENT: Shortness of breath Severe aortic stenosis, possible critical aortic stenosis with low flow low gr adient History of mechanical mitral valve replacement in 2000, previously on coumadin, however, stopped secondary to bleeding Coronary artery disease s/p PCI to mid LAD on 12/05, and 30-40% stenosis of distal circumflex Anemia with melanotic stools, hemoglobin stable. Valvular heart disease Possible vegetation noted on mitral valve, per TTE Acute kidney injury, improved Elevated troponin Hypertension Hyperlipidemia Acute on chronic heart failure with reduced ejection fraction Ischemic cardiomyopathy EF 25-30% Hemolytic anemia PLAN: Recommend Coumadin for his mechanical valve, patient can be bridged with Lovenox to coumadin which has started Discussed with Dr. Meraz, he states the LAURA revealed Severe Aortic stenosis EF 40-45% and moderate mitral regurgitation, pannus on mechanical mitral valve, no vegetation Recommend continuing with Plavix and Coumadin Continue statin and beta leonie Continue PO Lasix Patient not on ACEI/ARB secondary to hypotension Patient can be discharged from a cardiology perspective when cleared by primary and other consultants Follow up outpatient with Dr. Meraz in 1 week, patient has follow up on 12/13. Nurse practitioner note has been reviewed by physician. Signing provider agrees with the documented findings, assessment, and plan of care. Objective - Vital Signs Vital signs: Vital Signs Temp 97.2 F L 12/07/21 08:30 Pulse 108 H 12/07/21 08:30 Resp 18 12/07/21 08:30 BP 122/77 12/07/21 08:30 Pulse Ox 94 L 12/07/21 08:30 FiO2 Intake & Output 12/06/21 12/07/21 12/07/21 18:59 06:59 18:59 Intake Total 466.587 10 358 Output Total 200 110 Balance 266.587 10 248 Intake: IV 10 Invasive Line 3 10 Intake, IV Titration 106.587 Amount Heparin Sod,Pork in 0.45% 106.587 NaCl 25,000 unit In 0.45 % NaCl 1 250ml.bag @ 18 UNITS/KG/HR 11.682 mls/hr IV .[id number] [facility] Rx#: [id number] Oral 360 358 Output: Gastric Drainage 0 Urine 200 110 Stool 0 Urine/Stool Mix 0 Other: Voiding Method Urinal Urinal # Voids 0 1 # Bowel Movements 0 - Labs CBC & Chem 7: 12/07/21 07:54 12/07/21 07:54 Labs: Abnormal Lab Results - Last 24 Hours (Table) 12/07/21 12/07/21 Range/Units 07:54 07:54 RBC 2.84 L (4.30-5.90) m/uL Hgb 9.6 L (13.0-17.5) gm/dL Hct 31.9 L (39.0-53.0) % MCV 112.3 H (80.0-100.0) fL MCHC 30.0 L (31.0-37.0) g/dL RDW 19.1 H (11.5-15.5) % Plt Count 143 L (150-450) k/uL Macrocytosis Marked A Sodium 136 L (137-145) mmol/L Glucose 123 H (74-99) mg/dL Total Bilirubin 1.7 H (0.2-1.3) mg/dL Total Protein 5.6 L (6.3-8.2) g/dL Albumin 3.0 L (3.5-5.0) g/dL
[2021-12-07 11:57] VITALS: BP 124/64; PULSE 63; TEMP 97.8
--- NOTE | 2021-12-07 15:32 | P.DS ---
Providers Date of admission: 11/30/21 11:09 Expected date of discharge: 12/07/21 Attending physician: Felicia Hernandez DO Consults: 11/29/21 04:13 Consult Physician Routine Consulting Provider: Garo Dixon Consult Reason/Comments: elevated trops Do you want consulting provider notified?: Yes, Notify in am 11/29/21 08:28 Consult Physician Routine Consulting Provider: Cedric Cesar Consult Reason/Comments: anemia Do you want consulting provider notified?: Yes 11/29/21 14:28 Consult Physician Routine Consulting Provider: Geeta Mota Consult Reason/Comments: vegetation on echo Do you want consulting provider notified?: Already Contacted 12/02/21 13:47 Consult Physician Routine Consulting Provider: Lisa Hills Consult Reason/Comments: valve replacement Do you want consulting provider notified?: Yes Primary care physician: Murtaza Lopez Hospital Course: Discharge Diagnosis: 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 His initial evaluation also showed acute kidney injury. He had no evidence of GI bleeding during hospitalization. Patient was evaluated by hematology, anemia likely secondary to hemolysis due to mechanical valve. Echo demonstrated severe aortic stenosis, mitral regurgitation, EF 25-30%, possible vegetation on mechanical mitral valve (likely pannus seen on LAURA, no agitation). Patient was on antibiotics, but discontinued per infectious disease given negative blood cultures. He also had cardiac catheterization with significant CAD including mild distal circumflex 30-40% stenosis and a mid LAD 95% stenosis, now status post PCI and stent to mid LAD. Patient also evaluated by TAVR team. Will continue further evaluation as outpatient. Patient discharged on Plavix and Coumadin. He is also on Lovenox for bridging to Coumadin, will need to be managed by outpatient PCP and cardiology. CT TAVR completed, patient noted to have severe calcifications and aortic valve, severe stenosis proximal right subclavian artery, mild to moderate stenosis of proximal left common carotid artery and atherosclerotic calcification throughout abdomen and pelvis including proximal renal arteries with severe stenosis, severe stenosis of bilateral common and internal iliac arteries and moderate severe stenosis of left common femoral artery. 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 Fusiform infrarenal AAA measuring 5.6 x 5.1 cm. Moderate to large left pleural effusion. Worsening mediastinal lymphadenopathy possibly reactive to CHF. Prostatomegaly at 6.7 cm. Patient seen and examined at bedside. Vital signs reviewed and stable. General: nontoxic, no distress, appears at stated age Derm: warm, dry Head: atraumatic, normocephalic, symmetric Eyes: EOMI, no lid lag, anicteric sclera Mouth: no lip lesion, mucus membranes moist Cardiovascular: S1S2 reg, systolic murmur most prominent at the apex Lungs: Bilateral rales up to mid lung bilaterally, no accessory muscle use Abdominal: soft, nontender to palpation, no guarding, no appreciable organomegaly Ext: no gross muscle atrophy, no edema, no contractures Neuro: CN II-XI grossly intact, no focal neuro deficits Psych: Alert, oriented, appropriate affect A total of 43 minutes of time were spent preparing this complex discharge summary. Patient was discharged on 12/07/21 at 11:11. Plan - Discharge Summary Discharge Rx Participant: No New Discharge Prescriptions: New Warfarin [Coumadin] 7.5 mg PO ONCE@1800 #30 tab Clopidogrel [Plavix] 75 mg PO DAILY #180 tab Enoxaparin [Lovenox] 60 mg SQ Q12HR #20 each Melatonin 3 mg PO HS PRN #30 tab PRN Reason: Insomnia polyethylene glycoL 3350 [Miralax] 17 gm PO HS #30 packet Pantoprazole [Protonix] 40 mg PO AC-BID #60 tab Continue Atorvastatin [Lipitor] 40 mg PO HS Tamsulosin HCl [Flomax] 0.4 mg PO HS Furosemide [Lasix] 20 mg PO DAILY Ferrous Sulfate [Iron (65 MG Elemental)] 325 mg PO HS Metoprolol Tartrate [Lopressor] 12.5 mg PO BID Discontinued Rivaroxaban [Xarelto] 15 mg PO DAILY Omeprazole Magnesium [PriLOSEC OTC] 20 mg PO AC-SUPPER Discharge Medication List Atorvastatin [Lipitor] 40 mg PO HS 04/04/20 [History] Ferrous Sulfate [Iron (65 MG Elemental)] 325 mg PO HS 07/07/21 [History] Metoprolol Tartrate [Lopressor] 12.5 mg PO BID 07/07/21 [History] Tamsulosin HCl [Flomax] 0.4 mg PO HS 07/07/21 [History] Furosemide [Lasix] 20 mg PO DAILY 11/28/21 [History] Clopidogrel [Plavix] 75 mg PO DAILY #180 tab 12/07/21 [Rx] Enoxaparin [Lovenox] 60 mg SQ Q12HR #20 each 12/07/21 [Rx] Melatonin 3 mg PO HS PRN #30 tab 12/07/21 [Rx] Pantoprazole [Protonix] 40 mg PO AC-BID #60 tab 12/07/21 [Rx] Warfarin [Coumadin] 7.5 mg PO ONCE@1800 #30 tab 12/07/21 [Rx] polyethylene glycoL 3350 [Miralax] 17 gm PO HS #30 packet 12/07/21 [Rx] Follow up Appointment(s)/Referral(s): Murtaza Lopez MD [Primary Care Provider] - 12/15/21 11:15 am Manav Meraz MD [STAFF PHYSICIAN] - 12/13/21 9:15 am [facility] [NON-STAFF] - 12/11/21 3:30 pm (Please come to appointment 10 min early for frailty testing, bring new patient paperwork with you ) Patient Instructions/Handouts: *Surgery [facility] - After Heart Catheterization - New Client [employer]ing Services Clerk Instructions Activity/Diet/Wound Care/Special Instructions: Please see your PCP to finalize the dose for warfarin. Till then, continue to use Lovenox injections, and take warfarin orally. Also, please see cardiology and TAVR team based on your appointments. Discharge Disposition: HOME WITH HOME HEALTH SERVICES
[2021-12-07] MEDS ORDERED: WARFARIN 7.5 MG TAB PO ONE (18:00)
--- NOTE | 2021-12-14 22:02 | P.PN ---
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 The patient is status post cardiac cath 12/06/2019 status post PCI to LAD, the patient also have a LAURA completed with report pending On today's evaluation that is 12/06/2021, the patient remains to be afebrile, the patient is breathing comfortably on room air , the patient is complaining of some chest pain , the patient denies any nausea or vomiting no abdominal pain or diarrhea Objective - Vital Signs Vital signs: Vital Signs Temp 98.4 F 12/06/21 11:34 Pulse 75 12/06/21 11:34 Resp 18 12/06/21 11:34 BP 104/59 12/06/21 11:34 Pulse Ox 96 12/06/21 11:34 FiO2 Intake & Output 12/05/21 12/06/21 12/06/21 18:59 06:59 18:59 Intake Total 1.666 54.613 226.587 Output Total 925 500 200 Balance -923.334 -445.387 26.587 Weight 62.2 kg 62.5 kg Intake: Intake, IV Titration 1.666 54.613 106.587 Amount Heparin Sod,Pork in 0.45% 1.666 54.613 106.587 NaCl 25,000 unit In 0.45 % NaCl 1 250ml.bag @ 18 UNITS/KG/HR 11.682 mls/hr IV .[id number] [facility] Rx#: [id number] Oral 120 Output: Urine 925 500 200 Other: Voiding Method Urinal Urinal # Voids 1 # Bowel Movements 1 - Exam GENERAL DESCRIPTION elderly male lying in bed, no distress. No tachypnea or accessory muscle of respiration use. LUNGS: Unlabored breathing. Decreased breath sound at the base HEART: S1, S2, regular rate and rhythm ABDOMEN: Soft, no tenderness , guarding or rigidity, no organomegaly EXTREMITIES: No edema of feet. - Labs CBC & Chem 7: 12/07/21 07:54 12/07/21 07:54 Labs: Abnormal Lab Results - Last 24 Hours (Table) 12/05/21 12/05/21 12/06/21 Range/Units 12:17 20:42 04:31 RBC (4.30-5.90) m/uL Hgb (13.0-17.5) gm/dL Hct (39.0-53.0) % MCV (80.0-100.0) fL RDW (11.5-15.5) % Plt Count (150-450) k/uL Lymphocytes # (1.0-4.8) k/uL Macrocytosis PT 12.5 H (9.0-12.0) sec INR 1.2 H (<1.2) APTT 43.0 H (22.0-30.0) sec Sodium (137-145) mmol/L Potassium (3.5-5.1) mmol/L Glucose (74-99) mg/dL POC Glucose (mg/dL) 128 H (70-110) mg/dL Calcium (8.4-10.2) mg/dL 12/06/21 12/06/21 12/06/21 Range/Units 05:03 05:03 05:03 RBC 2.60 L (4.30-5.90) m/uL Hgb 9.0 L (13.0-17.5) gm/dL Hct 28.6 L (39.0-53.0) % MCV 109.9 H (80.0-100.0) fL RDW 19.7 H (11.5-15.5) % Plt Count 147 L (150-450) k/uL Lymphocytes # 0.5 L (1.0-4.8) k/uL Macrocytosis Marked A PT 12.3 H (9.0-12.0) sec INR 1.2 H (<1.2) APTT 63.2 H (22.0-30.0) sec Sodium 136 L (137-145) mmol/L Potassium 3.4 L (3.5-5.1) mmol/L Glucose 114 H (74-99) mg/dL POC Glucose (mg/dL) (70-110) mg/dL Calcium 8.2 L (8.4-10.2) mg/dL Microbiology - Last 24 Hours (Table) 11/29/21 13:56 Blood Culture - Final Blood No Growth after 144 hours 11/29/21 13:50 Blood Culture - Final Blood No Growth after 144 hours Assessment and Plan (1) Mitral valve vegetation Status: Acute Code(s): I33.0 - ACUTE AND SUBACUTE INFECTIVE ENDOCARDITIS SN [facility] Code(s): 116322103 Plan: 1patient is a 89-year-old male with a past medical history significant for mitral valve repair in this patient presented to hospital with increasing shortness of breath fatigue and weakness but no fever no elevated wh ite count patient did have abnormal echo concerning for possible vegetation however the patient is clinically not behaving as infective endocarditis. 2blood culture has been obtained Which are negative so far, patient did have a mildly elevated CRP and a sed rate 3Patient case was discussed in detail with cardiology recommending no LAURA as a clinical suspicious for endocarditis is low, however now plans for possible TVAR procedure for which the patient underwent LAURA and cardiac cath, LAURA reports are currently pending, clinical suspicious is no for infective endocarditis, we will continue to monitor the patient closely off antibiotic therapy Time with Patient: Less than 30
--- NOTE | 2021-12-14 22:03 | P.PN ---
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 The patient is status post cardiac cath 12/06/2019 status post PCI to LAD, the patient also have a LAURA completed with report pending On today's evaluation that is 12/07/2021, the patient continues to be afebrile, the patient is breathing comfortably on room air , the patient denies chest pain , the patient denies any nausea or vomiting no abdominal pain or diarrhea Objective - Vital Signs Vital signs: Vital Signs Temp 97.8 F 12/07/21 11:56 Pulse 63 12/07/21 11:56 Resp 18 12/07/21 11:56 BP 124/64 12/07/21 11:56 Pulse Ox 99 12/07/21 11:56 FiO2 Intake & Output 12/06/21 12/07/21 12/07/21 18:59 06:59 18:59 Intake Total 466.587 10 368 Output Total 200 110 Balance 266.587 10 258 Intake: IV 10 10 Invasive Line 3 10 10 Intake, IV Titration 106.587 Amount Heparin Sod,Pork in 0.45% 106.587 NaCl 25,000 unit In 0.45 % NaCl 1 250ml.bag @ 18 UNITS/KG/HR 11.682 mls/hr IV .[id number] [facility] Rx#: [id number] Oral 360 358 Output: Gastric Drainage 0 Urine 200 110 Stool 0 Urine/Stool Mix 0 Other: Voiding Method Urinal Urinal # Voids 0 1 # Bowel Movements 0 - Exam GENERAL DESCRIPTION elderly male lying in bed, no distress. No tachypnea or accessory muscle of respiration use. LUNGS: Unlabored breathing. Decreased breath sound at the base HEART: S1, S2, regular rate and rhythm ABDOMEN: Soft, no tenderness , guarding or rigidity, no organomegaly EXTREMITIES: No edema of feet. - Labs CBC & Chem 7: 12/07/21 07:54 12/07/21 07:54 Labs: Abnormal Lab Results - Last 24 Hours (Table) 12/07/21 12/07/21 Range/Units 07:54 07:54 RBC 2.84 L (4.30-5.90) m/uL Hgb 9.6 L (13.0-17.5) gm/dL Hct 31.9 L (39.0-53.0) % MCV 112.3 H (80.0-100.0) fL MCHC 30.0 L (31.0-37.0) g/dL RDW 19.1 H (11.5-15.5) % Plt Count 143 L (150-450) k/uL Macrocytosis Marked A Sodium 136 L (137-145) mmol/L Glucose 123 H (74-99) mg/dL Total Bilirubin 1.7 H (0.2-1.3) mg/dL Total Protein 5.6 L (6.3-8.2) g/dL Albumin 3.0 L (3.5-5.0) g/dL Assessment and Plan (1) Mitral valve vegetation Status: Acute Code(s): I33.0 - ACUTE AND SUBACUTE INFECTIVE ENDOCARDITIS SNOMED Code(s): 062812312 Plan: 1patient is a 89-year-old male with a past medical history significant for mitral valve repair in this patient presented to hospital with increasing shortness of breath fatigue and weakness but no fever no elevated white count patient did have abnormal echo concerning for possible vegetation however the patient is clinically not behaving as infective endocarditis. 2blood culture has been obtained Which are negative so far, patient did have a mildly elevated CRP and a sed rate 3Patient case was discussed in detail with cardiology recommending no LAURA as a clinical suspicious for endocarditis is low, however now plans for possible TVAR procedure for which the patient underwent LAURA and cardiac cath, LAURA was negative for any vegetation clinically not behaving as endocarditis culture-negative no need for any antibiotic on discharge Time with Patient: Less than 30
--- NOTE | 2021-12-15 08:53 | ECHOT ---
TRANSESOPHAGEAL ECHOCARDIOGRAM INDICATION To evaluate aortic stenosis. PROCEDURE NOTE: After obtaining informed consent, transesophageal echocardiogram was performed in left lateral position using an Omniplane probe. Local and IV sedation were obtained using 25 mcg of fentanyl. The patient tolerated the procedure well without any obvious immediate complications. Total sedation time was 10 minutes. FINDINGS: 1. Aortic valve is a 3-leaflet valve that is heavily calcified and shows severe restriction in leaflet mobility. Because of heavy calcification, it was difficult to obtain planimetry, but by 2D appearance, it appears severely stenosed. There is aznp-qi-onvarosp aortic regurgitation noted. Ascending aorta appears aneurysmally dilated. There is a mechanical valve in mitral position that has multiple echodense lesions attached to it. This could represent a pannus. There is moderate mitral regurgitation noted. 2. Left atrium appears enlarged. Right atrium and right ventricle seen within normal limits. There is no evidence of reik-wj-llbaz shunt by color-flow Doppler or right- to-left shunt by agitated saline contrast study across the interatrial septum. There is moderate tricuspid regurgitation noted. 3. Left ventricle appears enlarged shows severe LV systolic dysfunction with an ejection fraction of 30% to 35% with extensive hypokinesis involving the apex. CONCLUSIONS: Ischemic cardiomyopathy with severe LV dysfunction, heavily calcified aortic valve with severe aortic stenosis and moderate aortic regurgitation. Mechanical mitral valve with iain-nf-gmwfigxn mitral regurgitation and pannus over the valve. MMODL / IJN: [id number] /
== END 2021-12-07 12:47 | disposition home health service (06) | DRG 246 ==
LOC: EC 10:17 → 3SCARD 17:15 → INTOOBSV 17:15 → 3SCARD 20:35 → OBSVTOIN 11-30 11:09
PROVIDERS: ADMIT Internal Medicine; ATTEND Internal Medicine
PROC: B24BZZ4 Ultrasonography of Heart with Aorta, Transesophageal (ICD-10-PCS; 2021-12-04)
PROC: 027034Z Dilation of Coronary Artery, One Artery with Drug-eluting Intraluminal Device, Percutaneous Approach (ICD-10-PCS; principal; 2021-12-05 07:30)
PROC: B2111ZZ Fluoroscopy of Multiple Coronary Arteries using Low Osmolar Contrast (ICD-10-PCS; 2021-12-05 07:30)
PROC: B240ZZ3 Ultrasonography of Single Coronary Artery, Intravascular (ICD-10-PCS; 2021-12-05 07:30)
DX: T82.837A Hemorrhage due to cardiac prosthetic devices, implants and grafts, initial encounter (principal); I21.4 Non-ST elevation (NSTEMI) myocardial infarction; I50.23 Acute on chronic systolic (congestive) heart failure; N17.9 Acute kidney failure, unspecified; D58.9 Hereditary hemolytic anemia, unspecified; I48.21 Permanent atrial fibrillation; I27.20 Pulmonary hypertension, unspecified; I65.8 Occlusion and stenosis of other precerebral arteries; I11.0 Hypertensive heart disease with heart failure; I71.4 Abdominal aortic aneurysm, without rupture; I72.4 Aneurysm of artery of lower extremity; I70.1 Atherosclerosis of renal artery; I70.202 Unspecified atherosclerosis of native arteries of extremities, left leg; J44.9 Chronic obstructive pulmonary disease, unspecified; I08.3 Combined rheumatic disorders of mitral, aortic and tricuspid valves; I65.22 Occlusion and stenosis of left carotid artery; D53.9 Nutritional anemia, unspecified; D50.8 Other iron deficiency anemias; I95.9 Hypotension, unspecified; Z53.8 Procedure and treatment not carried out for other reasons; E78.5 Hyperlipidemia, unspecified; I25.10 Atherosclerotic heart disease of native coronary artery without angina pectoris; I25.5 Ischemic cardiomyopathy; R58 Hemorrhage, not elsewhere classified; R00.0 Tachycardia, unspecified; R09.89 Other specified symptoms and signs involving the circulatory and respiratory systems; R19.5 Other fecal abnormalities; R79.82 Elevated C-reactive protein (CRP); R59.0 Localized enlarged lymph nodes; N40.0 Benign prostatic hyperplasia without lower urinary tract symptoms; R53.81 Other malaise; K59.00 Constipation, unspecified; Z95.5 Presence of coronary angioplasty implant and graft; Z79.01 Long term (current) use of anticoagulants; Z87.19 Personal history of other diseases of the digestive system; Z98.890 Other specified postprocedural states; Z79.899 Other long term (current) drug therapy; Z90.49 Acquired absence of other specified parts of digestive tract; Z87.891 Personal history of nicotine dependence; Z95.2 Presence of prosthetic heart valve; Z87.01 Personal history of pneumonia (recurrent); Z90.89 Acquired absence of other organs; Z79.82 Long term (current) use of aspirin
CPT/HCPCS: 36415; 71046; 71275; 74174; 80048; 80053; 80074; 80076; 81003; 82565; 82607; 82728; 82746; 82747; 83010; 83036; 83540; 83550; 83605; 83615; 83735; 83880; 83921; 84443; 84484; 85025; 85027; 85045; 85610; 85652; 85730; 86140; 86850; 86900; 86901; 87040; 92978; 93005; 93306; 93312; 93320; 93325; 93454; 93880; 96361; 96365; 96368; 96375; 99285

== ENCOUNTER 2021-12-20 11:21 | Inpatient (IN) | payer MEDICARE ==
[2021-12-20 12:20] LABS: Anisocytosis Slight; Basophils % (A) 0 %; Eosinophils % (A) 0 %; HCT 41.6 % (39.0-53.0); HGB 12.4 gm/dL (13.0-17.5); Hypochromasia Marked; Lymphocytes # (A) 0.3 k/uL (1.0-4.8); Lymphocytes % (A) 6 %; MCH 32.5 pg (25.0-35.0); MCHC 29.8 g/dL (31.0-37.0); Macrocytosis Marked; Mean Platelet Volume 9.8; Monocytes # (A) 0.3 k/uL (0-1.0); Monocytes % (A) 5 %; Neutrophils # (A) 4.9 k/uL (1.3-7.7); Neutrophils % (A) 87 %; Platelet Count 124 k/uL (150-450); Poikilocytosis Slight; RBC 3.82 m/uL (4.30-5.90); RDW 17.4 % (11.5-15.5); WBC 5.6 k/uL (3.8-10.6)
--- NOTE | 2021-12-20 12:29 | ED ---
General Adult HPI - General Chief complaint: Recheck/Abnormal Lab/Rx Stated complaint: heart problems Time Seen by Provider: 12/20/21 11:43 Source: patient, family, RN notes reviewed Mode of arrival: wheelchair Limitations: no limitations - History of Present Illness Initial comments: 89-year-old male presents emergency dept with son for admission for possible aortic valve replacement. Patient recent hospitalization for CHF, dyspnea and which is found to have severe stenosis is scheduled to have TAVR buttocks Though this was canceled and was advised by Dr. Mason to come emergency department for admission for cardiothoracic procedure. Patient has had increasing weakness, recent dyspnea, leg swelling patient has chronic atrial fibrillation on anti coagulants. - Related Data Home Medications Medication Instructions Recorded Confirmed Atorvastatin [Lipitor] 40 mg PO HS 04/04/20 12/20/21 Ferrous Sulfate [Iron (65 MG 325 mg PO HS 07/07/21 12/20/21 Elemental)] Metoprolol Tartrate [Lopressor] 12.5 mg PO BID 07/07/21 12/20/21 Tamsulosin HCl [Flomax] 0.4 mg PO HS 07/07/21 12/20/21 Furosemide [Lasix] 40 mg PO DAILY 11/28/21 12/20/21 Warfarin Sodium [Jantoven] 3.75 mg PO MOFR@1800 12/20/21 12/20/21 Warfarin Sodium [Jantoven] 7.5 mg PO SUTUWETHSA@1800 12/20/21 12/20/21 polyethylene glycoL 3350 [Miralax] 17 gm PO HS PRN 12/20/21 12/20/21 Previous Rx's Medication Instructions Recorded Clopidogrel [Plavix] 75 mg PO DAILY #180 tab 12/07/21 Pantoprazole [Protonix] 40 mg PO AC-BID #60 tab 12/07/21 Allergies Allergy/AdvReac Type Severity Reaction Status Date / Time No Known Allergies Allergy Verified 12/20/21 12:37 Review of Systems ROS Statement: Those systems with pertinent positive or pertinent negative responses have been documented in the HPI. ROS Other: All systems not noted in ROS Statement are negative. Past Medical History Past Medical History: Atrial Fibrillation, Heart Failure, GI Bleed, Hyper lipidemia, Hypertension, Pneumonia, Vascular Disorder Additional Past Medical History / Comment(s): Hx of GI bleed; mitral regurgitation; aortic stenosis History of Any Multi-Drug Resistant Organisms: None Reported Past Surgical History: Appendectomy, Bladder Surgery Additional Past Surgical History / Comment(s): Mechanical mitral valve replacement August 2000. Left SFA angioplasty/arthrectomy/stent. Upper GI, Lower GI. Past Anesthesia/Blood Transfusion Reactions: No Reported Reaction Past Psychological History: No Psychological Hx Reported Smoking Status: Former smoker Past Alcohol Use History: None Reported Past Drug Use History: None Reported - Past Family History Father Family Medical History: No Reported History Mother Family Medical History: No Reported History General Exam Limitations: no limitations General appearance: alert, in no apparent distress Head exam: Present: atraumatic, normocephalic, normal inspection Eye exam: Present: normal appearance, PERRL, EOMI. Absent: scleral icterus, conjunctival injection, periorbital swelling Respiratory exam: Present: rales. Absent: normal lung sounds bilaterally, respiratory distress, wheezes, rhonchi, stridor Cardiovascular Exam: Present: regular rate, normal rhythm, systolic murmur. Absent: normal heart sounds, diastolic murmur, rubs, gallop, clicks Extremities exam: Present: pedal edema Back exam: Absent: CVA tenderness (R), CVA tenderness (L) Neurological exam: Present: alert Skin exam: Present: warm, dry, intact, normal color. Absent: rash Course Vital Signs 12/20/21 11:30 Temperature 97.9 F Pulse Rate 76 Respiratory 16 Rate Blood Pressure 102/69 O2 Sat by Pulse 99 Oximetry Medical Decision Making - Medical Decision Making 89-year-old presented for admission for aortic valve replacement. Patient's found to have significantly BMP, pulmonary edema changes. Patient does have CHF exacerbation associated with. Patient will be admitted with consult to cardiology, cardiothoracic. - Lab Data Result diagrams: 12/20/21 12:06 12/20/21 12:48 Lab Results 12/20/21 12/20/21 12/20/21 Range/Units 12:06 12:06 12:06 WBC 5.6 (3.8-10.6) k/uL RBC 3.82 L (4.30-5.90) m/uL Hgb 12.4 L (13.0-17.5) gm/dL Hct 41.6 (39.0-53.0) % MCV 109.0 H (80.0-100.0) fL MCH 32.5 (25.0-35.0) pg MCHC 29.8 L (31.0-37.0) g/dL RDW 17.4 H (11.5-15.5) % Plt Count 124 L (150-450) k/uL MPV 9.8 Neutrophils % 87 % Lymphocytes % 6 % Monocytes % 5 % Eosinophils % 0 % Basophils % 0 % Neutrophils # 4.9 (1.3-7.7) k/uL Lymphocytes # 0.3 L (1.0-4.8) k/uL Monocytes # 0.3 (0-1.0) k/uL Eosinophils # 0.0 (0-0.7) k/uL Basophils # 0.0 (0-0.2) k/uL Manual Slide Review Performed Hypochromasia Marked Poikilocytosis Slight Anisocytosis Slight Macrocytosis Marked A PT 57.3 H (9.0-12.0) sec INR 5.7 H* (<1.2) APTT 40.2 H (22.0-30.0) sec Sodium (137-145) mmol/L Potassium (3.5-5.1) mmol/L Chloride (98-107) mmol/L Carbon Dioxide (22-30) mmol/L Anion Gap mmol/L BUN (9-20) mg/dL Creatinine (0.66-1.25) mg/dL Est GFR (CKD-EPI)AfAm (>60 ml/min/1.73 sqM) Est GFR (CKD-EPI)NonAf (>60 ml/min/1.73 sqM) Glucose (74-99) mg/dL Calcium (8.4-10.2) mg/dL Total Bilirubin (0.2-1.3) mg/dL Troponin I (0.000-0.034) ng/mL NT-Pro-B Natriuret Pep 57014 pg/mL Total Protein (6.3-8.2) g/dL Albumin (3.5-5.0) g/dL 12/20/21 12/20/21 Range/Units 12:48 12:48 WBC (3.8-10.6) k/uL RBC (4.30-5.90) m/uL Hgb (13.0-17.5) gm/dL Hct (39.0-53.0) % MCV (80.0-100.0) fL MCH (25.0-35.0) pg MCHC (31.0-37.0) g/dL RDW (11.5-15.5) % Plt Count (150-450) k/uL MPV Neutrophils % % Lymphocytes % % Monocytes % % Eosinophils % % Basophils % % Neutrophils # (1.3-7.7) k/uL Lymphocytes # (1.0-4.8) k/uL Monocytes # (0-1.0) k/uL Eosinophils # (0-0.7) k/uL Basophils # (0-0.2) k/uL Manual Slide Review Hypochromasia Poikilocytosis Anisocytosis Macrocytosis PT (9.0-12.0) sec INR (<1.2) APTT (22.0-30.0) sec Sodium 136 L (137-145) mmol/L Potassium 3.2 L (3.5-5.1) mmol/L Chloride 97 L (98-107) mmol/L Carbon Dioxide 26 (22-30) mmol/L Anion Gap 13 mmol/L BUN 32 H (9-20) mg/dL Creatinine 1.21 (0.66-1.25) mg/dL Est GFR (CKD-EPI)AfAm 61 (>60 ml/min/1.73 sqM) Est GFR (CKD-EPI)NonAf 53 (>60 ml/min/1.73 sqM) Glucose 117 H (74-99) mg/dL Calcium 8.5 (8.4-10.2) mg/dL Total Bilirubin 3.0 H (0.2-1.3) mg/dL Troponin I 0.112 H* (0.000-0.034) ng/mL NT-Pro-B Natriuret Pep pg/mL Total Protein 6.3 (6.3-8.2) g/dL Albumin 3.4 L (3.5-5.0) g/dL Disposition Clinical Impression: Aortic valve stenosis, CHF (congestive heart failure), Atrial fibrillation Disposition: ADMITTED IP TO THIS HOSP Condition: Poor Referrals: Murtaza Lopez MD [Primary Care Provider] - 1-2 days Time of Disposition: 14:06
[2021-12-20 12:41] LABS: Partial Thromboplastin Time 40.2 sec (22.0-30.0); Prothrombin Time 57.3 sec (9.0-12.0)
--- NOTE | 2021-12-20 12:57 | XR ---
EXAMINATION TYPE: XR chest 1V portable DATE OF EXAM: 12/20/2021 COMPARISON: 11/28/2021 INDICATION: Short of breath TECHNIQUE: Single frontal view of the chest is obtained. FINDINGS: The heart size is moderately prominent.. The pulmonary vasculature is prominent. Left lower lobe infiltrate is present. A small to moderate left pleural effusion is present. Minimal right pleural effusion with costophrenic angle is present. Right lower lobe infiltrate is present. St ernotomy wires are present. IMPRESSION: 1. Cardiomegaly with prominent pulmonary vascular markings and pleural effusions. Correlate for conge stive heart failure. 2. Bibasilar infiltrates. Differential diagnosis would include atelectasis and pneumonia. Atypical pu lmonary edema could be considered.
[2021-12-20 13:05] LABS: INR 5.7 (<1.2)
[2021-12-20 13:13] LABS: Albumin 3.4 g/dL (3.5-5.0); Calcium 8.5 mg/dL (8.4-10.2); Potassium 3.2 mmol/L (3.5-5.1); Total Protein 6.3 g/dL (6.3-8.2)
[2021-12-20] MEDS ORDERED: NALOXONE 0.4 MG/ML 1 ML VIAL IV PRN (14:06)
[2021-12-20] MEDS ORDERED: ONDANSETRON 4 MG/2 ML VIAL IVP PRN (14:06)
[2021-12-20] MEDS ORDERED: ACETAMINOPHEN TAB 325 MG TAB PO PRN (14:06)
[2021-12-20] MEDS ORDERED: FUROSEMIDE 10 MG/ML 4 ML VIAL IV STA (14:08)
[2021-12-20] MEDS ORDERED: POTASSIUM CHLORIDE ER 20 MEQ TAB.ER PO STA (14:28)
[2021-12-20 15:12] LABS: Magnesium 2.1 mg/dL (1.6-2.3)
--- NOTE | 2021-12-20 15:45 | P.HPIM ---
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 He was called by his signal circuit designer Dr. Meraz and urged to go to the ED for further workup and management of his severe aortic stenosis. Patient currently reports worsening lower extremity swelling. He reports exertional shortness of breath. He denies any headache, nausea or vomiting, fever or chills, cough, chest pain, palpitations, changes in urination or bowel habits. No changes in appetite or weight. He denies any dizziness, numbness/weakness/tingling of the extremities. In the ED, he was noted to be tachypneic and O2 saturation of 91% on room air. Vital signs were otherwise s table. CBC showed hemoglobin of 12.4 and MCV of 109. INR was 5.7. CMP showed sodium of 136, potassium of 3.2, chloride of 97, BUN of 32, glucose 116, total bilirubin of 3, AST of 66, ALT of 92, alkaline phosphatase of 149. Troponin was 0.112, EKG showing atrial fibrillation with T-wave inversion Q waves and voltage criteria for LVH. BNP was 35,200. Chest x-ray showed cardiomegaly with pulmon darshana vascular congestion and pleural effusion with bibasilar infiltrates. Review of systems is performed and is negative except above. General: non toxic, no distress, appears at stated age Derm: warm, dry Head: atraumatic, normocephalic, symmetric Eyes: EOMI, no lid lag, anicteric sclera Mouth: no lip lesion, mucus membranes moist Cardiovascular: S1S2 reg, no murmur, positive DP pulse bilateral, sternal scar Lungs: Decreased breath sounds bilateral, no rhonchi, no rales , no accessory muscle use Abdominal: soft, nontender to palpation, no guarding, no appreciable organomegaly Ext: no gross muscle atrophy, 2+ pitting bilateral lower extremity edema, no contractures Neuro: CN II-XI grossly intact, no focal neuro deficits Psych: Alert, oriented, appropriate affect #Acute on chronic systolic CHF exacerbation, EF 25-30% #Severe aortic stenosis #Troponin elevation with history of CAD #Supratherapeutic INR #Hemolytic anemia #Hypokalemia #Prerenal azotemia #Transaminitis Chronic conditions: Femoral aneurysm, infrarenal AAA, hypertension, dyslipidemia, atrial fibrillation, BPH Patient be started on Lasix 40 mg IV twice a day. Strict intake and output will be ordered along with daily weights. Maintain K > 4 and Mg > 2. Cardiology and cardiothoracic surgery will be consulted for further management of this patient. This is likely troponin leak due to CHF. Trend troponin/EKG to rule out ACS. Telemetry monitoring. Echocardiogram and cardiac cath recently done during previous hospitalization. Restart Plavix, metoprolol and Lipitor. Patient with no active signs of bleeding. Daily INR. Coumadin dosed per pharmacy. 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 Likely related to severe aortic stenosis. Transfuse if hemoglobin less than 7. Potassium replace with potassium chloride 40 mEq by mouth. Repeat BMP tomorrow morning. Patient with BUN 32, creatinine 1.21. Possibly related to dehydration versus diuretic use. Patient encouraged hydration by mouth. Avoid IVF due to volume overloaded state. Total bilirubin 3, AST of 66, ALT 92. Possibly related to be venous congestion from CHF. We will obtain liver and gallbladder ultrasound. Patient will need to see vascular surgery in the outpatient setting regarding femoral and infrarenal aneurysm. Monitor vitals and adjust medication if necessary. Restart Flomax for history of BPH. DVT prophylaxis: Warfarin Discussed with: Patient, family, ED physician Anticipated discharge: 2-[address]: Home A total of 45 minutes was spent on the care of this complex patient more than 50% of the time was spent in counseling and care coordination. Patient names his son's decision maker if he can't make decisions for himself. Patient would like to be full code especially for any possible procedures. Past Medical History Past Medical History: Atrial Fibrillation, Heart Failure, GI Bleed, Hyperlipidemia, Hypertension, Pneumonia, Vascular Disorder Additional Past Medical History / Comment(s): Hx of GI bleed; mitral regurgitation; aortic stenosis History of Any Multi-Drug Resistant Organisms: None Reported Past Surgical History: Appendectomy, Bladder Surgery Additional Past Surgical History / Comment(s): Mechanical mitral valve replace ment August 2000. Left SFA angioplasty/arthrectomy/stent. Upper GI, Lower GI. Past Anesthesia/Blood Transfusion Reactions: No Reported Reaction Past Psychological History: No Psychological Hx Reported Smoking Status: Former smoker Past Alcohol Use History: None Reported Past Drug Use History: None Reported - Past Family History Father Family Medical History: No Reported History Mother Family Medical History: No Reported History Medications and Allergies Home Medications Medication Instructions Recorded Confirmed Type Atorvastatin [Lipitor] 40 mg PO HS 04/04/20 12/20/21 History Ferrous Sulfate [Iron (65 MG 325 mg PO HS 07/07/21 12/20/21 History Elemental)] Metoprolol Tartrate [Lopressor] 12.5 mg PO BID 07/07/21 12/20/21 History Tamsulosin HCl [Flomax] 0.4 mg PO HS 07/07/21 12/20/21 History Furosemide [Lasix] 40 mg PO DAILY 11/28/21 12/20/21 History Clopidogrel [Plavix] 75 mg PO DAILY #180 tab 12/07/21 12/20/21 Rx Pantoprazole [Protonix] 40 mg PO AC-BID #60 tab 12/07/21 12/20/21 Rx Warfarin Sodium [Jantoven] 3.75 mg PO MOFR@1800 12/20/21 12/20/21 History Warfarin Sodium [Jantoven] 7.5 mg PO SUTUWETHSA@1800 12/20/21 12/20/21 History polyethylene glycoL 3350 [Miralax] 17 gm PO HS PRN 12/20/21 12/20/21 History Allergies Allergy/AdvReac Type Severity Reaction Status Date / Time No Known Allergies Allergy Verified 12/20/21 12:37 Physical Exam Vitals: Vital Signs Temp Pulse Resp BP Pulse Ox 12/20/21 14:30 95 26 H 123/63 91 L 12/20/21 14:00 82 43 H 117/76 97 12/20/21 13:30 90 22 101/62 95 12/20/21 13:00 83 22 102/65 93 L 12/20/21 12:00 84 31 H 108/58 98 12/20/21 11:47 92 28 H 86 L 12/20/21 11:30 97.9 F 76 16 102/69 99 Intake and Output 12/20/21 12/20/21 12/20/21 06:59 14:59 22:59 Output Total 300 Balance -300 Output: Urine 300 Other: Weight 65.771 kg Results CBC & Chem 7: 12/20/21 12:06 12/20/21 12:48 Labs: Abnormal Lab Results - Last 24 Hours (Table) 12/20/21 12/20/21 12/20/21 Range/Units 12:06 12:06 12:48 RBC 3.82 L (4.30-5.90) m/uL Hgb 12.4 L (13.0-17.5) gm/dL MCV 109.0 H (80.0-100.0) fL MCHC 29.8 L (31.0-37.0) g/dL RDW 17.4 H (11.5-15.5) % Plt Count 124 L (150-450) k/uL Lymphocytes # 0.3 L (1.0-4.8) k/uL Macrocytosis Marked A PT 57.3 H (9.0-12.0) sec INR 5.7 H* (<1.2) APTT 40.2 H (22.0-30.0) sec Sodium (137-145) mmol/L Potassium (3.5-5.1) mmol/L Chloride (98-107) mmol/L BUN (9-20) mg/dL Glucose (74-99) mg/dL Total Bilirubin (0.2-1.3) mg/dL AST (17-59) U/L ALT (4-49) U/L Alkaline Phosphatase (38-126) U/L Troponin I 0.112 H* (0.000-0.034) ng/mL Albumin (3.5-5.0) g/dL 12/20/21 Range/Units 12:48 RBC (4.30-5.90) m/uL Hgb (13.0-17.5) gm/dL MCV (80.0-100.0) fL MCHC (31.0-37.0) g/dL RDW (11.5-15.5) % Plt Count (150-450) k/uL Lymphocytes # (1.0-4.8) k/uL Macrocytosis PT (9.0-12.0) sec INR (<1.2) APTT (22.0-30.0) sec Sodium 136 L (137-145) mmol/L Potassium 3.2 L (3.5-5.1) mmol/L Chloride 97 L (98-107) mmol/L BUN 32 H (9-20) mg/dL Glucose 117 H (74-99) mg/dL Total Bilirubin 3.0 H (0.2-1.3) mg/dL AST 66 H (17-59) U/L ALT 92 H (4-49) U/L Alkaline Phosphatase 149 H (38-126) U/L Troponin I (0.000-0.034) ng/mL Albumin 3.4 L (3.5-5.0) g/dL
--- NOTE | 2021-12-20 16:28 | P.GSCN ---
History of Present Illness Consult date: 12/20/21 Reason for Consult: Known to us from valve clinic, severe aortic stenosis Requesting physician: Naga Contreras History of present illness: This is an 89-year-old very frail gentleman who follows on an outpatient basis w orlando Lopez for primary care and Dr. Meraz for cardiology. He has a previous medical history of permanent atrial fibrillation, known severe aortic stenosis, severe mitral regurgitation is mechanical mitral valve replacement 09/10/[address] Lee, hypertension, hyperlipidemia, peripheral arterial disease with bilateral SFA disease with balloon angioplasty/arthrectomy/stenting of the left SFA, chronic anemia with GI workup revealing no active bleeding, previous tobacco dependence (quit smoking 40 years ago). He was recently hospitalized at [facility] for acute on chronic anemia, acute systolic heart failure exacerbation, acute renal failure, amongst other diagnoses. During his hospitalization he underwent heart catheterization with PCI to the LAD. He also had a transthoracic echocardiogram demonstrating reduced left ventricular systolic function with EF 25-30%, severe aortic stenosis with peak/mean gradient 74/46 mmHg, V max 4.3 m/s, mild aortic insufficiency, moderate mitral regurgitation, and mild to moderate tricuspid regurgitation. LAURA was also completed demonstrating trileaflet aortic valve with ischemic cardiomyopathy and severe LV dysfunction, EF 30-35%, heavily calcified aortic valve with severe aortic stenosis and moderate aortic regurgitation as well as multiple moderate mitral regurgitation with hand was present on the mechanical mitral valve. Due to these findings consultation was placed at that time to cardiothoracic surgery to begin TAVR workup. TAVR testing was completed and the patient was discharged home to return on December 11 to [facility]. At that time he was seen by Dr. Aparicio and Dr. Adorno. The patient reported extreme weakness, especially in his legs and he was in a wheelchair. He had been offered subacute rehab at prior admission but did not want to go, however he has had home physical therapy. He also reported poor nutrition due to lack of appetite. His STS risk for surgical aortic valve replacement was 10% with incremental risk of 16%. A very lengthy discussion took place between Dr. Adorno and Dr. Aparicio with the patient and his son regarding expectations and risks of TAVR. The patient appeared fairly debilitated and weak with minimal exertion. Discussion was had that debility and weakness were likely not coming solely from the valve and they would like to see him improve his strength somewhat. The son reported that the patient has had much difficulty sleeping as he has very high anxiety, he felt that if the patient could get some good sleep he may feel a little better. In addition access for the TAVR may be problematic, it appears he may have adequate left subclavian or left carotid access but the femoral access would be inadequate. The decision was made at that time to further discuss with the entire structural heart team the best approach, in the meantime the patient was instructed to continue to work with physical therapy to improve his strength and work on improving his nutrition. Subsequently discussion took place amongst the structural heart team and it was felt that balloon valvuloplasty may be a consideration to bridge. The patient presented again to [facility] today at per the son at the request of Dr. Meraz. Chest x-ray demonstrates cardiomegaly with pleural effusions. INR 5.7, BNP 35,200, AST 66, ALT 92, troponins chronically elevated. Patient to be admitted for evaluation and treatment. Cardiothoracic surgery was consulted due to aortic stenosis. Review of Systems Review of systems was completed and was negative except as noted - Cardiovascular Reports as per HPI, Reports decreased exercise tolerance, Reports dyspnea on exertion, Reports leg edema, Reports shortness of breath - Gastrointestinal Reports as per HPI, Reports loss of appetite - Musculoskeletal Reports as per HPI, Reports muscle weakness - Psychiatric Reports as per HPI, Reports anxiety, Reports anxiety attacks Past Medical History Past Medical History: Atrial Fibrillation, Heart Failure, GI Bleed, Hyperlipidemia, Hypertension, Pneumonia, Vascular Disorder Additional Past Medical History / Comment(s): Hx of GI bleed; mitral regurgitation; aortic stenosis History of Any Multi-Drug Resistant Organisms: None Reported Past Surgical History: Appendectomy, Bladder Surgery Additional Past Surgical History / Comment(s): Mechanical mitral valve replacement August 2000. Left SFA angioplasty/arthrectomy/stent. Upper GI, Lower GI. Past Anesthesia/Blood Transfusion Reactions: No Reported Reaction Past Psychological History: No Psychological Hx Reported Smoking Status: Former smoker Past Alcohol Use History: None Reported Past Drug Use History: None Reported - Past Family History Father Family Medical History: No Reported History Mother Family Medical History: No Reported History Medications and Allergies Home Medications Medication Instructions Recorded Confirmed Type Atorvastatin [Lipitor] 40 mg PO HS 04/04/20 12/20/21 History Ferrous Sulfate [Iron (65 MG 325 mg PO HS 07/07/21 12/20/21 History Elemental)] Metoprolol Tartrate [Lopressor] 12.5 mg PO BID 07/07/21 12/20/21 History Tamsulosin HCl [Flomax] 0.4 mg PO HS 07/07/21 12/20/21 History Furosemide [Lasix] 40 mg PO DAILY 11/28/21 12/20/21 History Clopidogrel [Plavix] 75 mg PO DAILY #180 tab 12/07/21 12/20/21 Rx Pantoprazole [Protonix] 40 mg PO AC-BID #60 tab 12/07/21 12/20/21 Rx Warfarin Sodium [Jantoven] 3.75 mg PO MOFR@1800 12/20/21 12/20/21 History Warfarin Sodium [Jantoven] 7.5 mg PO SUTUWETHSA@1800 12/20/21 12/20/21 History polyethylene glycoL 3350 [Miralax] 17 gm PO HS PRN 12/20/21 12/20/21 History Allergies Allergy/AdvReac Type Severity Reaction Status Date / Time No Known Allergies Allergy Verified 12/20/21 12:37 Surgical - Exam Vital Signs Temp Pulse Resp BP Pulse Ox 97.9 F 76 16 102/69 99 12/20/21 11:30 12/20/21 11:30 12/20/21 11:30 12/20/21 11:30 12/20/21 11:30 CONSTITUTIONAL: Awake and alert, appears comfortable, cooperative, no acute distress EYES: Pupils equal, round, reactive to light, normal ocular movement ENT: Moist mucous membranes without oral lesions present, very hard of hearing, poor dentition with missing teeth NECK: No masses, no bruits, trachea midline RESPIRATORY: Lungs sounds diminished bilaterally with crackles in the bases. Respirations even, nonlabored. Currently on room air with oxygen saturation 97%. CARDIOVASCULAR: S1, S2 present. Irregular rate and rhythm, atrial fibrillation on telemetry. Palpable peripheral pulses bilaterally. 2-3+ pitting lower extr emity edema present. No calf pain or tenderness noted. GASTROINTESTINAL: Abdomen soft, nontender, nondistended without masses or organomegaly noted. There is no rebound or guarding present. Active bowel sounds present 4 quadrants. GENITOURINARY: Voiding clear, yellow urine per urinal INTEGUMENTARY: Skin is warm and dry NEUROLOGIC: Cranial nerves II through XII intact, normal coordination, no obvious motor or sensory deficits, speech is normal MUSKULOSKELETAL: Able to move all extremities, strength equal bilaterally, normal posture PSYCHIATRIC: Alert and oriented to person place and time Results - Labs 12/20/21 12:06 12/20/21 12:48 Abnormal Lab Results - Last 24 Hours (Table) 12/20/21 12/20/21 12/20/21 Range/Units 12:06 12:06 12:48 RBC 3.82 L (4.30-5.90) m/uL Hgb 12.4 L (13.0-17.5) gm/dL MCV 109.0 H (80.0-100.0) fL MCHC 29.8 L (31.0-37.0) g/dL RDW 17.4 H (11.5-15.5) % Plt Count 124 L (150-450) k/uL Lymphocytes # 0.3 L (1.0-4.8) k/uL Macrocytosis Marked A PT 57.3 H (9.0-12.0) sec INR 5.7 H* (<1.2) APTT 40.2 H (22.0-30.0) sec Sodium (137-145) mmol/L Potassium (3.5-5.1) mmol/L Chloride (98-107) mmol/L BUN (9-20) mg/dL Glucose (74-99) mg/dL Total Bilirubin (0.2-1.3) mg/dL AST (17-59) U/L ALT (4-49) U/L Alkaline Phosphatase (38-126) U/L Troponin I 0.112 H* (0.000-0.034) ng/mL Albumin (3.5-5.0) g/dL 12/20/21 Range/Units 12:48 RBC (4.30-5.90) m/uL Hgb (13.0-17.5) gm/dL MCV (80.0-100.0) fL MCHC (31.0-37.0) g/dL RDW (11.5-15.5) % Plt Count (150-450) k/uL Lymphocytes # (1.0-4.8) k/uL Macrocytosis PT (9.0-12.0) sec INR (<1.2) APTT (22.0-30.0) sec Sodium 136 L (137-145) mmol/L Potassium 3.2 L (3.5-5.1) mmol/L Chloride 97 L (98-107) mmol/L BUN 32 H (9-20) mg/dL Glucose 117 H (74-99) mg/dL Total Bilirubin 3.0 H (0.2-1.3) mg/dL AST 66 H (17-59) U/L ALT 92 H (4-49) U/L Alkaline Phosphatase 149 H (38-126) U/L Troponin I (0.000-0.034) ng/mL Albumin 3.4 L (3.5-5.0) g/dL Diabetes panel 12/20/21 Range/Units 12:48 Sodium 136 L (137-145) mmol/L Potassium 3.2 L (3.5-5.1) mmol/L Chloride 97 L (98-107) mmol/L Carbon Dioxide 26 (22-30) mmol/L BUN 32 H (9-20) mg/dL Creatinine 1.21 (0.66-1.25) mg/dL Glucose 117 H (74-99) mg/dL Calcium 8.5 (8.4-10.2) mg/dL AST 66 H (17-59) U/L ALT 92 H (4-49) U/L Alkaline Phosphatase 149 H (38-126) U/L Total Protein 6.3 (6.3-8.2) g/dL Albumin 3.4 L (3.5-5.0) g/dL Calcium panel 12/20/21 Range/Units 12:48 Calcium 8.5 (8.4-10.2) mg/dL Albumin 3.4 L (3.5-5.0) g/dL Pituitary panel 12/20/21 Range/Units 12:48 Sodium 136 L (137-145) mmol/L Potassium 3.2 L (3.5-5.1) mmol/L Chloride 97 L (98-107) mmol/L Carbon Dioxide 26 (22-30) mmol/L BUN 32 H (9-20) mg/dL Creatinine 1.21 (0.66-1.25) mg/dL Glucose 117 H (74-99) mg/dL Calcium 8.5 (8.4-10.2) mg/dL Adrenal panel 12/20/21 Range/Units 12:48 Sodium 136 L (137-145) mmol/L Potassium 3.2 L (3.5-5.1) mmol/L Chloride 97 L (98-107) mmol/L Carbon Dioxide 26 (22-30) mmol/L BUN 32 H (9-20) mg/dL Creatinine 1.21 (0.66-1.25) mg/dL Glucose 117 H (74-99) mg/dL Calcium 8.5 (8.4-10.2) mg/dL Total Bilirubin 3.0 H (0.2-1.3) mg/dL AST 66 H (17-59) U/L ALT 92 H (4-49) U/L Alkaline Phosphatase 149 H (38-126) U/L Total Protein 6.3 (6.3-8.2) g/dL Albumin 3.4 L (3.5-5.0) g/dL - Imaging Chest x-ray: report reviewed, image reviewed EKG: image reviewed Assessment and Plan Assessment: 1. Known severe aortic stenosis, aortic valve area 0.6 cm, peak velocity 4.3 m/s, mean gradient 46 mmHg 2. Progressive shortness of breath, weakness, debility 3. Chronic anemia, previous GI workup revealing no active bleeding 4. Chronic systolic heart failure, cardiomyopathy, EF 25-30%, moderate pul monary hypertension, mild to moderate tricuspid regurgitation on current TTE 5. Permanent atrial fibrillation, currently on Coumadin 6. History of severe mitral regurgitation status post mechanical mitral valve replacement 09/10/[address] Lee with moderate mitral regurgitation on result TTE 7. History of hypertension 8. History of hyperlipidemia, treated 9. Peripheral arterial disease with bilateral SFA disease with balloon angioplasty/arthrectomy/stenting of the left SFA 10. Previous tobacco dependence (quit smoking 40 years ago) with moderate COPD, FEV1 52% of predicted 11. 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 The case was discussed earlier in the day with Dr. Moss after the patient's son called us regarding advice about coming to the emergency room. Our recommendations continue to be for balloon valvuloplasty as a bridge until patient can get strong enough to be considered for TAVR. This was discussed with the sons and the patient and they are frustrated but do understand. The patient is very motivated to work to get better as his quality of life has significantly declined in the last few weeks. Recommend maximizing heart failure management, improve nutrition, continue with physical therapy. We'll defer planning of balloon valvuloplasty to cardiology. Medical management of other comorbidities per primary care service. Thank you for this consult, we will continue to follow patient and make further recommendations as appropriate. I have personally seen and examined the patient, performed the documentation and the assessment and plan as written. Number of minutes spent on the visit: 30. Ludy Lamas, CHIRAGC
--- NOTE | 2021-12-20 16:47 | US ---
EXAMINATION TYPE: US liver DATE OF EXAM: 12/20/2021 COMPARISON: NONE CLINICAL HISTORY: add gallbladder. TECHNIQUE: Multiple sonographic images of the right upper quadrant are obtained. FINDINGS: EXAM MEASUREMENTS: Liver Length: 13.3 cm CBD: 0.5 cm Right Kidney: 9.3 x 4.7 x 4.3 cm Pancreas: Tail obscured by overlying bowel gas Liver: cystic area = 1.0 x 1.1 x 1.3cm Gallbladder: Surgically absent Evidence for sonographic Ch's sign: no CBD: wnl Right Kidney: no evidence of hydronephrosis Incidental finding: AAA = 5.2cm IMPRESSION: No evidence of a solid liver mass. No dilated ducts. Simple hepatic cyst. 5.2 cm abdominal aortic aneurysm is noted.
[2021-12-20] MEDS: METOPROLOL TARTRATE 12.5 MG TAB PO SCH (20:51)
[2021-12-20] MEDS: ATORVASTATIN 40 MG TAB PO SCH (20:52)
[2021-12-20] MEDS: PANTOPRAZOLE 40 MG TABLET PO SCH (20:52)
[2021-12-20] MEDS: TAMSULOSIN 0.4 MG CAP.ER.24H PO SCH (20:52)
[2021-12-20] MEDS: FERROUS SULFATE 325 MG TAB PO SCH (20:52)
[2021-12-20] MEDS ORDERED: FUROSEMIDE 10 MG/ML 4 ML VIAL IV SCH (21:00)
[2021-12-20] MEDS ORDERED: MELATONIN 5 MG TABLET PO SCH (23:00)
[2021-12-21] MEDS: PANTOPRAZOLE 40 MG TABLET PO SCH ×2 (06:37→16:33)
[2021-12-21 08:33] LABS: Prothrombin Time 72.9 sec (9.0-12.0)
[2021-12-21 08:35] LABS: Calcium 8.4 mg/dL (8.4-10.2); Potassium 3.6 mmol/L (3.5-5.1)
[2021-12-21 08:37] LABS: INR 7.2 (<1.2)
[2021-12-21] MEDS ORDERED: FUROSEMIDE 40 MG TAB PO SCH (09:00)
[2021-12-21] MEDS: METOPROLOL TARTRATE 12.5 MG TAB PO SCH ×2 (09:10→20:09)
[2021-12-21] MEDS: CLOPIDOGREL 75 MG TAB PO SCH (09:11)
[2021-12-21] MEDS: FUROSEMIDE 10 MG/ML 4 ML VIAL IV SCH (09:12)
[2021-12-21] MEDS ORDERED: ALPRAZolam 0.25 MG TAB PO STA (09:49)
[2021-12-21] MEDS ORDERED: PHYTONADIONE ORAL 5 MG/5 ML ORAL.SYRG PO STA (10:58)
--- NOTE | 2021-12-21 11:36 | P.PN ---
Subjective Progress Note Date: 12/21/21 Patient was seen and examined. No acute events overnight. Patient reports improved lower extremity swelling. No chest pain or shortness of breath. General: non toxic, no distress, appears at stated age Derm: warm, dry Head: atraumatic, normocephalic, symmetric Eyes: EOMI, no lid lag, anicteric sclera Mouth: no lip lesion, mucus membranes moist Cardiovascular: S1S2 reg, no murmur, positive DP pulse bilateral, sternal scar Lungs: Decreased breath sounds bilateral, no rhonchi, no rales , no accessory muscle use Ext: no gross muscle atrophy, 2+ pitting bilateral lower extremity edema, no contractures Neuro: no focal neuro deficits Psych: Alert, oriented, appropriate affect #Acute on chronic systolic CHF exacerbation, EF 25-30% #Severe aortic stenosis #Troponin elevation with history of CAD #Supratherapeutic INR #Hemolytic anemia #Prerenal azotemia #Transaminitis Chronic conditions: Femoral aneurysm, infrarenal AAA, hypertension, dyslipidemia, atrial fibrillation, BPH Patient be started on Lasix 40 mg IV daily. Strict intake and output will be ordered along with daily weights. Maintain K > 4 and Mg > 2. Cardiology and cardiothoracic surgery on board. Case discussed with Dr. Meraz, possible transfer to [facility] due to the high risk nature of balloon valvuloplasty. This is likely troponin leak due to CHF. Troponins flat, ACS ruled out. Telemetry monitoring. Echocardiogram and cardiac cath recently done during previous hospitalization. Restart Plavix, metoprolol and Lipitor. Patient with no active signs of bleeding. Daily INR. Coumadin dosed per pharmacy. One dose of Vitamin K 2.5 mg PO. 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 Likely related to severe aortic stenosis. Transfuse if hemoglobin less than 7. Patient with BUN 29, creatinine 1.21. Possibly related to dehydration versus diuretic use. Patient encouraged hydration by mouth. Avoid IVF due to volume overloaded state. Total bilirubin 3, AST of 66, ALT 92. Possibly related to be venous congestion from CHF. Gall bladder and Liver US shows no obstruction. Patient will need to see vascular surgery in the outpatient setting regarding femoral and infrarenal aneurysm. Monitor vitals and adjust medication if necessary. Restart Flomax for history of BPH. DVT prophylaxis: Warfarin Discussed with: Patient, Dr. Meraz, nursing Anticipated discharge: 2-[address]: Home A total of 25 minutes was spent on the care of this complex patient more than 50% of the time was spent in counseling and care coordination. Objective - Vital Signs Vital signs: Vital Signs Temp 98.0 F 12/21/21 08:00 Pulse 90 12/21/21 08:00 Resp 24 12/21/21 08:00 BP 106/65 12/21/21 08:00 Pulse Ox 97 12/21/21 08:00 FiO2 Intake & Output 12/20/21 12/21/21 12/21/21 18:59 06:59 18:59 Output Total 300 Balance -300 Weight 65.771 kg 65.771 kg Output: Urine 300 Other: Voiding Method Toilet Urinal # Bowel Movements 1 - Labs CBC & Chem 7: 12/20/21 12:06 12/21/21 07:53 Labs: Abnormal Lab Results - Last 24 Hours (Table) 12/20/21 12/20/21 12/20/21 Range/Units 12:06 12:06 12:48 RBC 3.82 L (4.30-5.90) m/uL Hgb 12.4 L (13.0-17.5) gm/dL MCV 109.0 H (80.0-100.0) fL MCHC 29.8 L (31.0-37.0) g/dL RDW 17.4 H (11.5-15.5) % Plt Count 124 L (150-450) k/uL Lymphocytes # 0.3 L (1.0-4.8) k/uL Macrocytosis Marked A PT 57.3 H (9.0-12.0) sec INR 5.7 H* (<1.2) APTT 40.2 H (22.0-30.0) sec Sodium (137-145) mmol/L Potassium (3.5-5.1) mmol/L Chloride (98-107) mmol/L BUN (9-20) mg/dL Glucose (74-99) mg/dL Total Bilirubin (0.2-1.3) mg/dL AST (17-59) U/L ALT (4-49) U/L Alkaline Phosphatase (38-126) U/L Troponin I 0.112 H* (0.000-0.034) ng/mL Albumin (3.5-5.0) g/dL 12/20/21 12/20/21 12/20/21 Range/Units 12:48 14:55 18:38 RBC (4.30-5.90) m/uL Hgb (13.0-17.5) gm/dL MCV (80.0-100.0) fL MCHC (31.0-37.0) g/dL RDW (11.5-15.5) % Plt Count (150-450) k/uL Lymphocytes # (1.0-4.8) k/uL Macrocytosis PT (9.0-12.0) sec INR (<1.2) APTT (22.0-30.0) sec Sodium 136 L (137-145) mmol/L Potassium 3.2 L (3.5-5.1) mmol/L Chloride 97 L (98-107) mmol/L BUN 32 H (9-20) mg/dL Glucose 117 H (74-99) mg/dL Total Bilirubin 3.0 H (0.2-1.3) mg/dL AST 66 H (17-59) U/L ALT 92 H (4-49) U/L Alkaline Phosphatase 149 H (38-126) U/L Troponin I 0.113 H* 0.104 H* (0.000-0.034) ng/mL Albumin 3.4 L (3.5-5.0) g/dL 12/21/21 12/21/21 Range/Units 07:53 07:53 RBC (4.30-5.90) m/uL Hgb (13.0-17.5) gm/dL MCV (80.0-100.0) fL MCHC (31.0-37.0) g/dL RDW (11.5-15.5) % Plt Count (150-450) k/uL Lymphocytes # (1.0-4.8) k/uL Macrocytosis PT 72.9 H (9.0-12.0) sec INR 7.2 H* (<1.2) APTT (22.0-30.0) sec Sodium 136 L (137-145) mmol/L Potassium (3.5-5.1) mmol/L Chloride (98-107) mmol/L BUN 29 H (9-20) mg/dL Glucose 143 H (74-99) mg/dL Total Bilirubin (0.2-1.3) mg/dL AST (17-59) U/L ALT (4-49) U/L Alkaline Phosphatase (38-126) U/L Troponin I (0.000-0.034) ng/mL Albumin (3.5-5.0) g/dL
[2021-12-21] MEDS ORDERED: ALPRAZolam 0.25 MG TAB PO PRN (15:27)
[2021-12-21] MEDS ORDERED: WARFARIN 0.5 MG TAB PO ONE (18:00)
[2021-12-21] MEDS: FERROUS SULFATE 325 MG TAB PO SCH (20:09)
[2021-12-21] MEDS: TAMSULOSIN 0.4 MG CAP.ER.24H PO SCH (20:09)
[2021-12-21] MEDS: ATORVASTATIN 40 MG TAB PO SCH (20:09)
--- NOTE | 2021-12-21 21:31 | CONS ---
CONSULTATION HISTORY OF PRESENT ILLNESS: Kailash is an 89-year-old gentleman with history of mitral valve replacement, permanent atrial fibrillation, severe aortic stenosis and chronic congestive heart failure, who was recently admitted to hospital and underwent cardiac catheterization and angioplasty of LAD and underwent workup for balloon valvuloplasty of the aortic stenosis. He was supposed to have this done on Saturday. When they called the hospital on Saturday, they found out that he was not scheduled for surgery. Both the patient and his son were extremely upset and called my office and the patient stated that he was becoming short of breath and described episodes of paroxysmal nocturnal dyspnea due to which I advised him to come to the emergency room. The patient's predominant symptom is in the form of shortness of breath and episodes [place] [address], troponins are mildly elevated, hemoglobin is 12.4, he has coagulopathy with an INR of 7.2. The patient has coagulopathy with an INR of 7.2. The patient had a CT scan of the chest and abdomen as part of his preparation for TAVR. He has extensive calcification of his vasculature almost from head to toe. He has an abdominal aortic aneurysm that measures over 5 cm, has extensive iliofemoral disease, has occlusion of the right subclavian artery and has [id number] disease involving left subclavian artery. The patient is probably best if he is to undergo aortic valve replacement, it is probably going to be done transcarotid. The marketing executive here who performed TAVR do not do transcarotid approach, hence I believe it is best that we send him to [facility] either for balloon valvuloplasty or aortic valve replacement. I discussed these issues at length with the patient. He is going to think it over and chat with his son and make a decision. If they are able to, we will transfer him on this admission to [facility]. PAST MEDICAL HISTORY: Significant for mitral valve replacement, ischemic cardiomyopathy, coronary artery disease, status post angioplasty of LAD, permanent atrial fibrillation, severe aortic stenosis, extensive peripheral arterial disease, and recurrent episodes of anemia and possible GI blood loss. MEDICATIONS: Include Coumadin, Flomax Protonix, Lopressor 12.5 b.i.d., Lasix 40 daily, Plavix 75 daily, iron, and Lipitor. ALLERGIES: There are no known drug allergies. FAMILY HISTORY: Negative for premature coronary artery disease. SOCIAL HISTORY: Negative for smoking, EtOH or drug abuse. REVIEW OF SYSTEMS: A review of systems has been performed, pertinence are as documented. PHYSICAL EXAMINATION: GENERAL: The patient is comfortable at rest, afebrile VITAL SIGNS: Heart rate is 90 beats per minute. Blood pressure is 106/65, respiratory rate 18, O2 saturation is 97% on room air. NECK: There is no jugular venous distention, there is no carotid bruit. CHEST: Exam reveals good air entry bilaterally. I do not hear any crackles or rhonchi. HEART: Exam reveals first and second heart sounds grade 4/6 ejection systolic murmur, mechanical valve sound is heard. ABDOMEN: Soft. EXTREMITIES: Revealed mild edema. Peripheral pulses are diminished. LABORATORY DATA: Showed an INR of 7.2, hemoglobin of 12.5, potassium is 3.6, creatinine is 1.2. Troponins are mildly elevated, BNP 38721. EKG on this admission reveals atrial fibrillation with poor R-wave progression and left axis deviation. A chest x-ray shows cardiomegaly with minimal right pleural effusion. ASSESSMENT AND PLAN: 1. Acute exacerbation of chronic systolic heart failure. 2. Severe aortic stenosis. 3. Status post mechanical mitral valve replacement. 4. Coagulopathy. 5. Permanent atrial fibrillation. PLAN: I will treat the patient with IV Lasix. Continue aspirin, Plavix, Lopressor that he is on. Hold the Coumadin as the patient has coagulopathy and arrange for transfer to [facility]. MMODL / IJN: [id number] /
[2021-12-22] MEDS: PANTOPRAZOLE 40 MG TABLET PO SCH ×2 (05:36→17:03)
[2021-12-22] MEDS: FUROSEMIDE 10 MG/ML 4 ML VIAL IV SCH (07:57)
[2021-12-22] MEDS: METOPROLOL TARTRATE 12.5 MG TAB PO SCH ×2 (07:58→19:48)
[2021-12-22] MEDS: CLOPIDOGREL 75 MG TAB PO SCH (07:58)
--- NOTE | 2021-12-22 09:36 | P.CONS ---
History of Present Illness - Reason for Consult Consult date: 12/22/21 wound care - History of Present Illness This is an 89-year-old patient with a past medical history significant for defibrillation, congestive heart failure, GI bleed, hyperlipidemia, hypertension, vascular disease. Patient is being seen on [address] for ulcerations to buttocks. Patient states that he had some redness and e xcoriation and thought possibly an open ulceration. Upon examination patient had no open ulcerations there was excoriation noted to bilateral groins and sacrum all skin is intact. Review Of Systems: Constitutional: No fever, no chills, no night sweats. No weight change. No weakness, fatigue or lethargy. No daytime sleepiness. Integumentary:reports wounds, no lesions. No rash or pruritus. No unusual bruising. No change in hair or nails. Physical exam: General Appearance: Alert, cooperative, no distress, appears stated age. Skin: See HPI all other Skin color, texture, tugor normal, no rashes or lesions. Neurologic: Alert oriented x3 Assessment: 1. Excoriation bilateral groins and sacrum 2. Stage I pressure ulcer sacrum Plan: 1. Apply triad cream to bilateral groins and sacrum daily. Thank you for the consultation any questions contact the wound care center DNP note has been reviewed and discussed with Dr. Boudreaux and the impression and plan of care has been directed as dictated. 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 Left SFA angioplasty/arthrectomy/stent. Upper GI, Lower GI. Past Anesthesia/Blood Transfusion Reactions: No Reported Reaction Past Psychological History: No Psychological Hx Reported Smoking Status: Never smoker Past Alcohol Use History: None Reported Past Drug Use History: None Reported - Past Family History Father Family Medical History: No Reported History Mother Family Medical History: No Reported History Medications and Allergies Home Medications Medication Instructions Recorded Confirmed Type Atorvastatin [Lipitor] 40 mg PO HS 04/04/20 12/20/21 History Ferrous Sulfate [Iron (65 MG 325 mg PO HS 07/07/21 12/20/21 History Elemental)] Metoprolol Tartrate [Lopressor] 12.5 mg PO BID 07/07/21 12/20/21 History Tamsulosin HCl [Flomax] 0.4 mg PO HS 07/07/21 12/20/21 History Furosemide [Lasix] 40 mg PO DAILY 11/28/21 12/20/21 History Clopidogrel [Plavix] 75 mg PO DAILY #180 tab 12/07/21 12/20/21 Rx Pantoprazole [Protonix] 40 mg PO AC-BID #60 tab 12/07/21 12/20/21 Rx Warfarin Sodium [Jantoven] 3.75 mg PO MOFR@1800 12/20/21 12/20/21 History Warfarin Sodium [Jantoven] 7.5 mg PO SUTUWETHSA@1800 12/20/21 12/20/21 History polyethylene glycoL 3350 [Miralax] 17 gm PO HS PRN 12/20/21 12/20/21 History Allergies Allergy/AdvReac Type Severity Reaction Status Date / Time No Known Allergies Allergy Verified 12/20/21 12:37 Physical Exam Vitals: Vital Signs Temp Pulse Resp BP Pulse Ox FiO2 12/22/21 07:54 97.9 F 98 20 119/64 99 12/22/21 07:30 97 40 12/22/21 04:00 98.0 F 98 18 121/69 98 12/22/21 00:00 77 19 125/82 98 12/21/21 20:00 98.0 F 105 H 19 130/82 99 12/21/21 16:20 40 12/21/21 15:52 97.8 F 90 22 124/58 98 12/21/21 13:04 93 12/21/21 11:00 93 22 123/64 98 Intake and Output 12/21/21 12/22/21 12/22/21 22:59 06:59 14:59 Other: Voiding Method Toilet Toilet Toilet Urinal Urinal Urinal Weight 61.4 kg Results CBC & Chem 7: 12/20/21 12:06 12/21/21 07:53 Assessment and Plan (1) Excoriation Current Visit: Yes Status: Acute Code(s): T14.8XXA - OTHER INJURY OF UNSPECIFIED BODY REGION, INITIAL ENCOUNTER SNOMED Code(s): 177787432 (2) Pressure ulcer of sacral region, stage 1 Current Visit: Yes Status: Acute Code(s): L89.151 - PRESSURE ULCER OF SACRAL REGION, STAGE 1 SNOMED Code(s): 06996251751416696
[2021-12-22 09:40] LABS: INR 2.3 (<1.2); Prothrombin Time 22.8 sec (9.0-12.0)
[2021-12-22 09:43] LABS: Calcium 8.5 mg/dL (8.4-10.2); Potassium 3.6 mmol/L (3.5-5.1)
[2021-12-22] MEDS: HYDROPHILIC CREAM 180 GM TUBE TOPICAL SCH (10:38)
--- NOTE | 2021-12-22 10:58 | P.PN ---
Subjective Progress Note Date: 12/22/21 Patient was seen and examined. No acute events overnight. Lower extremity swelling has significantly improved. Patient reports panic attacks-like symptoms that wakes him up only from sleeping. No anxiety while awake. General: non toxic, no distress, appears at stated age Derm: warm, dry Head: atraumatic, normocephalic, symmetric Eyes: EOMI, no lid lag, anicteric sclera Mouth: no lip lesion, mucus membranes moist Cardiovascular: S1S2 reg, no murmur, positive DP pulse bilateral, sternal scar Lungs: Decreased breath sounds bilateral, no rhonchi, no rales , no accessory muscle use Ext: no gross muscle atrophy, no edema, no contractures Neuro: no focal neuro deficits Psych: Alert, oriented, appropriate affect #Panic attacks #Acute on chronic systolic CHF exacerbation, EF 25-30% #Severe aortic stenosis #Troponin elevation with history of CAD #Supratherapeutic INR #Hemolytic anemia #Prerenal azotemia #Transaminitis Chronic conditions: Femoral aneurysm, infrarenal AAA, hypertension, dyslipid emia, atrial fibrillation, BPH His panic attacks is probably related to obstructive sleep apnea that is undiagnosed or Mary Sotomayor breathing. We attempted BiPAP overnight which patient could not tolerate. His symptoms have however improved with supplemental O2 per nasal cannula. Home O2 eval will be performed. He would benefit from oxygen at bedtime. Patient be started on Lasix 40 mg IV daily. Strict intake and output will be ordered along with daily weights. Maintain K > 4 and Mg > 2. Cardiology and cardiothoracic surgery on board. Case discussed with Dr. Meraz, plan is to discharge the patient home with outpatient follow-up at [facility] for possible balloon valvuloplasty. This is likely troponin leak due to CHF. Troponins flat, ACS ruled out. Telemetry monitoring. Echocardiogram and cardiac cath recently done during previous hospitalization. Restart Plavix, metoprolol and Lipitor. Patient with no active signs of bleeding. Daily INR. Coumadin dosed per pharmacy. 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 Likely related to severe aortic stenosis. Transfuse if hemoglobin less than 7. Patient with BUN 28, creatinine 1.19. Possibly related to dehydration versus diuretic use. Patient encouraged hydration by mouth. Avoid IVF due to volume overloaded state. Total bilirubin 3, AST of 66, ALT 92. Possibly related to be venous congestion from CHF. Gall bladder and Liver US shows no obstruction. Patient will need to see vascular surgery in the outpatient setting regarding femoral and infrarenal aneurysm. Monitor vitals and adjust medication if necessary. Restart Flomax for history of BPH. DVT prophylaxis: Warfarin Discussed with: Patient, Dr. Meraz, nursing Anticipated discharge: 1-[address]: Home A total of 25 minutes was spent on the care of this complex patient more than 50% of the time was spent in counseling and care coordination. Dr. Mason recommends additional day of diuresis. Plans to discharge the patient home tomorrow. He will need to follow-up with [facility] in the outpatient setting for possible balloon valvuloplasty. Objective - Vital Signs Vital signs: Vital Signs Temp 97.9 F 12/22/21 07:54 Pulse 98 12/22/21 07:54 Resp 20 12/22/21 07:54 BP 119/64 12/22/21 07:54 Pulse Ox 98 12/22/21 10:20 FiO2 40 12/22/21 07:30 Intake & Output 12/21/21 12/22/21 12/22/21 18:59 06:59 18:59 Weight 61.4 kg Other: Voiding Method Toilet Toilet Toilet Urinal Urinal Urinal # Bowel Movements 1 - Labs CBC & Chem 7: 12/20/21 12:06 12/22/21 08:21 Labs: Abnormal Lab Results - Last 24 Hours (Table) 12/22/21 12/22/21 Range/Units 08:21 08:21 PT 22.8 H (9.0-12.0) sec INR 2.3 H (<1.2) Sodium 136 L (137-145) mmol/L Chloride 96 L (98-107) mmol/L BUN 28 H (9-20) mg/dL Glucose 119 H (74-99) mg/dL
[2021-12-22] MEDS ORDERED: WARFARIN 3 MG TAB PO ONE (18:00)
[2021-12-22] MEDS: ATORVASTATIN 40 MG TAB PO SCH (19:48)
[2021-12-22] MEDS: FERROUS SULFATE 325 MG TAB PO SCH (19:48)
[2021-12-22] MEDS: TAMSULOSIN 0.4 MG CAP.ER.24H PO SCH (19:48)
--- NOTE | 2021-12-22 21:14 | CONS ---
CONSULTATION HISTORY OF PRESENT ILLNESS: Kailash is an 89-year-old gentleman with severe aortic stenosis, known CAD, status post prior angioplasty of LAD and mechanical mitral valve replacement and permanent atrial fibrillation, who is admitted to hospital with acute exacerbation of chronic systolic heart failure. We treated him with IV diuretics with improvement in his symptoms. His weight has dropped. His urine output is good, but he continues to have these episodes of panic attacks at night. He is doing much better with oxygen on. His pulse ox is okay on room air, but I think he would benefit from going home on home O2 especially at nighttime. I spoke to Dr. Huggins at [facility] regarding TAVR. The patient is going to be a high-risk TAVR given the vasculopathy, lack of access from the femoral arteries, and the occluded right subclavian artery. He is probably better off either with a caval approach or carotid approach for the TAVR if it is going to be done at home. They are going to review the data including the CT scan, angiograms, and LAURA, and schedule the procedure as outpatient. They are booked for the next 2 weeks and they would not be able to do it even if I transferred him over to [facility] on this admission. I spoke to the patient and his son and explained to him about these issues. They understand and are in agreement with the plans. I will leave him on IV Lasix for another day and hopefully we can send him home tomorrow with home O2. MEDICATIONS: The patient is currently on Lipitor, Plavix 75 mg daily, Lasix 40 IV daily, Zestril 2.5 mg daily, and Lopressor 12.5 b.i.d. PHYSICAL EXAMINATION: GENERAL: Patient is comfortable at rest. VITAL SIGNS: Afebrile, heart rate is 90 beats per minute, blood pressure is 120/64, O2 saturation is 99% on 3 L. NECK: There is no jugular venous distention. Carotid upstroke is diminished. There is no bruit. HEART: There is a grade 5/6 ejection systolic murmur in the aortic area. ABDOMEN: Soft. EXTREMITIES: Did not reveal any edema. Peripheral pulses are palpable. LABORATORY DATA: Labs are pending this morning. ASSESSMENT: 1. Acute exacerbation of chronic systolic heart failure, severe aortic stenosis, status post mechanical mitral valve replacement. 2. Permanent atrial fibrillation. 3. Ischemic cardiomyopathy. PLAN: We will continue with medical therapy. Hopefully home tomorrow and TAVR at [facility] in the outpatient setup. MMCHINA / KENDELLN: [id number] /
[2021-12-23] MEDS: PANTOPRAZOLE 40 MG TABLET PO SCH (06:14)
[2021-12-23 07:41] LABS: INR 1.9 (<1.2); Prothrombin Time 19.5 sec (9.0-12.0)
[2021-12-23 07:57] LABS: Calcium 8.2 mg/dL (8.4-10.2); Potassium 3.4 mmol/L (3.5-5.1)
--- NOTE | 2021-12-23 09:23 | P.DS ---
Providers Date of admission: 12/20/21 14:05 Expected date of discharge: 12/23/21 Attending physician: Santiago Stubbs MD Consults: 12/20/21 12:04 Consult Physician Routine Consulting Provider: Aj Aparicio Consult Reason/Comments: Aortic valve stenosis Do you want consulting provider notified?: Yes Consult Physician Urgent Consulting Provider: Manav Meraz Consult Reason/Comments: CHF, aortic valve stenosis Do you want consulting provider notified?: Yes Primary care physician: Murtaza Petit [facility] Course: Patient is a 61-year-old male with history of valvular heart disease status post mechanical mitral valve repair, severe aortic stenosis, CAD with distal circumflex 30-40% stenosis and a mid LAD 95% stenosis status post PCI and stent to mid LAD, systolic CHF with EF of 25-30%, 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 He was called by his forestry fire aide Dr. Meraz and urged to go to the ED for further workup and management of his severe aortic stenosis. Patient currently reports worsening lower extremity swelling. He reports exertional shortness of breath. He denies any headache, nausea or vomiting, fever or chills, cough, chest pain, palpitations, changes in urination or bowel habits. No changes in appetite or weight. He denies any dizziness, numbness/weakness/tingling of the extremities. In the ED, he was noted to be tachypneic and O2 saturation of 91% on room air. Vital signs were otherwise stable. CBC showed hemoglobin of 12.4 and MCV of 109. INR was 5.7. CMP showed sodium of 136, potassium of 3.2, chloride of 97, BUN of 32, glucose 116, total bilirubin of 3, AST of 66, ALT of 92, alkaline phosphatase of 149. Troponin was 0.112, EKG showing atrial fibrillation with T-wave inversion Q waves and voltage criteria for LVH. BNP was 35,200. Chest x-ray showed cardiomegaly with pulmonary vascular congestion and pleural effusion with bibasilar infiltrates. Patient was diuresed with Lasix 40 mg IV daily. His respiratory status and lower extremity swelling improved during his hospitalization. Troponins were trended and remained flat, ACS was ruled out. He did have a supratherapeutic INR and his Coumadin was held. His INR improved and patient was discharged on Coumadin 5 mg by mouth daily. INR was ordered to be checked in 3 days and followed up with PCP for further adjustments of Coumadin level. Patient reported symptoms of anxiety and panic attack which woke him up from sleeping. Thought to be related to possible obstructive sleep apnea or Mary Sotomayor breathing. He was unable to tolerate BiPAP. His symptoms did improve with 2 L nasal cannula only while sleeping. DME order was placed for home oxygen. Cardiothoracic surgery evaluated the patient and recommended balloon valvuloplasty by cardiology. Cardiology evaluated the patient and deemed the patient high risk for any cardiac procedures. Dr. Mason was able to communicate with the forestry fire aide at [facility] and advised me that outpatient follow-up will be arranged with cardiology at [facility] for outpatient evaluation for balloon valvuloplasty in 2-3 weeks. Patient was seen and examined. No acute events overnight. Patient reports significant improvement in his breathing and lower extremity swelling. Plan is to discharge patient home. He is advised to follow-up with his PCP within 1-2 days of discharge. Advised to follow-up with cardiology within 1 week of discharge. General: non toxic, no distress, appears at stated age Derm: warm, dry Head: atraumatic, normocephalic, symmetric Eyes: EOMI, no lid lag, anicteric sclera Mouth: no lip lesion, mucus membranes moist Cardiovascular: S1S2 reg, no murmur, positive DP pulse bilateral, sternal scar Lungs: Decreased breath sounds bilateral, no rhonchi, no rales , no accessory muscle use Ext: no gross muscle atrophy, no edema, no contractures Neuro: no focal neuro deficits Psych: Alert, oriented, appropriate affect Discharge Diagnosis: #Panic attacks #Acute on chronic systolic CHF exacerbation, EF 25-30% #Severe aortic stenosis #Troponin elevation with history of CAD #Supratherapeutic INR #Hemolytic anemia #Prerenal azotemia #Transaminitis Chronic conditions: Femoral aneurysm, infrarenal AAA, hypertension, dyslipidemia, atrial fibrillation, BPH This complex discharge took about 45 minutes to complete. Patient Condition at Discharge: Stable Plan - Discharge Summary Discharge Rx Participant: No New Discharge Prescriptions: New Warfarin [Coumadin] 5 mg PO DAILY #30 tab lisinopriL [Zestril] 2.5 mg PO DAILY #20 tab Continue Atorvastatin [Lipitor] 40 mg PO HS Tamsulosin HCl [Flomax] 0.4 mg PO HS Clopidogrel [Plavix] 75 mg PO DAILY #180 tab Furosemide [Lasix] 40 mg PO DAILY #30 tab Ferrous Sulfate [Iron (65 MG Elemental)] 325 mg PO HS Metoprolol Tartrate [Lopressor] 12.5 mg PO BID Pantoprazole [Protonix] 40 mg PO AC-BID #60 tab polyethylene glycoL 3350 [Miralax] 17 gm PO HS PRN PRN Reason: Constipation Discontinued Warfarin Sodium [Jantoven] 3.75 mg PO MOFR@1800 Warfarin Sodium [Jantoven] 7.5 mg PO SUTUWETHSA@1800 Discharge Medication List Atorvastatin [Lipitor] 40 mg PO HS 04/04/20 [History] Ferrous Sulfate [Iron (65 MG Elemental)] 325 mg PO HS 07/07/21 [History] Metoprolol Tartrate [Lopressor] 12.5 mg PO BID 07/07/21 [History] Tamsulosin HCl [Flomax] 0.4 mg PO HS 07/07/21 [History] Clopidogrel [Plavix] 75 mg PO DAILY #180 tab 12/07/21 [Rx] Pantoprazole [Protonix] 40 mg PO AC-BID #60 tab 12/07/21 [Rx] polyethylene glycoL 3350 [Miralax] 17 gm PO HS PRN 12/20/21 [History] Furosemide [Lasix] 40 mg PO DAILY #30 tab 12/23/21 [Rx] Warfarin [Coumadin] 5 mg PO DAILY #30 tab 12/23/21 [Rx] lisinopriL [Zestril] 2.5 mg PO DAILY #20 tab 12/23/21 [Rx] Follow up Appointment(s)/Referral(s): Nursing,[place] [NON-STAFF] - [facility],Equipment [NON-STAFF] - Murtaza Lopez MD [Primary Care Provider] - 1-2 days Manav Meraz MD [STAFF PHYSICIAN] - 1 Week Ambulatory/Diagnostic Orders: Prothrombin Time INR [LAB.AMB] Time Frame: 3 Days, Location: None Selected Activity/Diet/Wound Care/Special Instructions: Diet: Cardiac with fluid restriction to 1.5 L daily Follow-up with PCP within 1-2 days of discharge. Follow-up with cardiology within 1 week of discharge. INR check in 3 days. Follow-up results with PCP. Discharge home on 2 L nasal cannula only during sleep. [facility] will call you with the appointment for evaluation for balloon valvuloplasty. Discharge Disposition: HOME SELF-CARE
[2021-12-23] MEDS: CLOPIDOGREL 75 MG TAB PO SCH (09:28)
[2021-12-23] MEDS: METOPROLOL TARTRATE 12.5 MG TAB PO SCH (09:28)
[2021-12-23] MEDS: FUROSEMIDE 10 MG/ML 4 ML VIAL IV SCH (09:29)
[2021-12-23] MEDS: HYDROPHILIC CREAM 180 GM TUBE TOPICAL SCH (09:30)
[2021-12-23 14:28] VITALS: BP 97/57; PULSE 79; RESP 16; TEMP 97.7
[2021-12-23] MEDS ORDERED: WARFARIN 3 MG TAB PO ONE (18:00)
--- NOTE | 2021-12-23 22:08 | PN ---
PROGRESS NOTE SUBJECTIVE: Kailash is an 89-year-old gentleman with history of severe aortic stenosis, status post mechanical mitral valve replacement, and atrial fibrillation, who is admitted to hospital with acute exacerbation of chronic systolic heart failure. He has ischemic cardiomyopathy and had recent intervention. He is currently being considered for TAVR, and I am arranging for him to go to [facility]. OBJECTIVE: VITAL SIGNS: Afebrile, heart rate is 80 beats per minute, blood pressure is 94/52, respiratory rate is 18, O2 saturation is 98% on 2 L. NECK: There is no jugular venous distention. CHEST: Reveals good air entry bilaterally. I do not hear any crackles or rhonchi. HEART: Reveals first and second heart sounds. Grade 4/6 ejection systolic murmur. ABDOMEN: Soft. EXTREMITIES: Reveal mild edema bilaterally. LABORATORY DATA: Show that the INR was 2.3 yesterday; today, it is 1.9, and he has been restarted on Coumadin at 3 mg daily. ASSESSMENT: 1. Acute exacerbation of chronic systolic heart failure, severe aortic stenosis, status post mitral valve replacement. 2. Peripheral arterial disease. 3. Permanent atrial fibrillation. PLAN: The patient will be discharged home today, and hopefully, we can organize for him to go to [facility] in the outpatient setting. MMODL / IJN: [id number] /
== END 2021-12-23 13:12 | disposition home or self-care (01) | DRG 291 ==
LOC: EC 11:21 → 3SCARD 14:05
PROVIDERS: ADMIT Family Medicine; ATTEND Family Medicine
DX: I11.0 Hypertensive heart disease with heart failure (principal); I50.23 Acute on chronic systolic (congestive) heart failure; I48.21 Permanent atrial fibrillation; D59.9 Acquired hemolytic anemia, unspecified; D68.9 Coagulation defect, unspecified; I65.22 Occlusion and stenosis of left carotid artery; I70.8 Atherosclerosis of other arteries; I25.5 Ischemic cardiomyopathy; I27.20 Pulmonary hypertension, unspecified; I72.4 Aneurysm of artery of lower extremity; L89.151 Pressure ulcer of sacral region, stage 1; I73.9 Peripheral vascular disease, unspecified; I71.43 Infrarenal abdominal aortic aneurysm, without rupture; N40.0 Benign prostatic hyperplasia without lower urinary tract symptoms; E78.5 Hyperlipidemia, unspecified; E87.6 Hypokalemia; I08.3 Combined rheumatic disorders of mitral, aortic and tricuspid valves; Z95.828 Presence of other vascular implants and grafts; F41.0 Panic disorder [episodic paroxysmal anxiety]; G47.33 Obstructive sleep apnea (adult) (pediatric); Z95.2 Presence of prosthetic heart valve; Z79.01 Long term (current) use of anticoagulants; I25.10 Atherosclerotic heart disease of native coronary artery without angina pectoris; Z79.02 Long term (current) use of antithrombotics/antiplatelets; Z79.899 Other long term (current) drug therapy; Z87.891 Personal history of nicotine dependence; Z95.5 Presence of coronary angioplasty implant and graft; R77.8 Other specified abnormalities of plasma proteins; Z87.19 Personal history of other diseases of the digestive system; Z28.21 Immunization not carried out because of patient refusal
CPT/HCPCS: 36415; 71045; 76705; 80048; 80053; 83735; 83880; 84484; 85025; 85610; 85730; 93005; 94760; 96374; 99285

== ENCOUNTER 2022-01-05 09:14 | Day surgery (SDC) | payer MEDICARE ==
[~2022-01-05 09:14] MED LIST changes: -DEXAMETHASONE SOD PHOSPHATE 4 MG/ML 1 ML VIAL IV ONE; -ONDANSETRON 4 MG/2 ML VIAL IVP ONE; +SODIUM CHLORIDE 0.9% 1,000 ML IV ONE
[2022-01-05] MEDS ORDERED: SODIUM CHLORIDE 0.9% 1,000 ML IV ONE (09:30)
[2022-01-05] MEDS ORDERED: ASPIRIN 325 MG TAB ONE (09:49)
[2022-01-05 10:25] LABS: Basophils % (A) 0 %; Eosinophils % (A) 1 %; HCT 39.8 % (39.0-53.0); HGB 12.6 gm/dL (13.0-17.5); Hypochromasia Moderate; Lymphocytes # (A) 0.6 k/uL (1.0-4.8); Lymphocytes % (A) 10 %; MCHC 31.6 g/dL (31.0-37.0); MCV 104.4 fL (80.0-100.0); Macrocytosis Moderate; Monocytes # (A) 0.4 k/uL (0-1.0); Monocytes % (A) 6 %; Neutrophils # (A) 4.7 k/uL (1.3-7.7); Neutrophils % (A) 81 %; Platelet Count 111 k/uL (150-450); RBC 3.81 m/uL (4.30-5.90); WBC 5.7 k/uL (3.8-10.6)
[2022-01-05 10:32] LABS: INR 1.2 (<1.2); Prothrombin Time 12.5 sec (9.0-12.0)
[2022-01-05] MEDS ORDERED: VERAPAMIL 2.5 MG/ML 2 ML AMP ONE (10:55)
[2022-01-05] MEDS ORDERED: fentaNYL (PF) 50 MCG/ML 2 ML AMP ONE (11:16)
[2022-01-05] MEDS ORDERED: HEPARIN SODIUM 1,000 UN/ML (10ML VL) ONE (11:18)
[2022-01-05] MEDS ORDERED: MIDAZOLAM 2 MG/2 ML VIAL IV ONE (11:22)
[2022-01-05] MEDS ORDERED: fentaNYL (PF) 50 MCG/ML 2 ML AMP IV ONE (11:39)
[2022-01-05] MEDS ORDERED: HEPARIN SODIUM 1,000 UN/ML (10ML VL) IV ONE (11:42)
[2022-01-05] MEDS ORDERED: PHENYLEPHRINE-0.9% NACL SYG 1,000 MCG/10 ML SYRINGE IV ONE (12:08)
[2022-01-05] MEDS ORDERED: PROTAMINE SULFATE 10 MG/ML 5 ML VIAL IV ONE ×2 (12:15→12:28)
[2022-01-05] MEDS ORDERED: IOPAMIDOL-300 50ML BTL INJ ONE (12:32)
[2022-01-05] MEDS ORDERED: RX INFO: IV CONTRAST WAS GIVEN 1 EACH MISC MISCELLANE PRN (12:42)
[2022-01-05] MEDS ORDERED: ATROPINE SULFATE 0.1 MG/ML 10ML SYRINGE IV PRN (12:42)
[2022-01-05] MEDS ORDERED: ZOLPIDEM 5 MG TAB PO PRN (12:42)
[2022-01-05] MEDS ORDERED: NITROGLYCERIN SL TABS 0.4 MG TAB SUBLINGUAL PRN (12:42)
[2022-01-05] MEDS ORDERED: MAG HYDROX/AL HYDROX/SIMETH 30 ML CUP PO PRN (12:42)
[2022-01-05] MEDS ORDERED: SODIUM CHLORIDE 0.9% 1,000 ML in EMPTY BAG 1 BAG IV SCH (12:45)
[2022-01-05] MEDS: PANTOPRAZOLE 40 MG TABLET PO SCH (16:49)
--- NOTE | 2022-01-05 18:13 | P.PCN ---
Date of Procedure: 01/05/22 Operative Findings: Transcutaneous balloon aortic valvuloplasty Performing physicians DO Garo Chaparro MD Procedure performed 1. Successful balloon aortic valvuloplasty with a reduction of mean gradient from 65 mmHg to 41 mmHg and without AI 2. Left heart catheterization 3. Successful placement of transvenous pacemaker in the right ventricle from right femoral vein 4. An aortic root angiogram 5. Left common femoral artery angiogram 6. Ultrasound-guided access of the left common femoral artery and right common femoral vein and right radial art Indication This is an 89-year-old gentleman with coronary artery disease and critical aortic stenosis who sees Dr. Mason regularly. He continues to be symptomatic in terms of shortness of breath which has been consistent with NYHA class III. Beside that he had multiple hospital admission recently with heart failure. In the light of that the procedure was advised to assess the response and possible need for transcutaneous aortic valve replacement. Complications None Level of sedation Moderate sedation length of 50 minutes Approach Left common femoral artery Right radial artery Right common femoral vein Procedure description After obtaining an informed consent the patient was brought to the cardiac supervisor laboratory animal facility. Under ultrasound guidance the left common femoral artery was cannulated using micropuncture technique under ultrasound guidance, the micropuncture wire passed easily then we placed initially a 6 [place] Helenian sheath at the left common femoral artery. Subsequently the right radial artery was cannulated using micropuncture technique under ultrasound guidance, a micropuncture wire passed easily then we placed another 6 [place] Helenian sheath at the right radial artery. After that the right common femoral vein was cannulated using micropuncture technique under ultrasound guidance, the micropuncture wire passed easily then we place an 8 [place] Helenian sheath in the right common femoral vein. Subsequently under fluoroscopy guidance a temporary pacemaker was balloon tip was advanced all the way to the right ventricle apex. The transcutaneous pacer was tested and it was left and there are 5 of AMP and 60 bpm as a backup. Subsequently we did advance an 035 stiff Glidewire to the thoracic aorta and the wire was exchanged over a pigtail catheter into a stiff 035 wire. At that point we did upgrade our 6 [place] Helenian sheath into the 12 [place] Helenian sheath using a 10 [place] Helenian dilator. Before that we did place 2 Perclose over the 6 [address] Helenian sheath. Then we placed an 8 [place] Helenian sheath before we upgraded into 12 [place] Helenian sheath. At that point anticoagulation was initiated using heparin with a continuous ACT monitoring throughout the procedure. Subsequently we did advance an AL-1 catheter to the ascending aorta. From the right radial artery we advanced a pigtail catheter to the noncoronary cusp. We did an aortic root angiogram through the pigtail catheter. Subsequently we crossed the aortic valve using an AL-1 catheter was advanced to the LV then after that we exchanged AL-1 into the pigtail catheter where we did simultaneous and aortic root and LV pressure and that showed a mean gradient of 63 mmHg. Subsequently we did advance a stiff wire inside AL-1 and AL-1 was taken out. After that we did balloon valvuloplasty of the aortic valve using 24 mm balloon. That was performed under a pacing of 1 20 bpm. Subsequently the balloon was deflated and withdrawn out. Another simultaneous aortic and LV pressure was performed and that showed reduction in the gradient from 63 mm milky to 41 mmHg. Definitely the patient's blood pressure has improved immediately. At that point we decided to stop. We did another aortic root angiogram which showed no aortic regurgitation above 1+. After that from the right radial approach we advanced a stiff Glidewire to the descending aorta and the ostial of the left common iliac. Subsequently we exchanged this wire into a stiff wire then we did advance a 6 x 60 mm balloon in case we need to tamponade the artery in case we could not achieve hemostasis. After that we did hold the 12 [place] Helenian sheath from the left common femoral artery with a good hemostasis. The procedure was completed without any complication Postprocedure management The patient to be admitted for another 24 hours of monitoring Monitor the pressure Obtain an echo Follow-up with the base
--- NOTE | 2022-01-05 19:09 | CA ---
Transthoracic Echo Report Name: Kailash Wilhelm Age: 89 Gender: M : 1930 Exam Date: 01/05/2022 13:09 Exam Location: [facility] [place] [facility] Ht (in): Wt (lb): Ordering Physician: Garo Dixon MD ([id number]) Attending/Referring Phys: Financial Assistance Specialist Priscilla Fermin, MK Procedure CPT: Indications: s/p BAV Cardiac Hx: Pt is S/P BAV Technical Quality: Contrast 1: Total Dose (mL): Contrast 2: Total Dose (mL): MEASUREMENTS (Male / Female) Normal Values DOPPLER AV Peak Velocity 285.5 cm/s AV Peak Gradient 32.6 mmHg AV Mean Velocity 183.4 cm/s AV Mean Gradient 16.7 mmHg AV Velocity Time Integral 56.2 cm LVOT Peak Velocity 53.2 cm/s LVOT Peak Gradient 1.1 mmHg FINDINGS Left Ventricle Left ventricular ejection fraction is estimated at 25-30 %. Global left ventricular hypokinesis. Right Ventricle Normal right ventricular size and function.right ventricular systolic pressure within normal limits. Right Atrium Normal right atrial size. Left Atrium Severe left atrial dilatation. Mitral Valve Mechanical mitral valve Aortic Valve Pt is s/p BAV Peak Gradient 33mmHg and mean gradient 17 mmHg, [id number] aortic regurgitation. Tricuspid Valve Structurally normal tricuspid valve. Mild tricuspid regurgitation. Pulmonic Valve Pulmonic valve not well visualized. Pericardium Normal pericardium. Aorta CONCLUSIONS Left ventricular ejection fraction 25-30% Severe left atrial dilation Mechanical mitral valve Moderate to severe aortic stenosis with mean gradient 22 mmHg however likely component of low-flow gradient Mild to moderate aortic regurgitation Mild tricuspid regurgitation Previewed by: Dr. Keyshawn Adorno DO (Electronically Signed) Final Date: 05 January 2022 19:08
[2022-01-05] MEDS: METOPROLOL TARTRATE 12.5 MG TAB PO SCH (20:07)
[2022-01-05 20:58] VITALS: RESP 18
[2022-01-05] MEDS ORDERED: FERROUS SULFATE 325 MG TAB PO SCH (21:00)
[2022-01-05] MEDS ORDERED: TAMSULOSIN 0.4 MG CAP.ER.24H PO SCH (21:00)
[2022-01-05] MEDS ORDERED: ATORVASTATIN 40 MG TAB PO SCH (21:00)
[2022-01-06] MEDS: PANTOPRAZOLE 40 MG TABLET PO SCH (06:03)
[2022-01-06] MEDS: METOPROLOL TARTRATE 12.5 MG TAB PO SCH (08:15)
[2022-01-06] MEDS ORDERED: CLOPIDOGREL 75 MG TAB PO SCH (09:00)
[2022-01-06] MEDS ORDERED: POTASSIUM CHLORIDE ER 20 MEQ TAB.ER PO SCH (09:00)
[2022-01-06] MEDS ORDERED: FUROSEMIDE 40 MG TAB PO SCH (09:00)
--- NOTE | 2022-01-06 09:02 | P.DS ---
Providers Attending physician: Garo Dixon Consults: 01/05/22 12:42 Consult Physician Routine Consulting Provider: [facility] Consult Reason/Comments: Post Interventional patient Do you want consulting provider notified?: Already Contacted Primary care physician: Murtaza Petit [facility] Hospital Course: This is an 89-year-old gentleman who sees Dr. Meraz regularly was diagnosis acute severe symptomatic aortic stenosis. He was admitted to the hospital yesterday and underwent successful aortic balloon valvuloplasty with reduction of gradient from 60 mmHg to 40 mmHg. That was the mean gradient. The patient was seen this morning. Overall he is asymptomatic. He is hemodynamically stable. Both groins are soft and nontender and without any bruises. He underwent an echo which reveals no evidence of pericardial effusion The patient is going to be discharged home and follow-up was Dr. Mason as an outpatient. Plan - Discharge Summary Discharge Rx Participant: Yes New Discharge Prescriptions: Continue Atorvastatin [Lipitor] 40 mg PO HS Tamsulosin HCl [Flomax] 0.4 mg PO HS Clopidogrel [Plavix] 75 mg PO DAILY #180 tab lisinopriL [Zestril] 2.5 mg PO DAILY #20 tab Furosemide [Lasix] 40 mg PO DAILY #30 tab Ferrous Sulfate [Iron (65 MG Elemental)] 65 mg PO HS Metoprolol Tartrate [Lopressor] 12.5 mg PO BID Pantoprazole [Protonix] 40 mg PO AC-BID #60 tab Warfarin [Coumadin] 4 mg PO DAILY Potassium Chloride ER [K-Dur 20] 20 meq PO DAILY Discharge Medication List Atorvastatin [Lipitor] 40 mg PO HS 04/04/20 [History] Ferrous Sulfate [Iron (65 MG Elemental)] 65 mg PO HS 07/07/21 [History] Metoprolol Tartrate [Lopressor] 12.5 mg PO BID 07/07/21 [History] Tamsulosin HCl [Flomax] 0.4 mg PO HS 07/07/21 [History] Clopidogrel [Plavix] 75 mg PO DAILY #180 tab 12/07/21 [Rx] Pantoprazole [Protonix] 40 mg PO AC-BID #60 tab 12/07/21 [Rx] Furosemide [Lasix] 40 mg PO DAILY #30 tab 12/23/21 [Rx] lisinopriL [Zestril] 2.5 mg PO DAILY #20 tab 12/23/21 [Rx] Potassium Chloride ER [K-Dur 20] 20 meq PO DAILY 01/04/22 [History] Warfarin [Coumadin] 4 mg PO DAILY 01/04/22 [History] Follow up Appointment(s)/Referral(s): Manav Meraz MD [STAFF PHYSICIAN] - 1 Week
[2022-01-06 09:26] VITALS: BP 109/70; PULSE 90; TEMP 98
== END 2022-01-06 10:20 | disposition home or self-care (01) ==
LOC: CATHCVL 09:14 → 3SCARD 12:36 → CATHCVL 01-06 10:20
PROVIDERS: ATTEND Internal Medicine Interventional Cardiology
DX: I35.0 Nonrheumatic aortic (valve) stenosis (principal); E78.5 Hyperlipidemia, unspecified; I25.10 Atherosclerotic heart disease of native coronary artery without angina pectoris; I25.5 Ischemic cardiomyopathy; Z95.2 Presence of prosthetic heart valve; I50.22 Chronic systolic (congestive) heart failure; Z79.01 Long term (current) use of anticoagulants; Z95.0 Presence of cardiac pacemaker
CPT/HCPCS: 93306; 92986; 84132; 85025; 85610; C1769 ×7; C1894 ×5; C1725; C1760; J2250; J2720; J3010; J1644; J2370; Q9967

== ENCOUNTER 2022-02-12 10:20 | Emergency (ER) | payer MEDICARE ==
--- NOTE | 2022-02-12 12:54 | ED ---
Extremity Problem HPI - General Chief complaint: Extremity Problem,Nontraumatic Stated complaint: bunion Time Seen by Provider: 02/12/22 12:41 Source: patient, family (son), RN notes reviewed, old records reviewed Mode of arrival: ambulatory Limitations: no limitations - History of Present Illness Initial comments: 89-year-old male presents with his son to the emergency room with complaints of left great toe pain for the past 2 weeks. Patient states he has had similar pain believes is related to his bunion. He states he has seen podiatry in the past and received an injection into the joint which improved his pain. He is requesting that joint injection today. MD Complaint: joint swelling (first MP joint ) -: week(s) (2) Location: left History of Same: Yes Severity scale (1-10): 8 Associated Symptoms: denies other symptoms - Related Data Home Medications Medication Instructions Recorded Confirmed Atorvastatin [Lipitor] 40 mg PO HS 04/04/20 01/05/22 Ferrous Sulfate [Iron (65 MG 65 mg PO HS 07/07/21 01/05/22 Elemental)] Metoprolol Tartrate [Lopressor] 12.5 mg PO BID 07/07/21 01/05/22 Tamsulosin HCl [Flomax] 0.4 mg PO HS 07/07/21 01/05/22 Potassium Chloride ER [K-Dur 20] 20 meq PO DAILY 01/04/22 01/05/22 Warfarin [Coumadin] 4 mg PO DAILY 01/04/22 01/05/22 Previous Rx's Medication Instructions Recorded Clopidogrel [Plavix] 75 mg PO DAILY #180 tab 12/07/21 Pantoprazole [Protonix] 40 mg PO AC-BID #60 tab 12/07/21 Furosemide [Lasix] 40 mg PO DAILY #30 tab 12/23/21 lisinopriL [Zestril] 2.5 mg PO DAILY #20 tab 12/23/21 Colchicine 0.6 mg PO Q1H #2 capsule 02/12/22 Allergies Allergy/AdvReac Type Severity Reaction Status Date / Time No Known Allergies Allergy Verified 02/12/22 10:34 Review of Systems ROS Statement: Those systems with pertinent positive or pertinent negative responses have been documented in the HPI. ROS Other: All systems not noted in ROS Statement are negative. 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 Left SFA angioplasty/arthrectomy/stent. Upper GI, Lower GI. Past Anesthesia/Blood Transfusion Reactions: No Reported Reaction Additional Past Anesthesia/Blood Transfusion Reaction / Comment(s): no blood transfusion reactions in past Date of Last Stent Placement:: 12-05-21 Past Psychological History: No Psychological Hx Reported Smoking Status: Never smoker Past Alcohol Use History: None Reported Past Drug Use History: None Reported - Past Family History Father Family Medical History: No Reported History Mother Family Medical History: No Reported History General Exam Limitations: no limitations General appearance: alert, in no apparent distress Respiratory exam: Absent: respiratory distress, accessory muscle use Cardiovascular Exam: Present: bradycardia Extremities exam: Present: normal capillary refill. Absent: pedal edema, calf tenderness Left Foot/Toe exam: Present: tenderness, swelling, erythema (Left great toe MP joint) Neurovascular tendon exam: Present: no vascular compromise, abnormal cap refill. Absent: extremity cold to touch, pallor, foot drop Gait: observed and normal Neurological exam: Present: alert, oriented X3, normal gait Psychiatric exam: Present: normal affect, normal mood Skin exam: Present: warm, dry, normal color. Absent: cyanosis, diaphoretic, petechiae, pallor Course Vital Signs 02/12/22 02/12/22 02/12/22 10:32 12:49 14:00 Temperature 98.5 F 98.2 F Pulse Rate 54 L 80 75 Respiratory 20 18 18 Rate Blood Pressure 104/52 110/68 100/64 O2 Sat by Pulse 96 99 97 Oximetry Medical Decision Making - Medical Decision Making Patient presents with left great toe MP joint pain for the past 2 weeks. Joint is red and warm to touch. He does have a history of gout. Denies any other joint pain. No fevers. Patient is able to ambulate. He was given colchicine in the emergency room. A referral to podiatry. Patient discharged home with his son, aggreable to this plan of care. Case discussed with Dr. canales Disposition Clinical Impression: Gout Disposition: HOME SELF-CARE Condition: Good Instructions (If sedation given, give patient instructions): Low Purine Diet (ED), Gout (ED) Additional Instructions: Take one tablet of colchicine every 1-2 hours as needed for pain, no more than 2 doses after the dose given in ER. Follow-up with podiatry this week. Prescriptions: Colchicine 0.6 mg PO Q1H #2 capsule Is patient prescribed a controlled substance at d/c from ED?: No Referrals: Murtaza Lopez MD [Primary Care Provider] - 1-2 days Lb Lagunas DPM [STAFF PHYSICIAN] - 1-2 days Time of Disposition: 13:16
[2022-02-12 12:55] VITALS: RESP 18
[2022-02-12] MEDS ORDERED: COLCHICINE 0.6 MG EACH PO SCH (13:00)
[2022-02-12] MEDS: COLCHICINE 0.6 MG EACH PO SCH (13:57)
[2022-02-12 14:02] VITALS: BP 100/64; PULSE 75; TEMP 98.2
== END 2022-02-12 14:02 | disposition home or self-care (01) ==
LOC: EC 10:20
DX: M10.9 Gout, unspecified (principal); I48.91 Unspecified atrial fibrillation; I11.0 Hypertensive heart disease with heart failure; I50.9 Heart failure, unspecified; E78.5 Hyperlipidemia, unspecified; Z79.02 Long term (current) use of antithrombotics/antiplatelets; Z79.899 Other long term (current) drug therapy; Z79.01 Long term (current) use of anticoagulants
CPT/HCPCS: 99283